=== PATIENT | male | born 1965 | race Caucasian/White ===

== ENCOUNTER → 2017-07-17 09:45 | Outpatient (CLI) | payer OTHER, SELFPAY ==
[2017-07-17 10:02] LABS: Basophils # 0.1 K/mm3 (0-0.2); Basophils % 0.8 % (0.1-2.0); Eosinophils # 0.3 K/mm3 (0.0-0.4); Eosinophils % 3.2 % (0.1-12.0); Hematocrit 45.1 % (42.0-52.0); Hemoglobin 15.1 g/dL (14.1-18.0); Lymphocytes % 22.2 K/mm3 (10-50); Mean Corpuscular HGB Conc 33.4 g/dL (31.8-35.4); Mean Corpuscular Hemoglobin 29.2 pg (27.0-31.2); Mean Corpuscular Volume 87.5 fl (80-94); Mean Platelet Volume 7.3 fl (7.4-10.4); Monocytes # 0.7 K/mm3 (0.1-1.0); Monocytes % 7.2 % (1.7-9.3); Neutrophils # 6.1 K/mm3 (1.8-7.8); Neutrophils % 66.7 % (37.0-80.0); Platelet Count 246 K/mm3 (142-424); Red Blood Count 5.15 M/mm3 (4.60-6.20); Red Cell Distribution Width 13.9 % (11.5-17.5); White Blood Count 9.1 K/mm3 (4.8-10.8)
[2017-07-17 11:33] LABS: Erythrocyte Sedimentation Rate 16 mm/hr (0-20)
[2017-07-17 14:12] LABS: Alanine Aminotransferase 71 U/L (12-78); Albumin Level 3.4 gm/dL (3.4-5.0); Albumin/Globulin Ratio 0.9 (1.1-1.8); Alkaline Phosphatase 100 U/L (46-116); Anion Gap 12.3 mEq/L (5-15); Aspartate Amino Transferase 40 U/L (15-37); Bilirubin,Total 0.5 mg/dL (0.2-1.0); Blood Urea Nitrogen 19 mg/dL (7-18); Calcium 8.7 mg/dL (8.5-10.1); Carbon Dioxide 26 mmol/L (21.0-32.0); Chloride 106 mmol/L (98-107); Chol/HDL Ratio 4.9 (1-3.5); Cholesterol 157 mg/dL (140-200); Creatinine,Serum 1.11 mg/dL (0.70-1.30); Estimated Glomerular Filt Rate 69 ml/min (>60); GFR (African American) 84 ML/MIN (>60); Globulin 3.9 gm/dl (1.3-3.2); Glucose 88 mg/dL (74-106); HDL Cholesterol 32 mg/dL (27-67); LDL Cholesterol 110 mg/dL (0-130); Potassium 4.3 mmoL/L (3.5-5.1); Sodium 140 mmol/L (136-145); Thyroid Stimulating Hormone 2.08 uIU/ml (0.358-3.740); Total Protein,Serum 7.3 gm/dL (6.4-8.2); Triglycerides 74 mg/dL (30-200); Uric Acid 9.7 mg/dL (2.6-7.2); VLDL Cholesterol 15 mg/dL (0-40)
[2017-07-18 18:30] LABS: RA Latex Turbid. <10.0 IU/mL (0.0-13.9)
[2017-07-19 18:10] LABS: Antinuclear Antibodies, IFA Negative (.)
[2017-07-20 10:58] LABS: Anti-Cyclic Citrullinated Pept 12 units (0-19)
== END ==
LOC: LAB 09:48
PROVIDERS: PCP Nurse Practitioner Family; Visit Provider Nurse Practitioner Family
DX: M25.541 Pain in joints of right hand (principal); I10 Essential (primary) hypertension; I25.10 Atherosclerotic heart disease of native coronary artery without angina pectoris; L03.311 Cellulitis of abdominal wall
CPT/HCPCS: 36415; 80053; 80061; 84443; 84550; 85025; 85651; 86038; 86200; 86431

== ENCOUNTER → 2017-09-08 16:23 | Outpatient (CLI) | payer OTHER, SELFPAY ==
--- NOTE | 2017-09-08 16:27 | XR_ITS ---
XR hand LT min 3V HISTORY: Left hand pain ITS.REASON: OSTEOARTHRITIS ORDERING PHYSICIAN: Marco A Castañeda MD PATIENT AGE: 51 years COMPARISON: To 317 FINDINGS: No fracture or dislocation. No lytic or blastic change. There is normal mineralization.. The joint spaces are well-preserved. No significant degenerative/arthritic changes. No erosive changes evident.. Small benign-appearing cystic area is present at the distal aspect of the proximal phalanx of the finger and may be due to a small subarticular cyst IMPRESSION: No acute finding. No arthritic changes apparent
--- NOTE | 2017-09-08 16:27 | XR_ITS ---
XR hand RT min 3V HISTORY: Right hand pain ITS.REASON: OSTEOARTHRITIS ORDERING PHYSICIAN: Marco A Castañeda MD PATIENT AGE: 51 years COMPARISON: None FINDINGS: No fracture or dislocation. No lytic or blastic change. There is normal mineralization.. The joint spaces are well-preserved. No significant degenerative/arthritic changes. No erosive changes evident.. IMPRESSION: Negative, no acute finding
--- NOTE | 2017-09-08 16:28 | XR_ITS ---
XR shoulder RT min 2V HISTORY: ITS.REASON: RT ANTERIOR SHOULDER PAIN ORDERING PHYSICIAN: Marco A Castañeda MD PATIENT AGE: 51 years COMPARISON: None FINDINGS: No fracture or dislocation. No lytic or blastic change. There is normal mineralization. The joint spaces are well-preserved. No significant degenerative/arthritic changes. No erosive changes evident. IMPRESSION: Negative, no acute finding
== END ==
PROVIDERS: PCP Internal Medicine Adolescent Medicine; Visit Provider Internal Medicine Adolescent Medicine
DX: M19.042 Primary osteoarthritis, left hand (principal); M19.041 Primary osteoarthritis, right hand; M25.511 Pain in right shoulder
CPT/HCPCS: 73030; 73130

== ENCOUNTER 2018-05-07 11:17 | Inpatient (IN) ==
--- NOTE | 2018-05-07 11:51 | Pharmacy Consult Notes ---
[facility] Pharmacy VTE Monitoring - Patient Demographics Admission date: 05/07/18 Report Date: 05/07/18 Time: 11:51 Allergies/Adverse Reactions: Patient Allergies No Known Allergies Allergy (Verified 03/12/18 01:44) Height: 1.75 m Weight: 107.643 kg - VTE Risk VTE Score: 1 VTE Risk Level: Very Low Risk - Prophylaxis VTE Prophylaxis Ordered?: Yes Types of VTE Prophylaxis: TEDS Knee High Location of Applied Device: Bilateral Lower Extremeties - VTE Diagnosis Confirmed Treatment or plan recommended: Continue Current Treatment
[2018-05-07 12:05] LABS: Basophils % 0.3 % (0.1-2.0); Eosinophils # 0.1 K/mm3 (0.0-0.4); Eosinophils % 0.5 % (0.1-12.0); Hemoglobin 15.6 g/dL (14.1-18.0); Lymphocytes # 1.2 K/mm3 (0.7-4.5); Lymphocytes % 8.1 % (10-50); Mean Corpuscular HGB Conc 32.4 g/dL (31.8-35.4); Mean Corpuscular Hemoglobin 28.7 pg (27.0-31.2); Mean Corpuscular Volume 88.4 fl (80-94); Mean Platelet Volume 6.9 fl (7.4-10.4); Monocytes # 1.1 K/mm3 (0.1-1.0); Monocytes % 7.3 % (1.7-9.3); Neutrophils # 12.4 K/mm3 (1.8-7.8); Neutrophils % 83.8 % (37.0-80.0); Platelet Count 234 K/mm3 (142-424); Red Blood Count 5.43 M/mm3 (4.60-6.20); Red Cell Distribution Width 14.5 % (11.5-17.5); White Blood Count 14.8 K/mm3 (4.8-10.8)
[2018-05-07 12:11] LABS: Anion Gap 13.9 mEq/L (5-15); Calcium 9.1 mg/dL (8.5-10.1); Potassium 3.9 mmoL/L (3.5-5.1)
--- NOTE | 2018-05-07 12:49 | Pharmacy Consult Notes ---
- Pharmacy Consult Date: 05/07/18 Time: 12:48 Referring provider: DR. BUENO Reason for Consult:: VANCOMYCIN DOSING Allergies and ADEs:: Allergies Allergy/AdvReac Type Severity Reaction Status Date / Time No Known Allergies Allergy Verified 03/12/18 01:44 Home Medications:: Home Medications Medication Instructions Recorded Confirmed Type aspirin 81 mg tablet,delayed 81 mg PO DAILY 10/22/17 05/07/18 History release atorvastatin 20 mg tablet 20 mg PO DAILY 10/22/17 05/07/18 History lisinopril 20 mg tablet 20 mg PO DAILY 10/22/17 05/07/18 History omeprazole 40 mg capsule,delayed 40 mg PO ONCE 10/22/17 05/07/18 History release Height: 1.75 m Weight: 107.643 kg Laboratory Results:: Laboratory Results - last 24 hr 05/07/18 11:50: WBC 14.8 H, RBC 5.43, Hgb 15.6, Hct 48.0, MCV 88.4, MCH 28.7, MCHC 32.4, RDW 14.5, Plt Count 234, MPV 6.9 L, Neut % (Auto) 83.8 H, Lymph % (Auto) 8.1 L, [place] % (Auto) 7.3, Eos % (Auto) 0.5, Baso % (Auto) 0.3, Neut # (Auto) 12.4 H, Lymph # (Auto) 1.2, [place] # (Auto) 1.1 H, Eos # (Auto) 0.1, Baso # (Auto) 0.0 05/07/18 11:50: Sodium 139, Potassium 3.9, Chloride 101, Carbon Dioxide 28, Anion Gap 13.9, BUN 15, Creatinine 1.26, Estimated Creat Clear 102, Estimated GFR 60, Est GFR ( Amer) 72, Glucose 119 H, Calcium 9.1 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: Reports:: Gastroesophageal Reflux Disease(GERD), Hyperlipidemia, Hypertension Denies:: Cancer, Diabetes Mellitus Type 1, Diabetes Mellitus Type 2, MRSA Assessment and Plan - Assessment and plan all Dx Assessment and Plan for all problems:: BASED ON PATIENT FACTORS, RECOMMEND VANCOMYCIN 2,000MG IV Q18H. PHARMACY WILL OBTAIN TROUGH LEVEL PRIOR TO FOURTH DOSE AND ADJUST DOSE/INTERVAL APPROPRIATE AT THAT POINT. -MYLES GALVIN PHARMD
--- NOTE | 2018-05-07 13:31 | Consult Report ---
*Admission Date: 05/07/18 *Chief complaint: Boil on scrotum *History of present illness: Patient is a 52-year-old white male. He states that about a day and a half ago he had noted a tender knot on the fact of the left scrotum. He thought he may have an infected ingrown hair. He tried to squeeze the area. Overnight it became progressively significantly enlarged and had increasing pain. He presented to his primary care provider's office today. He was admitted for inpatient management and surgical consultation was obtained. Review of Systems - Review of Systems Review of systems:: pertinent systems reviewed and negative unless documented below - Constitutional Denies anorexia - Eyes Denies blind spots - ENT Denies abnormal hearing - *Cardiovascular Denies chest pain - *Respiratory Denies shortness of breath - *Gastrointestinal Denies abdominal pain - *Genitourinary Reports genital lesions, Reports genital pain - *Musculoskeletal Denies abnormal walking - Integumentary/Breasts Reports boil [facility] History 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: Reports:: Gastroesophageal Reflux Disease(GERD), Hyperlipidemia, Hypertension Denies:: Cancer, Diabetes Mellitus Type 1, Diabetes Mellitus Type 2, MRSA Laterality Cases: Bilateral: Tonsillectomy Other Surgeries: Yes: Other (back and sinus) Amputation: No Fractures: No - *Social History Educational Level: Completed High School Smoking Status: Never smoker Alcohol Intake: never Substance Use Type: denies use Occupational Status: employed Housing: house Household Members: spouse - Psychiatric History Expresses thoughts of harming self/others: None Suicide Plan Description: No Plan *Family Hx:: Diabetes, Heart Attack, Hyperlipidemia, Hypertension Meds Home Medications Medication Instructions Recorded Confirmed Type aspirin 81 mg tablet,delayed 81 mg PO DAILY 10/22/17 05/07/18 History release atorvastatin 20 mg tablet 20 mg PO DAILY 10/22/17 05/07/18 History lisinopril 20 mg tablet 20 mg PO DAILY 10/22/17 05/07/18 History omeprazole 40 mg capsule,delayed 40 mg PO ONCE 10/22/17 05/07/18 History release Allergies Allergy/AdvReac Type Severity Reaction Status Date / Time No Known Allergies Allergy Verified 03/12/18 01:44 Exam Vital signs and Labs for Last 24 Hours: Temp Pulse Resp BP Pulse Ox 97.8 F 74 18 153/96 H 97 05/07/18 11:44 05/07/18 11:44 05/07/18 11:44 05/07/18 11:44 05/07/18 11:44 Laboratory Results - last 24 hr 05/07/18 11:50: WBC 14.8 H, RBC 5.43, Hgb 15.6, Hct 48.0, MCV 88.4, MCH 28.7, MCHC 32.4, RDW 14.5, Plt Count 234, MPV 6.9 L, Neut % (Auto) 83.8 H, Lymph % ( Auto) 8.1 L, [place] % (Auto) 7.3, Eos % (Auto) 0.5, Baso % (Auto) 0.3, Neut # (Auto) 12.4 H, Lymph # (Auto) 1.2, [place] # (Auto) 1.1 H, Eos # (Auto) 0.1, Baso # (Auto) 0.0 05/07/18 11:50: Sodium 139, Potassium 3.9, Chloride 101, Carbon Dioxide 28, Anion Gap 13.9, BUN 15, Creatinine 1.26, Estimated Creat Clear 102, Estimated GFR 60, Est GFR ( Amer) 72, Glucose 119 H, Calcium 9.1 I & O for Last 24 hours: Intake & Output 05/05/18 05/06/18 05/07/18 05/08/18 11:59 11:59 11:59 11:59 Weight 237 lb 5 oz 237 lb 5 oz - *Routine HEENT Exam Head: Present: normocephalic Eye: Present: EOMI, PERRL ENT: Present: mucous membranes moist - *Routine Neck Exam Present: supple. Absent: lymphadenopathy - *Routine Respiratory Exam Present: CTA bilaterally - *Routine Cardiovascular Exam Present: RRR - *Routine Abdominal Exam Present: soft, normoactive bowel sounds. Absent: tenderness - *Routine Extremities Exam Absent: cyanosis, clubbing, edema - *Routine Skin Exam Present: warm. Absent: rash - *Routine Neurological Exam Present: alert, oriented X3 - Detailed Eye Exam Eyelids: Left normal inspection Comments: In the inferior aspect of the left scrotum the inferior to the testicle there is an area of induration. There is a punctate ulceration. This measures at least 3 cm. Seems to be rather well loculated. It is nonfluctuant. Results - Labs 05/07/18 11:50 05/07/18 11:50 Laboratory Results - last 24 hr 05/07/18 11:50: WBC 14.8 H, RBC 5.43, Hgb 15.6, Hct 48.0, MCV 88.4, MCH 28.7, MCHC 32.4, RDW 14.5, Plt Count 234, MPV 6.9 L, Neut % (Auto) 83.8 H, Lymph % (Auto) 8.1 L, [place] % (Auto) 7.3, Eos % (Auto) 0.5, Baso % (Auto) 0.3, Neut # (Auto) 12.4 H, Lymph # (Auto) 1.2, [place] # (Auto) 1.1 H, Eos # (Auto) 0.1, Baso # (Auto) 0.0 05/07/18 11:50: Sodium 139, Potassium 3.9, Chloride 101, Carbon Dioxide 28, Anion Gap 13.9, BUN 15, Creatinine 1.26, Estimated Creat Clear 102, Estimated GFR 60, Est GFR ( Amer) 72, Glucose 119 H, Calcium 9.1 Assessment and Plan - Assessment and plan all Dx Assessment and Plan for all problems:: This lesion appears rather unusual but likely consistent with focal abscess. Due to lack of urology availability plan will be for limited incision and drainage under anesthesia post procedure to the patient. He understands and agrees to proceed.
--- NOTE | 2018-05-07 13:35 | History & Physical Report ---
*Admission Date: 05/07/18 *Chief complaint: Testicular pain, fever *History of present illness: 52 yr old male presented to clinic this morning with complaints of testicular pain, swelling, and fever. He first noted some minor pain yesterday and reports significantly increased pain and associated fever overnight. In clinic exam revealed localized abscess with induration of approximately 3-4 cm, was febrile at 101 degrees F. and mildly tachycardic. Admitted for IV antibiotics and surgical consultation. [facility] History I have reviewed the patient's past medical history: Yes 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: Reports:: Anxiety, Depression, Gastroesophageal Reflux Disease(GERD), Hyperlipidemia, Hypertension Denies:: Cancer, Diabetes Mellitus Type 1, Diabetes Mellitus Type 2, MRSA Laterality Cases: Bilateral: Tonsillectomy Other Surgeries: Yes: Other (back and sinus) Amputation: No Fractures: No - *Social History Educational Level: Completed High School Smoking Status: Never smoker Alcohol Intake: never Substance Use Type: denies use Occupational Status: employed Housing: house Household Members: spouse - Psychiatric History Expresses thoughts of harming self/others: None Suicide Plan Description: No Plan *Family Hx:: Diabetes, Heart Attack, Hyperlipidemia, Hypertension Comment: psychiatric disease Review of Systems - Review of Systems Review of systems:: pertinent systems reviewed and negative unless documented below - Constitutional Reports body ache(s), Reports chills, Reports fever(s) - Eyes Denies pain - ENT Denies neck pain, Denies sore throat - *Cardiovascular Denies chest pain, Denies shortness of breath with activity - *Respiratory Denies cough - *Gastrointestinal Reports nausea, Denies abdominal pain - *Genitourinary Reports scrotal swelling, Reports testicle pain, Denies difficulty urinating - *Musculoskeletal Denies joint pain, Denies back pain - Integumentary/Breasts Reports redness, Reports boil Comments: Reports several recent boils (left axilla, right abdomen) - *Neurologic Denies abnormal walking, Denies abnormal hearing, Denies weakness - Psychiatric Comments: history of depression and anxiety but reports no active symptoms - Endocrine Denies rapid, pounding, or irregular heartbeat - Hematologic/Lymphatic Denies enlarged lymph nodes Meds Home Medications Medication Instructions Recorded Confirmed Type aspirin 81 mg tablet,delayed 81 mg PO DAILY 10/22/17 05/07/18 History release atorvastatin 20 mg tablet 20 mg PO DAILY 10/22/17 05/07/18 History lisinopril 20 mg tablet 20 mg PO DAILY 10/22/17 05/07/18 History omeprazole 40 mg capsule,delayed 40 mg PO ONCE 10/22/17 05/07/18 History release Allergies Allergy/AdvReac Type Severity Reaction Status Date / Time No Known Allergies Allergy Verified 03/12/18 01:44 Exam Vital signs and Labs for Last 24 Hours: Temp Pulse Resp BP Pulse Ox 97.8 F 74 18 153/96 H 97 05/07/18 11:44 05/07/18 11:44 05/07/18 11:44 05/07/18 11:44 05/07/18 11:44 Laboratory Results - last 24 hr 05/07/18 11:50: WBC 14.8 H, RBC 5.43, Hgb 15.6, Hct 48.0, MCV 88.4, MCH 28.7, MCHC 32.4, RDW 14.5, Plt Count 234, MPV 6.9 L, Neut % (Auto) 83.8 H, Lymph % (Auto) 8.1 L, [place] % (Auto) 7.3, Eos % (Auto) 0.5, Baso % (Auto) 0.3, Neut # (Auto) 12.4 H, Lymph # (Auto) 1.2, [place] # (Auto) 1.1 H, Eos # (Auto) 0.1, Baso # (Auto) 0.0 05/07/18 11:50: Sodium 139, Potassium 3.9, Chloride 101, Carbon Dioxide 28, Anion Gap 13.9, BUN 15, Creatinine 1.26, Estimated Creat Clear 102, Estimated GFR 60, Est GFR ( Amer) 72, Glucose 119 H, Calcium 9.1 I & O for Last 24 hours: Intake & Output 05/05/18 05/06/18 05/07/18 05/08/18 11:59 11:59 11:59 11:59 Weight 237 lb 5 oz 237 lb 5 oz - Constitutional no acute distress, cooperative - *Routine HEENT Exam Head: Present: normocephalic Eye: Present: conjunctivae pink ENT: Present: mucous membranes moist, nares patent - *Routine Neck Exam Present: supple. Absent: lymphadenopathy - *Routine Respiratory Exam Present: CTA bilaterally - *Routine Cardiovascular Exam Present: RRR. Absent: murmur - *Routine Abdominal Exam Present: soft, normoactive bowel sounds. Absent: tenderness, distended - *Routine Extremities Exam Present: full ROM, pulses intact - *Routine Skin Exam Comments: Resolving boil right lower abdomen. Left inferior/posterior aspect of scrotum reveals 3-4cm of induration, mildly warm, central area of ulceration/denuded area, no active drainage. Tender - *Routine Neurological Exam Present: oriented X3 - Routine Psychiatric Exam Present: normal affect, normal thought process Assessment and Plan (1) Abscess of scrotal wall Current visit: Yes Status: Acute Category: Medical Code(s): N49.2 - Inflammatory disorders of scrotum Admitted for IV antibiotics, both vancomycin and clindamycin. Blood cultures, wound culture if able to I&D in OR. Consult general surgery for recommendations (2) HTN (hypertension) Current visit: Yes Status: Chronic Qualifiers: Hypertension type: essential hypertension Qualified Code(s): I10 - Essential (primary) hypertension Category: Medical Code(s): I10 - Essential (primary) hypertension Continue home regimen, monitor
--- NOTE | 2018-05-07 15:11 | Operative Note ---
Date of procedure: 05/07/18 Pre-op Diagnosis:: Scrotal abscess Post-op Diagnosis:: Same Procedure performed:: Incision and drainage of scrotal abscess with debridement of underlying tissues Surgeon:: Lucien Mccollum MD [employer] OPERATOR:: Adan Sands Anesthesia: LMA Estimated blood loss (mL): 10 Clinical Note:: Patient is a 52-year-old white male. He states that about a day and half ago he had noticed a small knot in the inferior left hemiscrotum. Overnight it had markedly increased in size. He presented to his primary care provider's office with tenderness at the area in question. He also had fevers with mild tachycardia. He was found to have a leukocytosis and was admitted for inpatient management. Surgical consultation was obtained. Patient was found to have approximately a 3-4 cm area of induration with erythema in the inferior aspect of the left scrotum. This appeared to be rather focal. Plan was made for incision and drainage. Operative findings:: Minimal purulence. Some fibrinopurulent thickened tissues. Operative note:: Consent was obtained. Patient was taken to the operating room. He was given preoperative intravenous antibiotics. General anesthesia was induced via LMA. He was positioned and the area was prepped and draped in the standard surgical fashion. There was some excoriation of the skin somewhat centrally in the area of the induration. 18-gauge needle was inserted. No significant pus was evacuated but there was a small amount of caseous material which was able to be aspirated. Limited incision was made at the site and the wound was probed. There was a small amount of pus which exuded from the area. Incision was extended somewhat as a cruciate type incision. Wound was thoroughly explored and probed with a hemostat to check for any loculations. There is minimal pus. This thickened tissue. Much of this was debrided using Metzenbaum dissection with some use of scalpel dissection using a 15 blade. This was sent off as specimen, debrided tissue. Wound was irrigated. Wound was packed with 1/2 inch plain packing gauze strip. Dressing was applied. Condition: stable Disposition: PACU Specimens:: Cultures sent Debrided tissue Complications:: None immediately apparent
--- NOTE | 2018-05-07 15:15 | Progress Note ---
[facility] Anesthesia Checklist - Structural Data Admitted From: Inpatient Planned Operative Procedure/s: i/d scrotal abcess Consent for Planned Operative Procedure(s) Verified: Yes Verified Documents: Surgical Consent - Airway Assessment C-Spine Mobility Assessed: Yes TMJ Mobility Assessed: Yes Dentition: Poor Dentition - Neurological Assessment Level of Consciousness: Awake, Alert, Appropriate - Anesthesia Plan Anesthesia Risk discussed: Yes Anesthesia Plan: Verified ASA Class: II Anesthesia Type: General [facility] History I have reviewed the patient's past medical history: Yes 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: Reports:: Gastroesophageal Reflux Disease(GERD), Hyperlipidemia, Hypertension Denies:: Cancer, Diabetes Mellitus Type 1, Diabetes Mellitus Type 2, MRSA Laterality Cases: Bilateral: Tonsillectomy Other Surgeries: Yes: Other (back and sinus) Amputation: No Fractures: No - *Social History Educational Level: Completed High School Smoking Status: Never smoker Alcohol Intake: never Substance Use Type: denies use Occupational Status: employed Housing: house Household Members: spouse - Psychiatric History Expresses thoughts of harming self/others: None Suicide Plan Description: No Plan *Family Hx:: Diabetes, Heart Attack, Hyperlipidemia, Hypertension
--- NOTE | 2018-05-07 15:16 | Progress Note ---
[facility] Anesthesia Record Part I Intake, IV Amount: 800 Estimated blood loss (mL): 0 Urine output (mL): 0 Blood Pressure: 185/90 SaO2: 91 Pulse Rate: 106 Respiratory Rate: 12 Temperature: 100.1 F Patient is:: Awake, Stable Stable to PACU at:: 15:15
--- NOTE | 2018-05-07 15:16 | Progress Note ---
[facility] Anesthesia Record Part II Discharge Time: 15:45 Destination: floor PACU nurse assessment reviewed?: Yes Patient Condition:: Good Anesthesia Complications:: None
[2018-05-08 06:45] LABS: Basophils % 0.1 % (0.1-2.0); Hematocrit 40.7 % (42.0-52.0); Lymphocytes # 1.1 K/mm3 (0.7-4.5); Mean Corpuscular HGB Conc 33.4 g/dL (31.8-35.4); Mean Corpuscular Hemoglobin 29.4 pg (27.0-31.2); Mean Corpuscular Volume 88.3 fl (80-94); Mean Platelet Volume 7.3 fl (7.4-10.4); Monocytes # 1.1 K/mm3 (0.1-1.0); Neutrophils # 19.6 K/mm3 (1.8-7.8); Neutrophils % 89.9 % (37.0-80.0); Platelet Count 252 K/mm3 (142-424); Red Blood Count 4.61 M/mm3 (4.60-6.20); Red Cell Distribution Width 14.2 % (11.5-17.5)
[2018-05-08 06:47] LABS: Hemoglobin 13.6 g/dL (14.1-18.0); White Blood Count 21.8 K/mm3 (4.8-10.8)
[2018-05-08 07:00] LABS: Anion Gap 13.1 mEq/L (5-15); Calcium 8.8 mg/dL (8.5-10.1); Potassium 4.1 mmoL/L (3.5-5.1)
[2018-05-08 07:12] LABS: Lymphocytes % 5 % (10-50); Monocytes % 2 % (2-9); Neutrophils % 86 % (42-76); RBC Morphology Normal; Total Cells Counted 100
--- NOTE | 2018-05-08 07:26 | Progress Note ---
Internal Medicine - PN: Subj *Date: 05/08/18 *Time: 07:24 Interval history: Patient underwent I&D of scrotal abscess yesterday by Dr. Mccollum. Patient states he has less pain this morning. He had low-grade fevers on admission but has not had any fevers overnight. Exam Vital signs and Labs for Last 24 Hours: Temp Pulse Resp BP Pulse Ox 98.3 F 82 18 123/74 97 05/08/18 04:00 05/08/18 04:00 05/08/18 04:00 05/08/18 04:00 05/08/18 04:00 Laboratory Results - last 24 hr 05/07/18 11:50: WBC 14.8 H, RBC 5.43, Hgb 15.6, Hct 48.0, MCV 88.4, MCH 28.7, MCHC 32.4, RDW 14.5, Plt Count 234, MPV 6.9 L, Neut % (Auto) 83.8 H, Lymph % (Auto) 8.1 L, [place] % (Auto) 7.3, Eos % (Auto) 0.5, Baso % (Auto) 0.3, Neut # (Auto) 12.4 H, Lymph # (Auto) 1.2, [place] # (Auto) 1.1 H, Eos # (Auto) 0.1, Baso # (Auto) 0.0 05/07/18 11:50: Sodium 139, Potassium 3.9, Chloride 101, Carbon Dioxide 28, Anion Gap 13.9, BUN 15, Creatinine 1.26, Estimated Creat Clear 102, Estimated GFR 60, Est GFR ( Amer) 72, Glucose 119 H, Calcium 9.1 05/08/18 06:37: WBC 21.8 H* D, RBC 4.61, Hgb 13.6 L D, Hct 40.7 L, MCV 88.3, MCH 29.4, MCHC 33.4, RDW 14.2, Plt Count 252, MPV 7.3 L, Neut % (Auto) 89.9 H, Lymph % (Auto) 5.0 L, [place] % (Auto) 5.0, Eos % (Auto) 0.0 L, Baso % (Auto) 0.1, Neut # (Auto) 19.6 H, Lymph # (Auto) 1.1, [place] # (Auto) 1.1 H, Eos # (Auto) 0.0, Baso # (Auto) 0.0, Total Counted 100, Neutrophils % (Manual) 86 H, Band Neutrophils % 7.0, Lymphocytes % (Manual) 5 L, Monocytes % (Manual) 2, Platelet Estimate Normal, RBC Morphology Normal 05/08/18 06:37: Sodium 137, Potassium 4.1, Chloride 103, Carbon Dioxide 25, Anion Gap 13.1, BUN 20 H D, Creatinine 1.11, Estimated Creat Clear 116, Estimated GFR 69, Est GFR ( Amer) 84, Glucose 158 H D, Calcium 8.8 I & O for Last 24 hours: Intake & Output 05/05/18 05/06/18 05/07/18 05/08/18 11:59 11:59 11:59 11:59 Intake Total 2873 / 2873 Output Total 0 / 0 Balance 2873 / 2873 Weight 237 lb 5 oz 237 lb 5 oz Microbiology Reports for the Last 24 Hours: Microbiology 05/07/18 14:33 Scrotum Gram Stain - Final Narrative: He is in no distress. Lungs are clear to auscultation. Heart has a regular rate and rhythm. Scrotal examination reveals induration around the incision site which is packed. There is very little if any redness. Area was not tender to palpation. Wound culture is showing gram-positive cocci in chains and clusters. White blood cell count has increased overnight Assessment and Plan (1) Abscess of scrotal wall Current visit: Yes Status: Acute Category: Medical Code(s): N49.2 - Inflammatory disorders of scrotum (2) HTN (hypertension) Current visit: Yes Status: Chronic Qualifiers: Hypertension type: essential hypertension Qualified Code(s): I10 - Essential (primary) hypertension Category: Medical Code(s): I10 - Essential (primary) hypertension - Assessment and plan all Dx Assessment and Plan for all problems:: Patient looks well. Due to the increase in white blood cell count patient will be kept another 24 hours with continue antibiotics while cultures are pending. Continue clindamycin and vancomycin
--- NOTE | 2018-05-08 08:50 | Progress Note ---
Subjective Patient reports: feels better Narrative: Patient feels better. Less pain. Exam Vital signs and Labs for Last 24 Hours: Temp Pulse Resp BP Pulse Ox 97.3 F L 77 16 119/69 99 05/08/18 08:00 05/08/18 08:00 05/08/18 08:00 05/08/18 08:00 05/08/18 08:00 Laboratory Results - last 24 hr 05/07/18 11:50: WBC 14.8 H, RBC 5.43, Hgb 15.6, Hct 48.0, MCV 88.4, MCH 28.7, MCHC 32.4, RDW 14.5, Plt Count 234, MPV 6.9 L, Neut % (Auto) 83.8 H, Lymph % (Auto) 8.1 L, [place] % (Auto) 7.3, Eos % (Auto) 0.5, Baso % (Auto) 0.3, Neut # (Auto) 12.4 H, Lymph # (Auto) 1.2, [place] # (Auto) 1.1 H, Eos # (Auto) 0.1, Baso # (Auto) 0.0 05/07/18 11:50: Sodium 139, Potassium 3.9, Chloride 101, Carbon Dioxide 28, Anion Gap 13.9, BUN 15, Creatinine 1.26, Estimated Creat Clear 102, Estimated GFR 60, Est GFR ( Amer) 72, Glucose 119 H, Calcium 9.1 05/08/18 06:37: WBC 21.8 H* D, RBC 4.61, Hgb 13.6 L D, Hct 40.7 L, MCV 88.3, MCH 29.4, MCHC 33.4, RDW 14.2, Plt Count 252, MPV 7.3 L, Neut % (Auto) 89.9 H, Lymph % (Auto) 5.0 L, [place] % (Auto) 5.0, Eos % (Auto) 0.0 L, Baso % (Auto) 0.1, Neut # (Auto) 19.6 H, Lymph # (Auto) 1.1, [place] # (Auto) 1.1 H, Eos # (Auto) 0.0, Baso # (Auto) 0.0, Total Counted 100, Neutrophils % (Manual) 86 H, Band Neutrophils % 7.0, Lymphocytes % (Manual) 5 L, Monocytes % (Manual) 2, Platelet Estimate Normal, RBC Morphology Normal 05/08/18 06:37: Sodium 137, Potassium 4.1, Chloride 103, Carbon Dioxide 25, Anion Gap 13.1, BUN 20 H D, Creatinine 1.11, Estimated Creat Clear 116, Estimated GFR 69, Est GFR ( Amer) 84, Glucose 158 H D, Calcium 8.8 I & O for Last 24 hours: Intake & Output 05/05/18 05/06/18 05/07/18 05/08/18 11:59 11:59 11:59 11:59 Intake Total 3233 / 3233 Output Total 0 / 0 Balance 3233 / 3233 Weight 237 lb 5 oz 237 lb 5 oz Microbiology Reports for the Last 24 Hours: Microbiology 05/07/18 14:33 Scrotum Gram Stain - Final - *Routine Exam Comments: Wound is relatively clean. Persistent induration. No erythema. No fluctuance. No purulent drainage. Progress Note: A&P (1) Abscess of scrotal wall Status: Acute Current Visit: Yes (2) HTN (hypertension) Status: Chronic Current Visit: Yes Assessment and Plan for All Diagnoses:: He has progressive leukocytosis to greater than 21,000. It seems unlikely that this is secondary to this focal soft tissue infection. For now continue clindamycin and vancomycin. Check cultures. May need some gram-negative coverage.
[2018-05-09 07:16] LABS: Basophils % 0.3 % (0.1-2.0); Eosinophils % 0.3 % (0.1-12.0); Hematocrit 37.4 % (42.0-52.0); Lymphocytes # 1.9 K/mm3 (0.7-4.5); Lymphocytes % 12.2 % (10-50); Mean Corpuscular HGB Conc 32.8 g/dL (31.8-35.4); Mean Corpuscular Hemoglobin 29.1 pg (27.0-31.2); Mean Corpuscular Volume 88.8 fl (80-94); Mean Platelet Volume 7.2 fl (7.4-10.4); Monocytes # 0.9 K/mm3 (0.1-1.0); Monocytes % 6.1 % (1.7-9.3); Neutrophils # 12.6 K/mm3 (1.8-7.8); Neutrophils % 81.2 % (37.0-80.0); Platelet Count 220 K/mm3 (142-424); Red Blood Count 4.21 M/mm3 (4.60-6.20); Red Cell Distribution Width 14.4 % (11.5-17.5); White Blood Count 15.5 K/mm3 (4.8-10.8)
[2018-05-09 07:20] LABS: Anion Gap 12.8 mEq/L (5-15); Calcium 8.6 mg/dL (8.5-10.1); Potassium 3.8 mmoL/L (3.5-5.1)
[2018-05-09 07:31] LABS: Hemoglobin 12.3 g/dL (14.1-18.0)
--- NOTE | 2018-05-09 08:18 | Progress Note ---
Internal Medicine - PN: Subj *Date: 05/09/18 *Time: 08:16 Interval history: Patient feels improved. No fevers through the night. Tolerating p.o. well. Groin abscess is much improved, packing in place, minimal redness around the area. No significant lymph nodes noted. Lungs are clear, heart rate regular, abdomen soft, ENT exam clear. Neurologically intact. Exam Vital signs and Labs for Last 24 Hours: Temp Pulse Resp BP Pulse Ox 98.2 F 86 18 143/75 H 96 05/09/18 08:00 05/09/18 08:00 05/09/18 08:00 05/09/18 08:00 05/09/18 08:00 Laboratory Results - last 24 hr 05/09/18 06:28: WBC 15.5 H D, RBC 4.21 L, Hgb 12.3 L, Hct 37.4 L, MCV 88.8, MCH 29.1, MCHC 32.8, RDW 14.4, Plt Count 220, MPV 7.2 L, Neut % (Auto) 81.2 H, Lymph % (Auto) 12.2, [place] % (Auto) 6.1, Eos % (Auto) 0.3, Baso % (Auto) 0.3, Neut # (Auto) 12.6 H, Lymph # (Auto) 1.9, [place] # (Auto) 0.9, Eos # (Auto) 0.0, Baso # (Auto) 0.0 05/09/18 06:28: Sodium 142, Potassium 3.8, Chloride 107, Carbon Dioxide 26, Anion Gap 12.8, BUN 21 H, Creatinine 1.00, Estimated Creat Clear 129, Estimated GFR 78, Est GFR ( Amer) 94, Glucose 90 D, Calcium 8.6 I & O for Last 24 hours: Intake & Output 05/06/18 05/07/18 05/08/18 05/09/18 11:59 11:59 11:59 11:59 Intake Total 3233 / 3233 2784 / 2784 Output Total 0 / 0 0 / 0 Balance 3233 / 3233 2784 / 2784 Weight 237 lb 5 oz 237 lb 5 oz Microbiology Reports for the Last 24 Hours: Microbiology 05/07/18 14:33 Scrotum Gram Stain - Final 05/07/18 14:33 Scrotum Abscess Culture - Final Staphylococcus aureus Assessment and Plan (1) Abscess of scrotal wall Current visit: Yes Status: Acute Category: Medical Code(s): N49.2 - Inflammatory disorders of scrotum Vastly improved. Sensitivity panels reviewed, leukocytosis improved. Stop vancomycin, changed to Levaquin and Bactrim therapy. Clindamycin while at hospital. From my perspective patient could reasonably discharged with close outpatient follow-up as his is very familiar with packing. Await surgery advice. (2) HTN (hypertension) Current visit: Yes Status: Chronic Qualifiers: Hypertension type: essential hypertension Qualified Code(s): I10 - Essential (primary) hypertension Category: Medical Code(s): I10 - Essential (primary) hypertension
--- NOTE | 2018-05-09 09:13 | Progress Note ---
Subjective Narrative: Patient without significant complaints. Very concerned about managing "infection" once discharged. Asking for something for sleep. Exam Vital signs and Labs for Last 24 Hours: Temp Pulse Resp BP Pulse Ox 98.2 F 86 18 143/75 H 96 05/09/18 08:00 05/09/18 08:00 05/09/18 08:00 05/09/18 08:00 05/09/18 08:00 Laboratory Results - last 24 hr 05/09/18 06:28: WBC 15.5 H D, RBC 4.21 L, Hgb 12.3 L, Hct 37.4 L, MCV 88.8, MCH 29.1, MCHC 32.8, RDW 14.4, Plt Count 220, MPV 7.2 L, Neut % (Auto) 81.2 H, Lymph % (Auto) 12.2, [place] % (Auto) 6.1, Eos % (Auto) 0.3, Baso % (Auto) 0.3, Neut # (Auto) 12.6 H, Lymph # (Auto) 1.9, [place] # (Auto) 0.9, Eos # (Auto) 0.0, Baso # (Auto) 0.0 05/09/18 06:28: Sodium 142, Potassium 3.8, Chloride 107, Carbon Dioxide 26, Anion Gap 12.8, BUN 21 H, Creatinine 1.00, Estimated Creat Clear 129, Estimated GFR 78, Est GFR ( Amer) 94, Glucose 90 D, Calcium 8.6 I & O for Last 24 hours: Intake & Output 05/06/18 05/07/18 05/08/18 05/09/18 11:59 11:59 11:59 11:59 Intake Total 3233 / 3233 2784 / 2784 Output Total 0 / 0 0 / 0 Balance 3233 / 3233 2784 / 2784 Weight 237 lb 5 oz 237 lb 5 oz Microbiology Reports for the Last 24 Hours: Microbiology 05/07/18 14:33 Scrotum Gram Stain - Final 05/07/18 14:33 Scrotum Abscess Culture - Final Staphylococcus aureus - *Routine Exam Comments: Some induration and erythema (improving). Minimal drainage. Progress Note: A&P (1) Abscess of scrotal wall Status: Acute Current Visit: Yes (2) HTN (hypertension) Status: Chronic Current Visit: Yes Assessment and Plan for All Diagnoses:: Continue IV antibiotics today. If WBC normalizes by tomorrow may discharge home on oral antibiotics and dressing changes.
[2018-05-09 09:36] LABS: Lymphocytes % 11 % (10-50); Monocytes % 8 % (2-9); Neutrophils % 80 % (42-76); RBC Morphology Normal; Total Cells Counted 100
[2018-05-10 06:44] LABS: Basophils # 0.1 K/mm3 (0-0.2); Basophils % 0.9 % (0.1-2.0); Eosinophils # 0.2 K/mm3 (0.0-0.4); Eosinophils % 1.6 % (0.1-12.0); Hematocrit 41.7 % (42.0-52.0); Hemoglobin 13.4 g/dL (14.1-18.0); Lymphocytes # 1.9 K/mm3 (0.7-4.5); Lymphocytes % 20.1 % (10-50); Mean Corpuscular HGB Conc 32.2 g/dL (31.8-35.4); Mean Corpuscular Hemoglobin 28.4 pg (27.0-31.2); Mean Corpuscular Volume 88.3 fl (80-94); Mean Platelet Volume 6.9 fl (7.4-10.4); Monocytes # 0.8 K/mm3 (0.1-1.0); Monocytes % 8.7 % (1.7-9.3); Neutrophils # 6.5 K/mm3 (1.8-7.8); Neutrophils % 68.8 % (37.0-80.0); Platelet Count 250 K/mm3 (142-424); Red Blood Count 4.73 M/mm3 (4.60-6.20); Red Cell Distribution Width 14.5 % (11.5-17.5); White Blood Count 9.4 K/mm3 (4.8-10.8)
[2018-05-10 07:01] LABS: Anion Gap 13.8 mEq/L (5-15); Calcium 8.9 mg/dL (8.5-10.1); Potassium 3.8 mmoL/L (3.5-5.1)
--- NOTE | 2018-05-10 07:06 | Progress Note ---
Subjective Patient reports: feels better Exam Vital signs and Labs for Last 24 Hours: Temp Pulse Resp BP Pulse Ox 98.2 F 76 18 132/87 95 05/10/18 04:00 05/10/18 04:00 05/10/18 04:00 05/10/18 04:00 05/10/18 04:00 Laboratory Results - last 24 hr 05/09/18 06:28: WBC 15.5 H D, RBC 4.21 L, Hgb 12.3 L, Hct 37.4 L, MCV 88.8, MCH 29.1, MCHC 32.8, RDW 14.4, Plt Count 220, MPV 7.2 L, Neut % (Auto) 81.2 H, Lymph % (Auto) 12.2, [place] % (Auto) 6.1, Eos % (Auto) 0.3, Baso % (Auto) 0.3, Neut # (Auto) 12.6 H, Lymph # (Auto) 1.9, [place] # (Auto) 0.9, Eos # (Auto) 0.0, Baso # (Auto) 0.0, Total Counted 100, Neutrophils % (Manual) 80 H, Lymphocytes % (Manual) 11, Atypical Lymphs % 1.0, Monocytes % (Manual) 8, Platelet Estimate Normal, RBC Morphology Normal 05/09/18 06:28: Sodium 142, Potassium 3.8, Chloride 107, Carbon Dioxide 26, Anion Gap 12.8, BUN 21 H, Creatinine 1.00, Estimated Creat Clear 129, Estimated GFR 78, Est GFR ( Amer) 94, Glucose 90 D, Calcium 8.6 05/10/18 06:25: WBC 9.4 D, RBC 4.73, Hgb 13.4 L, Hct 41.7 L, MCV 88.3, MCH 28.4, MCHC 32.2, RDW 14.5, Plt Count 250, MPV 6.9 L, Neut % (Auto) 68.8, Lymph % (Auto) 20.1, [place] % (Auto) 8.7, Eos % (Auto) 1.6, Baso % (Auto) 0.9, Neut # (Auto) 6.5, Lymph # (Auto) 1.9, [place] # (Auto) 0.8, Eos # (Auto) 0.2, Baso # (Auto) 0.1 05/10/18 06:25: Sodium 141, Potassium 3.8, Chloride 104, Carbon Dioxide 27, Anion Gap 13.8, BUN 17, Creatinine 1.19, Estimated Creat Clear 108, Estimated GFR 64, Est GFR ( Amer) 77, Glucose 89, Calcium 8.9 I & O for Last 24 hours: Intake & Output 05/07/18 05/08/18 05/09/18 05/10/18 11:59 11:59 11:59 11:59 Intake Total 3233 / 3233 2784 / 2784 3077 / 3077 Output Total 0 / 0 0 / 0 Balance 3233 / 3233 2784 / 2784 3077 / 3077 Weight 237 lb 5 oz 237 lb 5 oz Microbiology Reports for the Last 24 Hours: Microbiology 05/07/18 11:50 Blood Blood Culture - Preliminary NO GROWTH AFTER 48 HOURS 05/07/18 11:50 Blood Blood Culture - Preliminary NO GROWTH AFTER 48 HOURS 05/07/18 14:33 Scrotum Gram Stain - Final 05/07/18 14:33 Scrotum Abscess Culture - Final Staphylococcus aureus - Constitutional no acute distress - *Routine Skin Exam Comments: wound margin clean with no spreading cellulitis Progress Note: A&P (1) Abscess of scrotal wall Status: Acute Assessment and plan: Overall, doing well s/p I&D f/u pending WBC possible d/c home today with outpatient dressing changes and PO abx Current Visit: Yes (2) HTN (hypertension) Status: Chronic Current Visit: Yes
--- NOTE | 2018-05-10 07:35 | Progress Note ---
Internal Medicine - PN: Subj *Date: 05/10/18 *Time: 07:35 Exam Vital signs and Labs for Last 24 Hours: Temp Pulse Resp BP Pulse Ox 98.2 F 76 18 132/87 95 05/10/18 04:00 05/10/18 04:00 05/10/18 04:00 05/10/18 04:00 05/10/18 04:00 Laboratory Results - last 24 hr 05/09/18 06:28: Total Counted 100, Neutrophils % (Manual) 80 H, Lymphocytes % (Manual) 11, Atypical Lymphs % 1.0, Monocytes % (Manual) 8, Platelet Estimate Normal, RBC Morphology Normal 05/10/18 06:25: WBC 9.4 D, RBC 4.73, Hgb 13.4 L, Hct 41.7 L, MCV 88.3, MCH 28.4 , MCHC 32.2, RDW 14.5, Plt Count 250, MPV 6.9 L, Neut % (Auto) 68.8, Lymph % (Auto) 20.1, [place] % (Auto) 8.7, Eos % (Auto) 1.6, Baso % (Auto) 0.9, Neut # (Auto) 6.5, Lymph # (Auto) 1.9, [place] # (Auto) 0.8, Eos # (Auto) 0.2, Baso # (Auto) 0.1 05/10/18 06:25: Sodium 141, Potassium 3.8, Chloride 104, Carbon Dioxide 27, Anion Gap 13.8, BUN 17, Creatinine 1.19, Estimated Creat Clear 108, Estimated GFR 64, Est GFR ( Amer) 77, Glucose 89, Calcium 8.9 I & O for Last 24 hours: Intake & Output 05/07/18 05/08/18 05/09/18 05/10/18 23:59 23:59 23:59 23:59 Intake Total 1280 / 1280 3367 / 3367 3402 / 3402 1045 / 1045 Output Total 0 / 0 0 / 0 Balance 1280 / 1280 3367 / 3367 3402 / 3402 1045 / 1045 Weight 107.643 kg Microbiology Reports for the Last 24 Hours: Microbiology 05/07/18 11:50 Blood Blood Culture - Preliminary NO GROWTH AFTER 48 HOURS 05/07/18 11:50 Blood Blood Culture - Preliminary NO GROWTH AFTER 48 HOURS 05/07/18 14:33 Scrotum Gram Stain - Final 05/07/18 14:33 Scrotum Abscess Culture - Final Staphylococcus aureus Assessment and Plan (1) Abscess of scrotal wall Current visit: Yes Status: Acute Category: Medical Code(s): N49.2 - Inflammatory disorders of scrotum (2) HTN (hypertension) Current visit: Yes Status: Chronic Qualifiers: Hypertension type: essential hypertension Qualified Code(s): I10 - Essential (primary) hypertension Category: Medical Code(s): I10 - Essential (primary) hypertension The patient's infection will respond to the chosen ABx?: Yes Is the patient receiving the right drug, dose, and route?: Yes Could a more targeted ABx be ordered?: No (POSSIBLY HOME ON PO ABX)
--- NOTE | 2018-05-10 08:02 | Discharge Summary ---
General - General Admission date:: 05/07/18 Discharge date: 05/10/18 HPI HPI: 52 yr old male presented to clinic this morning with complaints of testicular pain, swelling, and fever. He first noted some minor pain yesterday and reports significantly increased pain and associated fever overnight. In clinic exam revealed localized abscess with induration of approximately 3-4 cm, was febrile at 101 degrees F. and mildly tachycardic. Admitted for IV antibiotics and surgical consultation. Hospital Course Hospital Course: Patient was admitted, surgical consultation obtained, I&D was performed, this was uncomplicated and had a very good result with drainage of the abscess. Culture grew MRSA also resistant to vancomycin, please note this is a community- acquired infection. However fortunately, testing showed sensitivity to quinolones and Bactrim. Patient did well with packing, and had no fevers. Met goals for surgical treatment and antibiotic therapy. This morning has reached maximal medical improvement the hospital. His is well equipped and trained to do packing, and we will be discharging him home today with antibiotic coverage, packing instructions and follow-up with the surgical service next week. Objective Vital signs: Temp Pulse Resp BP Pulse Ox 98.2 F 76 18 132/87 96 05/10/18 04:00 05/10/18 04:00 05/10/18 04:00 05/10/18 04:00 05/10/18 07:48 Narrative: Patient's blood, alert, oriented x3. ENT exam clear. Lungs clear bilaterally, heart rate regular without murmurs. No edema in the feet or arms. Scrotal exam done by surgical service this morning. Please see their notes. Results Labs on day of discharge: Labs from last 24 hours 05/10/18 05/10/18 05/09/18 06:25 06:25 06:28 WBC 9.4 D RBC 4.73 Hgb 13.4 L Hct 41.7 L MCV 88.3 MCH 28.4 MCHC 32.2 RDW 14.5 Plt Count 250 MPV 6.9 L Neut % (Auto) 68.8 Lymph % (Auto) 20.1 [place] % (Auto) 8.7 Eos % (Auto) 1.6 Baso % (Auto) 0.9 Neut # (Auto) 6.5 Lymph # (Auto) 1.9 [place] # (Auto) 0.8 Eos # (Auto) 0.2 Baso # (Auto) 0.1 Total Counted 100 Neutrophils % (Manual) 80 H Lymphocytes % (Manual) 11 Atypical Lymphs % 1.0 Monocytes % (Manual) 8 Platelet Estimate Normal RBC Morphology Normal Sodium 141 Potassium 3.8 Chloride 104 Carbon Dioxide 27 Anion Gap 13.8 BUN 17 Creatinine 1.19 Estimated Creat Clear 108 Estimated GFR 64 Est GFR ( Amer) 77 Glucose 89 Calcium 8.9 Preliminary micro results at discharge 05/07/18 11:50 Blood Culture - Preliminary Blood NO GROWTH AFTER 48 HOURS 05/07/18 11:50 Blood Culture - Preliminary Blood NO GROWTH AFTER 48 HOURS DS: Diagnosis - Discharge Diagnosis (1) Abscess of scrotal wall Status: Acute (2) HTN (hypertension) Status: Chronic Discharge Plan - Patient Discharge Instructions ACTIVITY: Continue current activity DIET: continue same diet - Follow up Plan Follow up with: Lucien Mccollum MD [Staff Physician] - 1 week Disposition: Home, Self-Nursing Home Medications: Home Medications Medication Instructions Recorded Confirmed Type aspirin 81 mg tablet,delayed 81 mg PO DAILY 10/22/17 05/07/18 History release atorvastatin 20 mg tablet 20 mg PO DAILY 10/22/17 05/07/18 History lisinopril 20 mg tablet 20 mg PO DAILY 10/22/17 05/07/18 History omeprazole 40 mg capsule,delayed 40 mg PO DAILY 10/22/17 05/08/18 History release
== END 2018-05-10 11:50 | disposition home or self-care (01) ==
LOC: 2ND → OBSVTOIN 11:21
PROVIDERS: ADMIT Internal Medicine Adolescent Medicine; ATTEND Internal Medicine Adolescent Medicine

== ENCOUNTER 2019-11-20 11:15 | Emergency (ER) | payer BC, SELFPAY ==
[2019-11-20 11:17] VITALS: BP 141/93; PULSE 80; RESP 18; TEMP 36.8; O2SAT 96; BMI 36.6
--- NOTE | 2019-11-20 11:40 | XR_ITS ---
PROCEDURE: XR FOOT RT MIN 3V CLINICAL INDICATION: RT HEEL PAIN COMPARISON: FTL3 FOOT-LT-3 VIEWS from 09/05/2016 FINDINGS: No fracture or dislocation. No lytic or blastic change. There is normal mineralization. The joint spaces are well-preserved. No significant degenerative/arthritic changes. No erosive changes evident. Other findings:There is a small defect along the proximal and medial aspect of the proximal phalanx of the great toe which could be related to an old punched-out lesion of gout. This is well-circumscribed. No other significant anomalies are evident. No bone spurs are evident at the calcaneus. IMPRESSION: No acute finding. Possible old punched-out lesion of the proximal phalanx of the great toe from a gout Dictated by: Sergo Langford MD 11/20/2019 13:07 Electronically signed by Sergo Langford MD in [place] 11/20/2019 13:07
--- NOTE | 2019-11-20 11:42 | PC.NURSE ---
NOTIFIED RAD OF XRAY
--- NOTE | 2019-11-20 12:02 | HMH.EDGENADL ---
ED Disposition Clinical Impression: Achilles tendonitis Qualifiers: Laterality: right Qualified Code(s): M76.61 - Achilles tendinitis, right leg Disposition: Home, Self-Care Condition on Discharge: Good Instructions: DI for Acute Pain -- Adult Additional Instructions: see dr landaverde now Referrals: Marco A Castañeda MD [Primary Care Provider] - - Critical Care Critical Care Time: No Attestation: On 11/20/19, the high probability of a clinically significant, sudden or life threatening deterioration of the following system(s) required my full and direct attention, intervention and personal management. The time I documented below is in addition to time spent performing reported procedures but includes the following listed in this critical care notation. Medical Decision Making - Medical Records Medical records reviewed: Yes: I reviewed the patient's medical records. - Darren Inquiry Pt receiving controlled substance: No Vital Signs: 11/20/19 11:17 Temperature 98.3 F Temperature Source Oral Pulse Rate [Right Radial] 80 Respiratory Rate 18 Blood Pressure [Right Arm] 141/93 H Blood Pressure Mean [Right Arm] 109 Blood Pressure Source [Right Arm] Automatic Cuff Blood Pressure Position [Right Arm] Sitting 02 Sat by Pulse Oximetry 96 Oxygen Delivery Method Room Air - Lab Data Lab results reviewed: Yes: I reviewed the patient's lab results. Lab Results 11/20/19 12:12: WBC 7.1, RBC 5.01, Hgb 15.3, Hct 44.5, MCV 88.8, MCH 30.6, MCHC 34.5, RDW 14.3, Plt Count 225, MPV 7.4, Neut % (Auto) 70.1, Lymph % (Auto) 19.6, [place] % (Auto) 6.4, Eos % (Auto) 3.2, Baso % (Auto) 0.6, Neut # (Auto) 5.0, Lymph # (Auto) 1.4, [place] # (Auto) 0.5, Eos # (Auto) 0.2, Baso # (Auto) 0.0 Result diagrams: 11/20/19 12:12 Orders (Tests/Meds): ORDERS Category Date Time Status XR foot RT min 3V Stat Exams 11/20/19 11:40 Taken C-Reactive Protein Stat Lab 11/20/19 12:12 Received Complete Blood Count Auto Diff Stat Lab 11/20/19 12:12 Results Comprehensive Metabolic Panel Stat Lab 11/20/19 12:12 Received Erythrocyte Sedimentation Rate Stat Lab 11/20/19 12:12 Results Uric Acid Stat Lab 11/20/19 12:12 Received - Radiology Data #1 Image(s): Foot/Toes Image Reviewed: Yes I reviewed the patient's radiology image Preliminary Findings: No Fracture Seen - Physician Consults Physician Consulted: saima Reason -: Pt condition General Adult HPI - General Chief complaint: PAIN Stated complaint: R foot pain Time Seen by Provider: 11/20/19 11:30 Mode of Arrival: Ambulatory Source of Information: Patient, Medical Record Limitations: No Limitations Description of Symptoms (Recalled from ER Triage Doc. by RN): PT C/O RT HEEL PAIN SINCE WEDNESDAY. NO KNOWN INJURY. PT REPORTS HX OF GOUT IN THE RT GREAT TOE. PT STATES THAT HE BEGAN TAKING HIS GOUT MED YESTERDAY, HAVING 2 DOSES UP TO NOW, BUT HAS HAD NO RELIEF. - History of Present Illness HPI narrative: atraumatic rt heel pain with pain with rom and wt bearing - hx of gout - no hx of cipro or levoquin Onset (ago): day(s) Location: lower extremity Severity: moderate Consistency: intermittent Associated symptoms: denies other symptoms Treatments prior to arrival: NSAID - Related Data Home Medications Medication Instructions Recorded Confirmed atorvastatin 20 mg tablet 20 mg PO DAILY 10/22/17 05/14/19 omeprazole 40 mg capsule,delayed 40 mg PO DAILY 10/22/17 05/14/19 release Indomethacin 1 cap PO TID PRN 01/23/19 05/14/19 bisoproloL fumarate [Bisoprolol 10 mg PO DAILY 01/23/19 05/14/19 10mg Tablet] Previous Rx's Medication Instructions Recorded Colchicine [Colcrys 0.6mg tablet] 0.6 mg PO DIRECTED #3 tab 01/23/19 Allergies Allergy/AdvReac Type Severity Reaction Status Date / Time No Known Allergies Allergy Verified 05/14/19 12:35 [facility] History - Hepatitis A Screen Drug use history?: No High risk sexual behaviors?: No History of sexu
--- NOTE | 2019-11-20 12:14 | PC.NURSE ---
Pt to rad.
--- NOTE | 2019-11-20 12:14 | PC.NURSE ---
PT TO RAD
[2019-11-20 12:27] LABS: Basophils % 0.6 % (0.1-2.0); Eosinophils # 0.2 K/mm3 (0.0-0.4); Eosinophils % 3.2 % (0.1-12.0); Hematocrit 44.5 % (42.0-52.0); Hemoglobin 15.3 g/dL (14.1-18.0); Lymphocytes # 1.4 K/mm3 (0.7-4.5); Lymphocytes % 19.6 % (10-50); Mean Corpuscular HGB Conc 34.5 g/dL (31.8-35.4); Mean Corpuscular Hemoglobin 30.6 pg (27.0-31.2); Mean Corpuscular Volume 88.8 fl (80-94); Mean Platelet Volume 7.4 fl (7.4-10.4); Monocytes # 0.5 K/mm3 (0.1-1.0); Monocytes % 6.4 % (1.7-9.3); Neutrophils % 70.1 % (37.0-80.0); Platelet Count 225 K/mm3 (142-424); Red Blood Count 5.01 M/mm3 (4.60-6.20); Red Cell Distribution Width 14.3 % (11.5-17.5); White Blood Count 7.1 K/mm3 (4.8-10.8)
--- NOTE | 2019-11-20 12:29 | PC.NURSE ---
calling podiatry at this time
--- NOTE | 2019-11-20 12:30 | PC.NURSE ---
Dr Corbett talking to Dr Curiel at this time.
[2019-11-20 12:35] VITALS: BP 150/78; PULSE 78; RESP 18; TEMP 36.6; O2SAT 98
[2019-11-20 12:36] LABS: Chloride 110 mmol/L (98-107); Potassium 3.8 mmoL/L (3.5-5.1); Sodium 140 mmol/L (136-145)
[2019-11-20 12:39] LABS: Alanine Aminotransferase 35 U/L (12-78); Albumin Level 4.2 g/dl (3.5-5.0); Albumin/Globulin Ratio 1.1 (1.1-1.8); Alkaline Phosphatase 124 U/L (38-126); Anion Gap 10.8 mEq/L (5-15); Aspartate Amino Transferase 43 U/L (17-59); Bilirubin,Total 0.6 mg/dl (0.2-1.3); Blood Urea Nitrogen 20 mg/dl (9-20); Calcium 9.3 mg/dl (8.4-10.2); Carbon Dioxide 23 mmol/L (22.0-30.0); Creatinine Clearance Estimated 131 mL/min (50-200); Estimated Glomerular Filt Rate 77 ml/min (>60); GFR (African American) 94 ML/MIN (>60); Globulin 3.8 g/dL (1.3-3.2); Glucose 127 mg/dl (74-100); Uric Acid 8.5 mg/dl (3.5-8.5)
[2019-11-20 12:44] LABS: C-Reactive Protein 5.2 mg/L (0-4)
[2019-11-20 12:58] LABS: Erythrocyte Sedimentation Rate 18 mm/hr (0-20)
== END 2019-11-20 12:37 | disposition home or self-care (01) ==
PROVIDERS: Emergency Provider Emergency Medicine; PCP Internal Medicine Adolescent Medicine
DX: M76.61 Achilles tendinitis, right leg (principal); M10.9 Gout, unspecified; F41.8 Other specified anxiety disorders; E78.5 Hyperlipidemia, unspecified; K21.9 Gastro-esophageal reflux disease without esophagitis; I10 Essential (primary) hypertension; Z90.09 Acquired absence of other part of head and neck
CPT/HCPCS: 73630; 80053; 84550; 85025; 85651; 86140; 99282

== ENCOUNTER 2020-03-06 15:49 | Emergency (ER) | payer BC, SELFPAY ==
[2020-03-06 16:26] VITALS: BP 148/92; PULSE 76; RESP 19; TEMP 37.4; O2SAT 98; BMI 36.6
--- NOTE | 2020-03-06 16:28 | HMH.EDUTC ---
[facility] [place] Clinical Impression: Bronchitis, Viral syndrome Upper respiratory infection Qualifiers: URI type: unspecified URI Qualified Code(s): J06.9 - Acute upper respiratory infection, unspecified Disposition: Home, Self-Care Condition on Discharge: Good Instructions: DI for Acute Bronchitis, Preventing the Spread of Coronavirus Discharge Instructions Additional Instructions: Drink plenty of fluids. Take tylenol or ibuprofen for pain or fever. Take the medications as directed. Follow up with your regular doctor. GO TO THE ER FOR ANY WORSENING SYMPTOMS FOLLOW THE DIRECTIONS ON THE COVID-19 HAND OUT THAT WE GAVE YOU REGARDING SELF-ISOLATION UNTIL YOU KNOW YOUR COVID-19 RESULTS Prescriptions: Benzonatate [Tessalon Perle 100mg Cap] 100 mg PO TIDP PRN #30 cap PRN Reason: Cough Transmission Status: Received by [facility] Azithromycin [Z-Jorge 250mg Tab*] 250 mg PO UD DOSE PK #6 tab Transmission Status: Received by [facility] Referrals: Marco A Castañeda MD [Primary Care Provider] - Forms: Work/School Release Time of Disposition: 17:04 Medical Decision Making - Medical Records Medical records reviewed: No: I reviewed the patient's medical records. - Darren Inquiry Pt receiving controlled substance: No Vital Signs: 03/06/20 16:26 03/06/20 16:35 Temperature 99.4 F 99.4 F Temperature Source Oral Pulse Rate 76 Pulse Rate [Left] 76 Respiratory Rate 19 19 Blood Pressure 148/92 H Blood Pressure [Right Arm] 148/92 H Blood Pressure Mean [Right Arm] 110 Blood Pressure Source [Right Arm] Automatic Cuff Blood Pressure Position [Right Arm] Sitting 02 Sat by Pulse Oximetry 98 Oxygen Delivery Method Room Air Orders (Tests/Meds): ORDERS Category Date Time Status Covid-19 Nasal PCR Sendout Rufino Stat Lab 03/06/20 16:16 Received [facility] [place] HPI - General Stated complaint: fevermV&D,wants COVID testing Time Seen by Provider: 03/06/20 16:29 - History of Present Illness Provider Complaint: He c/o 2 days of cough, congestion and feeling bad. He needs to be checked for covid due to his job. - Related Data Home Medications Medication Instructions Recorded Confirmed atorvastatin 20 mg tablet 20 mg PO DAILY 10/22/17 11/20/19 omeprazole 40 mg capsule,delayed 40 mg PO DAILY 10/22/17 11/20/19 release Indomethacin 1 cap PO TID PRN 01/23/19 11/20/19 bisoproloL fumarate [Bisoprolol 10 mg PO DAILY 01/23/19 11/20/19 10mg Tablet] Previous Rx's Medication Instructions Recorded Colchicine [Colcrys 0.6mg tablet] 0.6 mg PO DIRECTED #3 tab 01/23/19 diclofenac sodium 1 % topical gel 4 g TOPICAL QID PRN #30 g 11/20/19 meloxicam 7.5 mg tablet 7.5 mg PO DAILY #30 tab 11/20/19 methylprednisolone 4 mg tablets in See Rx Instructions PO PER PKG DIR 11/20/19 a dose pack #21 tab Azithromycin [Z-Jorge 250mg Tab*] 250 mg PO UD DOSE PK #6 tab 03/06/20 Benzonatate [Tessalon Perle 100mg 100 mg PO TIDP PRN #30 cap 03/06/20 Cap] Allergies Allergy/AdvReac Type Severity Reaction Status Date / Time No Known Allergies Allergy Verified 11/20/19 13:10 [facility] History - Hepatitis A Screen Attestation statement:: This patient has been screened for Hepatitis A risk factors. I have reviewed the patient's past medical history: Yes 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: Reports:: Anxiety, Depression, Gastroesophageal Reflux Disease(GERD), Hyperlipidemia, Hypertension Denies:: Cancer, Diabetes Mellitus Type 1, Diabetes Mellitus Type 2, MRSA Laterality Cases: Bilateral: Tonsillectomy Other Surgeries: Yes: Sinus Surgery, Other Amputation: No Fractures: No - Social History Smoking Status: Never smoker Alcohol Intake: never Substance Use Type: denies use Occupational Status: employed Housing: house Household Members: spouse - Psychiatric History Pschychiatric History:: Reports:: Anxiety, Depression Family Hx:: Diabetes, Heart Attack, Hyperlipidemia, Hypertension Comment: psychiatri
[2020-03-06 16:35] VITALS: BP 148/92; PULSE 76; RESP 19; TEMP 37.4; O2SAT 98
[2020-03-08 20:30] LABS: Covid-19 Nasal PCR Sendout Lex Not Detected
== END 2020-03-06 17:09 | disposition home or self-care (01) ==
PROVIDERS: Emergency Provider Nurse Practitioner Family; PCP Internal Medicine Adolescent Medicine
DX: J20.9 Acute bronchitis, unspecified (principal); B34.9 Viral infection, unspecified; Z20.828 Contact with and (suspected) exposure to other viral communicable diseases; F41.8 Other specified anxiety disorders; K21.9 Gastro-esophageal reflux disease without esophagitis; E78.5 Hyperlipidemia, unspecified; I10 Essential (primary) hypertension; Z79.899 Other long term (current) drug therapy
CPT/HCPCS: 99201; U0004

== ENCOUNTER 2020-03-07 22:05 | Emergency (ER) | payer BC, SELFPAY ==
--- NOTE | 2020-03-07 22:02 | ECG_ITS ---
APPROVED REPORT Exam: Resting ECG HR:64 bpm ECG Measurements Heart Rate 64 AXES MS 172 P 67 QRSd 90 QRS 46 QT 410 T 61 QTc 422 <Conclusion> Normal sinus rhythm Normal ECG Electronically signed by : Marco A Castañeda, 03/08/2020 07:26:17
[2020-03-07 22:12] VITALS: BP 154/94; PULSE 77; RESP 17; TEMP 37.3; O2SAT 96; BMI 36.6
--- NOTE | 2020-03-07 22:19 | XR_ITS ---
PROCEDURE: XR CHEST 2V CLINICAL HISTORY: chest pain COMPARISON: CT CTAC CTA-CHEST from 10/02/2014 CR CXR CHEST(2 VIEWS-NOT PORTABLE) from 05/07/2016 CR CXR CHEST(2 VIEWS-NOT PORTABLE) from 06/28/2016 CR XR CHEST 2V from 05/14/2019 FINDINGS: The cardiomediastinal silhouette and pulmonary vascularity are within normal limits. The lungs are clear without infiltrates, suspicious nodules, or pleural effusions. No acute bony abnormalities. IMPRESSION: No acute findings. Dictated by: Sergo Langford MD 03/08/2020 06:24 Sergo Langford MD in [place] 03/08/2020 06:24
[2020-03-07 22:27] LABS: Basophils # 0.1 K/mm3 (0-0.2); Basophils % 0.6 % (0.1-2.0); Eosinophils # 0.3 K/mm3 (0.0-0.4); Eosinophils % 2.5 % (0.1-12.0); Hematocrit 47.3 % (42.0-52.0); Hemoglobin 16.2 g/dL (14.1-18.0); Mean Corpuscular HGB Conc 34.3 g/dL (31.8-35.4); Mean Corpuscular Hemoglobin 30.7 pg (27.0-31.2); Mean Corpuscular Volume 89.5 fl (80-94); Mean Platelet Volume 7.4 fl (7.4-10.4); Monocytes # 0.8 K/mm3 (0.1-1.0); Monocytes % 8.6 % (1.7-9.3); Neutrophils # 6.7 K/mm3 (1.8-7.8); Neutrophils % 68.3 % (37.0-80.0); Platelet Count 253 K/mm3 (142-424); Red Blood Count 5.29 M/mm3 (4.60-6.20); Red Cell Distribution Width 13.6 % (11.5-17.5); White Blood Count 9.8 K/mm3 (4.8-10.8)
[2020-03-07 22:28] LABS: Chloride 105 mmol/L (98-107); Potassium 4.2 mmoL/L (3.5-5.1); Sodium 142 mmol/L (136-145)
[2020-03-07 22:31] LABS: Blood Urea Nitrogen 19 mg/dl (9-20); Creatinine Clearance Estimated 109 mL/min (50-200); Estimated Glomerular Filt Rate 63 ml/min (>60); GFR (African American) 76 ML/MIN (>60)
[2020-03-07 22:32] LABS: Anion Gap 15.2 mEq/L (5-15); Carbon Dioxide 26 mmol/L (22.0-30.0); Glucose 133 mg/dl (74-100)
[2020-03-07 22:46] LABS: Troponin I < 0.01 ng/ml (0.00-0.034)
[2020-03-07 22:54] VITALS: BP 111/67; PULSE 60; RESP 18; O2SAT 94
[2020-03-07 23:12] LABS: Coronavirus 19 IgG Antibody Negative (Negative); Coronavirus 19 IgM Antibody Negative (Negative)
[2020-03-07 23:30] VITALS: BP 110/57; PULSE 58; RESP 17; O2SAT 94
--- NOTE | 2020-03-07 23:31 | HMH.EDCP ---
ED Disposition Clinical Impression: Atypical chest pain Disposition: Home, Self-Care Condition on Discharge: Good Instructions: DI for Atypical Chest Pain Additional Instructions: call pcp this am and recheck if needed Prescriptions: ondansetron HCL [Zofran 4mg Tab] 4 mg PO TID #30 tab Transmission Status: [facility] Referrals: Marco A Castañeda MD [Primary Care Provider] - - Critical Care Critical Care Time: No Attestation: On 03/07/20, the high probability of a clinically significant, sudden or life threatening deterioration of the following system(s) required my full and direct attention, intervention and personal management. The time I documented below is in addition to time spent performing reported procedures but includes the following listed in this critical care notation. Medical Decision Making - Medical Records Medical records reviewed: Yes: I reviewed the patient's medical records. - Darren Inquiry Pt receiving controlled substance: No Vital Signs: 03/07/20 22:12 03/07/20 22:54 03/07/20 23:30 Temperature 99.1 F Temperature Source Oral Pulse Rate [Right Brachial] 77 60 58 L Respiratory Rate 17 18 17 Blood Pressure [Right Arm] 154/94 H 111/67 110/57 L Blood Pressure Mean [Right Arm] 114 81 74 Blood Pressure Source [Right Arm] Automatic Cuff Automatic Cuff Blood Pressure Position [Right Arm] Sitting Sitting 02 Sat by Pulse Oximetry 96 94 L 94 L Oxygen Delivery Method Room Air Room Air Room Air - Lab Data Lab results reviewed: Yes: I reviewed the patient's lab results. Lab Results 03/07/20 22:14: Troponin I < 0.01 03/07/20 22:14: WBC 9.8, RBC 5.29, Hgb 16.2, Hct 47.3, MCV 89.5, MCH 30.7, MCHC 34.3, RDW 13.6, Plt Count 253, MPV 7.4, Neut % (Auto) 68.3, Lymph % (Auto) 20.0, Ashley % (Auto) 8.6, Eos % (Auto) 2.5, Baso % (Auto) 0.6, Neut # (Auto) 6.7, Lymph # (Auto) 2.0, Ashley # (Auto) 0.8, Eos # (Auto) 0.3, Baso # (Auto) 0.1 03/07/20 22:14: Sodium 142, Potassium 4.2, Chloride 105, Carbon Dioxide 26, Anion Gap 15.2 H, BUN 19, Creatinine 1.20, Estimated Creat Clear 109, Estimated GFR 63, Est GFR ( Amer) 76, Glucose 133 H, Calcium 10.0 03/07/20 22:14: SARS-CoV-2 IgG Ab (Rapid) Negative, SARS-CoV-2 IgM Ab (Rapid) Negative Result diagrams: 03/07/20 22:14 03/07/20 22:14 Orders (Tests/Meds): ED MEDICATIONS Generic Name Dose Route Start Last Admin Trade Name Freq PRN Reason Stop Dose Admin Sodium Chloride 1,000 mls @ 999 mls/hr 03/07/20 22:30 03/07/20 22:49 Sod Chlor 0.9% 1000ml Bag IV 03/07/20 23:30 999 mls/hr .Q1H1M KONSTANTIN Administration Discontinued Medications Generic Name Dose Route Start Last Admin Trade Name Freq PRN Reason Stop Dose Admin Ondansetron HCl 4 mg 03/07/20 22:27 03/07/20 22:47 Zofran 4mg/2ml Vial IV 03/07/20 22:28 4 mg ONCE ONE Administration ORDERS Category Date Time Status XR chest 2V Stat Exams 03/07/20 22:19 Taken Troponin I Q3H Lab 03/08/20 01:30 Ordered Troponin I Q3H Lab 03/08/20 04:30 Ordered - Radiology Data #1 Image(s): Chest Image Reviewed: Yes I reviewed the patient's radiology image Preliminary Findings: Normal/NAD - ECG Data Tracing #1 Normal Sinus Rhythm: Yes Ischemic changes: non-specific ST-T wave changes Chest Pain HPI - General Chief Complaint: Chest Pain Stated Complaint: chest pain Time Seen by Provider: 03/07/20 22:20 Mode of Arrival: Ambulatory Source of Information: Patient, Medical Record Limitations: No Limitations Description of Symptoms (Recalled from ER Triage Doc. by RN): Patient reports sharp left sided chest pain that comes and goes that atarted around 1900 tonight. Patient reports he was seen in the [facility] yesterday for vomiting/diarrhea and swabbd for COVID and is currently waiting for the result of that swab. patient was given a zpack and Benzonatate but reports he feels much worse today. - History of Present Illness HPI narrative: seen in
[2020-03-07 23:44] VITALS: BP 114/68; PULSE 58; RESP 17; TEMP 37.2; O2SAT 96
== END 2020-03-07 23:58 | disposition home or self-care (01) ==
PROVIDERS: Emergency Provider Emergency Medicine; PCP Internal Medicine Adolescent Medicine
DX: R07.89 Other chest pain (principal); F41.8 Other specified anxiety disorders; K21.9 Gastro-esophageal reflux disease without esophagitis; E78.5 Hyperlipidemia, unspecified; I10 Essential (primary) hypertension; Z79.899 Other long term (current) drug therapy; Z90.09 Acquired absence of other part of head and neck; Z20.828 Contact with and (suspected) exposure to other viral communicable diseases
CPT/HCPCS: 71046; 80048; 84484; 85025; 86328; 93005; 96365; 96375; 99284; J2405

== ENCOUNTER → 2020-06-07 11:12 | Outpatient (CLI) | payer BC, SELFPAY ==
[2020-06-07 12:03] LABS: Basophils # 0.1 K/mm3 (0-0.2); Basophils % 0.6 % (0.1-2.0); Eosinophils # 0.1 K/mm3 (0.0-0.4); Eosinophils % 1.6 % (0.1-12.0); Hematocrit 37.8 % (42.0-52.0); Hemoglobin 14.7 g/dL (14.1-18.0); Lymphocytes # 1.6 K/mm3 (0.7-4.5); Lymphocytes % 20.6 % (10-50); Mean Corpuscular Hemoglobin 34.5 pg (27.0-31.2); Mean Corpuscular Volume 88.3 fl (80-94); Mean Platelet Volume 7.3 fl (7.4-10.4); Monocytes # 0.6 K/mm3 (0.1-1.0); Monocytes % 7.9 % (1.7-9.3); Neutrophils # 5.4 K/mm3 (1.8-7.8); Neutrophils % 69.3 % (37.0-80.0); Platelet Count 243 K/mm3 (142-424); Red Blood Count 4.28 M/mm3 (4.60-6.20); Red Cell Distribution Width 13.9 % (11.5-17.5); White Blood Count 7.8 K/mm3 (4.8-10.8)
[2020-06-07 12:24] LABS: Chloride 106 mmol/L (98-107); Sodium 140 mmol/L (136-145)
[2020-06-07 12:25] LABS: Potassium 4.4 mmoL/L (3.5-5.1)
[2020-06-07 12:27] LABS: Alanine Aminotransferase 58 U/L (12-78); Alkaline Phosphatase 91 U/L (38-126); Anion Gap 12.4 mEq/L (5-15); Aspartate Amino Transferase 37 U/L (17-59); Bilirubin,Total 0.4 mg/dl (0.2-1.3); Blood Urea Nitrogen 18 mg/dl (9-20); Carbon Dioxide 26 mmol/L (22.0-30.0); Estimated Glomerular Filt Rate 87 ml/min (>60); GFR (African American) 106 ML/MIN (>60)
[2020-06-07 12:28] LABS: Albumin Level 3.7 g/dl (3.5-5.0); Albumin/Globulin Ratio 1.1 (1.1-1.8); Calcium 9.3 mg/dl (8.4-10.2); Globulin 3.5 g/dL (1.3-3.2); Glucose 97 mg/dl (74-100); Magnesium 2.1 mg/dl (1.6-2.3); Total Protein,Serum 7.2 g/dl (6.3-8.2)
== END ==
PROVIDERS: Visit Provider Nurse Practitioner Family
DX: B34.2 Coronavirus infection, unspecified (principal)
CPT/HCPCS: 36415; 80053; 83735; 85025

== ENCOUNTER 2020-06-29 02:51 | Emergency (ER) | payer BC, SELFPAY ==
[2020-06-29 03:02] VITALS: BP 138/73; PULSE 72; RESP 18; TEMP 36.9; O2SAT 99; BMI 36.6
--- NOTE | 2020-06-29 03:13 | XR_ITS ---
PROCEDURE: XR FOOT LT MIN 3V CLINICAL INDICATION: heel pain Foot pain COMPARISON: CR FTL3 FOOT-LT-3 VIEWS from 09/05/2016 CR XR FOOT RT MIN 3V from 11/20/2019 FINDINGS: No fracture or dislocation. No lytic or blastic change. There is normal mineralization. The joint spaces are well-preserved. No significant degenerative/arthritic changes. No erosive changes evident. Other findings:Type 2 os navicularis IMPRESSION: No acute findings. Dictated by: Sergo Langford MD 06/29/2020 05:38 Sergo Langford MD in [place] 06/29/2020 05:38
--- NOTE | 2020-06-29 03:13 | XR_ITS ---
PROCEDURE: XR ANKLE LT MIN 3V CLINICAL INDICATION: achiles pain COMPARISON: No exams were available for comparison FINDINGS: No fracture or dislocation. No lytic or blastic change. There is some minimal haziness of Kager's fat pad posteriorly which could be due to some underlying inflammatory change. Minimal spurring along the anterior distal tibia IMPRESSION: Minimal haziness of Kager's fat pad posteriorly just anterior to the inferior aspect of the Achilles tendon which could be related underlying inflammatory change otherwise negative Dictated by: Sergo Langford MD 06/29/2020 05:37 Sergo Langford MD in [place] 06/29/2020 05:37
--- NOTE | 2020-06-29 04:57 | HMH.EDLOEX ---
ED Disposition Clinical Impression: Achilles tendonitis Qualifiers: Laterality: left Qualified Code(s): M76.62 - Achilles tendinitis, left leg Disposition: Home, Self-Care Condition on Discharge: Good Instructions: DI for Achilles Tendinopathy Additional Instructions: use meds and see pcp and podiatry for follow up Prescriptions: methylPREDNISolone [Medrol 4mg tab] 4 mg PO DIRECTED #21 tab Transmission Status: [facility] Referrals: Marco A Castañeda MD [Primary Care Provider] - Bhumi Curiel DPM [Staff Physician] - - Critical Care Critical Care Time: No Attestation: On 06/29/20, the high probability of a clinically significant, sudden or life threatening deterioration of the following system(s) required my full and direct attention, intervention and personal management. The time I documented below is in addition to time spent performing reported procedures but includes the following listed in this critical care notation. Medical Decision Making - Medical Records Medical records reviewed: Yes: I reviewed the patient's medical records. - Darren Inquiry Pt receiving controlled substance: No Vital Signs: 06/29/20 03:02 Temperature 98.5 F Temperature Source Oral Pulse Rate [Right] 72 Respiratory Rate 18 Blood Pressure [Right Arm] 138/73 Blood Pressure Mean [Right Arm] 94 Blood Pressure Source [Right Arm] Automatic Cuff Blood Pressure Position [Right Arm] Supine 02 Sat by Pulse Oximetry 99 Oxygen Delivery Method Room Air - Lab Data Lab results reviewed: Yes: I reviewed the patient's lab results. Orders (Tests/Meds): ORDERS Category Date Time Status XR ankle LT min 3V Stat Exams 06/29/20 03:13 Taken XR foot LT min 3V Stat Exams 06/29/20 03:13 Taken - Radiology Data #1 Image(s): Ankle, Foot/Toes Image Reviewed: Yes I reviewed the patient's radiology image Preliminary Findings: No Fracture Seen Medical Decision Narrative: doubt gout by [facility] exam will ask pt to see pcp and dr curiel and will add medrol dose guille Lower Extremity Injury HPI - General Chief Complaint: Extremity Problem,Nontraumatic Stated Complaint: Pain in Left Heel Time Seen by Provider: 06/29/20 04:00 Mode of Arrival: Ambulatory Source of Information: Patient, Medical Record Limitations: No Limitations Description of Symptoms (Recalled from ER Triage Doc. by RN): Pt states his left achilles area started hurting today and thought it was his gout, called Dr Castañeda's office today and they called in his script for gout and its not helping. - History of Present Illness HPI Narrative: pt with over the last 2 days lt heel pain w/o trauma - hx of gout - also had same issues on rt in summer - saw dr saima SAINZ complaint: foot injury Onset (ago): day(s) Injury: Left: foot (achilles insertion ) Type of Injury: unknown Place: home Severity: moderate Associated symptoms: able to partially bear weight Other symptoms: none - Related Data Home Medications Medication Instructions Recorded Confirmed atorvastatin 20 mg tablet 20 mg PO DAILY 10/22/17 06/29/20 bisoproloL fumarate [Bisoprolol 10 mg PO DAILY 01/23/19 06/29/20 10mg Tablet] Aspirin [Aspirin 81mg EC Tab] 81 mg PO DAILY 03/07/20 06/29/20 Indomethacin 50 mg PO DAILY 06/29/20 06/29/20 Previous Rx's Medication Instructions Recorded methylPREDNISolone [Medrol 4mg 4 mg PO DIRECTED #21 tab 06/29/20 tab] Allergies Allergy/AdvReac Type Severity Reaction Status Date / Time No Known Allergies Allergy Verified 11/20/19 13:10 [facility] History - Hepatitis A Screen Drug use history?: No High risk sexual behaviors?: No History of sexually transmitted infection?: No Currently employed?: No Childcare worker?: No Do you have indoor plumbing?: No Do you have electricity?: No Attestation statement:: This patient has been screened for Hepatitis A risk factors. I have reviewed the patient's past medical his
[2020-06-29 05:25] VITALS: BP 136/88; PULSE 69; RESP 16; TEMP 36.9; O2SAT 99
== END 2020-06-29 05:28 | disposition home or self-care (01) ==
PROVIDERS: Emergency Provider Emergency Medicine; PCP Internal Medicine Adolescent Medicine
DX: M76.62 Achilles tendinitis, left leg (principal); F41.8 Other specified anxiety disorders; I10 Essential (primary) hypertension; K21.9 Gastro-esophageal reflux disease without esophagitis; E78.5 Hyperlipidemia, unspecified; Z79.899 Other long term (current) drug therapy
CPT/HCPCS: 73610; 73630; 99282

== ENCOUNTER → 2020-07-11 08:49 | Outpatient (CLI) | payer BC, SELFPAY ==
[2020-07-11 10:14] LABS: 25-OH Vitamin D, Total 18.8 ng/mL (30-100)
[2020-07-11 10:28] LABS: Thyroid Stimulating Hormone 4.85 uIU/mL (0.465-4.68)
[2020-07-11 10:47] LABS: Vitamin B12 316 pg/mL (239-931)
== END ==
LOC: LAB 08:51
PROVIDERS: Visit Provider Nurse Practitioner Family
DX: R20.2 Paresthesia of skin (principal); E55.9 Vitamin D deficiency, unspecified; Z79.899 Other long term (current) drug therapy
CPT/HCPCS: 36415; 82306; 82607; 84443

== ENCOUNTER 2020-07-25 13:42 | Outpatient (RCR) | payer BC, SELFPAY ==
--- NOTE | 2020-07-25 14:40 | HMH.PTOPEV ---
PT Outpatient Evaluation Rehab PT Outpatient Evaluation Start: 07/25/20 14:12 Freq: Status: Active Protocol: Document 07/25/20 14:12 LIBERTAD (Rec: 07/25/20 14:40 LIBERTAD [id number]) Electronically Signed By Eliud Avila, PT 07/25/20 14:12 Outpatient Therapy Subjective History Subjective History Pt reports insidious onset L achilles area pain on 06/28/20. Pt reports L achilles/heel area pain was 'very painful where I couldn't work for weeks, but just a couple days ago it went away'. Pt now reports anterior L talo-crural jt pain, w/o heel pain, during toe-off phase of gait pattern on LLE. Again, pt reports no injury/incident. Chief Complaint Pain Symptom Type Ache,Sharp,Dull Symptoms Relieved By Rest/Positioning Symptoms Aggravated By Physical Activity,Walking Prior Functional Limitations Walking Current Functional Limitations Walking,Stairs Symptom Description Constant but Variable Level of pain today (0-10) 5 Pain scale - at its best (0-10) 5 Pain scale - at its worst (0-10) 10 Ankle/Foot Eval Gait Observation General Gait Pattern Observation Antalgic Gait Assistive Device Ambulation Assistive Device None Palpation Tenderness left Ankle/Foot Palpation Findings Tenderness Ankle/Foot Palpation Overall Comment distal ANT TIB INSERTION/ TENDON 2-3/4 ROM Ankle/Foot Dorsiflexion w/Knee Extended 0-10 Active Range Motion (degrees) Ankle/Foot Plantar Flexion Active Range 0-30 of Motion (degrees) Ankle/Foot Eversion Active Range of 0-10 Motion (degrees) Ankle/Foot Inversion Active Range of 0-35 Motion (degrees) Ankle/Foot ROM Limitations Soft Tissue Tightness,Pain Great Toe ROM Reason Not Measured Within Functional Limits MMT Ankle Dorsiflexion Strength Grade 4 Good Ankle Plantarflexion Strength Grade 4 Good Foot Eversion Strength Grade 4- Good- Foot Inversion Strength Grade 4 Good Special Tests Ankle Anterior Drawer Test Negative Left Talar Tilt Test Negative Left Outpatient Therapy Assessment Impairments Problems/Impairmments Palpation Tenderness,Impaired Range of Motion,Impaired Strength,Impaired Gait Pattern ,Impaired Walking,Impaired Stair Climbing,Subjective C/O Pain,Impaired Self Care/Self
== END 2020-07-25 13:45 | disposition home or self-care (01) ==
LOC: PT 13:42
PROVIDERS: PCP Internal Medicine Adolescent Medicine; Visit Provider Podiatrist
DX: M76.62 Achilles tendinitis, left leg (principal)
CPT/HCPCS: 97163

== ENCOUNTER → 2020-08-03 08:47 | Outpatient (CLI) | payer BC, SELFPAY ==
--- NOTE | 2020-08-03 08:54 | XR_ITS ---
PROCEDURE: XR FOOT LT MIN 3V Referring Doctor: Marco A Castañeda Patient Age:54Y CLINICAL INDICATION: PAIN OF LEFT HEEL Pain at posterior aspect of left heel patient injured same area June 29 2020 and then fell again recently on COMPARISON: CR FTL3 FOOT-LT-3 VIEWS from 09/05/2016 CR XR FOOT RT MIN 3V from 11/20/2019 CR XR FOOT LT MIN 3V from 06/29/2020 TECHNIQUE: Left foot 3 View AP, Oblique, Lateral FINDINGS: Left foot-no fracture or dislocation. No lytic or blastic change. There is normal mineralization. The joint spaces are well-preserved. No significant degenerative/arthritic changes. No erosive changes evident. Os navicularis again noted. Initially question additional longitudinal line at the medial navicular on AP view only but I believe this is is merely a accentuated trabecular line. If pain should persist in this region medial navicular may require cone down views or preferably advanced imaging The posterior heel and calcaneus is intact and stable no fracture. Only scant spurring insertion of Achilles tendon. IMPRESSION: No acute findings. Left foot intact. No fracture but no acute findings Dictated by: Philippe Summers MD 08/03/2020 15:37 Philippe Summers MD in [place] 08/03/2020 15:37
== END ==
PROVIDERS: PCP Internal Medicine Adolescent Medicine; Referring Provider Internal Medicine Adolescent Medicine; Visit Provider Internal Medicine Adolescent Medicine
DX: M79.672 Pain in left foot (principal)
CPT/HCPCS: 73630

== ENCOUNTER 2020-08-23 09:45 | Outpatient (RCR) | payer BC, SELFPAY | END 2020-08-23 09:50 | disposition home or self-care (01) | LOC: PT 09:45 | PROVIDERS: PCP Internal Medicine Adolescent Medicine; Visit Provider Podiatrist | DX: M76.62 Achilles tendinitis, left leg (principal) | CPT/HCPCS: 97163 ==

== ENCOUNTER 2020-09-23 15:54 | Emergency (ER) | payer BC, SELFPAY ==
[2020-09-23 16:06] VITALS: BP 176/84; PULSE 84; RESP 18; TEMP 37.2; O2SAT 98; BMI 36.6
[2020-09-23 16:23] LABS: UTC Strep Screen (Rapid) Positive (Negative)
[2020-09-23 16:37] VITALS: BP 161/88; PULSE 81; RESP 16; TEMP 36.6
--- NOTE | 2020-09-23 16:39 | HMH.EDUTC ---
[facility] [place] Disposition Clinical Impression: Strep throat Disposition: Home, Self-Care Condition on Discharge: Good Instructions: Strep Throat, DI for Strep Throat Additional Instructions: Drink plenty of fluids. Take tylenol or ibuprofen for pain or fever. Throw your tooth brush away and get a new one. Follow up with your regular doctor. GO TO THE ER FOR ANY WORSENING SYMPTOMS Referrals: Marco A Castañeda MD [Primary Care Provider] - Forms: Work/School Release Time of Disposition: 16:39 Medical Decision Making - Medical Records Medical records reviewed: No: I reviewed the patient's medical records. - Darren Inquiry Pt receiving controlled substance: No Vital Signs: 09/23/20 16:06 09/23/20 16:37 Temperature 98.9 F 98 F Temperature Source Oral Pulse Rate 81 Pulse Rate [Right] 84 Respiratory Rate 18 16 Blood Pressure 161/88 H Blood Pressure [Right Arm] 176/84 H Blood Pressure Mean [Right Arm] 114 Blood Pressure Source [Right Arm] Automatic Cuff Blood Pressure Position [Right Arm] Sitting 02 Sat by Pulse Oximetry 98 - Lab Data Lab results reviewed: Yes: I reviewed the patient's lab results. Lab Results 09/23/20 16:07: Strep Scn Rapid Clinic Positive A Orders (Tests/Meds): ED MEDICATIONS Discontinued Medications Generic Name Dose Route Start Last Admin Trade Name Toy PRN Reason Stop Dose Admin Methylprednisolone Sodium Succinate 125 mg 09/23/20 16:25 09/23/20 16:31 Methylprednisolone Sod Succ 125mg Vial IM 09/23/20 16:26 125 mg ONCE ONE Administration Penicillin G Benzathine 1,200,000 unit 09/23/20 16:25 09/23/20 16:32 Penicillin G Benzathine 1,200,000 Units/2ml Syringe IM 09/23/20 16:26 1,200,000 unit ONCE ONE Administration Protocol [facility] [place] HPI - General Stated complaint: FEVER AND VOMITING Time Seen by Provider: 09/23/20 16:10 Mode of Arrival: Ambulatory Source of Information: Patient Limitations: No Limitations Description of Symptoms (Recalled from Triage Doc. by RN): N/v, low grade temp, sore throat, and a productive cough with yellow sputum. HEENT Symptoms (Recalled from RN notes): Yes (sore throat) Resp Symptoms (Recalled from RN notes): Yes (productive cough with yellow sputum) Skin Symptoms (Recalled from RN notes): No MS Symptoms (Recalled from RN notes): No Functional Status (Recalled from RN notes): na - History of Present Illness Provider Complaint: He c/o feeling bad for the past 3 days. He c/o sore throat and a cough. He has multiple members of his family that are sick with strep throat. - Related Data Home Medications Medication Instructions Recorded Confirmed bisoproloL fumarate [Bisoprolol 10 mg PO DAILY 01/23/19 08/20/20 10mg Tablet] Aspirin [Aspirin 81mg EC Tab] 81 mg PO DAILY 03/07/20 08/20/20 Indomethacin 50 mg PO DAILY 06/29/20 08/20/20 atorvastatin 20 mg tablet 40 mg PO DAILY tab 07/04/20 08/20/20 omeprazole 20 mg capsule,delayed 20 mg PO DAILY 07/04/20 08/20/20 release Previous Rx's Medication Instructions Recorded diclofenac sodium 1 % topical gel 4 g TOPICAL QID PRN 30 Days #100 g 07/04/20 meloxicam 7.5 mg tablet 7.5 mg PO BID 30 Days #60 tab 08/20/20 methylprednisolone 4 mg tablets in 4 mg PO PER PKG DIR #21 tab 08/20/20 a dose pack Allergies Allergy/AdvReac Type Severity Reaction Status Date / Time No Known Allergies Allergy Verified 09/23/20 16:11 - Worker's Comp Is this a Worker's Comp case?: No [facility] History - Hepatitis A Screen Drug use history?: No High risk sexual behaviors?: No History of sexually transmitted infection?: No Currently employed?: No Childcare worker?: No Do you have indoor plumbing?: Yes Do you have electricity?: Yes Attestation statement:: This patient has been screened for Hepatitis A risk factors. I have reviewed the patient's past medical history: Yes 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: Reports:: Anxiety, Depression, Gastroesophageal Reflux Disea
== END 2020-09-23 16:44 | disposition home or self-care (01) ==
PROVIDERS: Emergency Provider Nurse Practitioner Family; PCP Internal Medicine Adolescent Medicine
DX: J02.0 Streptococcal pharyngitis (principal); F41.8 Other specified anxiety disorders; K21.9 Gastro-esophageal reflux disease without esophagitis; I10 Essential (primary) hypertension; E78.5 Hyperlipidemia, unspecified
CPT/HCPCS: 87880; 96372; 99202; G0463; J0561

== ENCOUNTER 2020-09-25 09:00 | Emergency (ER) | payer BC, SELFPAY ==
[2020-09-25 09:05] VITALS: BP 140/100; PULSE 77; RESP 19; TEMP 37; O2SAT 100; BMI 36.6
--- NOTE | 2020-09-25 09:20 | HMH.EDUTC ---
[facility] [place] Disposition Clinical Impression: Strep throat Disposition: Home, Self-Care Condition on Discharge: Good Instructions: Sore Throat, DI for Sinusitis, DI for Cough -- Adult Additional Instructions: *Monitor Temp, Over the counter Motrin or Tylenol as directed/as needed Tylenol every 4 hours and Motrin every 6 hours (as long as your family doctor has told you that you can take it) for fever or pain. and straight to ER if unable to lower temp less than 101.0 after medication given *Warm salt water gargles may help to soothe the throat *Throat Lozenges *Warm fluids like tea with honey may help to soothe the throat *Sleep elevated *Humidifier/Vaporizer Your throat swab was sent for culture. Those results are typically sent to your primary care. Be sure to follow up in 2-3 days with your family doctor/primary care physician if no improvement so they can review those result and treat if necessary. If you don?t have a primary care doctor, I recommend you get one but in the mean time, you will have to return to a walk in clinic Follow up IMMEDIATELY for new or worsening symptoms or no Noticeable improvement over the next 48-72 hours. 911 for difficulty breathing or swallowing *change toothbrush and toothpaste 24-48 hours after starting to take antibiotics so you do not reinfect yourself Monitor Temp. Tylenol and/or Ibuprofen as needed. ER if fever is no less than 101 despite alternating Tylenol and Ibuprofen * Encourage fluids, water, Gatorade, powerade, pedialyte if /toddler/or child *Cold fluids, popsicles and ice cream may feel good on his throat You were tested for today for COVID19 your test result should be back in the next 24-48 hours, you may call to the [facility] to see if your test results are back in the next 48 hours [phone] [facility] hours are 9am-9pm You was given a handout with instructions for Self Quarantine and Self isolation for while you wait on test results and what to do if they are positive If you are positive the Health Dept will be contacting you also Prescriptions: methylPREDNISolone [Medrol 4mg tab] 4 mg PO DIRECTED #21 tab Transmission Status: [facility] Benzonatate [Tessalon Perle 100mg Cap*] 100 mg PO TID PRN #30 cap PRN Reason: Cough Transmission Status: [facility] Azithromycin [Z-Jorge 250mg Tab] 250 mg PO DIRECTED #6 tab Transmission Status: Pending to [facility] Referrals: Marco A Castañeda MD [Primary Care Provider] - As needed Forms: Work/School Release Time of Disposition: 09:47 Medical Decision Making - Darren Inquiry Pt receiving controlled substance: No Darren was queried for this patient: No Vital Signs: 09/25/20 09:05 09/25/20 09:33 Temperature 98.6 F Temperature Source Oral Pulse Rate [Right Brachial] 77 Respiratory Rate 19 Blood Pressure [Right Arm] 140/100 H 144/94 H Blood Pressure Mean [Right Arm] 113 110 Blood Pressure Source [Right Arm] Automatic Cuff Automatic Cuff Blood Pressure Position [Right Arm] Sitting Sitting 02 Sat by Pulse Oximetry 100 Oxygen Delivery Method Room Air Orders (Tests/Meds): ORDERS Category Date Time Status Covid-19 Nasal PCR ([facility]) Routine Lab 09/25/20 09:23 Ordered Medical Decision Narrative: Patient state that he has taken azithromycin and medrol dose pack before without reaction or complications Patient educated to not only change his tooth brush but also change his tooth paste as it possibly came into contact with his tooth brush and he may have reinfected his self with strep throat [facility] [place] HPI - General Stated complaint: vomiting,coughing Time Seen by Provider: 09/25/20 09:21 Mode of Arrival: Ambulatory Source of Information: Patient Limitations: No Limitations Description of Symptoms (Recalled from Triage Doc. by RN): PATIENT C/O SORE THROAT, COUGH AND SINUS PRESSURE. REPORTS HE WAS RECENTLY TREATED FOR STREP BUT DOES NOT FEEL ANY BETTER HEENT Symptoms (Recall
[2020-09-25 09:33] VITALS: BP 144/94
[2020-09-25 09:50] VITALS: BP 144/94; PULSE 77; RESP 19; TEMP 37; O2SAT 100
[2020-09-25 09:50] LABS: UTC Strep Screen (Rapid) Positive (Negative)
== END 2020-09-25 09:53 | disposition home or self-care (01) ==
PROVIDERS: Emergency Provider Nurse Practitioner; PCP Internal Medicine Adolescent Medicine
DX: J02.0 Streptococcal pharyngitis (principal); Z20.822 Contact with and (suspected) exposure to COVID-19; F41.8 Other specified anxiety disorders; K21.9 Gastro-esophageal reflux disease without esophagitis; E78.5 Hyperlipidemia, unspecified; I10 Essential (primary) hypertension; Z79.899 Other long term (current) drug therapy
CPT/HCPCS: 87880; 99202; G0463; U0003

== ENCOUNTER 2020-11-18 14:55 | Emergency (ER) | payer BC, SELFPAY ==
[2020-11-18 15:10] VITALS: BP 143/83; PULSE 74; RESP 20; TEMP 36.8; O2SAT 99; BMI 36.6
--- NOTE | 2020-11-18 15:22 | HMH.EDUTC ---
[facility] [place] Clinical Impression: Sinusitis Qualifiers: Sinusitis location: unspecified location Chronicity: acute Recurrence: non-recurrent Qualified Code(s): J01.90 - Acute sinusitis, unspecified Otitis media Qualifiers: Otitis media type: suppurative Chronicity: acute Laterality: bilateral Recurrence: non-recurrent Spontaneous tympanic membrane rupture: without spontaneous rupture Qualified Code(s): H66.003 - Acute suppurative otitis media without spontaneous rupture of ear drum, bilateral Disposition: Home, Self-Care Condition on Discharge: Good Instructions: Middle Ear Infection, DI for Sinusitis Additional Instructions: Drink plenty of fluids. Take tylenol or ibuprofen for pain or fever. Take the medications as directed. Follow up with your regular doctor. GO TO THE ER FOR ANY WORSENING SYMPTOMS Prescriptions: Amoxicillin/Potassium Clav [Augmentin 875-125 Tablet] 1 tab PO Q12H 10 Days #20 tab Transmission Status: Received by [id number] predniSONE [Prednisone 20mg Tab] 20 mg PO BID 5 Days #10 tab Transmission Status: Received by [facility] Benzonatate [Tessalon Perle 100mg Cap] 100 mg PO TIDP PRN #30 cap PRN Reason: Cough Transmission Status: Received by [facility] Referrals: Maroc A Castañeda MD [Primary Care Provider] - Time of Disposition: 15:27 Medical Decision Making - Medical Records Medical records reviewed: No: I reviewed the patient's medical records. - Darren Inquiry Pt receiving controlled substance: No Vital Signs: 11/18/20 15:10 11/18/20 15:30 Temperature 98.3 F 98.3 F Temperature Source Oral Pulse Rate 74 Pulse Rate [Left Brachial] 74 Respiratory Rate 20 20 Blood Pressure 143/83 H Blood Pressure [Left Arm] 143/83 H Blood Pressure Mean [Left Arm] 103 Blood Pressure Source [Left Arm] Automatic Cuff Blood Pressure Position [Left Arm] Sitting 02 Sat by Pulse Oximetry 99 Oxygen Delivery Method Room Air - Lab Data Lab results reviewed: Yes: I reviewed the patient's lab results. [facility] [place] - General Stated complaint: right sided ear pain Time Seen by Provider: 11/18/20 15:22 Mode of Arrival: Ambulatory Source of Information: Patient Limitations: No Limitations Description of Symptoms (Recalled from Triage Doc. by RN): PATIENT C/O PAIN TO RIGHT FACE/HEAD AND POPPING IN RIGHT EAR X 1 WEEK. DENIES DECREASED HEARING OR DIZZINESS HEENT Symptoms (Recalled from RN notes): Yes Resp Symptoms (Recalled from RN notes): No Skin Symptoms (Recalled from RN notes): No MS Symptoms (Recalled from RN notes): No Functional Status (Recalled from RN notes): WNL - History of Present Illness Provider Complaint: He states that for the past 2 days he has had right ear pain and pressure and right sided sinus pressure and congestion. He denies any cough or chest congestion. He denies any fever or chills. - Related Data Previous Rx's Medication Instructions Recorded Amoxicillin/Potassium Clav 1 tab PO Q12H 10 Days #20 tab 11/18/20 [Augmentin 875-125 Tablet] Benzonatate [Tessalon Perle 100mg 100 mg PO TIDP PRN #30 cap 11/18/20 Cap] predniSONE [Prednisone 20mg 20 mg PO BID 5 Days #10 tab 11/18/20 Tab] Allergies Allergy/AdvReac Type Severity Reaction Status Date / Time No Known Allergies Allergy Verified 09/23/20 16:11 - Worker's Comp Is this a Worker's Comp case?: No [facility] History - Hepatitis A Screen Drug use history?: No High risk sexual behaviors?: No History of sexually transmitted infection?: No Currently employed?: No Childcare worker?: No Do you have indoor plumbing?: Yes Do you have electricity?: Yes Attestation statement:: This patient has been screened for Hepatitis A risk factors. I have reviewed the patient's past medical history: Yes 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: Reports:: Anxiety, Depression, Gastroesophageal Reflux Disease(GERD), Hyperlipidemia, Hypertension Denies:: Cancer, Diabetes Mellitus Type
[2020-11-18 15:30] VITALS: BP 143/83; PULSE 74; RESP 20; TEMP 36.8; O2SAT 99
== END 2020-11-18 15:35 | disposition home or self-care (01) ==
PROVIDERS: Emergency Provider Nurse Practitioner Family; PCP Internal Medicine Adolescent Medicine
DX: J01.90 Acute sinusitis, unspecified (principal); H66.003 Acute suppurative otitis media without spontaneous rupture of ear drum, bilateral
CPT/HCPCS: 99202; G0463

== ENCOUNTER 2021-06-19 10:27 | Emergency (ER) | payer BC, SELFPAY ==
[2021-06-19 12:06] VITALS: BP 133/81; PULSE 92; RESP 18; TEMP 38.8; O2SAT 98; BMI 36.6
[2021-06-19 12:21] LABS: UTC Influenza A Antigen Negative (Negative)
[2021-06-19 12:22] LABS: UTC Influenza B Antigen Negative (Negative)
[2021-06-19 12:23] LABS: UTC Strep Screen (Rapid) Positive (Negative)
--- NOTE | 2021-06-19 12:25 | HMH.EDUTC ---
[facility] [place]: Strep [place] Disposition: Home, Self-Care Condition on Discharge: Good Instructions: DI for Strep Throat, Strep Throat Additional Instructions: *Monitor Temp, Over the counter Motrin or Tylenol as directed/as needed Tylenol every 4 hours and Motrin every 6 hours (as long as your family doctor has told you that you can take it) for fever or pain. and straight to ER if unable to lower temp less than 101.0 after medication given *Warm salt water gargles may help to soothe the throat *Throat Lozenges *Warm fluids like tea with honey may help to soothe the throat *Sleep elevated *Humidifier/Vaporizer *If you did not take Penicillin shot or was unable to, start taking antibiotic immediately and make sure that you take it for the FULL length of time although you should start to feel better in 24-48 hours *change toothbrush and toothpaste 24-48 hours after starting to take antibiotics so you do not reinfect yourself Monitor Temp. Tylenol and/or Ibuprofen as needed. ER if fever is no less than 101 despite alternating Tylenol and Ibuprofen * Encourage fluids, water, Gatorade, powerade, pedialyte if infant/toddler/or child *Cold fluids, popsicles and ice cream may feel good on his throat Follow up IMMEDIATELY for new or worsening symptoms or no Noticeable improvement over the next 48-72 hours. 911 for difficulty breathing or swallowing You were tested for today for COVID19 your test result should be back in the next 24-48 hours, you may check your results on the [facility] My Health Portal if you have trouble logging on you may call You was given a handout with instructions for Self Quarantine and Self isolation for while you wait on test results and what to do if they are positive If you are positive the Health Dept will be contacting you also Make sure to take your Vitamins Vit. C Vit D and Zinc if you can take them Prescriptions: Benzonatate [Benzonatate 100mg cap] 100 mg PO Q8HP PRN #15 cap PRN Reason: Cough Transmission Status: Pending to [facility] Amoxicillin [Amoxicillin 500mg Cap] 500 mg PO TID #30 cap Transmission Status: Pending to [facility] Ondansetron [Zofran 4mg ODT] 4 mg PO TIDP PRN #10 tab PRN Reason: Vomiting Transmission Status: Pending to [facility] Referrals: Marco A Castañeda MD [Primary Care Provider] - As needed Forms: Work/School Release Time of Disposition: 12:58 Medical Decision Making - Darrne Inquiry Pt receiving controlled substance: No Darren was queried for this patient: No Vital Signs: 06/19/21 12:06 Temperature 101.9 F H Temperature Source Oral Pulse Rate [Left] 92 H Respiratory Rate 18 Blood Pressure [Right Arm] 133/81 Blood Pressure Mean [Right Arm] 98 02 Sat by Pulse Oximetry 98 - Lab Data Lab results reviewed: Yes: I reviewed the patient's lab results. Lab Results 06/19/21 12:09: Strep [facility] Positive A 06/19/21 12:10: Influenza Type A Ag Negative, Influenza Type B Ag Negative Orders (Tests/Meds): ED MEDICATIONS Discontinued Medications Generic Name Dose Route Start Last Admin Trade Name Freq PRN Reason Stop Dose Admin Acetaminophen 650 mg 06/19/21 12:10 06/19/21 12:22 Acetaminophen 325mg Tab PO 06/19/21 12:11 650 mg ONCE ONE Administration Ondansetron HCl 4 mg 06/19/21 12:32 06/19/21 12:40 Ondansetron 4mg Odt SL 06/19/21 12:33 4 mg ONCE ONE Administration ORDERS Category Date Time Status Covid-19 Nasal PCR ([facility]) Routine Lab 06/19/21 12:10 [place] [facility] [place] - General Stated complaint: sore throat,cough,headache Time Seen by Provider: 06/19/21 12:26 Mode of Arrival: Ambulatory Source of Information: Patient Limitations: No Limitations Description of Symptoms (Recalled from Triage Doc. by RN): pt c/o n/v, SANTIAGO, sore throat, stomach ache, fever, and body aches. ongoing since yesterday. HEENT Symptoms (Recalled from RN notes): Yes (SANTIAGO and s
[2021-06-19 13:05] VITALS: BP 107/61; PULSE 85; RESP 18; TEMP 36.7
== END 2021-06-19 13:14 | disposition home or self-care (01) ==
PROVIDERS: Emergency Provider Nurse Practitioner; PCP Internal Medicine Adolescent Medicine
DX: J02.0 Streptococcal pharyngitis (principal); Z20.822 Contact with and (suspected) exposure to COVID-19; F41.8 Other specified anxiety disorders; I10 Essential (primary) hypertension; K21.9 Gastro-esophageal reflux disease without esophagitis; E78.5 Hyperlipidemia, unspecified
CPT/HCPCS: 87804; 87880; 99203; C9803; G0463; U0003; U0005

== ENCOUNTER 2021-06-27 15:49 | Emergency (ER) | payer BC, SELFPAY ==
[2021-06-27 15:50] VITALS: BP 137/75; PULSE 65; RESP 18; TEMP 36.2; O2SAT 98; BMI 36.6
[2021-06-27 16:13] LABS: UTC Influenza A Antigen Negative (Negative); UTC Influenza B Antigen Negative (Negative); UTC Strep Screen (Rapid) Positive (Negative)
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
[2021-06-27 16:36] VITALS: BP 137/75; PULSE 65; RESP 18; TEMP 36.2; O2SAT 98
== END 2021-06-27 16:39 | disposition home or self-care (01) ==
PROVIDERS: Emergency Provider Nurse Practitioner; PCP Internal Medicine Adolescent Medicine
DX: J02.0 Streptococcal pharyngitis (principal); F41.8 Other specified anxiety disorders; K21.9 Gastro-esophageal reflux disease without esophagitis; E78.5 Hyperlipidemia, unspecified; I10 Essential (primary) hypertension
CPT/HCPCS: 87804; 87880; 99203; G0463

== ENCOUNTER 2021-07-07 22:08 | Emergency (ER) | payer BC, SELFPAY ==
[2021-07-07 22:10] VITALS: BP 152/82; PULSE 78; RESP 18; TEMP 36.7; O2SAT 98; BMI 34.7
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
[2021-07-07 23:18] VITALS: BP 156/71; PULSE 78; RESP 16; TEMP 36.7; O2SAT 97
== END 2021-07-07 23:20 | disposition home or self-care (01) ==
PROVIDERS: Emergency Provider Emergency Medicine; PCP Internal Medicine Adolescent Medicine
DX: T24.212A Burn of second degree of left thigh, initial encounter (principal); X10.1XXA Contact with hot food, initial encounter; F41.9 Anxiety disorder, unspecified; F32.A Depression, unspecified; K21.9 Gastro-esophageal reflux disease without esophagitis; E78.5 Hyperlipidemia, unspecified; I10 Essential (primary) hypertension
CPT/HCPCS: 99281

== ENCOUNTER 2021-07-08 08:36 | Emergency (ER) | payer BC, SELFPAY ==
[2021-07-08 08:37] VITALS: BP 147/102; PULSE 72; RESP 16; TEMP 36.9; O2SAT 98; BMI 36.6
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
[2021-07-08 09:00] VITALS: BP 143/90; PULSE 76; RESP 18; O2SAT 94
[2021-07-08 09:31] VITALS: BP 119/50; PULSE 78; RESP 16; TEMP 36.6; O2SAT 98
--- NOTE | 2021-07-08 09:31 | PC.NURSE ---
PSO DRESSING APPLIED TO LT UPPER THIGH
== END 2021-07-08 09:33 | disposition home or self-care (01) ==
PROVIDERS: Emergency Provider Emergency Medicine; PCP Internal Medicine Adolescent Medicine
DX: T24.212A Burn of second degree of left thigh, initial encounter (principal); X12.XXXA Contact with other hot fluids, initial encounter; Y92.019 Unspecified place in single-family (private) house as the place of occurrence of the external cause; I10 Essential (primary) hypertension; E78.5 Hyperlipidemia, unspecified; F41.8 Other specified anxiety disorders; K21.9 Gastro-esophageal reflux disease without esophagitis; Z23 Encounter for immunization
CPT/HCPCS: 90471; 90715; 99281

== ENCOUNTER 2021-08-07 08:00 | Outpatient (RCR) | payer BC, SELFPAY ==
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
== END 2021-08-07 08:05 | disposition home or self-care (01) ==
LOC: PT 08:00
PROVIDERS: PCP Internal Medicine Adolescent Medicine; Visit Provider Internal Medicine Adolescent Medicine
DX: T24.212A Burn of second degree of left thigh, initial encounter (principal)
CPT/HCPCS: 97162; 97597; 97598

== ENCOUNTER 2022-01-06 11:52 | Emergency (ER) | payer BC, SELFPAY ==
[2022-01-06 12:45] VITALS: BP 131/74; PULSE 60; RESP 20; TEMP 36.8; O2SAT 97; BMI 34.0
[2022-01-06 12:58] LABS: UTC Strep Screen (Rapid) Positive (Negative)
[2022-01-06 13:08] VITALS: BP 131/74; PULSE 60; RESP 20; TEMP 36.8; O2SAT 97
--- NOTE | 2022-01-06 13:08 | HMH.EDUTC ---
[facility] [place] Clinical Impression: Strep throat Disposition: Home, Self-Care Condition on Discharge: Good Instructions: Strep Throat (Alternative Therapy), DI for Strep Throat Additional Instructions: *Monitor Temp, Over the counter Motrin or Tylenol as directed/as needed Tylenol every 4 hours and Motrin every 6 hours (as long as your family doctor has told you that you can take it) for fever or pain. and straight to ER if unable to lower temp less than 101.0 after medication given *Warm salt water gargles may help to soothe the throat *Throat Lozenges *Warm fluids like tea with honey may help to soothe the throat *Sleep elevated *Humidifier/Vaporizer *If you did not take Penicillin shot or was unable to, start taking antibiotic immediately and make sure that you take it for the FULL length of time although you should start to feel better in 24-48 hours *change toothbrush and toothpaste 24-48 hours after starting to take antibiotics so you do not reinfect yourself Monitor Temp. Tylenol and/or Ibuprofen as needed. ER if fever is no less than 101 despite alternating Tylenol and Ibuprofen * Encourage fluids, water, Gatorade, powerade, pedialyte if /toddler/or child *Cold fluids, popsicles and ice cream may feel good on his throat Follow up IMMEDIATELY for new or worsening symptoms or no Noticeable improvement over the next 48-72 hours. 911 for difficulty breathing or swallowing Prescriptions: Amoxicillin [Amoxicillin 875MG Tab] 875 mg PO Q12H #20 tab Transmission Status: Pending to Clinic [facility] Referrals: Marco A Castañeda MD [Primary Care Provider] - As needed Time of Disposition: 13:12 Medical Decision Making - Darren Inquiry Pt receiving controlled substance: No Darren was queried for this patient: No Vital Signs: 01/06/22 12:45 01/06/22 13:08 Temperature 98.2 F 98.2 F Temperature Source Oral Pulse Rate 60 Pulse Rate [Left Brachial] 60 Respiratory Rate 20 20 Blood Pressure 131/74 Blood Pressure [Left Arm] 131/74 Blood Pressure Mean [Left Arm] 93 Blood Pressure Source [Left Arm] Automatic Cuff Blood Pressure Position [Left Arm] Sitting 02 Sat by Pulse Oximetry 97 Oxygen Delivery Method Room Air - Lab Data Lab results reviewed: Yes: I reviewed the patient's lab results. Lab Results 01/06/22 12:57: Strep Scn Rapid Clinic Positive A [facility] [place] - General Stated complaint: sore throat Time Seen by Provider: 01/06/22 13:08 Mode of Arrival: Ambulatory Source of Information: Patient Limitations: No Limitations Description of Symptoms (Recalled from Triage Doc. by RN): PATIENT C/O SORE THROAT AND SINUS CONGESTION SINCE LAST WEDNESDAY HEENT Symptoms (Recalled from RN notes): Yes Resp Symptoms (Recalled from RN notes): No Skin Symptoms (Recalled from RN notes): No MS Symptoms (Recalled from RN notes): No Functional Status (Recalled from RN notes): WNL - History of Present Illness Provider Complaint: Patient has been having sore throat and sinus congestion States that feels like it did when he had strep throat so he came in when it continued to get worse - Related Data Home Medications Medication Instructions Recorded Confirmed Atorvastatin Calcium [Lipitor 40mg 40 mg PO HS 06/27/21 07/07/21 Tab] Omeprazole [Omeprazole 20mg 20 mg PO DAILY 06/27/21 07/07/21 Capsule] bisoproloL fumarate [Bisoprolol 10 mg PO DAILY 06/27/21 07/07/21 Fumarate] Previous Rx's Medication Instructions Recorded Hydrocod/Acet 5/325 mg [Doyline 1 tab PO Q6HP PRN #10 tab 07/08/21 5/325mg tablet] Amoxicillin [Amoxicillin 875MG 875 mg PO Q12H #20 tab 01/06/22 Tab] Allergies Allergy/AdvReac Type Severity Reaction Status Date / Time No Known Allergies Allergy Verified 09/23/20 16:11 - Worker's Comp Is this a Worker's Comp case?: No [facility] History - Hepatitis A Screen Attestation statement:: This patient has been screened for Hepatitis A risk factor
== END 2022-01-06 13:14 | disposition home or self-care (01) ==
PROVIDERS: Emergency Provider Nurse Practitioner; PCP Internal Medicine Adolescent Medicine
DX: J02.0 Streptococcal pharyngitis (principal)
CPT/HCPCS: 87880; 99212; G0463

== ENCOUNTER 2022-07-27 19:05 | Emergency (ER) | payer BC, SELFPAY ==
[2022-07-27 19:50] VITALS: BP 143/76; PULSE 68; RESP 20; TEMP 36.8; O2SAT 97; BMI 36.6
--- NOTE | 2022-07-27 20:04 | EXP.UTC ---
Discharge Plan Disposition Patient Disposition: Home, Self-Care Condition: Good Prescriptions Prescriptions: New azithromycin [Zithromax] 250 mg tablet 250 mg PO UD DOSE PK Qty: 6 0RF Rx Instructions: Take two (2) tablets today, then one (1) tablet days #2 thru #5 benzonatate [benzonatate] 100 mg capsule 100 mg PO TIDP PRN (Reason: Cough) Qty: 30 0RF ondansetron 4 mg Tablet,Disintegrating 4 mg PO Q8H PRN (Reason: Nausea) Qty: 9 0RF No Action amoxicillin 875 MG tablet 875 mg PO Q12H Qty: 20 0RF atorvastatin 40 MG tablet 40 mg PO HS bisoprolol fumarate 10 MG tablet 10 mg PO DAILY Label Comments: TAKE ONE TABLET BY MOUTH EVERY DAY omeprazole 20 MG capsule,delayed release(DR/EC) 20 mg PO DAILY hydrocodone-acetaminophen 1 TAB tablet 1 tab PO Q6HP PRN (Reason: Pain) Qty: 10 0RF Referrals Follow up/Referrals: Marco A Castañeda MD [Primary Care Provider] - See instructions Activity Restrictions/Add. Instructions Additional Instructions/Restrictions: Drink plenty of fluids. Take tylenol or ibuprofen for pain or fever. Take the medications as directed. Follow up with your regular doctor. GO TO THE ER FOR ANY WORSENING SYMPTOMS Clinical Impressions Clinical Impression: Pharyngitis, Acute viral syndrome Stand Alone Forms Stand Alone Forms: Work/School Release Instructions Patient Instructions: DI for Pharyngitis/Tonsillopharyngitis -- Adult Discharge ED [place]ash [place] [facility] [place] General Stated complaint: diarrhea, vomiting, lightheaded, sore throat Time Seen by Provider: 07/27/22 20:04 History of Present Illness Provider Complaint: He states that for the past 2 days he has had fever, chills, sore throat, felt light headed at times, and had a head ache. He has been exposed to covid-19 and influenza at his work. Related Data Home Medications Medication Instructions Recorded Confirmed atorvastatin 40 mg tablet 40 mg PO HS Cholesterol 06/27/21 07/07/21 bisoprolol fumarate 10 mg tablet 10 mg PO DAILY Hypertension 06/27/21 07/07/21 omeprazole 20 mg capsule,delayed 20 mg PO DAILY GERD 06/27/21 07/07/21 release Previous Rx's Medication Instructions Recorded hydrocodone 5 mg-acetaminophen 325 1 tab PO Q6HP PRN Pain #10 tabs 07/08/21 mg tablet amoxicillin 875 mg tablet 875 mg PO Q12H #20 tabs 01/06/22 azithromycin 250 mg tablet 250 mg PO UD DOSE PK #6 tabs 07/27/22 (Zithromax) benzonatate 100 mg capsule 100 mg PO TIDP PRN Cough #30 caps 07/27/22 ondansetron 4 mg disintegrating 4 mg PO Q8H PRN Nausea #9 tabs 07/27/22 tablet Allergies Allergy/AdvReac Type Severity Reaction Status Date / Time No Known Allergies Allergy Verified 07/27/22 20:15 PFSH PFS Disclaimer: The information contained in this section may have been updated after the patient was seen, as this information can be updated by other users. Social History Smoking Status: Never smoker second hand exposure: No alcohol intake: never substance use type: denies use current occupational status: other Travel in the last 8 weeks: None household members: significant other housing: apartment current occupational exposures/hazards: No caffeine: Yes ROS Obtained: Yes All systems reviewed & no additional complaints except as documented Constitutional Constitutional: Reports chills and Reports fever(s) Eyes Eyes: Denies eye discharge ENT Ears, Nose, Mouth, and Throat: Reports as per HPI Cardiovascular Cardiovascular: Denies chest pain Respiratory Respiratory: Denies chest congestion and Reports cough Gastrointestinal Gastrointestingal: Reports nausea; Denies abdominal pain, constipation, cramping, diarrhea or vomiting Musculoskeletal Musculoskeletal: Denies arthralgias Integumentary/Breasts Skin/Breast: Denies rash Neurologic Neurologic: Denies paresthesias Physical Exam G
[2022-07-27 20:10] LABS: UTC Strep Screen (Rapid) Negative (Negative)
[2022-07-27 20:30] LABS: UTC Influenza A Antigen Negative (Negative); UTC Influenza B Antigen Negative (Negative)
[2022-07-27 20:44] VITALS: BP 143/76; PULSE 97; RESP 20; TEMP 36.8; O2SAT 97
== END 2022-07-27 20:43 | disposition home or self-care (01) ==
PROVIDERS: Emergency Provider Nurse Practitioner Family; PCP Internal Medicine Adolescent Medicine
DX: J02.9 Acute pharyngitis, unspecified (principal); B34.9 Viral infection, unspecified
CPT/HCPCS: 87804; 87880; 99212; 99214; C9803; G0463; U0003; U0005

== ENCOUNTER 2022-07-30 15:39 | Emergency (ER) | payer BC, SELFPAY ==
[2022-07-30 15:54] VITALS: BP 129/86; PULSE 75; RESP 19; TEMP 37; O2SAT 97; BMI 31.5
--- NOTE | 2022-07-30 15:59 | EXP.UTC ---
Discharge Plan Disposition Patient Disposition: Home, Self-Care Condition: Good Prescriptions Prescriptions: New fluticasone propionate [Flonase Allergy Relief] 50 mcg/actuation spray,suspension 1 spray intranasal DAILY Qty: 16 0RF Rx Instructions: administer into each nostril No Action amoxicillin 875 MG tablet 875 mg PO Q12H Qty: 20 0RF azithromycin [Zithromax] 250 mg tablet 250 mg PO UD DOSE PK Qty: 6 0RF Rx Instructions: Take two (2) tablets today, then one (1) tablet days #2 thru #5 benzonatate [benzonatate] 100 mg capsule 100 mg PO TIDP PRN (Reason: Cough) Qty: 30 0RF ondansetron 4 mg Tablet,Disintegrating 4 mg PO Q8H PRN (Reason: Nausea) Qty: 9 0RF atorvastatin 40 MG tablet 40 mg PO HS bisoprolol fumarate 10 MG tablet 10 mg PO DAILY Label Comments: TAKE ONE TABLET BY MOUTH EVERY DAY omeprazole 20 MG capsule,delayed release(DR/EC) 20 mg PO DAILY hydrocodone-acetaminophen 1 TAB tablet 1 tab PO Q6HP PRN (Reason: Pain) Qty: 10 0RF Referrals Follow up/Referrals: Marco A Castañeda MD [Primary Care Provider] - See instructions Activity Restrictions/Add. Instructions Additional Instructions/Restrictions: *Monitor Temp, Over the counter Motrin or Tylenol as directed/as needed Tylenol every 4 hours and Motrin every 6 hours (as long as your family doctor has told you that you can take it) for fever or pain. and straight to ER if unable to lower temp less than 101.0 after medication given *Warm salt water gargles may help to soothe the throat *Throat Lozenges? *Warm fluids like tea with honey may help to soothe the throat? *Sleep elevated *Humidifier/Vaporizer Continue antibiotics as prescribed Your throat swab was sent for culture. Those results are typically sent to your primary care. Be sure to follow up in 2-3 days with your family doctor/primary care physician if no improvement so they can review those result and treat if necessary. If you don?t have a primary care doctor, I recommend you get one but in the mean time, you will have to return to a walk in clinic Follow up IMMEDIATELY for new or worsening symptoms or no Noticeable improvement over the next 48-72 hours. 911 for difficulty breathing or swallowing You were tested for today for COVID19 your test result should be back in the next 24-48 hours, you may check your results on the [facility] Clinical Impressions Clinical Impression: URI (upper respiratory infection) Qualifiers: URI type: unspecified URI Qualified Code(s): J06.9 - Acute upper respiratory infection, unspecified Stand Alone Forms Stand Alone Forms: Work/School Release Instructions Patient Instructions: Diarrhea, DI for Nasal Congestion Discharge ED Provider: Silva Duran [facility] [place] General Stated complaint: sore throat vomiting congestion Mode of Arrival: Ambulatory Source of Information: Patient Limitations: No Limitations Time Seen by Provider: 07/30/22 15:59 Description of Symptoms (Recalled from Triage Doc. by RN): c/o still feeling bad, was seen wednesday for sickness HEENT Symptoms (Recalled from RN notes): No Resp Symptoms (Recalled from RN notes): No Skin Symptoms (Recalled from RN notes): No MS Symptoms (Recalled from RN notes): No Functional Status (Recalled from RN notes): na History of Present Illness Provider Complaint: Patient states that he was seen on Wednesday for same symptoms but not any better States that he has been having diarrhea, nausea, sore throat, bodyaches and nasal congestion States that he has been on a zpack but not helping any States that several people at his work has been sick with flu and COVID and he was negative on Wednesday but now feeling worse so he came back in Related Data Home Medications Medication Instructions Recorded Confirmed atorvastatin 40 mg tablet 40 mg PO HS Cholesterol 06/27/21 07/07/21 bisoprolol fumarate 10 mg tablet 10 mg PO LESLI
[2022-07-30 16:14] LABS: Coronavirus 19, PCR Not Detected (NotDetected); Influenza A, PCR Not Detected (NotDetected); Influenza B, PCR Not Detected (NotDetected)
[2022-07-30 16:17] LABS: UTC Strep Screen (Rapid) Negative (Negative)
[2022-07-30 16:35] VITALS: BP 129/86; PULSE 75; RESP 19; TEMP 37; O2SAT 97
== END 2022-07-30 16:36 | disposition home or self-care (01) ==
PROVIDERS: Emergency Provider Nurse Practitioner; PCP Internal Medicine Adolescent Medicine
DX: J06.9 Acute upper respiratory infection, unspecified (principal)
CPT/HCPCS: 87880; 96372; 99212; 99214; C9803; G0463; U0003; U0005

== ENCOUNTER 2022-10-28 19:23 | Emergency (ER) | payer BC, SELFPAY ==
--- NOTE | 2022-10-28 20:20 | EXP.UTC ---
Discharge Plan Disposition Patient Disposition: Home, Self-Care Condition: Good Prescriptions Prescriptions: New cyclobenzaprine 10 mg Tablet 10 mg PO BID PRN (Reason: Muscle Spasm) Qty: 20 0RF methylprednisolone 4 mg Tablets,Dose Pack 4 mg PO DIRECTED Qty: 21 0RF No Action amoxicillin 875 MG tablet 875 mg PO Q12H Qty: 20 0RF azithromycin [Zithromax] 250 mg tablet 250 mg PO UD DOSE PK Qty: 6 0RF Rx Instructions: Take two (2) tablets today, then one (1) tablet days #2 thru #5 benzonatate [benzonatate] 100 mg capsule 100 mg PO TIDP PRN (Reason: Cough) Qty: 30 0RF ondansetron 4 mg Tablet,Disintegrating 4 mg PO Q8H PRN (Reason: Nausea) Qty: 9 0RF atorvastatin 40 MG tablet 40 mg PO HS bisoprolol fumarate 10 MG tablet 10 mg PO DAILY Label Comments: TAKE ONE TABLET BY MOUTH EVERY DAY omeprazole 20 MG capsule,delayed release(DR/EC) 20 mg PO DAILY hydrocodone-acetaminophen 1 TAB tablet 1 tab PO Q6HP PRN (Reason: Pain) Qty: 10 0RF fluticasone propionate [Flonase Allergy Relief] 50 mcg/actuation spray,suspension 1 spray intranasal DAILY Qty: 16 0RF Rx Instructions: administer into each nostril Referrals Follow up/Referrals: Marco A Castañeda MD [Primary Care Provider] - See instructions Activity Restrictions/Add. Instructions Additional Instructions/Restrictions: Go home and rest. It would be best if you rested tomorrow too. No heavy lifting. No twisting for the next couple days. Take the oral medications as directed. The muscle relaxer (cyclobenzaprine--Flexeril) will make you drowsy, so don't drive or operate heavy machinery after taking it. Don't start the oral steroids (medrol dose pack) until tomorrow, since you had the shots in here today. Follow up with your regular doctor. GO TO THE ER FOR ANY WORSENING SYMPTOMS OR CONCERNS Clinical Impressions Clinical Impression: Torticollis Stand Alone Forms Stand Alone Forms: Work/School Release Instructions Patient Instructions: Torticollis, DI for Torticollis, Methylprednisolone Injection, Ketorolac Injection Discharge ED Provider: Arash Adame [facility] General Stated complaint: neck pain Time Seen by Provider: 10/28/22 20:20 History of Present Illness Provider Complaint: He states that for the past 3 days he has had neck pain. His pain is worse with twisting and nodding his head. He denies any injury or any recent falls or mva. He denies weakness or numbness/tingling of his hands. Related Data Home Medications Medication Instructions Recorded Confirmed atorvastatin 40 mg tablet 40 mg PO HS Cholesterol 06/27/21 07/07/21 bisoprolol fumarate 10 mg tablet 10 mg PO DAILY Hypertension 06/27/21 07/07/21 omeprazole 20 mg capsule,delayed 20 mg PO DAILY GERD 06/27/21 07/07/21 release Previous Rx's Medication Instructions Recorded hydrocodone 5 mg-acetaminophen 325 1 tab PO Q6HP PRN Pain #10 tabs 07/08/21 mg tablet amoxicillin 875 mg tablet 875 mg PO Q12H #20 tabs 01/06/22 azithromycin 250 mg tablet 250 mg PO UD DOSE PK #6 tabs 07/27/22 (Zithromax) benzonatate 100 mg capsule 100 mg PO TIDP PRN Cough #30 caps 07/27/22 ondansetron 4 mg disintegrating 4 mg PO Q8H PRN Nausea #9 tabs 07/27/22 tablet fluticasone propionate 50 1 spray intranasal DAILY #16 grams 07/30/22 mcg/actuation nasal spray,suspension (Flonase Allergy Relief) cyclobenzaprine 10 mg tablet 10 mg PO BID PRN Muscle Spasm #20 10/28/22 tabs methylprednisolone 4 mg tablets in 4 mg PO DIRECTED #21 tabs 10/28/22 a dose pack Allergies Allergy/AdvReac Type Severity Reaction Status Date / Time No Known Allergies Allergy Verified 10/28/22 20:27 [facility] Disclaimer: The information contained in this section may have been updated after the patient was seen, as this information can be updated by other users. Social History
[2022-10-28 20:25] VITALS: BP 129/83; PULSE 58; RESP 16; TEMP 36.9; O2SAT 96; BMI 36.6
[2022-10-28 20:46] VITALS: BP 129/83; PULSE 58; RESP 16; TEMP 36.9
== END 2022-10-28 20:46 | disposition home or self-care (01) ==
PROVIDERS: Emergency Provider Nurse Practitioner Family; PCP Internal Medicine Adolescent Medicine
DX: M43.6 Torticollis (principal)
CPT/HCPCS: 96372; 99212; 99214; G0463

== ENCOUNTER 2022-11-04 16:00 | Emergency (ER) | payer BC, SELFPAY ==
[2022-11-04 16:01] VITALS: BP 141/87; PULSE 74; RESP 18; TEMP 37.1; O2SAT 98; BMI 37.7
[2022-11-04 16:31] VITALS: BP 141/87; PULSE 74; RESP 18; TEMP 37.1
--- NOTE | 2022-11-04 18:10 | EXP.UTC ---
Discharge Plan Disposition Patient Disposition: Home, Self-Care Condition: Good Prescriptions Prescriptions: No Action amoxicillin 875 MG tablet 875 mg PO Q12H Qty: 20 0RF azithromycin [Zithromax] 250 mg tablet 250 mg PO UD DOSE PK Qty: 6 0RF Rx Instructions: Take two (2) tablets today, then one (1) tablet days #2 thru #5 benzonatate [benzonatate] 100 mg capsule 100 mg PO TIDP PRN (Reason: Cough) Qty: 30 0RF ondansetron 4 mg Tablet,Disintegrating 4 mg PO Q8H PRN (Reason: Nausea) Qty: 9 0RF atorvastatin 40 MG tablet 40 mg PO HS bisoprolol fumarate 10 MG tablet 10 mg PO DAILY Label Comments: TAKE ONE TABLET BY MOUTH EVERY DAY omeprazole 20 MG capsule,delayed release(DR/EC) 20 mg PO DAILY hydrocodone-acetaminophen 1 TAB tablet 1 tab PO Q6HP PRN (Reason: Pain) Qty: 10 0RF fluticasone propionate [Flonase Allergy Relief] 50 mcg/actuation spray,suspension 1 spray intranasal DAILY Qty: 16 0RF Rx Instructions: administer into each nostril cyclobenzaprine 10 mg Tablet 10 mg PO BID PRN (Reason: Muscle Spasm) Qty: 20 0RF methylprednisolone 4 mg Tablets,Dose Pack 4 mg PO DIRECTED Qty: 21 0RF Referrals Follow up/Referrals: Provider,Referral, MD [Primary Care Provider] - See instructions Activity Restrictions/Add. Instructions Additional Instructions/Restrictions: Take medication as prescribed Follow up PCP or General surgery Clinical Impressions Clinical Impression: Cellulitis and abscess of buttock Instructions Patient Instructions: Cellulitis, Trimethoprim/Sulfamethoxazole (Alternative Therapy), Cephalexin Discharge ED Provider: Silva Duran [facility] [place] General Stated complaint: spot on tail Mode of Arrival: Ambulatory Source of Information: Patient Limitations: No Limitations Time Seen by Provider: 11/04/22 16:40 Description of Symptoms (Recalled from Triage Doc. by RN): pt presents with a golf ball sized cysts on the top of his tailbone that appeared yesterday. pt states he has had diarrhea x2d HEENT Symptoms (Recalled from RN notes): No Resp Symptoms (Recalled from RN notes): No Skin Symptoms (Recalled from RN notes): Yes MS Symptoms (Recalled from RN notes): No Functional Status (Recalled from RN notes): wnl History of Present Illness Provider Complaint: Patient states that he has been having diarrhea for a couple of days thinks he may have had a stomach bug but when he wiped he noticed hard area on his right buttcheek States that today he noticed it was larger and he has had to have these cut open before and wanted to get it checked before it got too bad Related Data Home Medications Medication Instructions Recorded Confirmed atorvastatin 40 mg tablet 40 mg PO HS Cholesterol 06/27/21 07/07/21 bisoprolol fumarate 10 mg tablet 10 mg PO DAILY Hypertension 06/27/21 07/07/21 omeprazole 20 mg capsule,delayed 20 mg PO DAILY GERD 06/27/21 07/07/21 release Previous Rx's Medication Instructions Recorded hydrocodone 5 mg-acetaminophen 325 1 tab PO Q6HP PRN Pain #10 tabs 07/08/21 mg tablet amoxicillin 875 mg tablet 875 mg PO Q12H #20 tabs 01/06/22 azithromycin 250 mg tablet 250 mg PO UD DOSE PK #6 tabs 07/27/22 (Zithromax) benzonatate 100 mg capsule 100 mg PO TIDP PRN Cough #30 caps 07/27/22 ondansetron 4 mg disintegrating 4 mg PO Q8H PRN Nausea #9 tabs 07/27/22 tablet fluticasone propionate 50 1 spray intranasal DAILY #16 grams 07/30/22 mcg/actuation nasal spray,suspension (Flonase Allergy Relief) cyclobenzaprine 10 mg tablet 10 mg PO BID PRN Muscle Spasm #20 10/28/22 tabs methylprednisolone 4 mg tablets in 4 mg PO DIRECTED #21 tabs 10/28/22 a dose pack Allergies Allergy/AdvReac Type Severity Reaction Status Date / Time No Known Allergies Allergy Verified 11/04/22 16:30 Worker's Comp Is this a Worker's Comp case?: No [facility] Disclaimer: The information contained in this section may
== END 2022-11-04 16:42 | disposition home or self-care (01) ==
PROVIDERS: Emergency Provider Nurse Practitioner
DX: L02.31 Cutaneous abscess of buttock (principal); L03.317 Cellulitis of buttock
CPT/HCPCS: 99212; 99214; G0463

== ENCOUNTER 2023-02-14 17:54 | Emergency (ER) | payer BC, SELFPAY ==
[2023-02-14 17:55] VITALS: BP 121/69; PULSE 63; RESP 16; TEMP 36.8; O2SAT 97; BMI 36.6
--- NOTE | 2023-02-14 17:58 | EXP.UTC ---
Discharge Plan Disposition Patient Disposition: Home, Self-Care Condition: Good Prescriptions Prescriptions: New benzonatate [benzonatate] 100 mg capsule 100 mg PO TIDP PRN (Reason: Cough) Qty: 30 0RF ondansetron 4 mg Tablet,Disintegrating 4 mg PO Q8H PRN (Reason: Nausea) Qty: 12 0RF No Action amoxicillin 875 MG tablet 875 mg PO Q12H Qty: 20 0RF azithromycin [Zithromax] 250 mg tablet 250 mg PO UD DOSE PK Qty: 6 0RF Rx Instructions: Take two (2) tablets today, then one (1) tablet days #2 thru #5 benzonatate [benzonatate] 100 mg capsule 100 mg PO TIDP PRN (Reason: Cough) Qty: 30 0RF ondansetron 4 mg Tablet,Disintegrating 4 mg PO Q8H PRN (Reason: Nausea) Qty: 9 0RF atorvastatin 40 MG tablet 40 mg PO HS bisoprolol fumarate 10 MG tablet 10 mg PO DAILY Patient Comments: TAKE ONE TABLET BY MOUTH EVERY DAY omeprazole 20 MG capsule,delayed release(DR/EC) 20 mg PO DAILY hydrocodone-acetaminophen 1 TAB tablet 1 tab PO Q6HP PRN (Reason: Pain) Qty: 10 0RF fluticasone propionate [Flonase Allergy Relief] 50 mcg/actuation spray,suspension 1 spray intranasal DAILY Qty: 16 0RF Rx Instructions: administer into each nostril cyclobenzaprine 10 mg Tablet 10 mg PO BID PRN (Reason: Muscle Spasm) Qty: 20 0RF methylprednisolone 4 mg Tablets,Dose Pack 4 mg PO DIRECTED Qty: 21 0RF Referrals Follow up/Referrals: Marco A Castañeda MD [Primary Care Provider] - See instructions Activity Restrictions/Add. Instructions Additional Instructions/Restrictions: Drink plenty of fluids. Take tylenol or ibuprofen for pain or fever. Take the zofran if needed for nausea/vomiting. Follow up with your regular doctor. GO TO THE ER FOR ANY WORSENING SYMPTOMS Clinical Impressions Clinical Impression: Viral syndrome, Exposure to 2019 novel coronavirus Stand Alone Forms Stand Alone Forms: Work/School Release Instructions Patient Instructions: Ondansetron, Benzonatate, Coronavirus Disease 2019, Preventing the Spread of Coronavirus Discharge Instructions Discharge ED Provider: Arash Adame [facility] [place] HPI General Stated complaint: covid exposure Time Seen by Provider: 02/14/23 17:58 History of Present Illness Provider Complaint: He states that for the past 2 days he has had worsening body aches, chills, fever, malaise, and nausea. He has been exposed to covid-19 multiple times at his job. He states that he has had covid-19 twice in the past and both times it felt just like he feels right now. He denies chest congestion and shortness of breath. Related Data Home Medications Medication Instructions Recorded Confirmed atorvastatin 40 mg tablet 40 mg PO HS Cholesterol 06/27/21 07/07/21 bisoprolol fumarate 10 mg tablet 10 mg PO DAILY Hypertension 06/27/21 07/07/21 omeprazole 20 mg capsule,delayed 20 mg PO DAILY GERD 06/27/21 07/07/21 release Previous Rx's Medication Instructions Recorded hydrocodone 5 mg-acetaminophen 325 1 tab PO Q6HP PRN Pain #10 tabs 07/08/21 mg tablet amoxicillin 875 mg tablet 875 mg PO Q12H #20 tabs 01/06/22 azithromycin 250 mg tablet 250 mg PO UD DOSE PK #6 tabs 07/27/22 (Zithromax) benzonatate 100 mg capsule 100 mg PO TIDP PRN Cough #30 caps 07/27/22 ondansetron 4 mg disintegrating 4 mg PO Q8H PRN Nausea #9 tabs 07/27/22 tablet fluticasone propionate 50 1 spray intranasal DAILY #16 grams 07/30/22 mcg/actuation nasal spray,suspension (Flonase Allergy Relief) cyclobenzaprine 10 mg tablet 10 mg PO BID PRN Muscle Spasm #20 10/28/22 tabs methylprednisolone 4 mg tablets in 4 mg PO DIRECTED #21 tabs 10/28/22 a dose pack benzonatate 100 mg capsule 100 mg PO TIDP PRN Cough #30 caps 02/14/23 ondansetron 4 mg disintegrating 4 mg PO Q8H PRN Nausea #12 tabs 02/14/23 tablet Allergies Allergy/AdvReac Type Severity Reaction Status Date / Time No Known Allergies Allergy Verified 11/04/22 16:30 P
[2023-02-14 18:28] VITALS: BP 121/69; PULSE 63; RESP 16; TEMP 36.8; O2SAT 97
== END 2023-02-14 18:29 | disposition home or self-care (01) ==
PROVIDERS: Emergency Provider Nurse Practitioner Family; PCP Internal Medicine Adolescent Medicine
DX: U07.1 COVID-19 (principal); R50.9 Fever, unspecified; R11.0 Nausea; R53.81 Other malaise
CPT/HCPCS: 99212; 99214; G0463

== ENCOUNTER 2023-08-01 02:51 | Emergency (ER) | payer BC, SELFPAY ==
[2023-08-01 02:52] VITALS: BP 130/79; PULSE 77; RESP 16; TEMP 37.1; O2SAT 97; BMI 35.4
--- NOTE | 2023-08-01 03:06 | CT_ITS ---
PROCEDURE INFORMATION: Exam: CT Abdomen And Pelvis With Contrast Exam date and time: 08/01/2023 3:31 AM Age: 57 years old Clinical indication: Pain; Other: Flank; Additional info: Right flank/ruq/rlq pain TECHNIQUE: Imaging protocol: Computed tomography of the abdomen and pelvis with contrast. Radiation optimization: All CT scans at this facility use at least one of these dose optimization techniques: automated exposure control; mA and/or kV adjustment per patient size (includes targeted exams where dose is matched to clinical indication); or iterative reconstruction. Contrast material: ISOVUE; Contrast volume: 75 ml; Contrast route: IV; COMPARISON: CR XR CHEST 2V 03/07/2020 10:36 PM FINDINGS: Liver: Normal. No mass. Gallbladder and bile ducts: Prior cholecystectomy. Pancreas: Normal. No ductal dilation. Spleen: Normal. No splenomegaly. Adrenal glands: Normal. No mass. Kidneys and ureters: Simple right renal cyst. No evidence of renal stone or obstruction. Stomach and bowel: Unremarkable. No obstruction. No mucosal thickening. Appendix: No evidence of appendicitis. Intraperitoneal space: Unremarkable. No free air. No significant fluid collection. Vasculature: Unremarkable. No abdominal aortic aneurysm. Lymph nodes: Unremarkable. No enlarged lymph nodes. Urinary bladder: Unremarkable as visualized. Reproductive: Unremarkable as visualized. Bones/joints: Unremarkable. No acute fracture. Soft tissues: Fat containing left inguinal hernia.. IMPRESSION: 1. No evidence of renal stone or obstruction. No acute process to explain the patient's right-sided pain. 2. Fat containing left inguinal hernia is noted. 3. Prior cholecystectomy. COMMENTS: Consistent with the [employer]'s Incidental Findings Committee white paper (J Am Natalie Radiol 2018): Any incidental renal lesion less than 1 cm or classified as too small to characterize, or any incidental cystic renal lesion characterized as simple-appearing, is likely benign. No follow-up imaging is recommended for these lesions per consensus recommendations based on imaging criteria.
[2023-08-01 03:15] LABS: Basophils # 0.1 K/mm3 (0-0.2); Basophils % 0.5 % (0.1-2.0); Eosinophils # 0.4 K/mm3 (0.0-0.4); Eosinophils % 3.9 % (0.1-12.0); Hematocrit 46.3 % (42.0-52.0); Hemoglobin 15.7 g/dL (14.1-18.0); Lymphocytes % 21.2 % (10-50); Mean Corpuscular HGB Conc 33.8 g/dL (31.8-35.4); Mean Corpuscular Hemoglobin 29.9 pg (27.0-31.2); Mean Corpuscular Volume 88.5 fl (80-94); Monocytes # 0.6 K/mm3 (0.1-1.0); Monocytes % 6.7 % (1.7-9.3); Neutrophils # 6.4 K/mm3 (1.8-7.8); Neutrophils % 67.7 % (37.0-80.0); Platelet Count 198 K/mm3 (142-424); Red Blood Count 5.23 M/mm3 (4.60-6.20); White Blood Count 9.4 K/mm3 (4.8-10.8)
[2023-08-01 03:16] LABS: Chloride 103 mmol/L (98-107); Potassium 4.5 mmoL/L (3.5-5.1); Sodium 140 mmol/L (136-145)
[2023-08-01] MEDS: KETOROLAC 30MG/ML VIAL 30 MG IV (03:17)
[2023-08-01] MEDS: ACETAMINOPHEN 500MG TAB 1000 MG PO (03:17)
[2023-08-01 03:19] LABS: Alanine Aminotransferase 51 U/L (12-78); Albumin Level 4.3 g/dl (3.5-5.0); Alkaline Phosphatase 105 U/L (38-126); Anion Gap 12.5 mEq/L (5-15); Aspartate Amino Transferase 45 U/L (17-59); Bilirubin,Total 0.4 mg/dl (0.2-1.3); Blood Urea Nitrogen 25 mg/dl (9-20); Carbon Dioxide 29 mmol/L (22.0-30.0); Creatinine Clearance Estimated 94 mL/min (50-200); Estimated Glomerular Filt Rate 57 ml/min (>60); GFR (African American) 68 ML/MIN (>60); Globulin 4.1 g/dL (1.3-3.2); Total Protein,Serum 8.4 g/dl (6.3-8.2)
[2023-08-01 03:20] LABS: Calcium 9.4 mg/dl (8.4-10.2); Glucose 92 mg/dl (74-100)
--- NOTE | 2023-08-01 03:21 | PC.NURSE ---
Pt unable to give urine sample at this time.
--- NOTE | 2023-08-01 03:27 | PC.NURSE ---
Pt transported to CT
[2023-08-01] MEDS: SODIUM CHLORIDE 0.9% 10ML SYR (RAD ONLY) 10 ML IV (03:44)
[2023-08-01] MEDS: IOPAMIDOL-370 (76%);100ML BOTTLE 75 ML IV (03:44)
--- NOTE | 2023-08-01 03:50 | HMH.EDGENADL ---
Discharge Plan Disposition Patient Disposition: Home, Self-Care Prescriptions Prescriptions: New methocarbamol 500 mg tablet 500 mg PO Q6H PRN (Reason: pain) Qty: 30 0RF lidocaine 5 % adhesive patch,medicated 1 patch topical DAILY PRN (Reason: pain) Qty: 30 0RF Rx Instructions: leave on most painful area for up to 12 hrs No Action amoxicillin 875 MG tablet 875 mg PO Q12H Qty: 20 0RF azithromycin [Zithromax] 250 mg tablet 250 mg PO UD DOSE PK Qty: 6 0RF Rx Instructions: Take two (2) tablets today, then one (1) tablet days #2 thru #5 benzonatate [benzonatate] 100 mg capsule 100 mg PO TIDP PRN (Reason: Cough) Qty: 30 0RF ondansetron 4 mg Tablet,Disintegrating 4 mg PO Q8H PRN (Reason: Nausea) Qty: 9 0RF benzonatate [benzonatate] 100 mg capsule 100 mg PO TIDP PRN (Reason: Cough) Qty: 30 0RF ondansetron 4 mg Tablet,Disintegrating 4 mg PO Q8H PRN (Reason: Nausea) Qty: 12 0RF atorvastatin 40 MG tablet 40 mg PO HS bisoprolol fumarate 10 MG tablet 10 mg PO DAILY Patient Comments: TAKE ONE TABLET BY MOUTH EVERY DAY omeprazole 20 MG capsule,delayed release(DR/EC) 20 mg PO DAILY hydrocodone-acetaminophen 1 TAB tablet 1 tab PO Q6HP PRN (Reason: Pain) Qty: 10 0RF fluticasone propionate [Flonase Allergy Relief] 50 mcg/actuation spray,suspension 1 spray intranasal DAILY Qty: 16 0RF Rx Instructions: administer into each nostril cyclobenzaprine 10 mg Tablet 10 mg PO BID PRN (Reason: Muscle Spasm) Qty: 20 0RF methylprednisolone 4 mg Tablets,Dose Pack 4 mg PO DIRECTED Qty: 21 0RF Referrals Follow up/Referrals: Marco A Castañeda MD [Primary Care Provider] - See instructions Activity Restrictions/Add. Instructions Additional Instructions/Restrictions: Please follow-up with your primary care provider. Please return to the emergency department if you develop any new or worsening symptoms or become concerned for your health. Please take Tylenol and ibuprofen as needed for pain. Please use lidocaine patches and take Robaxin as needed for pain. Clinical Impressions Clinical Impression: Right sided abdominal pain, Acute right-sided back pain Discharge ED Provider: Ambrose Rivas General Adult HPI General Chief complaint: PAIN Stated complaint: right side back pain, hurts to breathe Time Seen by Provider: 08/01/23 02:55 Mode of Arrival: Ambulatory Source of Information: Patient Limitations: No Limitations Description of Symptoms (Recalled from ER Triage Doc. by RN): Pt presents with right flank pain since yesterday. Denies any urinary issues or hx of kidney stones. Pt believes it may be related to his new grapefruit diet. He has lost 20 lbs in a week. History of Present Illness HPI narrative: 57-year-old male, worker at [employer], presents with worsening right-sided pain since yesterday. He reports it was slow in onset. It is worsened by movement and palpation of his side. He reports history of cholecystectomy. He denies any urinary symptoms or fever. He denies any immunocompromise or drug use. Reports pain is from the right mid back and wraps around to his right upper quadrant and right groin. Denies chest pain or shortness of breath. Related Data Home Medications Medication Instructions Recorded Confirmed atorvastatin 40 mg tablet 40 mg PO HS Cholesterol 06/27/21 07/07/21 bisoprolol fumarate 10 mg tablet 10 mg PO DAILY Hypertension 06/27/21 07/07/21 omeprazole 20 mg capsule,delayed 20 mg PO DAILY GERD 06/27/21 07/07/21 release Previous Rx's Medication Instructions Recorded hydrocodone 5 mg-acetaminophen 325 1 tab PO Q6HP PRN Pain #10 tabs 07/08/21 mg tablet amoxicillin 875 mg tablet 875 mg PO Q12H #20 tabs 01/06/22 azithromycin 250 mg tablet 250 mg PO UD DOSE PK #6 tabs 07/27/22 (Zithromax) benzonatate 100 mg capsule 100 mg PO TIDP PRN Cough #30 caps 07/27/22 ondansetron 4 mg disintegrating 4 mg PO Q8H PRN Nausea #9 tabs 07/27/22 tablet fluticasone propionate 50 1 spray intranasal DAILY #16 grams 07/30/22 mcg/actuation nasal spray,suspension (Flonase Allergy Relief) cyclobenzaprine 10 mg tablet 10 mg PO BID PRN Muscle Spasm #20 10/28/22 tabs methylprednisolone 4 mg tablets in 4 mg PO DIRECTED #21 tabs 10/28/22 a dose pack benzonatate 100 mg capsule 100 mg PO TIDP PRN Cough #30 caps 02/14/23 ondansetron 4 mg disintegrating 4 mg PO Q8H PRN Nausea #12 tabs 02/14/23 tablet lidocaine 5 % topical patch 1 patch topical DAILY PRN pain #30 08/01/23 ea methocarbamol 500 mg tablet 500 mg PO Q6H PRN pain #30 tabs 08/01/23 Allergies Allergy/AdvReac Type Severity Reaction Status Date / Time No Known Allergies Allergy Verified 11/04/22 16:30 PFSH [facility] Disclaimer: The information contained in this section may have been updated after the patient was seen, as this information can be updated by other users. Social History Smoking Status: Never smoker second hand exposure: No alcohol intake: never substance use type: denies use current occupational status: other Travel in the last 8 weeks: None household members: significant other housing: apartment current occupational exposures/hazards: No caffeine: Yes ROS Obtained: Yes All systems reviewed & no additional complaints except as documented Physical Exam General General appearance: alert and in no apparent distress Head Head exam: atraumatic and normocephalic Eye Eye exam: Present normal appearance, PERRL and EOMI ENT ENT exam: Present normal oropharynx and normal external ear exam Neck Neck exam: Present normal inspection and full ROM Chest Chest inspection: Present normal inspection and symmetric chest wall rise; Absent tenderness Respiratory Respiratory exam: Present normal lung sounds bilaterally; Absent respiratory distress Cardiovascular Cardiovascular exam: Present regular rate and normal rhythm Abdominal Exam Abdominal exam: Present soft and tenderness (Mild, right upper quadrant, right lower quadrant); Absent distention or guarding Extremities Exam Extremities exam: Present normal inspection; Absent edema or joint swelling Back Exam Back exam: Present normal inspection and tenderness (Right flank) Neurological Exam Neurological exam: Present alert and oriented X3; Absent motor sensory deficit Psychiatric Psychiatric exam: Present normal affect and normal mood Skin Skin exam: Present warm, dry and normal color Lymphatic Lymphatic Findings: no adenopathy Medical Decision Making Medical Records Medical records reviewed: Yes I reviewed the patient's medical records. Darren Inquiry Pt receiving controlled substance: No Darren was queried for this patient: No Vital Signs: 08/01/23 02:52 Temperature 98.7 F Temperature Source Oral Pulse Rate [Left] 77 Respiratory Rate 16 Blood Pressure [Right Arm] 130/79 Blood Pressure Mean [Right Arm] 96 Blood Pressure Source [Right Arm] Automatic Cuff 02 Sat by Pulse Oximetry 97 Oxygen Delivery Method Room Air Lab Data Lab results reviewed: Yes I reviewed the patient's lab results. Lab Results 08/01/23 03:05: WBC 9.4, RBC 5.23, Hgb 15.7, Hct 46.3, MCV 88.5, MCH 29.9, MCHC 33.8, RDW 14.0, Plt Count 198, MPV 8.0, Neut % (Auto) 67.7, Lymph % (Auto) 21.2, [place] % (Auto) 6.7, Eos % (Auto) 3.9, Baso % (Auto) 0.5, Neut # (Auto) 6.4, Lymph # (Auto) 2.0, [place] # (Auto) 0.6, Eos # (Auto) 0.4, Baso # (Auto) 0.1, Sodium 140, Potassium 4.5, Chloride 103, Carbon Dioxide 29, Anion Gap 12.5, BUN 25 H, Creatinine 1.30 H, Estimated Creat Clear 94, Estimated GFR 57 L, Est GFR ( Amer) 68, Glucose 92, Calcium 9.4, Total Bilirubin 0.4, AST 45, ALT 51, Alkaline Phosphatase 105, Total Protein 8.4 H, Albumin 4.3, Globulin 4.1 H, Albumin/Globulin Ratio 1.0 L, Lipase 182 08/01/23 03:06: Urine Color Yellow, Urine Appearance Clear, Urine pH 6.0, Ur Specific [place] 1.015, Urine Protein Negative, Urine Glucose (UA) Negative, Urine Ketones Negative, Urine Blood Negative, Urine Nitrate Negative, Urine Bilirubin Negative, Urine Urobilinogen 0.2, Ur Leukocyte Esterase Negative 08/01/23 03:05 08/01/23 03:05 Orders (Tests/Meds): ED MEDICATIONS Generic Name Dose Route Start Last Admin Trade Name Freq PRN Reason Stop Dose Admin Sodium Chloride 10 ml 08/01/23 03:42 08/01/23 03:44 Sodium Chloride 0.9% 10ml Syr (Rad Only) IV 08/31/23 03:41 10 ml NEEDED PRN Administration Maintain IV Site Discontinued Medications Generic Name Dose Route Start Last Admin Trade Name Toy PRN Reason Stop Dose Admin Acetaminophen 1,000 mg 08/01/23 03:06 08/01/23 03:17 Acetaminophen 500mg Tab PO 08/01/23 03:07 1,000 mg ONCE ONE Administration Iopamidol 75 ml 08/01/23 03:42 08/01/23 03:44 Iopamidol-370 (76%);100ml Bottle IV 08/01/23 03:43 75 ml ONCE ONE Administration Ketorolac Tromethamine 30 mg 08/01/23 03:06 08/01/23 03:17 Ketorolac 30mg/Ml Vial IV 08/01/23 03:07 30 mg ONCE ONE Administration ORDERS Category Date Time Status CT abdomen pelvis w con Stat Cat Scan 08/01/23 03:06 Completed CBC w/Auto Diff [Complete Blood Count Auto Diff] Stat Lab 08/01/23 03:05 Completed CMP [Comprehensive Metabolic Panel] Stat Lab 08/01/23 03:05 Completed Lipase Stat Lab 08/01/23 03:05 Completed UA [Urinalysis and Microscopic] Stat Lab 08/01/23 03:06 Ordered Medical Decision Narrative: 57-year-old male with history of prior cholecystectomy presents with worsening right flank/back/right upper quadrant/right lower quadrant pain. History was obtained via conversation with patient. On arrival, patient is [afebrile, hemodynamically stable, satting appropriately, alert, oriented x4, GCS 15], moving all extremities spontaneously. Full physical exam performed and significant for focal tenderness in the thoracic paraspinal back, right upper quadrant, right lower quadrant. Patient's pain is reproduced/exacerbated by movement. Differential includes but is not limited to musculoskeletal pain, obstructive nephrolithiasis, pyelonephritis, diverticulitis, pancreatitis. Patient was given p.o. Tylenol, IV Toradol for symptomatic management and correction of underlying abnormalities. Workup initiated including CBC CMP UA lipase CT abdomen pelvis with IV contrast. On re-evaluation, patient [remains afebrile, HD stable.] Patient reports symptomatic improvement after medication intervention. Laboratory workup independently interpreted by me and significant for mildly elevated creatinine from baseline. No leukocytosis, urinalysis without evidence of infection. Imaging independently interpreted by me and significant for no evidence of obstructive nephrolithiasis, diverticulitis or any other acute findings to explain patient's pain.. See radiology read for full review of final results. Given patient history, exam and workup, patient's presentation most likely represents musculoskeletal pain. Interactive discussion with patient regarding his symptoms. Patient discharged with prescription for Robaxin and lidocaine patches. Return precautions given. Procedures Risk/Benefits of Procedure(s) Were Explained: Yes Critical Care Critical Care Time Critical Care Time: No
[2023-08-01 03:59] LABS: Lipase 182 U/L (23-300)
--- NOTE | 2023-08-01 04:46 | PC.NURSE ---
Rounded on pt at this time. Pt voices no needs.
[2023-08-01 05:07] LABS: Microscopic, Urine URINE MICROSCOPIC (MICROSCOPIC)
--- NOTE | 2023-08-01 05:08 | PC.NURSE ---
Bladder scan 200ml
[2023-08-01 05:09] LABS: Appearance,Urine CLEAR (Clear); Bilirubin,Urine Negative (Negative); Blood, Urine Negative (Negative); Color,Urine YELLOW (Yellow); Glucose,Urine (UA) Negative (Negative); Ketones,Urine Negative (Negative); Leukocyte Esterase,Urine Negative (Negative); Nitrate,Urine Negative (Negative); Protein,Urine Negative (Negative); Specific Gravity, Urine 1.015 (1.005-1.030); Urobilinogen,Urine 0.2 EU/dl (0.2)
[2023-08-01 05:20] LABS: Bacteria,Urine Trace /lpf; Squamous Epithelial Cell,Urine Occasional #/hpf (0-5)
[2023-08-01] MEDS: LIDOCAINE 5% TRANSDERMAL PATCH 1 EACH TP (05:22)
[2023-08-01 05:31] VITALS: BP 132/74; PULSE 82; RESP 16; TEMP 37.1; O2SAT 99
== END 2023-08-01 05:33 | disposition home or self-care (01) ==
PROVIDERS: Emergency Provider Emergency Medicine; PCP Internal Medicine Adolescent Medicine
DX: R10.11 Right upper quadrant pain (principal); R10.2 Pelvic and perineal pain; M54.9 Dorsalgia, unspecified; R06.89 Other abnormalities of breathing
CPT/HCPCS: 74177; 80053; 81001; 83690; 85025; 96374; 99285; Q9967

== ENCOUNTER 2023-09-02 08:00 | Outpatient (RCR) | payer BC, SELFPAY ==
--- NOTE | 2023-08-05 13:10 | HMH.PTOPEV ---
PT Outpatient Evaluation Rehab PT Outpatient Evaluation Start: 08/05/23 11:34 Freq: Status: Active Protocol: Document 08/05/23 11:34 ANAIS (Rec: 08/05/23 12:05 ANAIS [id number]) E-signed By Cecilio Garzon, PT Outpatient Therapy Subjective History Subjective History Patient is a 57 year old male presenting to outpatient PT with reports of acute R thoracic spine/intercostal pain that radiates post-ant. Consistent with T7/8 intercostal mm strain. Symptom started approx 1 week ago after performing overhead lifting/twisting dutes at work ([employer]). Comorbidties include hx of HTN, HL, LS discectomy, cholecystectomy. New diagnosis of cancer in past 12 No months? Chief Complaint Pain Symptom Type Sharp,Burning Symptoms Relieved By Rest/Positioning,Heat, Prescription Meds Symptoms Aggravated By Physical Activity,Twisting, Lifting Prior Functional Limitations None Current Functional Limitations Reaching,Lifting,Housework Symptom Description Constant but Variable Level of pain today (0-10) 7 Pain scale - at its best (0-10) 7 Pain scale - at its worst (0-10) 10 Lumbopelvic Eval Posture Thoracic Spine Posture Standing Position Increased Kyphosis Lumbar Spine Posture Standing Position Decreased Lordosis Assistive device Assistive Devices None / NA Palapation tenderness left thoracic spinal tenderness T7/8 3/4 Lumbar/Sacral Palpation Findings Tenderness Accessory Movement T-spine Vertebrae Accessory Movements Right P/A [place] that Elicit Symptoms T10 right Range of Motion Lumbar Spine ROM Reason Not Measured Within Functional Limits Oswestry Index Section 1 Pain Intensity The pain comes and goes and is severe Section 2 Personal Care (Washing,Dresing) change my way of washing or dressing in order to avoid pain Section 3 Lifting lifting heavy weights off the floor, but I can manage light to medium Section 4 Walking I have no pain when walking Section 5 Sitting I can sit in any chair for as long as I like Section 6 Standing I can stand as long as I want without pain Section 7 Sleeping Because of my pain, my normal night's sleep is less than 6 hours sleep Section 8 Social Life My social life is normal but increases the degree of pain Section 9 Traveling I get no pain when traveling Section 10 Changing Degreee of Pain My pain seems to be getting better, but improvement is slow Score and Risk Level Oswestry Sc 13 Oswestry Risk Level Mild Disability Miscellaneous Dx PT Eval Objective Objective Rhombid, Mid/lower trap MMT 4+ /5 with pain. 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 Weeks 4-6 Decreased Palpation Tenderness Yes: 1/ Increase Strength Yes: 5 Restore Ability to Lift Objects to Yes: 40 lb without difficulty Shoulder Level Restore Ability to Lift Objects Overhead Yes: Improve Tolerance to Work Activities Yes Decrease Subjective C/O Pain Yes: 210 pain today Outpatient Therapy Plan of Care Treatment Plan May Include Therapeutic Exercise Including Home Yes Exercise Program Manual Therapy Techniques Yes Neuromuscular Re-education Yes Therapeutic Activities to Return to Yes Previous Functional/Work Level Gait Training Yes ADL/Self Care Education Yes Mechanical Traction Yes Dry Needling Yes Thermal Modalities Yes Electrical Stimulation Yes Ultrasound/Phonophoresis Yes Iontophoresis Yes Orthotics/Bracing/Splinting Yes Massage Yes Eval/Re-Eval Yes Frequency Times per week 2 Duration Number of Weeks 4-6 Addendums This patient is a candidate for social No or vocational rehab? Patient/Guardian verbally acknowledges Yes understanding of treatment program and consents to further treatment? Patient/Guardian verbally acknowledges Yes understanding of diagnosis, prognosis and goals for treatment? Eval Complexity PT Charges 25651 - Moderate Complexity Shoulder/Elbow Eval Shoulder Objective Measurements Elbow Objective Measurements PHYSICIAN CERTIFICATION: I certify the specified therapy services for Nilesh Wood JR are required, authorized, and reviewed every 30 days.
== END 2023-09-02 09:20 | disposition home or self-care (01) ==
LOC: PT 08:00
PROVIDERS: PCP Internal Medicine Adolescent Medicine; Visit Provider Physician Assistant
DX: M54.6 Pain in thoracic spine (principal)
CPT/HCPCS: 97010; 97014; 97110; 97163; 97530; 97535; G0283

== ENCOUNTER 2023-09-06 16:29 | Emergency (ER) | payer BC, SELFPAY ==
[2023-09-06 16:29] VITALS: BP 138/86; PULSE 71; RESP 18; TEMP 36.8; O2SAT 98; BMI 36.5
--- NOTE | 2023-09-06 16:37 | ED_ITS ---
<Statement entered by Laura Miner MD - 09/06/23 22:26> I was consulted by the JAYLAN, and we discussed the complexity of the problems being addressed. I approved the treatment and management plan for this patient's care in the emergency department, thus performing a substantive portion of the medical decision making. Laura Miner MD, FADUMO, FACEP Discharge Plan Disposition Patient Disposition: Home, Self-Care Condition: Good Prescriptions Prescriptions: No Action amoxicillin 875 MG tablet 875 mg PO Q12H Qty: 20 0RF azithromycin [Zithromax] 250 mg tablet 250 mg PO UD DOSE PK Qty: 6 0RF Rx Instructions: Take two (2) tablets today, then one (1) tablet days #2 thru #5 benzonatate [benzonatate] 100 mg capsule 100 mg PO TIDP PRN (Reason: Cough) Qty: 30 0RF ondansetron 4 mg Tablet,Disintegrating 4 mg PO Q8H PRN (Reason: Nausea) Qty: 9 0RF benzonatate [benzonatate] 100 mg capsule 100 mg PO TIDP PRN (Reason: Cough) Qty: 30 0RF ondansetron 4 mg Tablet,Disintegrating 4 mg PO Q8H PRN (Reason: Nausea) Qty: 12 0RF atorvastatin 40 MG tablet 40 mg PO HS bisoprolol fumarate 10 MG tablet 10 mg PO DAILY Patient Comments: TAKE ONE TABLET BY MOUTH EVERY DAY omeprazole 20 MG capsule,delayed release(DR/EC) 20 mg PO DAILY hydrocodone-acetaminophen 1 TAB tablet 1 tab PO Q6HP PRN (Reason: Pain) Qty: 10 0RF fluticasone propionate [Flonase Allergy Relief] 50 mcg/actuation spray,suspension 1 spray intranasal DAILY Qty: 16 0RF Rx Instructions: administer into each nostril cyclobenzaprine 10 mg Tablet 10 mg PO BID PRN (Reason: Muscle Spasm) Qty: 20 0RF methylprednisolone 4 mg Tablets,Dose Pack 4 mg PO DIRECTED Qty: 21 0RF methocarbamol 500 mg tablet 500 mg PO Q6H PRN (Reason: pain) Qty: 30 0RF lidocaine 5 % adhesive patch,medicated 1 patch topical DAILY PRN (Reason: pain) Qty: 30 0RF Rx Instructions: leave on most painful area for up to 12 hrs Referrals Follow up/Referrals: Provider,Referral, [Primary Care Provider] - See instructions Activity Restrictions/Add. Instructions Additional Instructions/Restrictions: Take 1000 mg of Tylenol alternating with 800 mg of Motrin every 8 hours as needed for symptoms. Return to PCP or ER if symptoms change or worsen. Clinical Impressions Clinical Impression: Headache, Atherosclerotic cardiovascular disease, Soft tissue mass Discharge ED Provider: Laura Miner General Adult HPI General Chief complaint: Headache Stated complaint: l side numbness Time Seen by Provider: 09/06/23 16:37 Mode of Arrival: Ambulatory Source of Information: Patient Limitations: No Limitations Description of Symptoms (Recalled from ER Triage Doc. by RN): Patient reports numbness in the right side of his face for three days. Able to move all extremities without difficulty. Denies visual disturbances. History of Present Illness HPI narrative: Patient presents with a 3-day history of left-sided facial numbness and headache. Patient denies chest pain fever chills hemoptysis hematochezia melena nausea vomiting diarrhea. Patient additionally denies any visual disturbances or changes, any changes in sense of taste or smell, and states that the numbness is present and has been present for 3 days however the headache comes and goes. Scribes the headache as sharp and lasts as long as 5 minutes but frequency is not regular. Patient does not normally have headaches and does not have a history of migraine headaches. There are no aggravating or relieving factors including light or dark room. Related Data Home Medications Medication Instructions Recorded Confirmed atorvastatin 40 mg tablet 40 mg PO HS Cholesterol 06/27/21 07/07/21 bisoprolol fumarate 10 mg tablet 10 mg PO DAILY Hypertension 06/27/21 07/07/21 omeprazole 20 mg capsule,delayed 20 mg PO DAILY GERD 06/27/21 07/07/21 release Previous Rx's Medication Instructions Recorded hydrocodone 5 mg-acetaminophen 325 1 tab PO Q6HP PRN Pain #10 tabs 07/08/21 mg tablet amoxicillin 875 mg tablet 875 mg PO Q12H #20 tabs 01/06/22 azithromycin 250 mg tablet 250 mg PO UD DOSE PK #6 tabs 07/27/22 (Zithromax) benzonatate 100 mg capsule 100 mg PO TIDP PRN Cough #30 caps 07/27/22 ondansetron 4 mg disintegrating 4 mg PO Q8H PRN Nausea #9 tabs 07/27/22 tablet fluticasone propionate 50 1 spray intranasal DAILY #16 grams 07/30/22 mcg/actuation nasal spray,suspension (Flonase Allergy Relief) cyclobenzaprine 10 mg tablet 10 mg PO BID PRN Muscle Spasm #20 10/28/22 tabs methylprednisolone 4 mg tablets in 4 mg PO DIRECTED #21 tabs 10/28/22 a dose pack benzonatate 100 mg capsule 100 mg PO TIDP PRN Cough #30 caps 02/14/23 ondansetron 4 mg disintegrating 4 mg PO Q8H PRN Nausea #12 tabs 02/14/23 tablet lidocaine 5 % topical patch 1 patch topical DAILY PRN pain #30 08/01/23 ea methocarbamol 500 mg tablet 500 mg PO Q6H PRN pain #30 tabs 08/01/23 Allergies Allergy/AdvReac Type Severity Reaction Status Date / Time No Known Allergies Allergy Verified 11/04/22 16:30 [facility] Disclaimer: The information contained in this section may have been updated after the patient was seen, as this information can be updated by other users. Social History Smoking Status: Never smoker second hand exposure: No alcohol intake: never substance use type: denies use current occupational status: other Travel in the last 8 weeks: None household members: significant other housing: apartment current occupational exposures/hazards: No caffeine: Yes ROS Obtained: Yes Systems reviewed as appropriate & no additional complaints except as documented Physical Exam General General appearance: alert and in no apparent distress Head Head exam: atraumatic and normal inspection Eye Eye exam: Present normal appearance, PERRL, EOMI, conjunctival redness (In left high) and other (Right globe has a pressure of 19 left globe has a pressure of 25) ENT ENT exam: Present normal exam, normal oropharynx, mucous membranes moist and other (Dentition appears normal with no evidence of abscess or dental caries currently) Neck Neck exam: Present normal inspection, full ROM, trachea midline and other (No carotid bruits); Absent tenderness, meningismus or lymphadenopathy Chest Chest inspection: Present normal inspection and symmetric chest wall rise Respiratory Respiratory exam: Present normal lung sounds bilaterally; Absent accessory muscle use Cardiovascular Cardiovascular exam: Present regular rate, normal rhythm, normal heart sounds, +S1 and +S2 Abdominal Exam Abdominal exam: Present soft; Absent tenderness or normal bowel sounds Extremities Exam Extremities exam: Present normal inspection and full ROM Back Exam Back exam: Present normal inspection and full ROM Neurological Exam Neurological exam: Present alert, oriented X3 and CN II-XII intact Psychiatric Psychiatric exam: Present normal affect and normal mood Skin Skin exam: Present warm, dry and normal color Medical Decision Making Medical Records Medical records reviewed: Yes I reviewed the patient's medical records. Darren Inquiry Pt receiving controlled substance: No Vital Signs: 09/06/23 16:29 09/06/23 17:00 09/06/23 17:30 Temperature 98.2 F Temperature Source Oral Pulse Rate 68 79 Pulse Rate [Radial] 71 Respiratory Rate 18 20 Blood Pressure 123/68 130/74 Blood Pressure [Right Arm] 138/86 Blood Pressure Mean 90 92 Blood Pressure Mean [Right Arm] 103 Blood Pressure Source [Right Arm] Automatic Cuff Blood Pressure Position [Right Arm] Sitting 02 Sat by Pulse Oximetry 98 98 97 Oxygen Delivery Method Room Air 09/06/23 18:01 Temperature Temperature Source Pulse Rate 64 Pulse Rate [Radial] Respiratory Rate 20 Blood Pressure 122/69 Blood Pressure [Right Arm] Blood Pressure Mean 82 Blood Pressure Mean [Right Arm] Blood Pressure Source [Right Arm] Blood Pressure Position [Right Arm] 02 Sat by Pulse Oximetry 95 Oxygen Delivery Method Lab Data Lab results reviewed: Yes I reviewed the patient's lab results. Lab Results 09/06/23 14:40: WBC 9.7, RBC 5.19, Hgb 15.8, Hct 48.4, MCV 93.4, MCH 30.4, MCHC 32.5, RDW 14.5, Plt Count 237, MPV 8.1, Neut % (Auto) 66.0, Lymph % (Auto) 21.2, [place] % (Auto) 8.3, Eos % (Auto) 3.7, Baso % (Auto) 0.8, Neut # (Auto) 6.4, Lymph # (Auto) 2.0, [place] # (Auto) 0.8, Eos # (Auto) 0.4, Baso # (Auto) 0.1, ESR 5, D- Dimer 0.63 H, Sodium 142, Potassium 4.0, Chloride 108 H, Carbon Dioxide 26, Anion Gap 12.0, BUN 19, Creatinine 1.20, Estimated Creat Clear 102, Estimated GFR 62, Est GFR ( Amer) 75, Glucose 126 H, Calcium 9.1, Magnesium 2.0, Total Bilirubin 0.4, AST 46, ALT 56, Alkaline Phosphatase 101, Total Protein 7.8, Albumin 4.2, Globulin 3.6 H, Albumin/Globulin Ratio 1.2 09/06/23 14:40 09/06/23 14:40 Orders (Tests/Meds): ED MEDICATIONS Generic Name Dose Route Start Last Admin Trade Name Freq PRN Reason Stop Dose Admin Sodium Chloride 10 ml 09/06/23 18:24 09/06/23 18:25 Sodium Chloride 0.9% 10ml Syr (Rad Only) IV 10/06/23 18:23 10 ml NEEDED PRN Administration Maintain IV Site Discontinued Medications Generic Name Dose Route Start Last Admin Trade Name Freq PRN Reason Stop Dose Admin Acetaminophen 1,000 mg 09/06/23 17:08 09/06/23 17:30 Acetaminophen 1,000mg/100ml Vial IV 09/06/23 17:09 1,000 mg ONCE ONE Administration Dexamethasone Sodium Phosphate 10 mg 09/06/23 17:08 09/06/23 17:30 Dexamethasone 4mg/Ml 1ml Vial IM 09/06/23 17:09 10 mg ONCE ONE Administration Diphenhydramine HCl 50 mg 09/06/23 17:08 09/06/23 17:30 Diphenhydramine 50mg/Ml Vial IV 09/06/23 17:09 50 mg ONCE ONE Administration Iopamidol 100 ml 09/06/23 18:24 09/06/23 18:25 Iopamidol-370 (76%);100ml Bottle IV 09/06/23 18:25 100 ml ONCE ONE Administration Ketorolac Tromethamine 15 mg 09/06/23 17:08 09/06/23 17:30 Ketorolac 30mg/Ml Vial IV 09/06/23 17:09 15 mg ONCE ONE Administration Prochlorperazine Edisylate 10 mg 09/06/23 17:08 09/06/23 17:30 Prochlorperazine 10mg/2ml Vial IV 09/06/23 17:09 10 mg ONCE ONE Administration Sodium Chloride 50 ml 09/06/23 18:24 09/06/23 18:24 0.9 % Sodium Chloride 50 Ml Vial IV 09/06/23 18:25 50 ml ONCE ONE Administration ORDERS Category Date Time Status CT angio head Stat Cat Scan 09/06/23 17:[address] angio neck Stat Cat Scan 09/06/23 17:[address] head/brain wo con Stat Cat Scan 09/06/23 17:08 Completed CBC w/Auto Diff [Complete Blood Count Auto Diff] Stat Lab 09/06/23 14:40 Completed CMP [Comprehensive Metabolic Panel] Stat Lab 09/06/23 14:40 Completed D-Dimer Stat Lab 09/06/23 14:40 Completed ESR [Erythrocyte Sedimentation Rate] Stat Lab 09/06/23 14:40 Completed Magnesium Stat Lab 09/06/23 14:40 Completed Medical Decision Narrative: In summary patient is a 7-year-old male who presents to the emergency department for evaluation of headache and paresthesia. Patient is hemodynamically stable upon arrival, and afebrile. Physical exam is essentially unremarkable and nonfocal including no abscess no focal neurologic deficits no vision changes no skin changes indicative of potential shingles. Differential diagnosis includes cluster headache versus shingles infection versus trigeminal neuralgia versus giant cell arteritis versus stroke versus space-occupying lesion.. Initial workup will be conducted with hematologic labs CT scan of head without contrast and CTA head and neck.. Initial interventions include Toradol tramadol Decadron Compazine and Benadryl. Initial workup reviewed by me shows that his D-dimer is elevated at 0.63 and the remainder of his hematologic labs are nonactionable. CTA of the head and neck along with CTA and contrast did not show any acute abnormalities per my informal interpretation however radiologist read is pending.. Upon repeat evaluation patient has had marked reduction in his symptomology with pain and the headache being gone but still having some slight paresthesias to the left side of his face. Radiologist read of imaging shows again no acute processes but did show possible area of mass in the lingula undetermined type B benign expected for neoplasm, showed chronic white matter changes, showed some stenosis of the internal carotid arteries but not critically so. Given this patient is appropriate for discharge with follow-up with his PCP at the next available appointment to discuss further workup of his radiographic findings. Critical Care Critical Care Time Critical Care Time: No
[2023-09-06 17:00] VITALS: BP 123/68; PULSE 68; RESP 20; O2SAT 98
--- NOTE | 2023-09-06 17:08 | CT_ITS ---
PROCEDURE INFORMATION: Exam: CT Head Without Contrast Exam date and time: 09/06/2023 6:15 PM Age: 57 years old Clinical indication: Pain; Headache; Additional info: Acute headache TECHNIQUE: Imaging protocol: Computed tomography of the head without contrast. Radiation optimization: All CT scans at this facility use at least one of these dose optimization techniques: automated exposure control; mA and/or kV adjustment per patient size (includes targeted exams where dose is matched to clinical indication); or iterative reconstruction. COMPARISON: No relevant prior studies available. FINDINGS: Brain: There is mild diffuse cerebral volume loss present. Multiple subcortical and deep hypoattenuating white matter foci are present, likely related to small vessel senescent changes and can also be seen with prior infectious / inflammatory insult, or prior traumatic events. No hyperattenuating foci are identified to suggest acute intracranial hemorrhage. Cerebral ventricles: No ventriculomegaly. Paranasal sinuses: Visualized sinuses are unremarkable. No fluid levels. Mastoid air cells: Visualized mastoid air cells are well aerated. Bones/joints: Unremarkable. No acute fracture. Soft tissues: Unremarkable. IMPRESSION: 1. Multiple subcortical and deep hypoattenuating white matter foci are present, likely related to small vessel senescent changes and can also be seen with prior infectious / inflammatory insult, or prior traumatic events. 2. No hyperattenuating foci are identified to suggest acute intracranial hemorrhage.
--- NOTE | 2023-09-06 17:11 | CT_ITS ---
PROCEDURE INFORMATION: Exam: CTA Neck With Contrast Exam date and time: 09/06/2023 6:17 PM Age: 57 years old Clinical indication: Pain; Headache; Additional info: Headache, paresthesia TECHNIQUE: Imaging protocol: Computed tomographic angiography of the neck with contrast. Exam focused on the cervical segments of the vasculature. 3D rendering (Not supervised by radiologist): MIP and/or 3D reconstructed images were created by the technologist. Radiation optimization: All CT scans at this facility use at least one of these dose optimization techniques: automated exposure control; mA and/or kV adjustment per patient size (includes targeted exams where dose is matched to clinical indication); or iterative reconstruction. Contrast material: ISOVUE; Contrast volume: 100 ml; Contrast route: INTRAVENOUS (IV); COMPARISON: CT ANGIO HEAD 09/06/2023 6:17 PM FINDINGS: Right common carotid artery: Moderate calcified and noncalcified atherosclerotic disease of the right carotid bulb resulting in moderate stenosis. Right internal carotid artery: No stenosis of the extracranial segment. No dissection or occlusion. Right external carotid artery: No occlusion or stenosis of the origin. Left common carotid artery: No stenosis. No dissection or occlusion. Left internal carotid artery: No stenosis of the extracranial segment. No dissection or occlusion. Left external carotid artery: No occlusion or stenosis of the origin. Right vertebral artery: No stenosis. No dissection or occlusion. Left vertebral artery: No stenosis. No dissection or occlusion. Lymph nodes: Nodular enhancing masslike tissue of the left posterior lingual space (image 67 of series 5, and image 86 of series 10) measuring 1.0 x 1.8 x 1.7 cm has differential of prominent lingual lymphoid tissue versus lingual thyroid tissue versus enhancing mass. Soft tissues: Normal. No significant soft tissue swelling. Bones/joints: Moderate loss of intervertebral disc space with degenerative changes at C5 through C7 with uncovertebral joint and facet osteoarthrosis resulting in moderate bilateral neural foraminal stenosis at these levels. IMPRESSION: 1. Nodular enhancing masslike tissue of the left posterior lingual space (image 67 of series 5, and image 86 of series 10) measuring 1.0 x 1.8 x 1.7 cm has differential of prominent lingual lymphoid tissue versus lingual thyroid tissue versus enhancing mass. Recommend further evaluation by direct visualization and ENT consultation. 2. Moderate calcified and noncalcified atherosclerotic disease of the right carotid bulb resulting in moderate stenosis. COMMENTS: Consistent with the [employer]'s Incidental Findings Committee white paper (J Am Natalie Radiol 2015): In patients aged 35 years and older with an incidental thyroid nodule equal to or greater than 1.[address], MRI or extrathyroidal US, further evaluation with dedicated thyroid US is recommended for patients with normal life expectancy and without comorbidities. For smaller nodules without suspicious features, no further evaluation or follow up is recommended. REFERENCES: NASCET CRITERIA. The degree of stenosis in the cervical segment of the internal carotid artery is based on NASCET criteria. Normal is no stenosis. Mild is less than 50% stenosis. Moderate is 50-69% stenosis. Severe is 70% to 99% stenosis. Total occlusion is no detectable patent lumen.
--- NOTE | 2023-09-06 17:11 | CT_ITS ---
PROCEDURE INFORMATION: Exam: CTA Head With Contrast, Arteriography Exam date and time: 09/06/2023 6:17 PM Age: 57 years old Clinical indication: Pain; Headache; Additional info: Headache, paresthesia TECHNIQUE: Imaging protocol: Computed tomographic angiography of the head with contrast. Exam focused on the arteries. 3D rendering (Not supervised by radiologist): MIP and/or 3D reconstructed images were created by the technologist. Radiation optimization: All CT scans at this facility use at least one of these dose optimization techniques: automated exposure control; mA and/or kV adjustment per patient size (includes targeted exams where dose is matched to clinical indication); or iterative reconstruction. Contrast material: ISOVUE; Contrast volume: 100 ml; Contrast route: INTRAVENOUS (IV); COMPARISON: CT HEAD/BRAIN WO CON 09/06/2023 6:15 PM FINDINGS: ANTERIOR CIRCULATION: Right internal carotid artery: Moderate calcific atherosclerotic disease of the right ICA with mild ophthalmic segment stenosis. Right middle cerebral artery: No occlusion or significant stenosis. No aneurysm. Right anterior cerebral artery: No occlusion or significant stenosis. No aneurysm. Left internal carotid artery: Intracranial segment is patent with no significant stenosis. No aneurysm. Left middle cerebral artery: No occlusion or significant stenosis. No aneurysm. Left anterior cerebral artery: No occlusion or significant stenosis. No aneurysm. POSTERIOR CIRCULATION: Right vertebral artery: No occlusion or significant stenosis. No aneurysm. Left vertebral artery: No occlusion or significant stenosis. No aneurysm. Basilar artery: No occlusion or significant stenosis. No aneurysm. Right posterior cerebral artery: No occlusion or significant stenosis. No aneurysm. Left posterior cerebral artery: No occlusion or significant stenosis. No aneurysm. Brain: No definite mass, mass effect, or midline shift. Cerebral ventricles: No ventriculomegaly. Bones/joints: Unremarkable. No acute fracture. Soft tissues: Unremarkable. IMPRESSION: Moderate calcific atherosclerotic disease of the right ICA with mild ophthalmic segment stenosis.
[2023-09-06 17:22] LABS: Basophils # 0.1 K/mm3 (0-0.2); Basophils % 0.8 % (0.1-2.0); Eosinophils # 0.4 K/mm3 (0.0-0.4); Eosinophils % 3.7 % (0.1-12.0); Hematocrit 48.4 % (42.0-52.0); Hemoglobin 15.8 g/dL (14.1-18.0); Lymphocytes % 21.2 % (10-50); Mean Corpuscular HGB Conc 32.5 g/dL (31.8-35.4); Mean Corpuscular Hemoglobin 30.4 pg (27.0-31.2); Mean Corpuscular Volume 93.4 fl (80-94); Mean Platelet Volume 8.1 fl (7.4-10.4); Monocytes # 0.8 K/mm3 (0.1-1.0); Monocytes % 8.3 % (1.7-9.3); Neutrophils # 6.4 K/mm3 (1.8-7.8); Platelet Count 237 K/mm3 (142-424); Red Blood Count 5.19 M/mm3 (4.60-6.20); Red Cell Distribution Width 14.5 % (11.5-17.5); White Blood Count 9.7 K/mm3 (4.8-10.8)
[2023-09-06 17:28] LABS: Alanine Aminotransferase 56 U/L (12-78); Albumin Level 4.2 g/dl (3.5-5.0); Albumin/Globulin Ratio 1.2 (1.1-1.8); Alkaline Phosphatase 101 U/L (38-126); Aspartate Amino Transferase 46 U/L (17-59); Bilirubin,Total 0.4 mg/dl (0.2-1.3); Blood Urea Nitrogen 19 mg/dl (9-20); Calcium 9.1 mg/dl (8.4-10.2); Carbon Dioxide 26 mmol/L (22.0-30.0); Chloride 108 mmol/L (98-107); Creatinine Clearance Estimated 102 mL/min (50-200); Estimated Glomerular Filt Rate 62 ml/min (>60); GFR (African American) 75 ML/MIN (>60); Globulin 3.6 g/dL (1.3-3.2); Glucose 126 mg/dl (74-100); Sodium 142 mmol/L (136-145); Total Protein,Serum 7.8 g/dl (6.3-8.2)
[2023-09-06 17:30] VITALS: BP 130/74; PULSE 79; O2SAT 97
[2023-09-06] MEDS: KETOROLAC 30MG/ML VIAL 15 MG IV (17:30)
[2023-09-06] MEDS: ACETAMINOPHEN 1,000MG/100ML VIAL 1000 MG IV (17:30)
[2023-09-06] MEDS: PROCHLORPERAZINE 10MG/2ML VIAL 10 MG IV (17:30)
[2023-09-06] MEDS: diphenhydrAMINE 50MG/ML VIAL 50 MG IV (17:30)
[2023-09-06] MEDS: DEXAMETHASONE 4MG/ML 1ML VIAL 10 MG IM (17:30)
[2023-09-06 17:32] LABS: D-Dimer 0.63 ug/mL (0.0-0.5)
[2023-09-06 18:01] VITALS: BP 122/69; PULSE 64; RESP 20; O2SAT 95
[2023-09-06] MEDS: 0.9 % SODIUM CHLORIDE 50 ML VIAL IV (18:24)
[2023-09-06] MEDS: IOPAMIDOL-370 (76%);100ML BOTTLE 100 ML IV (18:25)
[2023-09-06] MEDS: SODIUM CHLORIDE 0.9% 10ML SYR (RAD ONLY) 10 ML IV (18:25)
--- NOTE | 2023-09-06 18:27 | PC.NURSE ---
Called lab per MD, to check status of ESR, Calvin stated it would be 2 minutes.
[2023-09-06 18:29] LABS: Erythrocyte Sedimentation Rate 5 mm/hr (0-20)
[2023-09-06 19:19] VITALS: BP 111/67; PULSE 65; RESP 17; TEMP 36.6; O2SAT 96
== END 2023-09-06 19:19 | disposition home or self-care (01) ==
PROVIDERS: Physician Assistant; Emergency Provider Student in an Organized Health Care Education/Training Program
DX: R51.9 Headache, unspecified (principal); R20.0 Anesthesia of skin; I25.10 Atherosclerotic heart disease of native coronary artery without angina pectoris; R22.0 Localized swelling, mass and lump, head
CPT/HCPCS: 70450; 70496; 70498; 80053; 83735; 85025; 85378; 85651; 96372; 96374; 96375; 99285; J0131; Q9967

== ENCOUNTER 2023-10-26 03:26 | Outpatient (CLI) | payer BC, SELFPAY ==
[2023-10-26 04:26] LABS: Blood Urea Nitrogen 20 mg/dl (9-20); Estimated Glomerular Filt Rate 62 ml/min (>60); GFR (African American) 75 ML/MIN (>60)
== END 2023-10-26 23:59 | disposition home or self-care (01) ==
LOC: LAB 03:32
PROVIDERS: PCP Internal Medicine Adolescent Medicine; Visit Provider Student in an Organized Health Care Education/Training Program
DX: R13.10 Dysphagia, unspecified (principal); M79.89 Other specified soft tissue disorders
CPT/HCPCS: 82565; 84520

== ENCOUNTER 2023-10-29 07:27 | Outpatient (CLI) | payer BC, SELFPAY ==
--- NOTE | 2023-10-29 07:28 | MR_ITS ---
FINAL REPORT CLINICAL HISTORY: soft tissue mass abnormal cta neck COMPARISON: 09/06/2023 FINDINGS: Multiplanar MR imaging of the neck was performed without and with contrast. The nasopharynx, hypopharynx and larynx have an unremarkable appearance. Again noted is a soft tissue nodule in the left oropharynx measuring approximately 14 mm. This is stable since the previous CT. There are several borderline sized left internal jugular nodes measuring up to 13 mm. The thyroid gland is mildly enlarged and heterogeneous but stable compared to the CT. IMPRESSION: Stable 14 mm left oropharyngeal nodule may represent a lymph node or other soft tissue nodule. Stable borderline sized left internal jugular nodes. If indicated, further evaluation with follow-up CT in 6 months or PET/CT is recommended. Reviewed, Interpreted and Dictated by Lucien Salguero III, MD Transcribed by Claudia Pizarro Authenticated and [facility]
[2023-10-29] MEDS: SODIUM CHLORIDE 0.9% 10ML FLUSH SYRINGE 10 ML IV (08:44)
[2023-10-29] MEDS: GADOTERIDOL INJ 17ML SYRINGE 22 ML IV (08:45)
== END 2023-10-29 23:59 | disposition home or self-care (01) ==
LOC: RAD 07:28
PROVIDERS: PCP Internal Medicine Adolescent Medicine; Visit Provider Student in an Organized Health Care Education/Training Program
DX: M79.89 Other specified soft tissue disorders (principal)
CPT/HCPCS: 70543; A9576

== ENCOUNTER 2023-10-30 17:02 | Emergency (ER) | payer BC, SELFPAY ==
[2023-10-30 18:05] VITALS: BP 168/94; PULSE 58; RESP 18; TEMP 36.6; O2SAT 98; BMI 36.6
--- NOTE | 2023-10-30 18:17 | XR_ITS ---
PROCEDURE INFORMATION: Exam: XR Lumbosacral Spine Exam date and time: 10/30/2023 6:16 PM Age: 58 years old Clinical indication: Low back pain; Additional info: Right lower back pain TECHNIQUE: Imaging protocol: Radiologic exam of the lumbosacral spine. Views: 2 or 3 views. COMPARISON: CT ABDOMEN PELVIS W CON 08/01/2023 3:31 AM FINDINGS: Bones/joints: Multilevel degenerative disc disease noted involving all lumbar levels with moderate degenerative changes at L5-S1 and [id number] degenerative changes at L3-L4 and L4-L5 and mild degenerative changes at the remaining lumbar levels. Vertebral body heights are intact. Mild levo scoliosis. No acute fracture identified. Soft tissues: Unremarkable. IMPRESSION: Degenerative changes most pronounced at L5-S1.
--- NOTE | 2023-10-30 18:17 | EXP.UTC ---
Discharge Plan Disposition Patient Disposition: Home, Self-Care Condition: Good Prescriptions Prescriptions: New methocarbamol 500 mg tablet 500 mg PO TID PRN (Reason: muscle spasm) Qty: 20 0RF lidocaine 5 % adhesive patch,medicated 1 patch topical DAILY PRN (Reason: pain) Qty: 15 0RF Rx Instructions: leave on most painful area for up to 12 hrs then removed for 12 hours No Action atorvastatin 40 mg tablet 40 mg PO DAILY trazodone 50 mg tablet 50 mg PO HS Patient Comments: TAKE ONE TABLET BY MOUTH EVERY NIGHT bisoprolol fumarate 10 mg tablet 10 mg PO DAILY omeprazole 20 mg capsule,delayed release(DR/EC) 20 mg PO DAILY bupropion HCl 150 mg tablet extended release 24 hr 150 mg PO DAILY Patient Comments: TAKE ONE TABLET BY MOUTH EVERY DAY -SWALLOW WHOLE. DO NOT CRUSH OR CHEW- OR split Referrals Follow up/Referrals: Marco A Castañeda MD [Primary Care Provider] - See instructions Activity Restrictions/Add. Instructions Additional Instructions/Restrictions: *Ibuprofen bessie 6 hours with meal as needed for pain/inflammation if you can take it *Remember you had a Toradol shot in the clinic today, which is similar to Motrin *Not additional anti-inflammatory like motrin, aleve, advil with the above amount of ibuprofen. You can still take Tylenol every 4 hours as needed if you need something else for pain Lidocaine patch to area as directed *Ice 20 minutes every 2 hours for the first 48 hours after the initial injury followed by moist heat every 20 minutes 3-4 times a day to affected area *Muscle relaxer every 8 hours as needed for muscle spasms but remember, it WILL cause drowsiness You cannot take it and Work, drive, operate machinery or care for small children. *Keep this area active, no movement leads to more stiffness, However take it easy and avoid heavy lifting pushing or pulling *Follow up with you family doctor if no improvement for further treatment Clinical Impressions Clinical Impression: Low back pain Instructions Patient Instructions: DI for Chronic Pain -- Adult, DI for Low Back Pain, Lidocaine Transdermal Patch Discharge ED Provider: Silva Duran [facility] [place] General Stated complaint: Lower back pain Mode of Arrival: Ambulatory Source of Information: Patient Limitations: No Limitations Time Seen by Provider: 10/30/23 18:17 Description of Symptoms (Recalled from Triage Doc. by RN): PATIENT C/O RIGHT LOWER BACK PAIN THAT STARTED YESTERDAY MORNING HEENT Symptoms (Recalled from RN notes): No Resp Symptoms (Recalled from RN notes): No Skin Symptoms (Recalled from RN notes): No MS Symptoms (Recalled from RN notes): Yes Functional Status (Recalled from RN notes): WNL History of Present Illness Provider Complaint: Patient states that yesterday he had an MRI done and he laid on the table for a long time and he came home laid down and when he got up he was having pain in his right lower back, Denies radiation anywhere states feels like spasms Denies loss of control of bowel or bladder and denies fever chills or burning with urination States he had some methocarbamol at home but he is out and needs more Related Data Home Medications Medication Instructions Recorded Confirmed atorvastatin 40 mg tablet 40 mg PO DAILY 10/30/23 10/30/23 bisoprolol fumarate 10 mg tablet 10 mg PO DAILY 10/30/23 10/30/23 bupropion HCl 150 mg 24 hr tablet, 150 mg PO DAILY 10/30/23 10/30/23 extended release omeprazole 20 mg capsule,delayed 20 mg PO DAILY 10/30/23 10/30/23 release trazodone 50 mg tablet 50 mg PO HS 10/30/23 10/30/23 Previous Rx's Medication Instructions Recorded lidocaine 5 % topical patch 1 patch topical DAILY PRN pain #15 10/30/23 ea methocarbamol 500 mg tablet 500 mg PO TID PRN muscle spasm #20 10/30/23 tabs Allergies Allergy/AdvReac Type Severity Reaction Status Date / Time No Known Allergies Allergy Verified 10/12/23 15:59 Worker's Comp Is this a Worker's Comp case?: [facility] Dis[facility]: The information contained in this section may have been updated after the patient was seen, as this information can be updated by other users. 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 (Updated 10/30/23 @ 20:25 by Silva Duran APRN) Hyperlipidemia Hypertension Dysphagia Surgical History (Updated 10/30/23 @ 18:16 by Sindy Quintana RN) History of tonsillectomy History of cholecystectomy Social History Smoking Status: Never smoker second hand exposure: No alcohol intake: never substance use type: denies use current occupational status: other Travel in the last 8 weeks: None household members: significant other housing: apartment current occupational exposures/hazards: No caffeine: Yes ROS Obtained: Yes All systems reviewed & no additional complaints except as documented and Yes Systems reviewed as appropriate & no additional complaints except as documented Constitutional Constitutional: Reports system reviewed and no additional complaints, except as documented, Reports as per HPI, Denies body ache, Denies chills and Denies fever(s) ENT Ears, Nose, Mouth, and Throat: Reports system reviewed and no additional complaints, except as documented and Reports as per HPI Cardiovascular Cardiovascular: Reports system reviewed and no additional complaints, except as documented and Reports as per HPI Respiratory Respiratory: Reports system reviewed and no additional complaints, except as documented and Reports as per HPI Gastrointestinal Gastrointestingal: Reports system reviewed and no additional complaints, except as documented and as per HPI; Denies abdominal pain Genitourinary Male Genitourinary: Reports system reviewed and no additional complaints, except as documented, Reports as per HPI, Denies difficulty urinating, Denies genital pain and Denies hematuria Musculoskeletal Musculoskeletal: Reports system reviewed and no additional complaints, except as documented, Reports as per HPI and Reports back pain Physical Exam General General appearance: alert and in no apparent distress ENT ENT exam: Present mucous membranes moist Respiratory Respiratory exam: Present normal lung sounds bilaterally; Absent respiratory distress or wheezes Cardiovascular Cardiovascular exam: Present regular rate, normal rhythm and normal heart sounds Abdominal Exam Abdominal exam: Present soft and normal bowel sounds; Absent distention or tenderness Back Exam Back exam: Present tenderness and muscle spasm Back 1 view image: 1. reports spasm like pain that does not radiate, denies loss of control of bowel or bladder Neurological Exam Neurological exam: Present alert, oriented X3 and normal gait Medical Decision Making Darren Inquiry Pt receiving controlled substance: No Darren was queried for this patient: No Vital Signs: 10/30/23 18:05 Temperature 97.9 F Temperature Source Oral Pulse Rate [Left Brachial] 58 L Respiratory Rate 18 Blood Pressure [Left Arm] 168/94 H Blood Pressure Mean [Left Arm] 118 Blood Pressure Source [Left Arm] Automatic Cuff Blood Pressure Position [Left Arm] Sitting 02 Sat by Pulse Oximetry 98 Oxygen Delivery Method Room Air Radiology Data #1: Image(s): L-Spine Image Reviewed: Yes I have reviewed radiologist's interpretation IMPRESSION: Degenerative changes most pronounced at L5-S1.
[2023-10-30 18:29] LABS: Apearance,Urine Clear (Clear); Color,Urine Yellow (Yellow); PH,Urine 5.5 (5.0-8.5)
[2023-10-30 18:30] LABS: Bilirubin,Urine Negative (Negative); Blood, Urine Negative (Negative); Glucose,Urine (UA) Negative (Negative); Ketones,Urine Negative (Negative); Protein,Urine Negative (Negative); Specific Gravity, Urine 1.025 (1.005-1.030); UTC Leukocyte Esterase,Urine Negative (Negative); UTC Nitrate,Urine Negative (Negative); Urobilinogen,Urine 0.2 EU/dl (0.2)
[2023-10-30 20:26] VITALS: BP 168/94; PULSE 58; RESP 18; TEMP 36.6; O2SAT 98
[2023-10-30] MEDS: KETOROLAC 30MG/ML VIAL 30 MG IM (20:26)
== END 2023-10-30 20:40 | disposition home or self-care (01) ==
PROVIDERS: Emergency Provider Nurse Practitioner; PCP Internal Medicine Adolescent Medicine
DX: M54.50 Low back pain, unspecified (principal)
CPT/HCPCS: 72100; 81003; 96372; 99212; 99214; G0463

== ENCOUNTER 2023-10-31 20:05 | Emergency (ER) | payer BC, SELFPAY ==
--- NOTE | 2023-10-31 20:15 | CT_ITS ---
PROCEDURE INFORMATION: Exam: CT Abdomen And Pelvis With Contrast Exam date and time: 10/31/2023 9:07 PM Age: 58 years old Clinical indication: Abdominal pain; Flank; Right; Additional info: R flank and R si severe pain TECHNIQUE: Imaging protocol: Computed tomography of the abdomen and pelvis with contrast. Radiation optimization: All CT scans at this facility use at least one of these dose optimization techniques: automated exposure control; mA and/or kV adjustment per patient size (includes targeted exams where dose is matched to clinical indication); or iterative reconstruction. Contrast material: ISOVUE; Contrast volume: 75 ml; Contrast route: IV; COMPARISON: CT ABDOMEN PELVIS W CON 08/01/2023 3:31 AM FINDINGS: Lungs: Lung bases are clear. Liver: Stable subcentimeter low-density lesion in the medial aspect of the right lobe of liver on image 29 of series 3 and coronal image 47 too small to characterize. Liver otherwise unremarkable. Gallbladder and bile ducts: Status post cholecystectomy. No evident bile duct dilatation allowing for prior cholecystectomy. Pancreas: Normal. No ductal dilation. Spleen: Normal. No splenomegaly. Adrenal glands: Normal. No mass. Kidneys and ureters: Benign-appearing 3 cm cyst anterior superior right kidney and subcentimeter low-density lesion posterior mid right kidney too small to characterize but likely a cyst. No follow-up of these lesions advised. Kidneys and ureters otherwise unremarkable with no obstructing stones or uropathy. Stomach and bowel: Unremarkable. No obstruction. No mucosal thickening. Appendix: Appendix is normal. No evidence of appendicitis. Intraperitoneal space: Unremarkable. No free air. No significant fluid collection. Vasculature: Unremarkable. No abdominal aortic aneurysm. Lymph nodes: Unremarkable. No enlarged lymph nodes. Urinary bladder: Unremarkable as visualized. Reproductive: Unremarkable as visualized. Bones/joints: Unremarkable. No acute fracture. Soft tissues: Small fat containing left inguinal hernia redemonstrated. IMPRESSION: 1. No acute abnormalities of the abdomen and pelvis. 2. Incidental subcentimeter low-density lesion in the right lobe of liver too small to characterize. In a low-risk patient, this is most likely to be benign and no further follow-up is recommended. In a high-risk patient, follow-up MRI in 3-6 months is recommended (or earlier if warranted by the patient's specific clinical circumstances). (Reference: Zita) 3. Additional nonemergent findings as above. COMMENTS: Consistent with the [employer]'s Incidental Findings Committee white paper (J Am Natalie Radiol 2018): Any incidental renal lesion less than 1 cm or classified as too small to characterize, or any incidental cystic renal lesion characterized as simple-appearing, is likely benign. No follow-up imaging is recommended for these lesions per consensus recommendations based on imaging criteria. REFERENCES: Zita GUNDERSON, et al. Management of Incidental Liver Lesions on CT: A White Paper of the ACR Incidental Findings Committee. J Am Natalie Radiol. 2017;14(11):4801-5298.
--- NOTE | 2023-10-31 20:19 | HMH.EDGENADL ---
Discharge Plan Disposition Patient Disposition: Home, Self-Care Prescriptions Prescriptions: New methocarbamol 500 mg tablet 1,000 mg PO Q8H PRN (Reason: Back pain and spasm) Qty: 24 0RF lidocaine 5 % adhesive patch,medicated 1 patch topical DAILY Qty: 15 0RF Rx Instructions: leave on most painful area for up to 12 hrs No Action atorvastatin 40 mg tablet 40 mg PO DAILY trazodone 50 mg tablet 50 mg PO HS Patient Comments: TAKE ONE TABLET BY MOUTH EVERY NIGHT bisoprolol fumarate 10 mg tablet 10 mg PO DAILY omeprazole 20 mg capsule,delayed release(DR/EC) 20 mg PO DAILY bupropion HCl 150 mg tablet extended release 24 hr 150 mg PO DAILY Patient Comments: TAKE ONE TABLET BY MOUTH EVERY DAY -SWALLOW WHOLE. DO NOT CRUSH OR CHEW- OR split methocarbamol 500 mg tablet 500 mg PO TID PRN (Reason: muscle spasm) Qty: 20 0RF lidocaine 5 % adhesive patch,medicated 1 patch topical DAILY PRN (Reason: pain) Qty: 15 0RF Rx Instructions: leave on most painful area for up to 12 hrs then removed for 12 hours Referrals Follow up/Referrals: Marco A Castañeda MD [Primary Care Provider] - See instructions Activity Restrictions/Add. Instructions Additional Instructions/Restrictions: At this time it was felt you are safe to be discharged home. If new or worsening symptoms please do not hesitate to return the emergency department. If symptoms persist please follow-up with your family doctor as you are able. Please take your medications as prescribed. 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 Patient was getting an MRI and after he reyna from lying down for prolonged amount of time has had severe right sacroiliac pain ever since. No incontinence, it is difficult for him to bear weight on the affected extremity due to the pain that produces on the sacroiliac joint. No other acute complaints at this time. Related Data Home Medications Medication Instructions Recorded Confirmed atorvastatin 40 mg tablet 40 mg PO DAILY 10/30/23 10/30/23 bisoprolol fumarate 10 mg tablet 10 mg PO DAILY 10/30/23 10/30/23 bupropion HCl 150 mg 24 hr tablet, 150 mg PO DAILY 10/30/23 10/30/23 extended release omeprazole 20 mg capsule,delayed 20 mg PO DAILY 10/30/23 10/30/23 release trazodone 50 mg tablet 50 mg PO HS 10/30/23 10/30/23 Previous Rx's Medication Instructions Recorded lidocaine 5 % topical patch 1 patch topical DAILY PRN pain #15 10/30/23 ea methocarbamol 500 mg tablet 500 mg PO TID PRN muscle spasm #20 10/30/23 tabs lidocaine 5 % topical patch 1 patch topical DAILY #15 ea 10/31/23 methocarbamol 500 mg tablet 1,000 mg (2 x 500 mg) PO Q8H PRN 10/31/23 Back pain and spasm #24 tabs Allergies Allergy/AdvReac Type Severity Reaction Status Date / Time No Known Allergies Allergy Verified 10/12/23 15:59 PFSH [facility] Disclaimer: The information contained in this section may have been updated after the patient was seen, as this information can be updated by other users. 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 (Updated 10/31/23 @ 23:06 by Brayan Patel MD) Hyperlipidemia Hypertension Dysphagia Surgical History (Updated 10/30/23 @ 18:16 by Sindy Quintana RN) History of tonsillectomy History of cholecystectomy Social History Smoking Status: Never smoker second hand exposure: No alcohol intake: never substance use type: denies use current occupational status: other Travel in the last 8 weeks: None household members: significant other housing: apartment current occupational exposures/hazards: No caffeine: Yes ROS Obtained: Yes Systems reviewed as appropriate & no additional complaints except as documented Physical Exam General General appearance: alert and in no apparent distress Head Head exam: atraumatic and normocephalic Eye Eye exam: Present PERRL ENT ENT exam: Present mucous membranes moist Neck Neck exam: Present normal inspection Chest Chest inspection: Present normal inspection and symmetric chest wall rise Respiratory Respiratory exam: Absent respiratory distress Cardiovascular Cardiovascular exam: Present regular rate and normal rhythm Abdominal Exam Abdominal exam: Present soft; Absent tenderness Extremities Exam Extremities exam: Present normal inspection Back Exam Back exam: Present other (Tender over the right sacroiliac joint, dimpling of the lumbar spine at previous surgical site. No midline tenderness.) Neurological Exam Neurological exam: Present alert Psychiatric Psychiatric exam: Present normal affect Skin Skin exam: Present warm and dry Medical Decision Making Darren Inquiry Pt receiving controlled substance: No Vital Signs: 10/31/23 20:32 Temperature 98.6 F Temperature Source Oral Pulse Rate [Left Radial] 74 Respiratory Rate 20 Blood Pressure [Right Arm] 128/62 Blood Pressure Mean [Right Arm] 84 Blood Pressure Source [Right Arm] Automatic Cuff Blood Pressure Position [Right Arm] Sitting 02 Sat by Pulse Oximetry 99 Oxygen Delivery Method Room Air Lab Data Lab Results 10/31/23 20:30: WBC 9.8, RBC 4.99, Hgb 15.0, Hct 45.7, MCV 91.7, MCH 30.1, MCHC 32.8, RDW 14.6, Plt Count 206, MPV 8.4, Neut % (Auto) 71.5, Lymph % (Auto) 17.9, [place] % (Auto) 6.3, Eos % (Auto) 3.5, Baso % (Auto) 0.8, Neut # (Auto) 7.0, Lymph # (Auto) 1.8, [place] # (Auto) 0.6, Eos # (Auto) 0.3, Baso # (Auto) 0.1, Sodium 140, Potassium 3.9, Chloride 108 H, Carbon Dioxide 24, Anion Gap 11.9, BUN 22 H, Creatinine 1.50 H, Estimated Creat Clear 83, Estimated GFR 48 L, Est GFR ( Amer) 58 L, Glucose 99, Calcium 9.4, Total Bilirubin 0.7, AST 63 H, ALT 51, Alkaline Phosphatase 91, Total Protein 8.1, Albumin 4.2, Globulin 3.9 H, Albumin/Globulin Ratio 1.1, Lipase 161 10/31/23 21:35: Urine Color Yellow, Urine Appearance Clear, Urine pH 5.5, Ur Specific [place] 1.020, Urine Protein Negative, Urine Glucose (UA) Negative, Urine Ketones Negative, Urine Blood Trace-i, Urine Nitrate Negative, Urine Bilirubin Negative, Urine Urobilinogen 0.2, Ur Leukocyte Esterase Negative, Urine RBC None, Urine WBC None, Ur Squamous Epith Cells Occasional, Urine Bacteria None 10/31/23 20:30 10/31/23 20:30 Orders (Tests/Meds): ED MEDICATIONS Generic Name Dose Route Start Last Admin Trade Name Toy PRN Reason Stop Dose Admin Sodium Chloride 10 ml 10/31/23 21:13 10/31/23 21:14 Sodium Chloride 0.9% 10ml Syr (Rad Only) IV 11/30/23 21:12 10 ml NEEDED PRN Administration Maintain IV Site Discontinued Medications Generic Name Dose Route Start Last Admin Trade Name Toy PRN Reason Stop Dose Admin Acetaminophen 1,000 mg 10/31/23 20:15 10/31/23 21:18 Acetaminophen 1,000mg/100ml Vial IV 10/31/23 20:16 1,000 mg ONCE ONE Administration Iopamidol 75 ml 10/31/23 21:13 10/31/23 21:14 Iopamidol-370 (76%);100ml Bottle IV 10/31/23 21:14 75 ml ONCE ONE Administration Ketorolac Tromethamine 30 mg 10/31/23 20:15 10/31/23 21:18 Ketorolac 30mg/Ml Vial IV 10/31/23 20:16 30 mg ONCE ONE Administration Lidocaine 1 each 10/31/23 20:15 10/31/23 21:18 Lidocaine 5% Transdermal Patch TP 10/31/23 20:16 1 each ONCE ONE Administration Methocarbamol 1,000 mg 10/31/23 20:17 10/31/23 21:18 Methocarbamol 500mg Tablet PO 10/31/23 20:18 1,000 mg ONCE ONE Administration Ondansetron HCl 4 mg 10/31/23 20:15 10/31/23 21:18 Ondansetron 4mg/2ml Vial IV 10/31/23 20:16 4 mg ONCE ONE Administration ORDERS Category Date Time Status CT abdomen pelvis w con Stat Cat Scan 10/31/23 20:15 Completed CBC w/Auto Diff [Complete Blood Count Auto Diff] Stat Lab 10/31/23 20:30 Completed CMP [Comprehensive Metabolic Panel] Stat Lab 10/31/23 20:30 Completed Lipase Stat Lab 10/31/23 20:30 Completed UA [Urinalysis and Microscopic] Stat Lab 10/31/23 21:35 Completed Medical Decision Narrative: In summary patient is a 58-year-old male with past medical history described above who presents emergency department for evaluation of back pain. Patient is hemodynamically stable nontoxic-appearing upon arrival, afebrile. Differential diagnosis includes lumbar ago, abscess, ureterolithiasis, among others. It does not shoot down his leg to be consistent with sciatica. Given history of infection imaging is indicated. Workup will be conducted with hematologic labs, CT abdomen pelvis IV contrast, urinalysis. Initial interventions include multimodal pain control. Initial workup reviewed by me, hematologic labs are nonactionable, patient has increased creatinine compared to baseline however no true definition of DEVON per rifle criteria, lipase normal. Urinalysis interpreted by me and not consistent with infection. CT imaging abdomen pelvis shows no acute abnormality, subcentimeter low-density lesion in the liver which is too small to characterize, patient is not high risk therefore no further workup is indicated. Upon repeat evaluation patient had persistent pain. Single dose oxycodone was administered. My leading differential is that he has lumbar ago for which he will be prescribed lidocaine patches and methocarbamol will follow-up with Dr. Castañeda. Patient was given multiple return precautions given that he is high risk and verbalized understanding. Critical Care Critical Care Time Critical Care Time: No
[2023-10-31 20:32] VITALS: BP 128/62; PULSE 74; RESP 20; TEMP 37; O2SAT 99; BMI 37.7
[2023-10-31 20:38] LABS: Basophils # 0.1 K/mm3 (0-0.2); Basophils % 0.8 % (0.1-2.0); Eosinophils # 0.3 K/mm3 (0.0-0.4); Eosinophils % 3.5 % (0.1-12.0); Hematocrit 45.7 % (42.0-52.0); Lymphocytes # 1.8 K/mm3 (0.7-4.5); Lymphocytes % 17.9 % (10-50); Mean Corpuscular HGB Conc 32.8 g/dL (31.8-35.4); Mean Corpuscular Hemoglobin 30.1 pg (27.0-31.2); Mean Corpuscular Volume 91.7 fl (80-94); Mean Platelet Volume 8.4 fl (7.4-10.4); Monocytes # 0.6 K/mm3 (0.1-1.0); Monocytes % 6.3 % (1.7-9.3); Neutrophils % 71.5 % (37.0-80.0); Platelet Count 206 K/mm3 (142-424); Red Blood Count 4.99 M/mm3 (4.60-6.20); Red Cell Distribution Width 14.6 % (11.5-17.5); White Blood Count 9.8 K/mm3 (4.8-10.8)
[2023-10-31 20:40] LABS: Chloride 108 mmol/L (98-107)
[2023-10-31 20:41] LABS: Potassium 3.9 mmoL/L (3.5-5.1); Sodium 140 mmol/L (136-145)
[2023-10-31 20:43] LABS: Alanine Aminotransferase 51 U/L (12-78); Albumin Level 4.2 g/dl (3.5-5.0); Albumin/Globulin Ratio 1.1 (1.1-1.8); Alkaline Phosphatase 91 U/L (38-126); Anion Gap 11.9 mEq/L (5-15); Aspartate Amino Transferase 63 U/L (17-59); Bilirubin,Total 0.7 mg/dl (0.2-1.3); Blood Urea Nitrogen 22 mg/dl (9-20); Carbon Dioxide 24 mmol/L (22.0-30.0); Creatinine Clearance Estimated 83 mL/min (50-200); Estimated Glomerular Filt Rate 48 ml/min (>60); GFR (African American) 58 ML/MIN (>60); Globulin 3.9 g/dL (1.3-3.2); Lipase 161 U/L (23-300); Total Protein,Serum 8.1 g/dl (6.3-8.2)
[2023-10-31 20:44] LABS: Calcium 9.4 mg/dl (8.4-10.2); Glucose 99 mg/dl (74-100)
[2023-10-31] MEDS: IOPAMIDOL-370 (76%);100ML BOTTLE 75 ML IV (21:14)
[2023-10-31] MEDS: SODIUM CHLORIDE 0.9% 10ML SYR (RAD ONLY) 10 ML IV (21:14)
[2023-10-31] MEDS: ONDANSETRON 4MG/2ML VIAL 4 MG IV (21:18)
[2023-10-31] MEDS: ACETAMINOPHEN 1,000MG/100ML VIAL 1000 MG IV (21:18)
[2023-10-31] MEDS: KETOROLAC 30MG/ML VIAL 30 MG IV (21:18)
[2023-10-31] MEDS: METHOCARBAMOL 500MG TABLET 1000 MG PO (21:18)
[2023-10-31] MEDS: LIDOCAINE 5% TRANSDERMAL PATCH 1 EACH TP (21:18)
[2023-10-31 21:40] LABS: Microscopic, Urine URINE MICROSCOPIC (MICROSCOPIC)
[2023-10-31 21:41] LABS: Appearance,Urine CLEAR (Clear); Bilirubin,Urine Negative (Negative); Blood, Urine TRACE-I (Negative); Color,Urine YELLOW (Yellow); Glucose,Urine (UA) Negative (Negative); Ketones,Urine Negative (Negative); Leukocyte Esterase,Urine Negative (Negative); Nitrate,Urine Negative (Negative); PH,Urine 5.5 (5.0-8.5); Protein,Urine Negative (Negative); Urobilinogen,Urine 0.2 EU/dl (0.2)
[2023-10-31 21:53] LABS: Squamous Epithelial Cell,Urine Occasional #/hpf (0-5)
[2023-10-31] MEDS: OXYCODONE 5MG IMMEDIATE RELEASE TABLET 5 MG PO (23:09)
[2023-10-31 23:11] VITALS: BP 124/62; PULSE 78; RESP 18; TEMP 36.8; O2SAT 98
== END 2023-10-31 23:12 | disposition home or self-care (01) ==
PROVIDERS: Emergency Provider Emergency Medicine; PCP Internal Medicine Adolescent Medicine
DX: M54.41 Lumbago with sciatica, right side (principal); I10 Essential (primary) hypertension; E78.5 Hyperlipidemia, unspecified
CPT/HCPCS: 74177; 80053; 81001; 83690; 85025; 96374; 96375; 99284; J0131; J2405; Q9967

== ENCOUNTER 2023-11-02 15:29 | Outpatient (CLI) | payer BC, SELFPAY ==
[2023-11-02 17:25] LABS: Anion Gap 16.7 mEq/L (5-15); Blood Urea Nitrogen 16 mg/dl (9-20); Calcium 9.7 mg/dl (8.4-10.2); Carbon Dioxide 25 mmol/L (22.0-30.0); Chloride 105 mmol/L (98-107); Estimated Glomerular Filt Rate 62 ml/min (>60); GFR (African American) 75 ML/MIN (>60); Glucose 109 mg/dl (74-100); Potassium 4.7 mmoL/L (3.5-5.1); Sodium 142 mmol/L (136-145)
[2023-11-02 17:41] LABS: Free T4 (Free Thyroxine) 0.67 ng/dl (0.78-2.19)
[2023-11-02 17:57] LABS: Thyroid Stimulating Hormone 4.65 uIU/mL (0.465-4.68)
== END 2023-11-02 23:59 | disposition home or self-care (01) ==
LOC: LAB 15:30
PROVIDERS: PCP Internal Medicine Adolescent Medicine; Visit Provider Physician Assistant
DX: E03.9 Hypothyroidism, unspecified (principal); N17.9 Acute kidney failure, unspecified
CPT/HCPCS: 36415; 80048; 84439; 84443

== ENCOUNTER 2023-12-01 08:00 | Outpatient (RCR) | payer BC, SELFPAY | END 2023-12-01 08:05 | disposition home or self-care (01) | LOC: PT 08:00 | PROVIDERS: Visit Provider Orthopaedic Surgery | DX: M54.50 Low back pain, unspecified (principal); S33.5XXA Sprain of ligaments of lumbar spine, initial encounter | CPT/HCPCS: 97010; 97014; 97110; 97140; 97163; G0283 ==

== ENCOUNTER 2024-02-18 02:22 | Emergency (ER) | payer BC, SELFPAY ==
[2024-02-18 02:28] VITALS: BP 122/81; PULSE 73; RESP 18; TEMP 36.8; O2SAT 97; BMI 36.9
--- NOTE | 2024-02-18 02:32 | ED_ITS ---
Discharge Plan Disposition Patient Disposition: Home, Self-Care Prescriptions Prescriptions: No Action atorvastatin 40 mg tablet 40 mg PO DAILY trazodone 50 mg tablet 50 mg PO HS Patient Comments: TAKE ONE TABLET BY MOUTH EVERY NIGHT bisoprolol fumarate 10 mg tablet 10 mg PO DAILY omeprazole 20 mg capsule,delayed release(DR/EC) 20 mg PO DAILY bupropion HCl 150 mg tablet extended release 24 hr 150 mg PO DAILY Patient Comments: TAKE ONE TABLET BY MOUTH EVERY DAY -SWALLOW WHOLE. DO NOT CRUSH OR CHEW- OR split methocarbamol 500 mg tablet 500 mg PO TID PRN (Reason: muscle spasm) Qty: 20 0RF lidocaine 5 % adhesive patch,medicated 1 patch topical DAILY PRN (Reason: pain) Qty: 15 0RF Rx Instructions: leave on most painful area for up to 12 hrs then removed for 12 hours methocarbamol 500 mg tablet 1,000 mg PO Q8H PRN (Reason: Back pain and spasm) Qty: 24 0RF lidocaine 5 % adhesive patch,medicated 1 patch topical DAILY Qty: 15 0RF Rx Instructions: leave on most painful area for up to 12 hrs Referrals Follow up/Referrals: Marco A Castañeda MD [Primary Care Provider] - See instructions Activity Restrictions/Add. Instructions Additional Instructions/Restrictions: Please follow-up with your primary care provider. Please return to the emergency department if you develop any new or worsening symptoms or become concerned for your health. Clinical Impressions Clinical Impression: Gout flare Print Language Print Language: Luxembourgish Discharge ED Provider: Ambrose Rivas General Adult HPI General Stated complaint: gout flare up R foot Time Seen by Provider: 02/18/24 02:27 History of Present Illness HPI narrative: 58-year-old male with history of chronic gout presents with right MTP pain. He reports is consistent with his prior episodes. He has had a bit of a flare for the last week or so and has been taking colchicine but is not only better yet. He reports he is traveling to [place] in the morning and would like a shot of steroids to help. He reports that steroids usually resolve the issue for him. He denies any fever trauma or other symptoms. Reports this feels like his normal gout. Denies any other joint pain at this time. Related Data Home Medications ?Medication ?Instructions ?Recorded ?Confirmed atorvastatin 40 mg tablet 40 mg PO DAILY 05/11/24 05/15/24 bisoprolol fumarate 10 mg tablet 10 mg PO DAILY 10/30/23 11/03/23 bupropion HCl 150 mg 24 hr tablet, 150 mg PO DAILY 10/30/23 11/03/23 extended release omeprazole 20 mg capsule,delayed 20 mg PO DAILY 10/30/23 11/03/23 release trazodone 50 mg tablet 50 mg PO HS 10/30/23 11/03/23 Previous Rx's ?Medication ?Instructions ?Recorded lidocaine 5 % topical patch 1 patch topical DAILY PRN pain #15 10/30/23 ea methocarbamol 500 mg tablet 500 mg PO TID PRN muscle spasm #20 10/30/23 tabs lidocaine 5 % topical patch 1 patch topical DAILY #15 ea 10/31/23 methocarbamol 500 mg tablet 1,000 mg (2 x 500 mg) PO Q8H PRN 10/31/23 Back pain and spasm #24 tabs Allergies Allergy/AdvReac Type Severity Reaction Status Date / Time No Known Allergies Allergy Verified 10/12/23 15:59 [facility] Disclaimer: The information contained in this section may have been updated after the patient was seen, as this information can be updated by other users. 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 (Updated 02/18/24 @ 02:32 by Ambrose Rivas MD) Hyperlipidemia Hypertension Dysphagia Surgical History (Updated 10/30/23 @ 18:16 by Sindy Quintana RN) History of tonsillectomy History of cholecystectomy Social History Smoking Status: Never smoker second hand exposure: No alcohol intake: never substance use type: denies use current occupational status: other Travel in the last 8 weeks: None household members: significant other housing: apartment current occupational exposures/hazards: No caffeine: Yes ROS Obtained: Yes All systems reviewed & no additional complaints except as documented Physical Exam General General appearance: alert and in no apparent distress Head Head exam: atraumatic and normocephalic Eye Eye exam: Present normal appearance, PERRL and EOMI ENT ENT exam: Present normal oropharynx and normal external ear exam Neck Neck exam: Present normal inspection and full ROM Chest Chest inspection: Present normal inspection and symmetric chest wall rise; Absent tenderness Respiratory Respiratory exam: Present normal lung sounds bilaterally; Absent respiratory distress Cardiovascular Cardiovascular exam: Present regular rate and normal rhythm Abdominal Exam Abdominal exam: Present soft; Absent distention, tenderness or guarding Extremities Exam Extremities exam: Present other (Right MTP tenderness to palpation. No significant overlying erythema) Back Exam Back exam: Present normal inspection; Absent tenderness Neurological Exam Neurological exam: Present alert and oriented X3; Absent motor sensory deficit Psychiatric Psychiatric exam: Present normal affect and normal mood Skin Skin exam: Present warm, dry and normal color Lymphatic Lymphatic Findings: no adenopathy Medical Decision Making Medical Records Medical records reviewed: Yes I reviewed the patient's medical records. Darren Inquiry Pt receiving controlled substance: No Darren was queried for this patient: No Lab Data Lab results reviewed: Yes I reviewed the patient's lab results. Orders (Tests/Meds): ED MEDICATIONS Generic Name Dose Route Start Last Admin Trade Name Freq PRN Reason Stop Dose Admin Methylprednisolone Sodium Succinate 60 mg 02/18/24 02:30 Methylprednisolone Sod Succ 125mg Vial IM 02/18/24 02:31 ONCE ONE Medical Decision Narrative: 58-year-old male with history of chronic gout presents with right first MTP pain. History was obtained via interactive discussion with patient, chart review. On arrival, patient is [afebrile, hemodynamically stable, satting appropriately, alert, oriented x4, GCS 15], moving all extremities spontaneously. Full physical exam performed and significant for tender right first MTP joint. Differential includes but is not limited to gout, pseudogout, septic arthritis. Patient was given 60 mg of IM Solu-Medrol. Workup including blood work and arthrocentesis was considered, but deemed unnecessary due to history and exam consistent with gout. Given patient history, exam and workup, patient's presentation most likely represents acute gout flare. Patient was given strict return precautions for signs and symptoms of septic arthritis. Patient discharged in stable condition. Procedures Risk/Benefits of Procedure(s) Were Explained: Yes Critical Care Critical Care Time Critical Care Time: No
[2024-02-18] MEDS: METHYLPREDNISOLONE SOD SUCC 125MG VIAL 60 MG IM (02:37)
[2024-02-18 02:53] VITALS: BP 122/81; PULSE 68; RESP 20; TEMP 36.8; O2SAT 95
== END 2024-02-18 02:57 | disposition home or self-care (01) ==
PROVIDERS: Emergency Provider Emergency Medicine; PCP Internal Medicine Adolescent Medicine
DX: M10.071 Idiopathic gout, right ankle and foot (principal); I10 Essential (primary) hypertension; E78.5 Hyperlipidemia, unspecified
CPT/HCPCS: 96372; 99283; J2919

== ENCOUNTER 2024-04-18 10:45 | Emergency (ER) | payer BC, SELFPAY ==
[2024-04-18 11:30] VITALS: BP 134/82; PULSE 83; RESP 20; TEMP 37.1; O2SAT 98; BMI 36.3
--- NOTE | 2024-04-18 11:30 | ED_ITS ---
Discharge Plan Disposition Patient Disposition: Home, Self-Care Condition: Good Prescriptions Prescriptions: New azithromycin [Zithromax] 250 mg tablet 250 mg PO UD DOSE PK Qty: 6 0RF Rx Instructions: Take two (2) tablets today, then one (1) tablet days #2 thru #5 ondansetron 4 mg Tablet,Disintegrating 4 mg PO Q8H PRN (Reason: Nausea) Qty: 12 0RF methylprednisolone 4 mg Tablets,Dose Pack 4 mg PO DIRECTED 6 Days Qty: 21 0RF Rx Instructions: Take 1 pack as directed for 6 days No Action atorvastatin 40 mg tablet 40 mg PO DAILY allopurinol 100 mg tablet 100 mg PO DAILY bisoprolol fumarate 10 mg tablet 10 mg PO DAILY levothyroxine [Synthroid] 50 mcg tablet 50 mcg PO DAILY omeprazole 20 mg capsule,delayed release(DR/EC) 20 mg PO DAILY Zepbound 2.5 mg/0.5 mL pen injector 2.5 mg SQ WEEKLY Referrals Follow up/Referrals: Marco A Castañeda MD [Primary Care Provider] - See instructions Activity Restrictions/Add. Instructions Additional Instructions/Restrictions: Drink plenty of fluids. Take tylenol or ibuprofen for pain or fever. Take the medications as directed. Follow up with your regular doctor. GO TO THE ER FOR ANY WORSENING SYMPTOMS Clinical Impressions Clinical Impression: Acute viral syndrome Sinusitis Qualifiers: Sinusitis location: unspecified location Chronicity: acute Recurrence: non- recurrent Qualified Code(s): J01.90 - Acute sinusitis, unspecified Stand Alone Forms Stand Alone Forms: Work/School Release Instructions Patient Instructions: DI for Sinusitis, DI for Viral Syndrome Print Language Print Language: Khmer Discharge ED Provider: Arash Adame [facility] General Stated complaint: vomiting, diarrhea, headache Time Seen by Provider: 04/18/24 11:30 History of Present Illness Provider Complaint: He states that for the past 4 days he has had cough, chest congestion, sore throat, and n/v/d. Related Data Home Medications ?Medication ?Instructions ?Recorded ?Confirmed allopurinol 100 mg tablet 100 mg PO DAILY 04/18/24 04/18/24 atorvastatin 40 mg tablet 40 mg PO DAILY 04/18/24 04/18/24 bisoprolol fumarate 10 mg tablet 10 mg PO DAILY 04/18/24 04/18/24 levothyroxine 50 mcg tablet 50 mcg PO DAILY 04/18/24 04/18/24 (Synthroid) omeprazole 20 mg capsule,delayed 20 mg PO DAILY 04/18/24 04/18/24 release tirzepatide (weight loss) 2.5 2.5 mg SQ WEEKLY 04/18/24 04/18/24 mg/0.5 mL subcutaneous pen injector (Zepbound) Previous Rx's ?Medication ?Instructions ?Recorded azithromycin 250 mg tablet 250 mg PO UD DOSE PK #6 tabs 04/18/24 (Zithromax) methylprednisolone 4 mg tablets in 4 mg PO DIRECTED 6 days #21 tabs 04/18/24 a dose pack ondansetron 4 mg disintegrating 4 mg PO Q8H PRN Nausea #12 tabs 04/18/24 tablet Allergies Allergy/AdvReac Type Severity Reaction Status Date / Time No Known Allergies Allergy Verified 10/12/23 15:59 PFSH PFS Disclaimer: The information contained in this section may have been updated after the patient was seen, as this information can be updated by other users. 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 (Updated 04/18/24 @ 11:57 by Arash Adame APRN) Hyperlipidemia Hypertension Dysphagia Surgical History (Updated 04/18/24 @ 11:37 by Sindy Quintana RN) History of throat surgery History of back surgery History of tonsillectomy History of cholecystectomy Social History Smoking Status: Never smoker second hand exposure: No alcohol intake: never substance use type: denies use current occupational status: other Travel in the last 8 weeks: None household members: significant other housing: apartment current occupational exposures/hazards: No caffeine: Yes ROS Obtained: Yes All systems reviewed & no additional complaints except as documented Constitutional Constitutional: Reports chills and Reports fever(s) Eyes Eyes: Denies eye discharge ENT Ears, Nose, Mouth, and Throat: Reports as per HPI Cardiovascular Cardiovascular: Denies chest pain Respiratory Respiratory: Denies chest congestion and Reports cough Gastrointestinal Gastrointestingal: Reports nausea; Denies abdominal pain, constipation, cramping, diarrhea or vomiting Musculoskeletal Musculoskeletal: Denies arthralgias Integumentary/Breasts Skin/Breast: Denies rash Neurologic Neurologic: Denies paresthesias Physical Exam General General appearance: alert and in no apparent distress Eye Eye exam: Present normal appearance, PERRL and EOMI ENT ENT exam: Present mucous membranes moist and normal external ear exam Expanded ENT Exam External ear exam: Present normal external inspection TM/Canal exam: Bilateral TM: erythema and bulging Nose exam: Absent sinus tenderness Nasal speculum exam: Bilateral: normal Mouth exam: Present normal external inspection; Absent drooling Teeth exam: Present normal inspection Throat exam: Present tonsillar erythema and tonsillomegaly Neck Neck exam: Present normal inspection, full ROM and trachea midline; Absent tenderness, lymphadenopathy or thyromegaly Chest Chest inspection: Present normal inspection and symmetric chest wall rise; Absent tenderness or rash Respiratory Respiratory exam: Present normal lung sounds bilaterally; Absent respiratory distress, wheezes, stridor or accessory muscle use Cardiovascular Cardiovascular exam: Present regular rate, normal rhythm and normal heart sounds Abdominal Exam Abdominal exam: Present soft; Absent distention, tenderness, guarding, rebound or rigidity Extremities Exam Extremities exam: Present normal inspection, full ROM and normal capillary refill; Absent tenderness or calf tenderness Back Exam Back exam: Present normal inspection and full ROM; Absent tenderness Neurological Exam Neurological exam: Present alert and oriented X3 Psychiatric Psychiatric exam: Present normal affect and normal mood Skin Skin exam: Present warm, dry, intact and normal color Lymphatic Lymphatic Findings: no adenopathy Medical Decision Making Medical Records Medical records reviewed: No I reviewed the patient's medical records. Screening: Per USPSTF and CDC recommendations, given the prevalence of disease in our region, it is our hospital?s policy to screen for HIV and viral Hepatitis for all patients aged 18 and over and those with ongoing risk factors. Darren Inquiry Pt receiving controlled substance: No Lab Data Lab results reviewed: Yes I reviewed the patient's lab results.
[2024-04-18 12:00] VITALS: BP 134/82; PULSE 83; RESP 20; TEMP 37.1; O2SAT 98
[2024-04-18 12:07] LABS: Coronavirus 19, PCR Not Detected (NotDetected); Influenza A, PCR Not Detected (NotDetected); Influenza B, PCR Not Detected (NotDetected)
== END 2024-04-18 12:03 | disposition home or self-care (01) ==
PROVIDERS: Emergency Provider Nurse Practitioner Family; PCP Internal Medicine Adolescent Medicine
DX: B34.9 Viral infection, unspecified (principal)
CPT/HCPCS: 87636; 99213; G0381

== ENCOUNTER 2024-05-25 16:15 | Emergency (ER) | payer BC, SELFPAY ==
[2024-05-25 16:30] VITALS: BP 135/77; PULSE 62; RESP 20; TEMP 36.6; O2SAT 98; BMI 34.9
--- NOTE | 2024-05-25 16:44 | EXP.UTC ---
Discharge Plan Disposition Patient Disposition: Home, Self-Care Condition: Good Prescriptions Prescriptions: New methocarbamol 750 mg tablet 750 mg PO TID Qty: 12 0RF lidocaine 4 % adhesive patch,medicated 1 patch topical DAILY PRN (Reason: pain) Qty: 10 0RF Rx Instructions: apply patch to area and leave on for 12 hours then remove for 12 hours No Action atorvastatin 40 mg tablet 40 mg PO DAILY bisoprolol fumarate 10 mg tablet 10 mg PO DAILY levothyroxine [Synthroid] 50 mcg tablet 50 mcg PO DAILY omeprazole 20 mg capsule,delayed release(DR/EC) 20 mg PO DAILY Zepbound 5 mg/0.5 mL pen injector 5 mg SQ WEEKLY Patient Comments: INJECT 5 MG (0.5 ML) SUBCUTANEOUSLY ONCE A WEEK Referrals Follow up/Referrals: Marco A Castañeda MD [Primary Care Provider] - See instructions Activity Restrictions/Add. Instructions Additional Instructions/Restrictions: *Ibuprofen bessie 6 hours with meal as needed for pain/inflammation *Not additional anti-inflammatory like motrin, aleve, advil with the above amount of ibuprofen. You can still take Tylenol every 4 hours as needed if you need something else for pain *Ice 20 minutes every 2 hours for the first 48 hours after the initial injury followed by moist heat every 20 minutes 3-4 times a day to affected area *Muscle relaxer every 8 hours as needed for muscle spasms but remember, it WILL cause drowsiness You cannot take it and Work, drive, operate machinery or care for small children. *Keep this area active, no movement leads to more stiffness, However take it easy and avoid heavy lifting pushing or pulling *Follow up with you family doctor if no improvement for further treatment Clinical Impressions Clinical Impression: Muscle spasm Instructions Patient Instructions: Lidocaine Transdermal Patch, Methocarbamol, DI for Muscle Spasm Print Language Print Language: Korean Discharge ED Provider: Silva Duran [facility] HPI General Stated complaint: RT shoulder pain Mode of Arrival: Ambulatory Source of Information: Patient Limitations: No Limitations Time Seen by Provider: 05/25/24 16:44 Description of Symptoms (Recalled from Triage Doc. by RN): PATIENT C/O MUSCULAR PAIN TO RIGHT SHOULDER BLADE AREA THAT STARTED WEDNESDAY. PATIENT STATES HE DOES A LOT OF REPETITIVE PULLING AT WORK HEENT Symptoms (Recalled from RN notes): No Resp Symptoms (Recalled from RN notes): No Skin Symptoms (Recalled from RN notes): No MS Symptoms (Recalled from RN notes): Yes Functional Status (Recalled from RN notes): WNL History of Present Illness Provider Complaint: Patient states that he does a repetitive pulling motion at work and on Wednesday felt something pull in his right shoulder blade area and it is tender to the touch, States that when he moves it feels like something is pulling States that he wanted to come in and get a steriod shot to see if that would help it Related Data Home Medications ?Medication ?Instructions ?Recorded ?Confirmed atorvastatin 40 mg tablet 40 mg PO DAILY 05/25/24 05/25/24 bisoprolol fumarate 10 mg tablet 10 mg PO DAILY 05/25/24 05/25/24 levothyroxine 50 mcg tablet 50 mcg PO DAILY 05/25/24 05/25/24 (Synthroid) omeprazole 20 mg capsule,delayed 20 mg PO DAILY 05/25/24 05/25/24 release tirzepatide (weight loss) 5 mg/0.5 5 mg SQ WEEKLY 05/25/24 05/25/24 mL subcutaneous pen injector (Zepbound) Previous Rx's ?Medication ?Instructions ?Recorded lidocaine 4 % topical patch 1 patch topical DAILY PRN pain #10 05/25/24 ea methocarbamol 750 mg tablet 750 mg PO TID #12 tabs 05/25/24 Allergies Allergy/AdvReac Type Severity Reaction Status Date / Time No Known Allergies Allergy Verified 10/12/23 15:59 Worker's Comp Is this a Worker's Comp case?: No [facility] Disclaimer: The information contained in this section may have been updated after the patient was seen, as this information can be updated by other users. 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 (Updated 05/25/24 @ 16:53 by Silva Duran APRN) Hyperlipidemia Hypertension Dysphagia Surgical History (Updated 04/18/24 @ 11:37 by Sindy Quintana RN) History of throat surgery History of back surgery History of tonsillectomy History of cholecystectomy Social History Smoking Status: Never smoker second hand exposure: No alcohol intake: never substance use type: denies use current occupational status: other Travel in the last 8 weeks: None household members: significant other housing: apartment current occupational exposures/hazards: No caffeine: Yes ROS Obtained: Yes All systems reviewed & no additional complaints except as documented and Yes Systems reviewed as appropriate & no additional complaints except as documented Constitutional Constitutional: Reports system reviewed and no additional complaints, except as documented and Reports as per HPI ENT Ears, Nose, Mouth, and Throat: Reports system reviewed and no additional complaints, except as documented and Reports as per HPI Cardiovascular Cardiovascular: Reports system reviewed and no additional complaints, except as documented and Reports as per HPI Respiratory Respiratory: Reports system reviewed and no additional complaints, except as documented and Reports as per HPI Gastrointestinal Gastrointestingal: Reports system reviewed and no additional complaints, except as documented and as per HPI Musculoskeletal Musculoskeletal: Reports system reviewed and no additional complaints, except as documented, Reports as per HPI and Reports other (muscle spasm/pain in right shoulder/shoulder blade worse with movement) Physical Exam General General appearance: alert and in no apparent distress ENT ENT exam: Present mucous membranes moist Chest Chest inspection: Present normal inspection and symmetric chest wall rise Respiratory Respiratory exam: Present normal lung sounds bilaterally; Absent respiratory distress or wheezes Cardiovascular Cardiovascular exam: Present regular rate, normal rhythm and normal heart sounds Abdominal Exam Abdominal exam: Present soft and normal bowel sounds; Absent distention or tenderness Back Exam Back exam: Present tenderness and muscle spasm Back 1 view image: 1. reports tenderness with palpation, reports feeling of tightness and pain worse with movement Denies CP Denies SOA Neurological Exam Neurological exam: Present alert, oriented X3 and normal gait Medical Decision Making Medical Records Screening: Per USPSTF and CDC recommendations, given the prevalence of disease in our region, it is our hospital?s policy to screen for HIV and viral Hepatitis for all patients aged 18 and over and those with ongoing risk factors. Darren Inquiry Pt receiving controlled substance: No Darren was queried for this patient: No Vital Signs: 05/25/24 16:30 Temperature 97.9 F Temperature Source Oral Pulse Rate [Left Brachial] 62 Respiratory Rate 20 Blood Pressure [Left Arm] 135/77 Blood Pressure Mean [Left Arm] 96 Blood Pressure Source [Left Arm] Automatic Cuff Blood Pressure Position [Left Arm] Sitting 02 Sat by Pulse Oximetry 98 Oxygen Delivery Method Room Air
[2024-05-25 17:11] VITALS: BP 135/77; PULSE 62; RESP 20; TEMP 36.6; O2SAT 98
[2024-05-25] MEDS: METHYLPREDNISOLONE SOD SUCC 125MG VIAL 125 MG IM (17:11)
== END 2024-05-25 17:20 | disposition home or self-care (01) ==
PROVIDERS: Emergency Provider Nurse Practitioner; PCP Internal Medicine Adolescent Medicine
DX: M62.838 Other muscle spasm (principal)
CPT/HCPCS: 96372; 99213; G0381; J2919

== ENCOUNTER 2024-06-15 10:57 | Outpatient (CLI) | payer BC, SELFPAY ==
[2024-06-15 11:35] LABS: Hemoglobin 14.6 g/dL (14.1-18.0); Red Blood Count 5.03 M/mm3 (4.60-6.20); White Blood Count 7.3 K/mm3 (4.8-10.8)
[2024-06-15 11:36] LABS: Eosinophils % 7.2 % (0.1-12.0); Hematocrit 43.9 % (42.0-52.0); Lymphocytes % 23.6 % (10-50); Mean Corpuscular HGB Conc 33.3 g/dL (31.8-35.4); Mean Corpuscular Volume 87.3 fl (80-94); Mean Platelet Volume 10.1 fl (7.4-10.4); Monocytes % 9.1 % (1.7-9.3); Platelet Count 190 K/mm3 (142-424); Red Cell Distribution Width 13.9 % (11.5-17.5)
[2024-06-15 11:37] LABS: Basophils # 0.1 K/mm3 (0-0.2); Eosinophils # 0.5 K/mm3 (0.0-0.4); Lymphocytes # 1.7 K/mm3 (0.7-4.5); Monocytes # 0.7 K/mm3 (0.1-1.0); Neutrophils # 4.3 K/mm3 (1.8-7.8)
[2024-06-15 11:54] LABS: Albumin Level 3.9 g/dl (3.5-5.0); Chloride 108 mmol/L (98-107); Potassium 4.4 mmoL/L (3.5-5.1); Sodium 136 mmol/L (136-145)
[2024-06-15 11:56] LABS: Alanine Aminotransferase 56 U/L (12-78); Blood Urea Nitrogen 15 mg/dl (9-20); Estimated Glomerular Filt Rate 68 ml/min (>60); GFR (African American) 83 ML/MIN (>60)
[2024-06-15 11:57] LABS: Albumin/Globulin Ratio 1.4 (1.1-1.8); Alkaline Phosphatase 94 U/L (38-126); Anion Gap 5.4 mEq/L (5-15); Aspartate Amino Transferase 51 U/L (17-59); Bilirubin,Total 0.8 mg/dl (0.2-1.3); Calcium 9.5 mg/dl (8.4-10.2); Carbon Dioxide 27 mmol/L (22.0-30.0); Chol/HDL Ratio 3.6 (1-3.5); Cholesterol 105 mg/dl (140-200); Globulin 2.8 g/dL (1.3-3.2); Glucose 90 mg/dl (74-100); HDL Cholesterol 29 mg/dl (40-60); Total Protein,Serum 6.7 g/dl (6.3-8.2); Triglycerides 91 mg/dl (30-150); VLDL Cholesterol 18 mg/dL (0-40)
[2024-06-15 12:08] LABS: Direct LDL Cholesterol 51.32 mg/dL (100-129)
[2024-06-15 12:27] LABS: Thyroid Stimulating Hormone 2.22 uIU/mL (0.465-4.68)
[2024-06-15 12:40] LABS: 25-OH Vitamin D, Total 30.1 ng/mL (30-100)
[2024-06-15 13:06] LABS: Uric Acid 6.5 mg/dl (3.5-8.5)
[2024-06-15 13:37] LABS: Prostate Specific Ag Screen 0.8 ng/ml (0.0-4.0)
[2024-06-15 14:53] LABS: Hemoglobin A1C 5.1 % (4.0-6.0)
== END 2024-06-15 23:59 | disposition home or self-care (01) ==
PROVIDERS: PCP Internal Medicine Adolescent Medicine; Visit Provider Nurse Practitioner Family
DX: Z12.5 Encounter for screening for malignant neoplasm of prostate (principal); E55.9 Vitamin D deficiency, unspecified; E03.9 Hypothyroidism, unspecified; I10 Essential (primary) hypertension; M1A.9XX0 Chronic gout, unspecified, without tophus (tophi)
CPT/HCPCS: 36415; 80050; 80053; 80061; 82306; 83036; 84443; 84550; 85025; G0103

== ENCOUNTER 2024-06-26 16:09 | Emergency (ER) | payer BC, SELFPAY ==
[2024-06-26 16:21] VITALS: BP 118/87; PULSE 82; RESP 20; TEMP 36.7; O2SAT 100; BMI 34.0
--- NOTE | 2024-06-26 16:46 | EXP.UTC ---
Discharge Plan Disposition Patient Disposition: Home, Self-Care Condition: Good Prescriptions Prescriptions: No Action atorvastatin 40 mg tablet 40 mg PO DAILY bisoprolol fumarate 10 mg tablet 10 mg PO DAILY levothyroxine [Synthroid] 50 mcg tablet 50 mcg PO DAILY omeprazole 20 mg capsule,delayed release(DR/EC) 20 mg PO DAILY Zepbound 5 mg/0.5 mL pen injector 5 mg SQ WEEKLY Patient Comments: INJECT 5 MG (0.5 ML) SUBCUTANEOUSLY ONCE A WEEK methocarbamol 750 mg tablet 750 mg PO TID Qty: 12 0RF lidocaine 4 % adhesive patch,medicated 1 patch topical DAILY PRN (Reason: pain) Qty: 10 0RF Rx Instructions: apply patch to area and leave on for 12 hours then remove for 12 hours Referrals Follow up/Referrals: Marco A Castañeda MD [Primary Care Provider] - See instructions Activity Restrictions/Add. Instructions Additional Instructions/Restrictions: Follow-up with primary care If symptoms worsen or do not improve return Epson salt soaks Clinical Impressions Clinical Impression: Gout Qualifiers: Gout site: toe Gout etiology: idiopathic Chronicity: chronic Laterality: right Presence of tophus: without tophus Qualified Code(s): M1A.0710 - Idiopathic chronic gout, right ankle and foot, without tophus (tophi) Instructions Patient Instructions: DI for Gout, Gout (Alternative Therapy) Print Language Print Language: Greek Discharge ED Provider: Julian ([facility])Venessa [facility] HPI General Stated complaint: Gout in left foot,painful Mode of Arrival: Ambulatory Source of Information: Patient Time Seen by Provider: 06/26/24 16:46 Description of Symptoms (Recalled from Triage Doc. by RN): GOUT OF LEFT FOOT, PAINFUL TO WALK ON HEENT Symptoms (Recalled from RN notes): No Resp Symptoms (Recalled from RN notes): No Skin Symptoms (Recalled from RN notes): No MS Symptoms (Recalled from RN notes): Yes Functional Status (Recalled from RN notes): PAIN IN FOOT History of Present Illness Provider Complaint: 58-year-old male presents for pain in the left foot. Patient states he has a history of gout feels like his normal gout flare. Patient states he recently had labs and workup was unremarkable. Related Data Home Medications ?Medication ?Instructions ?Recorded ?Confirmed atorvastatin 40 mg tablet 40 mg PO DAILY 05/25/24 06/26/24 bisoprolol fumarate 10 mg tablet 10 mg PO DAILY 05/25/24 06/26/24 levothyroxine 50 mcg tablet 50 mcg PO DAILY 05/25/24 06/26/24 (Synthroid) omeprazole 20 mg capsule,delayed 20 mg PO DAILY 05/25/24 06/26/24 release tirzepatide (weight loss) 5 mg/0.5 5 mg SQ WEEKLY 05/25/24 06/26/24 mL subcutaneous pen injector (Zepbound) Previous Rx's ?Medication ?Instructions ?Recorded lidocaine 4 % topical patch 1 patch topical DAILY PRN pain #10 05/25/24 ea methocarbamol 750 mg tablet 750 mg PO TID #12 tabs 05/25/24 Allergies Allergy/AdvReac Type Severity Reaction Status Date / Time No Known Allergies Allergy Verified 10/12/23 15:59 Worker's Comp Is this a Worker's Comp case?: No [facility] Disclaimer: The information contained in this section may have been updated after the patient was seen, as this information can be updated by other users. 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) Smoking Status: Never smoker second hand exposure: No alcohol intake: never substance use type: denies use current occupational status: other Travel in the last 8 weeks: None household members: significant other housing: apartment current occupational exposures/hazards: No caffeine: Yes Have you lived/traveled outside [place] in past 30 days?: No Contact w/someone who lives/traveled outside US past 30 days?: No Exposure to someone with infectious disease in past 14 days?: No Do you have a fever (greater than 100.4 F or 38 C)?: No Have you tested positive for COVID-19: No Exposed to someone with COVID-19 in past 14 days?: No Do you have a sore throat?: No Do you have a cough?: No Do you have any weakness?: No Do you have any diarrhea?: No Are you experiencing any unusual bleeding?: No Do you have any muscle aches/pain?: No Do you have any abdominal pain?: No Are you experiencing loss of taste or smell?: No ROS Obtained: Yes Systems reviewed as appropriate & no additional complaints except as documented Physical Exam General General appearance: alert and in no apparent distress ENT ENT exam: Present normal exam Respiratory Respiratory exam: Present normal lung sounds bilaterally Cardiovascular Cardiovascular exam: Present regular rate and normal rhythm Expanded Lower Extremity Exam Left: Top foot image: 1. Redness Neurological Exam Neurological exam: Present alert and oriented X3 Medical Decision Making Medical Records Medical records reviewed: Yes I reviewed the patient's medical records. Screening: Per USPSTF and CDC recommendations, given the prevalence of disease in our region, it is our hospital?s policy to screen for HIV and viral Hepatitis for all patients aged 18 and over and those with ongoing risk factors. Darren Inquiry Pt receiving controlled substance: No Vital Signs: 06/26/24 16:21 Temperature 98.0 F Temperature Source Oral Pulse Rate [Left Radial] 82 Respiratory Rate 20 Blood Pressure [Left Arm] 118/87 Blood Pressure Mean [Left Arm] 97 02 Sat by Pulse Oximetry 100
[2024-06-26] MEDS: DEXAMETHASONE 4MG/ML 1ML VIAL 4 MG IM (16:54)
[2024-06-26 16:59] VITALS: BP 118/87; PULSE 82; RESP 18; TEMP 36.7
== END 2024-06-26 17:04 | disposition home or self-care (01) ==
PROVIDERS: Emergency Provider Nurse Practitioner Family; PCP Internal Medicine Adolescent Medicine
DX: M1A.0710 Idiopathic chronic gout, right ankle and foot, without tophus (tophi) (principal)
CPT/HCPCS: 99213; G0381; J1100

== ENCOUNTER 2024-07-07 15:42 | Outpatient (CLI) | payer BC, SELFPAY ==
--- NOTE | 2024-07-07 15:44 | XR_ITS ---
FINAL REPORT CLINICAL HISTORY: FOOT PAIN COMPARISON: None FINDINGS: LEFT FOOT: Three views show no evidence of acute displaced fracture or dislocation of the visualized bony architecture. The joint spaces appear normal. A moderate-sized calcaneal spur is present. IMPRESSION: Moderate calcaneal spur without acute bony abnormality. Reviewed, Interpreted and Dictated by Zenia Alejo MD Transcribed by Divina Harding Authenticated and [facility]
--- NOTE | 2024-07-07 15:45 | XR_ITS ---
FINAL REPORT CLINICAL HISTORY: LEFT FOOT PAIN COMPARISON: None FINDINGS: LEFT ANKLE: Three views show no evidence of acute displaced fracture or dislocation of the visualized bony architecture. The joint spaces appear normal. IMPRESSION: Unremarkable exam. Reviewed, Interpreted and Dictated by Zenia Alejo MD Transcribed by Divina Harding Authenticated and . [facility]
== END 2024-07-07 23:59 | disposition home or self-care (01) ==
LOC: RAD 15:42
PROVIDERS: PCP Internal Medicine Adolescent Medicine; Visit Provider Physician Assistant
DX: M79.672 Pain in left foot (principal)
CPT/HCPCS: 73610; 73630

== ENCOUNTER 2024-08-24 08:47 | Day surgery (SDC) | payer BC, SELFPAY ==
[2024-08-22 11:44] VITALS: BMI 31.6
[2024-08-24 10:39] VITALS: BP 128/72; PULSE 76; RESP 18; TEMP 36.8; O2SAT 96
[2024-08-24] MEDS: LACTATED RINGERS 1000ML 1,000 ML 50 ML IV (10:43)
--- NOTE | 2024-08-24 10:49 | P.PNANES_ITS ---
[facility] Disclaimer: The information contained in this section may have been updated after the patient was seen, as this information can be updated by other users. 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) Hyperlipidemia Hypertension Dysphagia Surgical History (Reviewed 06/26/24 @ 16:49 by Venessa Jordan ([facility]), PUMP SERVICER HELPER) History of throat surgery History of back surgery History of tonsillectomy History of cholecystectomy Family History (Updated 08/24/24 @ 10:37 by Mary Chisholm RN) Other No significant family history Social History Smoking Status: Never smoker second hand exposure: No alcohol intake: never substance use type: denies use current occupational status: other Travel in the last 8 weeks: None household members: significant other housing: apartment current occupational exposures/hazards: No caffeine: Yes Have you lived/traveled outside US in past 30 days?: No Contact w/someone who lives/traveled outside US past 30 days?: No Exposure to someone with infectious disease in past 14 days?: No Do you have a fever (greater than 100.4 F or 38 C)?: No Have you tested positive for COVID-19: No Exposed to someone with COVID-19 in past 14 days?: No Do you have a sore throat?: No Do you have a cough?: No Do you have any weakness?: No Do you have any diarrhea?: No Are you experiencing any unusual bleeding?: No Do you have any muscle aches/pain?: No Do you have any abdominal pain?: No Are you experiencing loss of taste or smell?: No [facility] Anesthesia Checklist Patient Identification Patient Identification: Arm Band Structural Data Admitted From: Home Planned Operative Procedure/s: Colonoscopy Consent for Planned Operative Procedure(s) Verified: Yes Verified Documents: Surgical Consent and History and Physical NPO Status Verified Time NPO: 05:30 (finished prep) Additional verifications Anesthesia Reactions: No Airway Assessment Mallampati Score:: Class II C-Spine Mobility Assessed: Yes TMJ Mobility Assessed: Yes Dentition: Good Dentition Neurological Assessment Level of Consciousness: Awake, Alert and Appropriate Anesthesia Plan Anesthesia Risk discussed: Yes Anesthesia Plan: Verified ASA Class: II Anesthesia Type: MAC
--- NOTE | 2024-08-24 11:37 | P.HP_ITS ---
History of Present Illness *Admission Date: 08/24/24 *Reason for visit:: Screening *History of present illness: Mr. Wood is a 58-year-old gentleman who is here for initial screening colonoscopy. The examination is deemed medically necessary for screening colonoscopy. The patient has been seen, interviewed and examined prior to the procedure by both myself and the anesthesia provider. [facility] Disclaimer: The information contained in this section may have been updated after the patient was seen, as this information can be updated by other users. 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 surgery History of back surgery History of tonsillectomy History of cholecystectomy Family History (Updated 08/24/24 @ 10:37 by Mary Chisholm RN) Other No significant family history Social History Smoking Status: Never smoker second hand exposure: No alcohol intake: never substance use type: denies use current occupational status: other Travel in the last 8 weeks: None household members: significant other housing: apartment current occupational exposures/hazards: No caffeine: Yes Have you lived/traveled outside US in past 30 days?: No Contact w/someone who lives/traveled outside US past 30 days?: No Exposure to someone with infectious disease in past 14 days?: No Do you have a fever (greater than 100.4 F or 38 C)?: No Have you tested positive for COVID-19: No Exposed to someone with COVID-19 in past 14 days?: No Do you have a sore throat?: No Do you have a cough?: No Do you have any weakness?: No Do you have any diarrhea?: No Are you experiencing any unusual bleeding?: No Do you have any muscle aches/pain?: No Do you have any abdominal pain?: No Are you experiencing loss of taste or smell?: No Other 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 Have you received the Flu Vaccine for this season: Yes Have you received the Pneumonia Vaccine: Yes Review of Systems Review of Systems Review of systems (narrative): Negative *Cardiovascular Comments: Negative *Gastrointestinal Comments: Negative *Genitourinary Comments: Negative *Musculoskeletal Comments: Negative *Neurologic Comments: Negative Meds Home Medications and Allergies Home Medications ?Medication ?Instructions ?Recorded ?Confirmed ?Type atorvastatin 40 mg tablet 40 mg PO DAILY 05/25/24 08/22/24 History bisoprolol fumarate 10 mg tablet 10 mg PO DAILY 05/25/24 08/22/24 History levothyroxine 50 mcg tablet 50 mcg PO DAILY 05/25/24 08/22/24 History (Synthroid) methocarbamol 750 mg tablet 750 mg PO TID #12 tabs 05/25/24 08/22/24 Rx omeprazole 20 mg capsule,delayed 20 mg PO DAILY 05/25/24 08/22/24 History release tirzepatide (weight loss) 5 mg/0.5 5 mg SQ WEEKLY 05/25/24 08/22/24 History mL subcutaneous pen injector (Zepbound) sodium,potassium,mag sulfates 17.5 See Rx Instructions PO .COMPLEX 08/09/24 08/22/24 Rx gram-3.13 gram-1.6 gram oral soln #354 mL (Suprep Bowel Prep Kit) New Prescriptions to Start Prescriptions: Allergies Allergy/AdvReac Type Severity Reaction Status Date / Time No Known Allergies Allergy Verified 10/12/23 15:59 Exam Data for Last 24 hours Vital signs and Labs for Last 24 Hours: Temp Pulse Resp BP Pulse Ox O2 Del Method 98.2 F 76 18 128/72 96 Room Air 08/24/24 10:39 08/24/24 10:39 08/24/24 10:39 08/24/24 10:39 08/24/24 10:39 08/24/24 10:39 I & O for Last 24 hours: Intake & Output 08/21/24 08/22/24 08/23/24 08/24/24 23:59 23:59 23:59 23:59 Weight 214 lb *Routine HEENT Exam Head: Present normocephalic Eye: Present EOMI and PERRL ENT: Present mucous membranes moist *Routine Neck Exam Neck: Present supple *Routine Respiratory Exam Respiratory: Present CTA bilaterally *Routine Cardiovascular Exam Cardiovascular: Present RRR *Routine Abdominal Exam Abdominal: Present soft and normoactive bowel sounds; Absent tenderness *Routine Rectal Exam Rectal:: deferred *Routine Genitalia Exam Genitalia:: deferred *Routine Extremities Exam Extremities: Absent cyanosis, clubbing or edema *Routine Skin Exam Skin: Present warm; Absent rash *Routine Neurological Exam Neurological: Present alert and oriented X3 Assessment and Plan *Assessment and plan (1) Screening for colon cancer: Status: Acute Category: Medical Code(s): Z12.11 - Encounter for screening for malignant neoplasm of colon Plan A/P: 1. Screening for colon cancer is the preprocedural diagnosis. The patient will be anesthetized/sedated using MAC sedation. The patient has been seen and examined. Cardiac and lung assessment prior to the examination is stable. Proceed with planned screening colonoscopy
[2024-08-24 11:43] VITALS: O2SAT 100
--- NOTE | 2024-08-24 11:56 | P.PCN_ITS ---
[facility] Procedure Note Date: 08/24/24 Time: 11:57 Procedure Note:: Colonoscopy Procedure Report: Colonoscopy with cold snare polypectomy Endoscopist: Mark Lozada II, MD Referring physician: Marco A Castañeda M.D. Date of Procedure: August 24, 2024 Equipment: Olympus 190 variable stiffness pediatric colonoscope Sedation: MAC sedation Indication: Mr. Wood is a 58-year-old gentleman who is here for initial screening colonoscopy. He reports no abdominal pain, weight loss, change in his bowel habits or rectal bleeding. He reports no family history of colon cancer. Procedure: Prior to the procedure, a history and physical exam was performed, and patient's medications and allergies were reviewed. The risks, benefits and alternatives of the sedation and procedure were discussed with the patient. All questions were answered and informed consent was obtained. The patient was brought to the procedure room. Patient identification and proposed procedure were verified by the physician and the nurse. The patient was placed in a left lateral decubitus position and the scope was passed under direct vision. Throughout the procedure, the patient's blood pressure, pulse, and oxygen saturations were monitored continuously. The colonoscopy was accomplished without difficulty. The patient tolerated the procedure well. Findings: On digital rectal examination there was normal rectal tone. There were no external hemorrhoids. The prostate was 2+, smooth, soft, symmetric without n odules. The colonoscope was introduced through the anal canal to the rectum and advanced to the cecum. The ileocecal valve and appendiceal orifice were identified. The scope was advanced a short distance into the ileum which appeared grossly normal. The scope was then withdrawn into the colon. There was a single 5 to 6 mm polyp in the transverse colon removed via cold snare polypectomy. The remaining cecum, ascending, transverse, descending, sigmoid and rectum were grossly normal. There were no other mucosal abnormalities identified. Upon retroflexion within the rectum there were grade 2 internal hemorrhoids. The preparation was excellent throughout with [place] Preparation Score of 9. The cecal time was 11 minutes. Impression: 1. Transverse colon polyp (5 to 6 mm) 2. Grade 2 internal hemorrhoids Plan: I will follow-up the polyp histology and recommend repeat surveillance colonoscopy again in 5 to 10 years based upon the pathology. I would encourage psyllium bulking fiber supplementation on a maintenance basis.
[2024-08-24 11:58] VITALS: BP 80/47; PULSE 82; RESP 16; TEMP 36.2; O2SAT 93
[2024-08-24 12:08] VITALS: BP 85/51; PULSE 78; RESP 16; O2SAT 93
[2024-08-24 12:18] VITALS: BP 100/59; PULSE 75; RESP 18; O2SAT 94
[2024-08-24 12:28] VITALS: BP 114/81; PULSE 80; RESP 18; O2SAT 94
== END 2024-08-24 12:40 | disposition home or self-care (01) ==
PROVIDERS: PCP Internal Medicine Adolescent Medicine; Visit Provider Internal Medicine Gastroenterology
PROC: 0DJD8ZZ Inspection of Lower Intestinal Tract, Via Natural or Artificial Opening Endoscopic (ICD-10-PCS; CPT 45378; principal; 2024-08-24 10:30)
DX: D12.3 Benign neoplasm of transverse colon (principal); K64.1 Second degree hemorrhoids; Z12.11 Encounter for screening for malignant neoplasm of colon
CPT/HCPCS: 45385; J7120

== ENCOUNTER 2024-10-04 09:03 | Outpatient (POV) | payer BC, SELFPAY ==
--- OUTSIDE RECORDS SUMMARY | 2024-10-04 09:06 | XMS_ITS | Clinical Summary ---
Author Organization [facility] Address [address] [place] [address] Phone Care Team Providers Care Physical Therapist Center Manager Name Role Phone Fran SAINZ, Moustapha Krueger Unavailable [phone] Dmitriy RAMON, Shanna Acosta Primary Care Provider Claudia vailable Reason for Visit and Chief Complaint The Chief Complaint is: Right scapula pain Problems Includes: Problems addressed during this encounter and other active Problems Current Visit Onset Date Resolved Date Provider Conditio n Status Joint Pain, Localized in the Right Shoulder 08/07/2024 Uriel Johnson PA-C Active Last Documented On 5 9:25AM ; [facility] Past Visits Onset Date Resolved Date Provider Condition Status Back Pain 08/16/2023 Uriel Johnson PA-C Active Last Documented On 4 10:08AM ; [facility] Plan of Treatment Patient was seen by myself Uriel Johnson PA-C. Patient will follow up myself and Dr. Peters we will get an MRI of the thoracic spine just to evaluate things and set him up for continued PT - Last Documented On 08/17/2024 9:41AM ; [facility] Pending Tests Order Diagnosis Results Due Ordering P rovider Therapy - Physical Therapy Thoracic Dorsalgia, unspecified 08/16/23 Uriel vitale PA-C Last Documented On 4 10:49AM ; [facility] Therapy - Physical Therapy Thoracic Dorsalgia, unspecified 08/27/23 Uriel vitale PA-C Last Documented On 4 11:50AM ; [facility] Radiology - MRI MRI Lumbar Spine Dorsalgia, unspecified Uriel Johnson PA-C Last Documented On 4 8:18AM ; [facility] Radiology - MRI MRI Thoracic Spine Dorsalgia, unspecified 08/21/24 Uriel Johnson PA-C Last Documented On 5 10:30AM ; [facility] Instructions to patient Lose weight Last Documented On 5 9:26AM ; [facility] Assessments Includes: Assessments from this encounter Findings - Overweight - Last Documented On 08/17/2024 9:41AM ; [facility] Thoracic pain and right scapula pain - Last Documented On 08/17/2024 9:41AM ; [facility] Instructions Includes: Instructions from this encounter Instructions to patient Lose weight Last Documented On 5 9:26AM ; [facility] Medical Equipment - Implanted Devices Includes: Current Devices No Medical Equipment Recorded Medications Includes: Medications discussed during this encounter and other current Medications Current Medications (continue as prescribed) Gabapentin 10% External Cream 09/28/2024 Provider: Shanna Russo APRN Diagnosis: Last Documented On 5 2:24PM By Ny Pat ; [facility], [facility] Meloxicam 15 MG Oral Tablet 08/28/2024 - 10/27/2024 Pr ovider: Moustapha Peters MD Diagnosis: Take one tablet my mouth once a day Last Documented On 5 1:53PM By Capo Gibbs ; [facility] Gabapentin 100 MG Oral Capsule 08/12/2023 Provider: ANDER BUENO MD Diagnosis: Last Documented On 4 10:11AM By Julita Aguirre ; [facility] Omeprazole 20 MG Oral Capsule Delayed Release 08/09/19 24 Provider: Diagnosis: Last Documented On 4 10:11AM By Julita Aguirre ; [facility] Ondansetron 4 MG Oral Tablet Disintegrating 08/05/2023 Provider: Diagnosis: Last Documented On 4 10:11AM By Julita Aguirre ; [facility] Methocarbamol 500 MG Oral Tablet 08/01/2023 Provider : Diagnosis: Last Documented On 4 10:11AM By Julita Aguirre ; [facility] Allopurinol 100 MG Oral Tablet 07/27/2023 Provider: Shanna Russo APRN Diagnosis: Last Documented On 4 10:11AM By Julita Aguirre ; [facility] Levothyroxine Sodium 50 MCG Oral Tablet 07/27/2023 Provider: Shanna rubi PHOTOGRAPHER'S ASSISTANT Diagnosis: Last Documented On 4 10:11AM By Julita Aguirre ; [facility] Triamcinolone Acetonide 0.1% External Ointment 07/22/2023 Provider: Shanna rubi APRN Diagnosis: Last Documented On 4 10:11AM By Julita Aguirre ; [facility] Colchicine 0.6 MG Oral Tablet 07/13/2023 Provider: Diagnosis: Last Documented On 4 10:11AM By Julita Aguirre ; [facility] Vitamin D (Ergocalciferol) 1 .25 MG (17051 UT) Oral Capsule 06/23/2023 Provider: Shanna hahn APRN Diagnosis: Last Documented On 4 10:11AM By Julita Aguirre ; [facility] Atorvastatin Calcium 40 MG Oral Tablet 06/03/2023 Pr ovider: ANDER BUENO MD Diagnosis: Last Documented On 4 10:11AM By Julita Aguirre ; [facility] Bisoprolol Fumarate 10 MG Oral Tablet 06/03/2023 Pro vider: ANDER BUENO MD Diagnosis: Last Documented On 4 10:11AM By Julita Aguirre ; [facility] Past Medications on file Diclofenac Sodium 75 MG Oral Tablet Delayed Release 08/16/2023 - 09/15/2023 Provider: Uriel Johnson PA-C Diagnosis: Take 1 tablet by mouth twice a day Last Documented On 4 11:06AM By Julita Aguirre ; [facility] Medications Administered Includes: Administered Medications from this encounter No Administered Medications Recorded Vital Signs Includes: Vital Signs from this encounter Vital Name 08/07/2024 09:44A Height (in) 68 Weight (lb) 214 Body Mass Index 32.5 Body Surface Area 2.1 Pain Level 3 Last Documented: On 08/07/2024 9:44AM ; [facility] Results Includes: Results discussed during this encounter No Results Recorded For Specified Dates History of Present Illness Includes: History of Present Illness from this encounter HPI Nilesh Wood is a 58 year old male. - Allergy list reviewed - Problem list reviewed - Medication list reviewed - Previous history of new onset pain Work Injury going on for 2 months since 05/26/2024 - Patient pain level from 1-10: was 0 0 - History of Physical Therapy at work on 08/05/2023 - - Review of medications documented Medications used for this condition: [facility] May at [facility] Patient is here today for complaints of right scapula pain he has been dealing with this since the 21 of May where he has a job where he has to do a lateral reaching in front and overhead. No radicular symptoms down the arm. He feels he gets more of a tingling associated with the right scapula area of the more the knee does. He has been to 8 visits physical therapy but has not seen much improvement with this hip pain level 3/10. He has not had any injury where he has fallen or anything he denies any balance issues any bowel or bladder issues with this. Social History Description Last Updated Caffeine use 08/16/2023 Last Documented On 5 9:26AM ; [facility] No recent change in diet 08/16/2023 Last Documented On 5 9:26AM ; [facility], [facility] Not a current smoker. 08/16/2023 Last Documented On 5 9:26AM ; [facility] Not exercising regularly 08/16/2023 Last Documented On 5 9:26AM ; [facility] Not using alcohol 08/16/2023 Last Documented On 5 9:26AM ; [facility] Not using drugs 08/16/2023 Last Documented On 5 9:26AM ; [facility] Tobacco non-user 08/16/2023 Last Documented On 5 9:26AM ; [facility] Smoking Status Unknown Procedures and Surgical History Includes: Procedures from this encounter Procedures Code Diagnosis Performing Provider Service L ocation Service Date use of tobacco assessment performed 1000F Last Documented On 5 9:26AM ; [facility] review of medications documented 1160F Last Documented On 5 9:26AM ; [facility] X-ray [employer] on 05/27/2024 [id number] Last Documented On 5 11:00AM ; [facility] CT scan [facility] [id number] Last Documented On 5 9:26AM ; [facility], [facility] an MRI was performed Lumbar MRI 11/16/23 @ [facility] [id number] Last Documented On 5 9:26AM ; [facility] Surgical History Last Updated History of back surgery 08/16/2023 Last Documented On 5 9:26AM ; [facility] 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 Includes: 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 addressed during this encounter No 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 Recorded Family History Includes: Family History addressed during this encounter Description Last Updated Diabetes mellitus mother 08/16/2023 Last Documented On 5 9:26AM ; [facility] Family history of cancer sister 08/16/19 Last Documented On 5 9:26AM ; [facility] Family history of heart disease maternal grandmother 08/16/2023 Last Documented On 5 9:26AM ; [facility] Review of Systems Includes: Review of Systems from this encounter Systemic: Not feeling tired, no recent weight loss, and no recent weight gain. Head: Headache and sinus pain. Eyes: Vision problems. No Cataracts, no Glasses/Contacts, and no Glaucoma. Otolaryngeal: No hearing loss. Tinnitus. Cardiovascular: No chest pain or discomfort, no palpitations, and no Hypertension. High Cholesterol. Pulmonary: No daytime asthma symptoms and no chronic cough. No wheezing. Gastrointestinal: Heartburn. No abdominal pain. No Indigestion, no Peptic Ulcer, no GI Stomach Bleed, and no Ulcers. Acid Reflux. Endocrine: No hot flashes, no muscle weakness, no Diabetes, no Hypothyroid, and no Hyperthyroid. Hematologic: No easy bleeding, no tendency for easy bruising, and no Anemia. Musculoskeletal: No Arthritis. Lower back pain. No soft tissue swelling and no localized joint pain. Neurological: No dizziness and no convulsions. Numbness. Psychological: No anxiety, no emotional lability, no depression, and no insomnia. Crying for no reason. Skin: No dry skin. No Ulcers, no Scars, and no rash. Allergic and Immunologic: No complaint of seasonal allergic reaction. Mental Status Includes: Mental Status from this encounter Description No anxiety Functional Status Includes: Functional Status from this encounter No Functional Status Recorded Physical Exam Includes: Physical Exam from this encounter Allergies Includes: Active Allergies No Known Allergies Encounters Encounter Provider Location Date Check-In Time Check-Out Time Diagnosis WC NEW PATIENT Uriel Johnson PA-C [facility] 08/07/19 25 9:21AM 9:52AM Overweight Insurance Includes: Active Insurance Policies Plan Name Member ID Group # Subscriber Relationship Effect jyoti Dates 1 - [facility] [id number] Nilesh Le 05/23/20 24 - Unknown 2 - [facility] [id number] Nilesh Wood Self Clinical Notes Includes: Clinical Notes from this encounter * Progress note Date Encounter Last Documented by 08/07/2024 WC NEW PATIENT Last documented on 08/17/2024; 9:41 AM, Uriel Johnson PA-C; [facility], [facility] Active Problems & Conditions - Back Pain - Joint Pain, Localized in the Right Shoulder Chief Complaint The Chief Complaint is: Right scapula pain. Referred Here Referred by PCP. History of Present Illness Nilesh Wood is a 58 year old male. - Allergy list reviewed - Problem list reviewed - Medication list reviewed - Previous history of new onset pain Work Injury going on for 2 months since 05/26/2024 - Patient pain level from 1-10: was 0 0 - History of Physical Therapy at work on 08/05/2023 - - Review of medications documented Medications used for this condition: early May at [facility] Patient is here today for complaints of right scapula pain he has been dealing with this since the 21 of May where he has a job where he has to do a lateral reaching in front and overhead. No radicular symptoms down the arm. He feels he gets more of a tingling associated with the right scapula area of the more the knee does. He has been to 8 visits physical therapy but has not seen much improvement with this hip pain level 3/10. He has not had any injury where he has fallen or anything he denies any balance issues any bowel or bladder issues with this. Current Medication - Allopurinol 100 MG Oral Tablet 30 days, 0 refills - Atorvastatin Calcium 40 MG Oral Tablet 90 days, 0 refills - Bisoprolol Fumarate 10 MG Oral Tablet 90 days, 0 refills - Colchicine 0.6 MG Oral Tablet 30 days, 0 refills - Gabapentin 100 MG Oral Capsule 14 days, 0 refills - Levothyroxine Sodium 50 MCG Oral Tablet 30 days, 0 refills - Methocarbamol 500 MG Oral Tablet 8 days, 0 refills - Omeprazole 20 MG Oral Capsule Delayed Release 30 days, 0 refills - Ondansetron 4 MG Oral Tablet Disintegrating 3 days, 0 refills - Triamcinolone Acetonide 0.1% External Ointment 14 days, 0 refills - Vitamin D (Ergocalciferol) 1.25 MG (87191 UT) Oral Capsule 28 days, 0 refills Past Medical/Surgical History Surgical: - Back surgery Social History Not a current smoker. Current diet: No recent change in diet. Caffeine use: Caffeine use. Tobacco use: Tobacco non-user. Alcohol: Not using alcohol. Drug Use: Not using drugs. Habits: Not exercising regularly. Allergies - No Known Allergies Family History Cancer sister Heart disease maternal grandmother Diabetes mellitus mother Review Of Systems Systemic: Not feeling tired, no recent weight loss, and no recent weight gain. Head: Headache and sinus pain. Eyes: Vision problems. No Cataracts, no Glasses/Contacts, and no Glaucoma. Otolaryngeal: No hearing loss. Tinnitus. Cardiovascular: No chest pain or discomfort, no palpitations, and no Hypertension. High Cholesterol. Pulmonary: No daytime asthma symptoms and no chronic cough. No wheezing. Gastrointestinal: Heartburn. No abdominal pain. No Indigestion, no Peptic Ulcer, no GI Stomach Bleed, and no Ulcers. Acid Reflux. Endocrine: No hot flashes, no muscle weakness, no Diabetes, no Hypothyroid, and no Hyperthyroid. Hematologic: No easy bleeding, no tendency for easy bruising, and no Anemia. Musculoskeletal: No Arthritis. Lower back pain. No soft tissue swelling and no localized joint pain. Neurological: No dizziness and no convulsions. Numbness. Psychological: No anxiety, no emotional lability, no depression, and no insomnia. Crying for no reason. Skin: No dry skin. No Ulcers, no Scars, and no rash. Allergic and Immunologic: No complaint of seasonal allergic reaction. Physical Findings - Vitals taken 08/07/2024 09:44 am Height 68 in Weight 214 lbs Body Mass Index 32.5 kg/m2 Body Surface Area 2.1 m2 Pain Level 3 He is pleasant oriented x3 He complains of pain more in the mid right scapula thoracic spine area He has full motion with the right shoulder Right shoulder was nontender to palpation 5/5 biceps triceps deltoids wrist extension and flexion strength and no long tract findings Tests Outside facility x-rays of the right shoulder were negative Assessment - Overweight Thoracic pain and right scapula pain Previous Tests Imaging: X-Ray: X-ray [facility] on 05/27/2024. CT Scan: CT scan [facility]. MRI Scan: An MRI was performed Lumbar MRI 11/16/23 @ [facility]. Available previous imaging studies were reviewed Available previous history reviewed Counseling/Education - Tobacco non-user - Use of tobacco assessment performed - Lose weight Plan StartCited - Dorsalgia, unspecified Radiology/MRI: MRI Thoracic Spine EndCited Patient was seen by myself Uriel Johnson PA-C. Patient will follow up myself and Dr. Peters we will get an MRI of the thoracic spine just to evaluate things and set him up for continued PT Notes This dictation was done with voice recognition software and may contain errors and omissions. Practice Management Use of tobacco assessment performed Review of medications documented. Care Team - Shanna Izaguirre PA-C Health Reminders - Assess BMI satisfied 08/07/2024. - Assess Tobacco Use satisfied 08/16/2023. - Follow Up Plan BMI Management satisfied 08/07/2024.
--- OUTSIDE RECORDS SUMMARY | 2024-10-04 09:06 | XMS_ITS | Clinical Summary ---
Author Organization [facility] Address [address] [place] [address] Phone Care Team Providers Care Mechanic General Operational Test Name Role Phone Moustapha Peters MD Unavailable [phone] Dmitriy RAMON, Shanna Acosta Primary Care Provider Claudia vailable Reason for Visit and Chief Complaint The Chief Complaint is: Right scapula pain Problems Includes: Problems addressed during this encounter and other active Problems All Visits Onset Date Resolved Date Provider Condition S tatus Joint Pain, Localized in the Right Shoulder 08/07/2024 Uriel Johnson PA-C Active Last Documented On 5 9:25AM ; [facility] Back Pain 08/16/2023 Uriel Johnson PA-C Active Last Documented On 4 10:08AM ; [facility] Plan of Treatment Instructions to patient Lose weight Last Documented On 5 1:13PM ; [facility] Assessments Includes: Assessments from this encounter Findings - Overweight - Last Documented On 08/29/2024 1:11PM ; [facility] Instructions Includes: Instructions from this encounter Instructions to patient Lose weight Last Documented On 5 1:13PM ; [facility] Medical Equipment - Implanted Devices Includes: Current Devices No Medical Equipment Recorded Medications Includes: Medications discussed during this encounter and other current Medications New / Renewed during this visit Moustapha Peters MD on 08/28/2024 Meloxicam 15 MG Oral Tablet Provider: Moustapha Peters MD 30 day supply: 30 tablet, 1 refills Diagnosis: Take one tablet my mouth once a day Pharmacy: [facility] [address] [place] [address] Jose Manuel Uribe, [phone] - Last Documented On 5 1:53PM By Capo Gibbs ; [facility] Current Medications (continue as prescribed) Gabapentin 10% External Cream 09/28/2024 Provider: Shanna Russo APRN Diagnosis: Last Documented On 5 2:24PM By Ny Pat ; [facility] Gabapentin 100 MG Oral Capsule 08/12/2023 Provider: ANDER BUENO MD Diagnosis: Last Documented On 4 10:11AM By Julita Aguirre ; [facility] Omeprazole 20 MG Oral Capsule Delayed Release 08/09/19 Provider: Diagnosis: Last Documented On 4 10:11AM By Julita Aguirre ; [facility] Ondansetron 4 MG Oral Tablet Disintegrating 08/05/2023 Provider: Diagnosis: Last Documented On 4 10:11AM By Julita Aguirre ; [facility] Methocarbamol 500 MG Oral Tablet 08/01/2023 Provider : Diagnosis: Last Documented On 4 10:11AM By Julita Aguirre ; [facility] Allopurinol 100 MG Oral Tablet 07/27/2023 Provider: Shanna Russo APRN Diagnosis: Last Documented On 4 10:11AM By Julita Aguirre ; [facility] Levothyroxine Sodium 50 MCG Oral Tablet 07/27/2023 Provider: Shanna rubi APRN Diagnosis: Last Documented On 4 10:11AM By Julita Aguirre ; [facility] Triamcinolone Acetonide 0.1% External Ointment 07/22/2023 Provider: Shanna rubi APRN Diagnosis: Last Documented On 4 10:11AM By Julita Aguirre ; [facility] Colchicine 0.6 MG Oral Tablet 07/13/2023 Provider: Diagnosis: Last Documented On 4 10:11AM By Julita Aguirre ; [facility] Vitamin D (Ergocalciferol) 1 .25 MG (30729 UT) Oral Capsule 06/23/2023 Provider: Shanna hahn APRN Diagnosis: Last Documented On 4 10:11AM By Julita Aguirre ; [facility] Atorvastatin Calcium 40 MG Oral Tablet 06/03/2023 Pr ovider: ANDER BUENO MD Diagnosis: Last Documented On 4 10:11AM By Julita Aguirre ; [facility] Bisoprolol Fumarate 10 MG Oral Tablet 06/03/2023 Pro vider: ANDER BUENO MD Diagnosis: Last Documented On 4 10:11AM By Julita Aguirre ; [facility] Past Medications on file Diclofenac Sodium 75 MG Oral Tablet Delayed Release 08/16/2023 - 09/15/2023 Provider: Uriel Johnson PA-C Diagnosis: Take 1 tablet by mouth twice a day Last Documented On 4 11:06AM By Julita Aguirre ; [facility] Medications Administered Includes: Administered Medications from this encounter No Administered Medications Recorded Vital Signs Includes: Vital Signs from this encounter Vital Name 08/28/2024 01:20P Height (in) 68 Weight (lb) 217 Body Mass Index 33 Body Surface Area 2.1 Pain Level 3 Note: nap Last Documented: On 08/28/2024 1:20PM ; [facility] Results Includes: Results discussed during this encounter No Results Recorded For Specified Dates History of Present Illness Includes: History of Present Illness from this encounter ROSARIO Wood is a 58 year old male. - Allergy list reviewed - Problem list reviewed - Medication list reviewed - Previous history of new onset pain Work Injury going on for 2 months since 05/26/2024 - History of Physical Therapy at work on 08/05/2023 - - Review of medications documented Medications used for this condition: early May at [facility] Social History Description Last Updated Caffeine use 08/16/2023 Last Documented On 5 1:13PM ; [facility] No recent change in diet 08/16/2023 Last Documented On 5 1:13PM ; [facility] Not a current smoker. 08/16/2023 Last Documented On 5 1:13PM ; [facility] Not exercising regularly 08/16/2023 Last Documented On 5 1:13PM ; [facility] Not using alcohol 08/16/2023 Last Documented On 5 1:13PM ; [facility] Not using drugs 08/16/2023 Last Documented On 5 1:13PM ; [facility] Tobacco non-user 08/16/2023 Last Documented On 5 1:13PM ; [facility] Smoking Status Unknown Procedures and Surgical History Includes: Procedures from this encounter Procedures Code Diagnosis Performing Provider Service Location Service Date INJ [place], 06/22 MUSCL (RIGHT) Pain in thoracic spine Moustapha Petesr MD [facility] 08/28/2024 Last Documented On 5 5:40PM ; [facility] Injection, betamethasone acetate 6mg per cc and betamethason J0702 Pain in thoracic spine Moustapha Peters MD [facility] 08/28/2024 Last Documented On 5 5:40PM ; [facility] use of tobacco assessment performed 1000F Last Documented On 5 1:13PM ; [facility] review of medications documented 1160F Last Documented On 5 1:13PM ; [facility] X-ray [employer] on 05/27/2024 [id number] Last Documented On 5 1:13PM ; [facility] CT scan [facility] [id number] Last Documented On 5 1:13PM ; [facility] an MRI was performed Lumbar MRI 11/16/23 @ [facility] [id number] Last Documented On 5 1:13PM ; [facility] Surgical History Last Updated History of back surgery 08/16/2023 Last Documented On 5 1:13PM ; [facility] 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 Includes: 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 addressed during this encounter No 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 Recorded Family History Includes: Family History addressed during this encounter Description Last Updated Diabetes mellitus mother 08/16/2023 Last Documented On 5 1:13PM ; [facility] Family history of cancer sister 08/16/19 24 Last Documented On 5 1:13PM ; [facility] Family history of heart disease maternal grandmother 08/16/2023 Last Documented On 5 1:13PM ; [facility] Review of Systems Includes: Review of Systems [...] Date Check-In Time Check-Out Time Diagnosis [facility] 1:11PM 1:40PM Overweight Insurance Includes: Active Insurance Policies Plan Name Member ID Group # Subscriber Relationship Effect jyoti Dates 1 - [facility] [id number] Nilesh Le 05/23/20 24 - Unknown 2 - [facility] [id number] Nilesh Le Clinical Notes Includes: Clinical Notes from this encounter * Progress note Date Encounter Last Documented by 08/28/2024 WC FOLLOW UP/EST Last documented on 08/29/2024; 1:11 PM, Moustapha Peters MD; [facility] Active Problems & Conditions - Back Pain [...] on for 2 months since 05/26/2024 - History of Physical Therapy at work on 08/05/2023 - - Review of medications documented Medications used for this condition: early May at [facility] Current Medication - Allopurinol 100 MG Oral [...] refills - Vitamin D (Ergocalciferol) 1.25 MG (28188 UT) Oral Capsule 28 days, 0 refills [...] allergic reaction. Physical Findings - Vitals taken 08/28/2024 01:20 pm nap Height 68 in Weight 217 lbs Body Mass Index 33 kg/m2 Body Surface Area 2.1 m2 Pain Level 3 Assessment - Overweight Previous Tests Imaging: X-Ray: X-ray [facility] on 05/27/2024. CT Scan: CT scan [facility]. MRI Scan: An MRI was performed Lumbar MRI 11/16/23 @ [facility]. Available previous imaging studies were reviewed Available previous history reviewed Counseling/Education - Tobacco non-user - Use of tobacco assessment performed - Lose weight Plan StartCited - Other Meloxicam 15 MG tablet Take one tablet my mouth once a day, 30 days, 1 refills EndCited Notes This dictation was done with voice recognition software and may contain errors and omissions. Patient is here with complaints of thoracic back pain. He has hurts him in his lower scapular region and radiates up between his upper shoulder blades. Bothers him when he is doing light duty work. Bothers him to drive. He is neurovascularly intact. 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 There was no stenosis or role for surgery. Therapy is not helping him. I have recommended a anti-inflammatory as well as a trigger point injection. We injected the left scapular paraspinals with 1 cc of cc of steroid and 1 cc of Kenalog. He tolerated it well. We will see him back in 3-4 weeks. He is likely at maximum medical improvement at that time. Practice Management Use of tobacco assessment performed Review of medications documented. Care Team - Shanna Izaguirre PA-C Health Reminders - Assess BMI satisfied 08/28/2024. - Assess Tobacco Use satisfied 08/16/2023. - Follow Up Plan BMI Management satisfied 08/28/2024.
--- OUTSIDE RECORDS SUMMARY | 2024-10-04 09:06 | XMS_ITS ---
Care Plan - [facility], [facility] Created on: October 04, 2024 Nilesh Wood : 1965 Sex: Male Author Organization [facility] Address [address] [place] [address] Phone Care Team Providers Care Boat Laborer Name Role Phone Fran SAINZ, Moustapha Krueger Unavailable [phone] Dmitriy RAMON, Shanna Acsota Primary Care Provider Claudia vailable
--- OUTSIDE RECORDS SUMMARY | 2024-10-04 09:06 | XMS_ITS | Clinical Summary ---
Author Organization [facility] Address [address] [place] [address] Phone Care Team Providers Care Professor Of Exercise Science Name Role Phone Moustapha Peters MD Unavailable [phone] Dmitriy RAMON, Shanna Acosta Primary Care Provider Claudia vailable Reason for Visit and Chief Complaint WC MRI Problems Includes: Problems addressed during this encounter and other active Problems All Visits Onset Date Resolved Date Provider Condition S tatus Joint Pain, Localized in the Right Shoulder 08/07/2024 Uriel Johnson PA-C Active Last Documented On 5 9:25AM ; [facility] Back Pain 08/16/2023 Uriel Johnson PA-C Active Last Documented On 4 10:08AM ; [facility] Plan of Treatment No Plan of Treatment Recorded Assessments Includes: Assessments from this encounter No Assessments Recorded Medical Equipment - Implanted Devices Includes: Current Devices No Medical Equipment Recorded Medications Includes: Medications discussed during this encounter and other current Medications Current Medications (continue as prescribed) Gabapentin 10% External Cream 09/28/2024 Provider: Shanna Russo APRN Diagnosis: Last Documented On 5 2:24PM By Ny Pat ; [facility] Meloxicam 15 MG Oral Tablet 08/28/2024 - 10/27/2024 Pr ovider: Moustapha Peters MD Diagnosis: Take one tablet my mouth once a day Last Documented On 5 1:53PM By Capo Gibbs ; [facility] Gabapentin 100 MG Oral Capsule 08/12/2023 Provider: ANDER BUENO MD Diagnosis: Last Documented On 4 10:11AM By Julita Aguirre ; [facility] Omeprazole 20 MG Oral Capsule Delayed Release 08/09/19 Provider: Diagnosis: Last Documented On 4 10:11AM By Julita Aguirre ; [facility] Ondansetron 4 MG Oral Tablet Disintegrating 08/05/2023 Provider: Diagnosis: Last Documented On 4 10:11AM By Julita Aguirre ; [facility] Methocarbamol 500 MG Oral Tablet 08/01/2023 Provider : Diagnosis: Last Documented On 4 10:11AM By Julita Aguirre ; [facility] Allopurinol 100 MG Oral Tablet 07/27/2023 Provider: Shanna Russo APRN Diagnosis: Last Documented On 4 10:11AM By Julita Aguirre ; [facility] Levothyroxine Sodium 50 MCG Oral Tablet 07/27/2023 Provider: Shanna rubi APRN Diagnosis: Last Documented On 4 10:11AM By Julita Aguirre ; [facility] Triamcinolone Acetonide 0.1% External Ointment 07/22/2023 Provider: Shanna rubi APRN Diagnosis: Last Documented On 4 10:11AM By Julita Aguirre ; [facility] Colchicine 0.6 MG Oral Tablet 07/13/2023 Provider: Diagnosis: Last Documented On 4 10:11AM By Julita Aguirre ; [facility] Vitamin D (Ergocalciferol) 1 .25 MG (97865 UT) Oral Capsule 06/23/2023 Provider: Shanna hahn APRN Diagnosis: Last Documented On 4 10:11AM By Julita Aguirre ; [facility] Atorvastatin Calcium 40 MG Oral Tablet 06/03/2023 Pr ovider: ANDER BUENO MD Diagnosis: Last Documented On 4 10:11AM By Julita Aguirre ; [facility] Bisoprolol Fumarate 10 MG Oral Tablet 06/03/2023 Pro vider: ANDER BUENO MD Diagnosis: Last Documented On 4 10:11AM By Juilta Aguirre ; [facility] Medications Administered Includes: Administered Medications from this encounter No Administered Medications Recorded Results Includes: Results discussed during this encounter No Results Recorded For Specified Dates History of Present Illness Includes: History of Present Illness from this encounter No History of Present Illness Recorded Social History No Social History Recorded - Smoking Status Unknown Procedures and Surgical History Includes: Procedures from this encounter Procedures Code Diagnosis Performing Provider Service Location Service Date MRI THORACIS SPINE W/O DYE [id number] Pain in thoracic spine Moustapha Peters MD [facility] 08/16/2024 Last Documented On 5 10:45AM ; [facility] 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 Includes: 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 addressed during this encounter No 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 Recorded Family History Includes: Family History addressed during this encounter No Family History Recorded Review of Systems Includes: Review of Systems from this encounter No Review of Systems Recorded Mental Status Includes: Mental Status from this encounter No Mental Status Recorded Functional Status Includes: Functional Status from this encounter No Functional Status Recorded Physical Exam Includes: Physical Exam from this encounter No Physical Exam Recorded Allergies Includes: Active Allergies No Known Allergies Encounters Encounter Provider Location Date Check-In Time Check-Out Time Diagnosis WC MRI [facility] 08/16/2024 4:24PM 4:33PM Insurance Includes: Active Insurance Policies Plan Name Member ID Group # Subscriber Relationship Effect jyoti Dates 1 - [facility] [id number] Nilesh Le 05/23/20 24 - Unknown 2 - [facility] [id number] Nilesh Le Clinical Notes Includes: Clinical Notes from this encounter No Clinical Notes Recorded
--- OUTSIDE RECORDS SUMMARY | 2024-10-04 09:07 | XMS_ITS ---
Author Organization [facility] Address [address] [place] [address] Phone Care Team Providers Care Kinesiotherapist Name Role Phone Moustapha Peters MD Unavailable [phone] Dmitriy RAMON, Shanna Acosta Primary Care Provider Claudia vailable Problems Includes: Active, inactive, and resolved Problems All Visits Onset Date Resolved Date Provider Condition S tatus Joint Pain, Localized in the Right Shoulder 08/07/2024 Uriel Johnson PA-C Active Last Documented On 5 9:25AM ; [facility] Back Pain 08/16/2023 Uriel Johnson PA-C Active Last Documented On 4 10:08AM ; [facility] Plan of Treatment Pending Tests Order Diagnosis Results Due Ordering P rovider Therapy - Physical Therapy Thoracic Dorsalgia, unspecified 08/16/23 Uriel vitale PA-C Last Documented On 4 10:49AM ; [facility] Therapy - Physical Therapy Thoracic Dorsalgia, unspecified 08/27/23 Uriel vitale PA-C Last Documented On 4 11:50AM ; [facility] Radiology - MRI MRI Lumbar Spine Dorsalgia, unspecified Uirel Johnson PA-C Last Documented On 4 8:18AM ; [facility] Radiology - MRI MRI Thoracic Spine Dorsalgia, unspecified 08/21/24 Uriel Johnson PA-C Last Documented On 5 10:30AM ; [facility] Referrals To Diagnosis Consult with Tromper Jalyn jaimes, unspecified Last Documented On 5 10:56AM ; [facility] Instructions to patient Lose weight Last Documented On 5 1:32PM ; [facility] Lose weight Last Documented On 5 10:25AM ; [facility] Lose weight Last Documented On 5 1:13PM ; [facility] Lose weight Last Documented On 5 9:26AM ; [facility] Lose weight Last Documented On 4 8:27AM ; [facility] Lose weight Last Documented On 4 8:22AM ; [facility] Lose weight Last Documented On 4 8:19AM ; [facility] Lose weight Last Documented On 4 8:20AM ; [facility] Lose weight Last Documented On 4 8:09AM ; [facility] Lose weight Last Documented On 4 10:12AM ; [facility] Assessments Includes: Assessments for all patient encounters Findings Encounter Date Overweight WC FOLLOW UP/EST with Moustapha peoples MD 10/02/2024 Last Documented On 5 2:40PM ; [facility] Overweight WC FOLLOW UP/EST with Moustapha peoples MD 09/14/2024 Last Documented On 5 10:56AM ; [facility] Overweight WC FOLLOW UP/EST with Moustapha peoples MD 08/28/2024 Last Documented On 5 1:11PM ; [facility] Overweight WC NEW PATIENT with Uriel syed PA-C 08/07/2024 Last Documented On 5 9:41AM ; [facility] Overweight Follow Up with Moustapha Peters MD 12/09/2023 Last Documented On 4 10:30AM ; [facility] Overweight Follow Up with Moustapha Peters MD 11/18/2023 Last Documented On 4 9:25AM ; [facility] Overweight NEW PROBLEM/EST PT with Uriel Johnson PA-C 11/08/2023 Last Documented On 4 8:18AM ; [facility] Overweight Follow Up with Uriel Davis 09/10/2023 Last Documented On 4 8:24AM ; [facility] Overweight Follow Up with Uriel Davis 08/27/2023 Last Documented On 4 11:50AM ; [facility] Overweight Physician Specified with Uriel Johnson PA-C 08/16/2023 Last Documented On 4 10:49AM ; [facility] Instructions Includes: Instructions for all patient encounters Instructions to patient Lose weight Last Documented On 5 1:32PM ; [facility] Lose weight Last Documented On 5 10:25AM ; [facility] Lose weight Last Documented On 5 1:13PM ; [facility] Lose weight Last Documented On 5 9:26AM ; [facility] Lose weight Last Documented On 4 8:27AM ; [facility] Lose weight Last Documented On 4 8:22AM ; [facility] Lose weight Last Documented On 4 8:19AM ; [facility] Lose weight Last Documented On 4 8:20AM ; [facility] Lose weight Last Documented On 4 8:09AM ; [facility] Lose weight Last Documented On 4 10:12AM ; [facility] Medical Equipment - Implanted Devices Includes: Current and historical Devices No Medical Equipment Recorded Medications Includes: Current and historical Medications Current Medications (continue as prescribed) Gabapentin 10% External Cream 09/28/2024 Provider: Shanna Russo APRN Diagnosis: Last Documented On 5 2:24PM By Ny Pat ; [facility] Meloxicam 15 MG Oral Tablet 08/28/2024 - 10/27/2024 Pr ovider: Moustapha Peters MD Diagnosis: Take one tablet my mouth once a day Last Documented On 5 1:53PM By Capo Gibbs ; [facility] Gabapentin 100 MG Oral Capsule 08/12/2023 Provider: ANDER BUENO MD Diagnosis: Last Documented On 4 10:11AM By Julita Aguirre ; [facility] Omeprazole 20 MG Oral Capsule Delayed Release 08/09/19 Provider: Diagnosis: Last Documented On 4 10:11AM By Julita Aguirre ; [facility] Ondansetron 4 MG Oral Tablet Disintegrating 08/05/2023 Provider: Diagnosis: Last Documented On 4 10:11AM By Julita Aguirre ; [facility] Methocarbamol 500 MG Oral Tablet 08/01/2023 Provider : Diagnosis: Last Documented On 4 10:11AM By Julita Aguirre ; [facility] Allopurinol 100 MG Oral Tablet 07/27/2023 Provider: Shanna Russo APRN Diagnosis: Last Documented On 4 10:11AM By Julita Aguirre ; [facility] Levothyroxine Sodium 50 MCG Oral Tablet 07/27/2023 Provider: Shanna rubi APRN Diagnosis: Last Documented On 4 10:11AM By Julita Aguirre ; [facility] Triamcinolone Acetonide 0.1% External Ointment 07/22/2023 Provider: Shanna rubi APRN Diagnosis: Last Documented On 4 10:11AM By Julita Aguirre ; [facility] Colchicine 0.6 MG Oral Tablet 07/13/2023 Provider: Diagnosis: Last Documented On 4 10:11AM By Julita Aguirre ; [facility] Vitamin D (Ergocalciferol) 1 .25 MG (76087 UT) Oral Capsule 06/23/2023 Provider: Shanna hahn APRN Diagnosis: Last Documented On 4 10:11AM By Julita Aguirre ; [facility] Atorvastatin Calcium 40 MG Oral Tablet 06/03/2023 Pr ovider: ANDER BUENO MD Diagnosis: Last Documented On 4 10:11AM By Julita Aguirre ; [facility] Bisoprolol Fumarate 10 MG Oral Tablet 06/03/2023 Pro vider: ANDER BUENO MD Diagnosis: Last Documented On 10:11AM By Julita Aguirre ; [facility] Past Medications on file Diclofenac Sodium 75 MG Oral Tablet Delayed Release 08/16/2023 - 09/15/2023 Provider: Uriel Johnson PA-C Diagnosis: Take 1 tablet by mouth twice a day Last Documented On 11:06AM By Julita Aguirre ; [facility] Allopurinol 100 MG Oral Tablet 06/23/2023 - 09/10/2023 Provider: Shanna hahn APRN Diagnosis: Last Documented On 8:20AM By Julita Aguirre ; [facility] Omeprazole 20 MG Oral Capsul e Delayed Release 02/24/2023 - 08/16/2023 Provider: ANDER Soares Diagnosis: Last Documented On 10:11AM By Julita Aguirre ; [facility] Medications Administered Includes: Administered Medications in patient's chart No Administered Medications Recorded Vital Signs Includes: Vital Signs from 10/05/2023 through 10/04/2024 Vital Name 10/02/2024 02:24P 09/14/2024 10:37A 08/28/2024 01:20P 08/07/2024 09:44A 12/09/2023 08:29A Height (in) 68 68 68 68 68 Weight (lb) 209 213 217 214 256.8 Body Mass Index 31.8 32.4 33 32.5 39 Body Surface Area 2.1 2.1 2.1 2.1 2.3 Pain Level 1 10 3 3 0 Note: sr nap lc Last Documented: On 10/02/2024 2:24PM ; [facility] On 09/14/2024 10:38AM ; [facility] On 08/28/2024 1:20PM ; [facility] On 08/07/2024 9:44AM ; [facility] On 12/09/2023 8:30AM ; [facility] Vital Name 11/18/2023 08:25A 11/08/2023 08: 23A Height (in) 68 68 Weight (lb) 250.6 253 Body Mass Index 38.1 38.5 Body Surface Area 2.2 2.3 Pain Level 5 5 Note: [facility] Last Documented: On 11/18/2023 8:25AM ; [facility] On 11/08/2023 8:23AM ; [facility] Results Includes: Results from 10/05/2023 through 10/04/2024 No Results Recorded For Specified Dates History of Present Illness History of Present Illness not supported for this document type No History of Present Illness Recorded Social History Description Last Updated Caffeine use 08/16/2023 Last Documented On 4 10:49AM ; [facility] No recent change in diet 08/16/2023 Last Documented On 4 10:49AM ; [facility] Not a current smoker. 08/16/2023 Last Documented On 4 10:49AM ; [facility] Not exercising regularly 08/16/2023 Last Documented On 4 10:49AM ; [facility] Not using alcohol 08/16/2023 Last Documented On 4 10:49AM ; [facility] Not using drugs 08/16/2023 Last Documented On 4 10:49AM ; [facility] Tobacco non-user 08/16/2023 Last Documented On 4 10:49AM ; [facility] Smoking Status Unknown Procedures and Surgical History Includes: Procedures from 10/05/2023 through 10/04/2024 Procedures Code Diagnosis Performing Provider Service Location Service Date Injection, betamethasone acetate 6mg per cc and betamethason J0702 Pain in thoracic spine Moustapha Peters MD [facility] 08/28/2024 Last Documented On 5 5:40PM ; [facility] INJ TRIGGER POINT, 1/2 MUSCL (RIGHT) 19614 Pain in thoracic spine Moustapha Peters MD [facility] 08/28/2024 Last Documented On 5 5:40PM ; [facility] MRI THORACIS SPINE W/O DYE 67621 Pain in thoracic spine Moustapha Peters MD [facility] 08/16/2024 Last Documented On 5 10:45AM ; [facility] MRI LUMBAR SPINE W/O DYE 03302 Other low back pain Moustapha Peters MD [facility] 11/16/2023 Last Documented On 4 2:03PM ; [facility] AP PELVIS w/ 1 VIEW HIP (RIGHT) 98785 Pain in right hip Uriel Johnson PA-C [facility] 11/08/2023 Last Documented On 4 9:19AM ; [facility] X-RAY EXAM OF LOWER SPINE 2-3 VIEWS LIMITED 96651 Other low back pain, Pain in right hip Uriel Johnson PA-C [facility] 11/08/2023 Last Documented On 4 9:19AM ; [facility] Surgical History Last Updated History of back surgery 08/16/2023 Last Documented On 4 10:49AM ; [facility] 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 Includes: 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 in patient's chart No 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 Recorded Family History Includes: Family History in patient's chart Description Last Updated Diabetes mellitus mother 08/16/2023 Last Documented On 4 10:49AM ; [facility] Family history of cancer sister 08/16/19 24 Last Documented On 4 10:49AM ; [facility] Family history of heart disease maternal grandmother 08/16/2023 Last Documented On 4 10:49AM ; [facility] Review of Systems Review of Systems not supported for this document type No Review of Systems Recorded Mental Status Description No anxiety Functional Status No Functional Status Recorded Physical Exam Physical Exam not supported for this document type No Physical Exam Recorded Allergies Includes: Active, inactive, and resolved Allergies No Known Allergies Encounters Includes: Encounters from 10/05/2023 through 10/04/2024 Encounter Provider Location Date Check-In Time Check-Out Time Diagnosis WC FOLLOW UP/EST Moustapha Peters MD [facility] 10/03/19 25 1:22PM 2:39PM Overweight WC FOLLOW UP/EST Moustapha Peters MD [facility] 09/15/19 25 10:22AM 10:52AM Overweight WC FOLLOW UP/EST Moustapha Peters MD [facility] 08/29/19 25 1:11PM 1:40PM Overweight WC MRI [facility] 08/16/19 25 4:24PM 4:33PM WC NEW PATIENT Uriel Johnson PA-C [facility] 08/07/19 25 9:21AM 9:52AM Overweight Follow Up Moustapha Peters MD [facility] 12/09/19 24 8:24AM 8:42AM Overweight Follow Up Moustapha Peters MD [facility] 11/18/19 8:20AM 8:57AM Overweight MRI [facility] 11/16/19 24 10:13AM 10:51AM NEW PROBLEM/EST PT Uriel Johnson PA-C [facility] 11/08/19 8:14AM 8:42AM Overweight Insurance Includes: Active Insurance Policies Plan Name Member ID Group # Subscriber Relationship Effect jyoti Dates 1 - [facility] [id number] Nilesh Le 05/23/20 24 - Unknown 2 - [facility] [id number] Nilesh Le Clinical Notes Includes: Signed Clinical Notes starting from 06/04/2022 * Progress note Date Encounter Last Documented by 09/14/2024 WC FOLLOW UP/EST Last documented on 09/14/2024; 10:56 AM, Moustapha Peters MD; [facility] Active Problems & Conditions - Back Pain - Joint Pain, Localized in the Right Shoulder Chief Complaint The Chief Complaint is: Mid back pain. Referred Here Referred by PCP. History of Present Illness Nilesh Wood is a 59 year old male. - Allergy list reviewed - Problem list reviewed - Medication list reviewed - Previous history of new onset pain Work Injury going on for 2 months since 05/26/2024 - History of Physical Therapy at work on 08/05/2023 - - Review of medications documented Medications used for this condition: early May at [facility] Patient is here today for follow up he has had this 4 month history of this right scapula thoracic back pain nothing has helped he has done physical therapy he has tried trigger point injection he has done anti-inflammatories he has done this horse liniment anything he has does tends to cause pain now it has pain up into his cervical area. No radicular symptoms with this he can not do his job presently. Previous MRIs just showed diffuse inflammatories idiopathic skeletal hyperostosis. Nothing needs surgery Current Medication - Allopurinol 100 MG Oral [...] Oral Tablet 30 days, 0 refills - Meloxicam 15 MG Oral Tablet Take one tablet my mouth once a day, 30 days, 1 refills - Methocarbamol 500 MG Oral Tablet 8 days, 0 refills - Omeprazole 20 MG Oral Capsule Delayed Release 30 days, 0 refills - Ondansetron 4 MG Oral Tablet Disintegrating 3 days, 0 refills - Triamcinolone Acetonide 0.1% External Ointment 14 days, 0 refills - Vitamin D (Ergocalciferol) 1.25 MG (20865 UT) Oral Capsule 28 days, 0 refills [...] allergic reaction. Physical Findings - Vitals taken 09/14/2024 10:37 am Height 68 in Weight 213 lbs Body Mass Index 32.4 kg/m2 Body Surface Area 2.1 m2 Pain Level 10 Patient has some tenderness in the right scapula right midthoracic spine Tests Previous thoracic spine MRI it showed no significant disc herniations or stenosis but did show diffuse idiopathic skeletal hyperostosis Assessment - Overweight Thoracic DISH Previous Tests Imaging: X-Ray: X-ray [facility] on 05/27/2024. CT Scan: CT scan [facility]. MRI Scan: An MRI was performed Lumbar MRI 11/16/23 @ [facility]. Available previous imaging studies were reviewed Available previous history reviewed Counseling/Education - Tobacco non-user - Use of tobacco assessment performed - Lose weight Plan StartCited - Dorsalgia, unspecified Referral/Tromper: Consult with Tromper EndCited Patient was seen by myself and Dr. Fran Johnson PA-C. Patient will follow up after we were [facility] to determine restrictions for his job and we are going to refer him to Rheumatology to see if they have any other options for any medicine to help him. Notes This dictation was done with voice recognition software and may contain errors and omissions. Practice Management Use of tobacco assessment performed Review of medications documented. Care Team - Shanna Izaguirre PA-C Health Reminders - Assess BMI satisfied 09/14/2024. - Assess Tobacco Use satisfied 08/16/2023. - Follow Up Plan BMI Management satisfied 09/14/2024. * Progress note Date Encounter Last Documented by 08/28/2024 WC FOLLOW UP/EST Last documented on 08/29/2024; 1:11 PM, Moustapha Peters MD; [facility] Active Problems & Conditions - Back Pain [...] condition: early May at [facility] Current Medication - Allopurinol 100 MG Oral [...] refills - Vitamin D (Ergocalciferol) 1.25 MG (80078 UT) Oral Capsule 28 days, 0 refills [...] - Overweight Previous Tests Imaging: X-Ray: X-ray [facility] on 05/27/2024. CT Scan: CT scan [facility]. MRI Scan: An MRI was performed Lumbar MRI 11/16/23 @ [facility]. Available previous imaging studies were reviewed Available [...] Follow Up Plan BMI Management satisfied 08/28/2024. * Progress note Date Encounter Last Documented by 08/07/2024 WC NEW PATIENT Last documented on 08/17/2024; 9:41 AM, Uriel Johnson PA-C; [facility], [facility] Active Problems & Conditions - Back Pain [...] condition: early May at [facility] Patient is here today for complaints [...] refills - Vitamin D (Ergocalciferol) 1.25 MG (10779 UT) Oral Capsule 28 days, 0 refills [...] scapula pain Previous Tests Imaging: X-Ray: X-ray [facility] on 05/27/2024. CT Scan: CT scan [facility]. MRI Scan: An MRI was performed Lumbar MRI 11/16/23 @ [facility]. Available previous imaging studies were reviewed Available [...] Follow Up Plan BMI Management satisfied 08/07/2024. * Progress note Date Encounter Last Documented by 12/09/2023 Follow Up Last documented on 12/09/2023; 10:30 AM, Moustapha Peters MD; [facility] Active Problems & Conditions - Back Pain Chief Complaint The Chief Complaint is: Back pain. Referred Here Referred by PCP. History of Present Illness Nilesh Wood is a 58 year old male. - Allergy list reviewed - Problem list reviewed - Medication list reviewed - - Review of medications documented Current Medication - Allopurinol 100 MG Oral [...] refills - Vitamin D (Ergocalciferol) 1.25 MG (16455 UT) Oral Capsule 28 days, 0 refills [...] allergic reaction. Physical Findings - Vitals taken 12/09/2023 08:29 am lc Height 68 in Weight 256 lbs 12.8 oz Body Mass Index 39 kg/m2 Body Surface Area 2.3 m2 Pain Level 0 Assessment - Overweight Back pain right leg pain Previous Tests Imaging: CT Scan: CT scan [facility]. MRI Scan: An MRI was performed Lumbar MRI 11/16/23 @ [facility]. Available previous imaging studies were reviewed Available previous history reviewed Counseling/Education - Tobacco non-user - Use of tobacco assessment performed - Lose weight Notes This dictation was done with voice recognition software and may contain errors and omissions. Patient is here for follow-up of his low back pain. He is feeling much better. He is neurovascularly intact. I think and go back to work. We will return to work without restrictions and we will see him back as needed. Practice Management Use of tobacco assessment performed Review of medications documented. Care Team - Shanna Izaguirre PA-C Health Reminders - Assess BMI satisfied 12/09/2023. - Assess Tobacco Use satisfied 08/16/2023. - Follow Up Plan BMI Management satisfied 12/09/2023. * Progress note Date Encounter Last Documented by 11/18/2023 Follow Up Last documented on 11/18/2023; 9:25 AM, Moustapha Peters MD; [facility] Active Problems & Conditions - Back Pain Chief Complaint The Chief Complaint is: Back pain. Referred Here Referred by PCP. History of Present Illness Nilesh Wood is a 58 year old male. - Allergy list reviewed - Problem list reviewed - Medication list reviewed - - Review of medications documented Current Medication - Allopurinol 100 MG Oral [...] refills - Vitamin D (Ergocalciferol) 1.25 MG (86648 UT) Oral Capsule 28 days, 0 refills [...] allergic reaction. Physical Findings - Vitals taken 11/18/2023 08:25 am lc Height 68 in Weight 250 lbs 9.6 oz Body Mass Index 38.1 kg/m2 Body Surface Area 2.2 m2 Pain Level 5 Tests Two views lumbar spine shows degenerative changes no acute fracture two views of the right hip were negative both sets of x-rays 11/08/2023 Assessment - Overweight Back pain right leg pain Previous Tests Imaging: Bone Density Studies: CT scan [facility]. Available previous imaging studies were reviewed Available previous history reviewed Counseling/Education - Tobacco non-user - Use of tobacco assessment performed - Lose weight Plan StartCited - Dorsalgia, unspecified Therapy/Physical Therapy: Lumbar Instructions: See PT order attached EndCited Notes This dictation was done with voice recognition software and may contain errors and omissions. Patient is here for follow-up of his low back pain. The right groin pain has resolved. Mostly lumbar. He is taken anti-inflammatories most relaxer. He has no radicular symptoms. He is got mild paraspinal tenderness on the right lower lumbar area. His MRI shows some diffuse spondylosis but no indication for surgery. I have recommended he do some physical therapy. We will see him back in 3 weeks and hopefully get him back to work. Practice Management Use of tobacco assessment performed Review of medications documented. Care Team - Shanna Izaguirre PA-C Health Reminders - Assess BMI satisfied 11/18/2023. - Assess Tobacco Use satisfied 08/16/2023. - Follow Up Plan BMI Management satisfied 11/18/2023. * Progress note Date Encounter Last Documented by 11/08/2023 NEW PROBLEM/EST PT Last document ed on 11/10/2023; 8:18 AM, Uriel Johnson PA-C; [facility] Active Problems & Conditions - Back Pain Chief Complaint The Chief Complaint is: Back pain. Referred Here Referred by PCP. History of Present Illness Nilesh Wood is a 58 year old male. - Allergy list reviewed - Problem list reviewed - Medication list reviewed - Previous history of new onset pain 10/29/2023 Injury is not work related or an automotive accident - Patient pain level from 1-10: 5 - Yes, previous treatment. - - Review of medications documented Patient is here today with complaints of lower back pain right hip groin pain that is all began October 29, 2023 after he has having an MRI of his throat area he states he went to get off the table and this is when all this pain started. He has been having pain that radiates into the right testicle pain started out radiating into the right buttock and back of the right leg. He had a previous lumbar surgery years ago. Says pain is worse at night can not drive can not sit no numbness tingling or radiates down the leg other than what kind of what he describes more pain kind of radiates into groin rates his pain 5/10 he has been trying ibuprofen and Flexeril and states his family physician set him up with do physical therapy but he can not start that till next week. No bowel or bladder issues. Current Medication - Allopurinol 100 MG Oral [...] refills - Vitamin D (Ergocalciferol) 1.25 MG (93071 UT) Oral Capsule 28 days, 0 refills [...] allergic reaction. Physical Findings - Vitals taken 11/08/2023 08:23 am lc Height 68 in Weight 253 lbs Body Mass Index 38.5 kg/m2 Body Surface Area 2.3 m2 Pain Level 5 He has no pain with right hip motion reproducible to the groin but right hip flexion causes some back pain He has 4+ out of [facility] gastrocs quadriceps tibialis anterior strength bilaterally Negative straight leg raise bilaterally 2+ patellar reflexes Tests Two views lumbar spine shows degenerative changes no acute fracture two views of the right hip were negative both sets of x-rays 11/08/2023 Assessment - Overweight Back pain right leg pain Previous Tests Imaging: Bone Density Studies: CT scan [facility]. Available previous imaging studies were reviewed Available previous history reviewed Counseling/Education - Tobacco non-user - Use of tobacco assessment performed - Lose weight Plan StartCited - Dorsalgia, unspecified Radiology/MRI: MRI Lumbar Spine Instructions: MRI LSPINE EndCited Patient was seen by myself Uriel Johnson PA-C. Patient will follow up at the get a lumbar spine MRI to kind of move symptoms these having with this right hip in line pain pain radiates into the right testicle. I think this is more coming from his back maybe something up higher and L1-L2. We will continue with the anti- inflammatories muscle relaxers start physical therapy. Do think it is reasonable to get the MRI we will see him after the lumbar spine MRI myself and Dr. Peters Notes This dictation was done with voice recognition software and may contain errors and omissions. Practice Management Use of tobacco assessment performed Review of medications documented. Care Team - Shanna Izaguirre PA-C
--- OUTSIDE RECORDS SUMMARY | 2024-10-04 09:07 | XMS_ITS | Clinical Summary ---
Author Organization [facility] , [facility] Address [address] [place] [address] Phone Care Team Providers Care Retail Business Manager Name Role Phone Moustapha Peters MD Unavailable [phone] Dmitriy RAMON, Shanna Acosta Primary Care Provider Claudia vailable Reason for Visit and Chief Complaint The Chief Complaint is: mid back pain Problems Includes: Problems addressed during this encounter and other active Problems All Visits Onset Date Resolved Date Provider Condition S tatus Joint Pain, Localized in the Right Shoulder 08/07/2024 Uriel Johnson PA-C Active Last Documented On 5 9:25AM ; [facility] Back Pain 08/16/2023 Uriel Johnson PA-C Active Last Documented On 4 10:08AM ; [facility] Plan of Treatment Instructions to patient Lose weight Last Documented On 5 1:32PM ; [facility] Assessments Includes: Assessments from this encounter Findings - Overweight - Last Documented On 10/02/2024 2:40PM ; [facility] Instructions Includes: Instructions from this encounter Instructions to patient Lose weight Last Documented On 5 1:32PM ; [facility] Medical Equipment - Implanted Devices Includes: Current Devices No Medical Equipment Recorded Medications Includes: Medications discussed during this encounter and other current Medications Current Medications (continue as prescribed) Gabapentin 10% External Cream 09/28/2024 Provider: Shanna Russo APRN Diagnosis: Last Documented On 5 2:24PM By Ny Pat ; [facility] Meloxicam 15 MG Oral Tablet 08/28/2024 - 10/27/2024 Pr ovider: Moustapha Peters MD Diagnosis: Take one tablet my mouth once a day Last Documented On 5 1:53PM By Capo Gibbs ; [facility] Gabapentin 100 MG Oral Capsule 08/12/2023 Provider: ANDER BUENO MD Diagnosis: Last Documented On 4 10:11AM By Julita Aguirre ; [facility] Omeprazole 20 MG Oral Capsule Delayed Release 08/09/19 Provider: Diagnosis: Last Documented On 4 10:11AM By Julita Aguirre ; [facility] Ondansetron 4 MG Oral Tablet Disintegrating 08/05/2023 Provider: Diagnosis: Last Documented On 4 10:11AM By Julita Aguirre ; [facility] Methocarbamol 500 MG Oral Tablet 08/01/2023 Provider : Diagnosis: Last Documented On 4 10:11AM By Julita Aguirre ; [facility] Allopurinol 100 MG Oral Tablet 07/27/2023 Provider: Shanna Russo APRN Diagnosis: Last Documented On 4 10:11AM By Julita Aguirre ; [facility] Levothyroxine Sodium 50 MCG Oral Tablet 07/27/2023 Provider: Shanna rubi APRN Diagnosis: Last Documented On 4 10:11AM By Julita Aguirre ; [facility] Triamcinolone Acetonide 0.1% External Ointment 07/22/2023 Provider: Shanna rubi APRN Diagnosis: Last Documented On 4 10:11AM By Julita Aguirre ; [facility] Colchicine 0.6 MG Oral Tablet 07/13/2023 Provider: Diagnosis: Last Documented On 4 10:11AM By Julita Aguirre ; [facility] Vitamin D (Ergocalciferol) 1 .25 MG (78168 UT) Oral Capsule 06/23/2023 Provider: Shanna hahn APRN Diagnosis: Last Documented On 4 10:11AM By Julita Aguirre ; [facility] Atorvastatin Calcium 40 MG Oral Tablet 06/03/2023 Pr ovider: ANDER BUENO MD Diagnosis: Last Documented On 4 10:11AM By Julita Aguirre ; [facility] Bisoprolol Fumarate 10 MG Oral Tablet 06/03/2023 Pro vider: ANDER BUENO MD Diagnosis: Last Documented On 4 10:11AM By Julita Aguirre ; [facility] Past Medications on file Diclofenac Sodium 75 MG Oral Tablet Delayed Release 08/16/2023 - 09/15/2023 Provider: Uriel Johnson PA-C Diagnosis: Take 1 tablet by mouth twice a day Last Documented On 4 11:06AM By Julita Aguirre ; [facility] Medications Administered Includes: Administered Medications from this encounter No Administered Medications Recorded Vital Signs Includes: Vital Signs from this encounter Vital Name 10/02/2024 02:24P Height (in) 68 Weight (lb) 209 Body Mass Index 31.8 Body Surface Area 2.1 Pain Level 1 Note: sr Last Documented: On 10/02/2024 2:24PM ; [facility] Results Includes: Results discussed during this encounter No Results Recorded For Specified Dates History of Present Illness Includes: History of Present Illness from this encounter ROSARIO Wood is a 59 year old male. - Allergy list reviewed - Problem list reviewed - Medication list reviewed - Previous history of new onset pain Work Injury going on for 2 months since 05/26/2024 - History of Physical Therapy at work on 08/05/2023 - - Review of medications documented Medications used for this condition: early May at [facility] Social History Description Last Updated Caffeine use 08/16/2023 Last Documented On 5 1:32PM ; [facility] No recent change in diet 08/16/2023 Last Documented On 5 1:32PM ; [facility] Not a current smoker. 08/16/2023 Last Documented On 5 1:32PM ; [facility] Not exercising regularly 08/16/2023 Last Documented On 5 1:32PM ; [facility] Not using alcohol 08/16/2023 Last Documented On 5 1:32PM ; [facility] Not using drugs 08/16/2023 Last Documented On 5 1:32PM ; [facility], [facility] Tobacco non-user 08/16/2023 Last Documented On 5 1:32PM ; [facility], [facility] Smoking Status Unknown Procedures and Surgical History Includes: Procedures from this encounter Procedures Code Diagnosis Performing Provider Service L ocation Service Date use of tobacco assessment performed 1000F Last Documented On 5 1:32PM ; [facility], [facility] review of medications documented 1160F Last Documented On 5 1:32PM ; [facility], [facility] X-ray [employer] on 05/27/2024 [id number] Last Documented On 5 1:32PM ; [facility], [facility] CT scan [facility] [id number] Last Documented On 5 1:32PM ; [facility], [facility] an MRI was performed Lumbar MRI 11/16/23 @ [facility] [id number] Last Documented On 5 1:32PM ; [facility], [facility] Surgical History Last Updated History of back surgery 08/16/2023 Last Documented On 5 1:32PM ; [facility], [facility] 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 Includes: 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 addressed during this encounter No 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 Recorded Family History Includes: Family History addressed during this encounter Description Last Updated Diabetes mellitus mother 08/16/2023 Last Documented On 5 1:32PM ; [facility] Family history of cancer sister 08/16/19 Last Documented On 5 1:32PM ; [facility], [facility] Family history of heart disease maternal grandmother 08/16/2023 Last Documented On 5 1:32PM ; [facility], [facility] Review of Systems Includes: Review of Systems [...] Diagnosis WC FOLLOW UP/EST Moustapha Peters MD [facility] 10/03/19 25 1:22PM 2:39PM Overweight Insurance Includes: Active Insurance Policies Plan Name Member ID Group # Subscriber Relationship Effect jyoti Dates 1 - [facility] [id number] Nilesh Le 05/23/20 24 - Unknown 2 - [facility] [id number] Nilesh Le Clinical Notes Includes: Clinical Notes from this encounter No Clinical Notes Recorded
--- OUTSIDE RECORDS SUMMARY | 2024-10-04 09:07 | XMS_ITS | Clinical Summary ---
Author Organization [facility] Address [address] [place] [address] Phone Care Team Providers Care Production Control Planner Name Role Phone Moustapha Peters MD Unavailable [phone] Dmitriy RAMON, Shanna Acosta [...] Active Last Documented On 5 9:25AM ; [facility] Back Pain 08/16/2023 Uriel Johnson PA-C Active Last Documented On 4 10:08AM ; [facility], [facility] Plan of Treatment Patient was seen by myself and Dr. Fran Johnson PA-C. Patient will follow up after we were FCE to determine restrictions for his job and we are going to refer him to Rheumatology to see if they have any other options for any medicine to help him. - Last Documented On 09/14/2024 10:56AM ; [facility], [facility] Referrals To Diagnosis Consult with Screed Operator Dors algia, unspecified Last Documented On 10:56AM ; [facility], [facility] Instructions to patient Lose weight Last Documented On 10:25AM ; [facility], [facility] Assessments Includes: Assessments from this encounter Findings - Overweight - Last Documented On 09/14/2024 10:56AM ; [facility], [facility] Thoracic DISH - Last Documented On 09/14/2024 10:56AM ; [facility] Instructions Includes: Instructions from this encounter Instructions to patient Lose weight Last Documented On 5 10:25AM ; [facility] Medical Equipment - Implanted Devices Includes: Current Devices No Medical Equipment Recorded Medications Includes: Medications discussed during this encounter and other current Medications Current Medications (continue as prescribed) Gabapentin 10% External Cream 09/28/2024 Provider: Shanna Russo APRN Diagnosis: Last Documented On 5 2:24PM By Ny Pat ; [facility] Meloxicam 15 MG Oral Tablet 08/28/2024 - 10/27/2024 Pr ovider: Moustapha Peters MD Diagnosis: Take one tablet my mouth once a day Last Documented On 5 1:53PM By Capo Gibbs ; [facility] Gabapentin 100 MG Oral Capsule 08/12/2023 Provider: ANDER BUENO MD Diagnosis: Last Documented On 4 10:11AM By Julita Aguirre ; [facility] Omeprazole 20 MG Oral Capsule Delayed Release 08/09/19 24 Provider: Diagnosis: Last Documented On 4 10:11AM By Julita Aguirre ; [facility] Ondansetron 4 MG Oral Tablet Disintegrating 08/05/2023 Provider: Diagnosis: Last Documented On 4 10:11AM By Julita Aguirre ; [facility] Methocarbamol 500 MG Oral Tablet 08/01/2023 Provider : Diagnosis: Last Documented On 4 10:11AM By Julita Aguirre ; [facility] Allopurinol 100 MG Oral Tablet 07/27/2023 Provider: Shanna Russo APRN Diagnosis: Last Documented On 4 10:11AM By Julita Aguirre ; [facility] Levothyroxine Sodium 50 MCG Oral Tablet 07/27/2023 Provider: Shanna rubi APRN Diagnosis: Last Documented On 4 10:11AM By Julita Aguirre ; [facility] Triamcinolone Acetonide 0.1% External Ointment 07/22/2023 Provider: Shanna Julita Floren ce TELECASTING ENGINEER Diagnosis: Last Documented On 4 10:11AM By Julita Aguirre ; [facility], [facility] Colchicine 0.6 MG Oral Tablet 07/13/2023 Provider: Diagnosis: Last Documented On 4 10:11AM By Julita Aguirre ; [facility], [facility] Vitamin D (Ergocalciferol) 1 .25 MG (48970 UT) Oral Capsule 06/23/2023 Provider: Shanna hahn TELECASTING ENGINEER Diagnosis: Last Documented On 4 10:11AM By Julita Aguirre ; [facility], [facility] Atorvastatin Calcium 40 MG Oral Tablet 06/03/2023 Pr ovider: ANDER BUENO MD Diagnosis: Last Documented On 4 10:11AM By Julita Aguirre ; [facility], [facility] Bisoprolol Fumarate 10 MG Oral Tablet 06/03/2023 Pro vider: ANDER BUENO MD Diagnosis: Last Documented On 4 10:11AM By Julita Aguirre ; [facility], [facility] Past Medications on file Diclofenac Sodium 75 MG Oral Tablet Delayed Release 08/16/2023 - 09/15/2023 Provider: Uriel Johnson PA-C Diagnosis: Take 1 tablet by mouth twice a day Last Documented On 4 11:06AM By Julita Aguirre ; [facility], [facility] Medications Administered Includes: Administered Medications from this encounter No Administered Medications Recorded Vital Signs Includes: Vital Signs from this encounter Vital Name 09/14/2024 10:37A Height (in) 68 Weight (lb) 213 Body Mass Index 32.4 Body Surface Area 2.1 Pain Level 10 Last Documented: On 09/14/2024 10:38A M ; [facility], [facility] Results Includes: Results discussed during this encounter [...] [facility] Patient is here today for follow [...] inflammatories idiopathic skeletal hyperostosis. Nothing needs surgery Social History Description Last Updated Caffeine use 08/16/2023 Last Documented On 5 10:25AM ; [facility], [facility] No recent change in diet 08/16/2023 Last Documented On 5 10:25AM ; [facility], [facility] Not a current smoker. 08/16/2023 Last Documented On 5 10:25AM ; [facility], [facility] Not exercising regularly 08/16/2023 Last Documented On 5 10:25AM ; [facility], [facility] Not using alcohol 08/16/2023 Last Documented On 5 10:25AM ; [facility] Not using drugs 08/16/2023 Last Documented On 5 10:25AM ; [facility], [facility] Tobacco non-user 08/16/2023 Last Documented On 5 10:25AM ; [facility] Smoking Status Unknown Procedures and Surgical History Includes: Procedures from this encounter Procedures Code Diagnosis Performing Provider Service L ocation Service Date use of tobacco assessment performed 1000F Last Documented On 5 10:25AM ; [facility], [facility] review of medications documented 1160F Last Documented On 5 10:25AM ; [facility], [facility] X-ray [employer] on 05/27/2024 [id number] Last Documented On 5 10:25AM ; [facility], [facility] CT scan [facility] [id number] Last Documented On 5 10:25AM ; [facility], [facility] an MRI was performed Lumbar MRI 11/16/23 @ [facility] [id number] Last Documented On 5 10:25AM ; [facility], [facility] Surgical History Last Updated History of back surgery 08/16/2023 Last Documented On 5 10:25AM ; [facility] 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 Includes: 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 addressed during this encounter No 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 Recorded Family History Includes: Family History addressed during this encounter Description Last Updated Diabetes mellitus mother 08/16/2023 Last Documented On 5 10:25AM ; [facility] Family history of cancer sister 08/16/19 Last Documented On 5 10:25AM ; [facility] Family history of heart disease maternal grandmother 08/16/2023 Last Documented On 5 10:25AM ; [facility] Review of Systems Includes: Review of Systems [...] Diagnosis WC FOLLOW UP/EST Moustapha Peters MD [facility] 09/15/19 10:22AM 10:52AM Overweight Insurance Includes: Active Insurance Policies Plan Name Member ID Group # Subscriber Relationship Effect jyoti Dates 1 - [facility] [id number] Nilesh Wood Self 05/23/20 24 - Unknown 2 - [facility] [id number] Nilesh Wood Self Clinical Notes Includes: Clinical Notes from this encounter * Progress note Date Encounter Last Documented by 09/14/2024 WC FOLLOW UP/EST Last documented on 09/14/2024; 10:56 AM, Moustapha Peters MD; [facility], [facility] Active Problems & Conditions - Back Pain [...] [facility] Patient is here today for follow [...] refills - Vitamin D (Ergocalciferol) 1.25 MG (14992 UT) Oral Capsule 28 days, 0 refills [...] Thoracic DISH Previous Tests Imaging: X-Ray: X-ray [employer] on 05/27/2024. CT Scan: CT scan [facility]. MRI Scan: An MRI was performed Lumbar MRI 11/16/23 @ [facility]. Available previous imaging studies were reviewed Available previous history reviewed Counseling/Education - Tobacco non-user - Use of tobacco assessment performed - Lose weight Plan StartCited - Dorsalgia, unspecified Referral/Screed Operator: Consult with Screed Operator EndCited Patient was seen by myself and [...]
--- NOTE | 2024-10-04 09:10 | EXP.PAIN.OV ---
HPI Data of Consult Patient: new to practice Consult date: 10/04/24 Requesting Physician: Ruby Peters APRN Primary Care Provider: Marco A Castañeda MD Consult Narrative Reason for consult: Right scapular pain History of present illness: Mr. Wood is a 59 year old male who presents today as a new patient. He is referral from Shanna Russo's office. Today he rates his pain a 1 out of 10 while he is seated at rest however does state that his pain goes to an 8 or 9 out of 10. He describes it as an overall throbbing sensation that is worse with increased activity such as doing the dishes or doing laundry. He states it is interfering with his ability perform activities of daily living such as cooking and cleaning. Patient does state that initially this all started about 5 months ago in May while he was at work. Patient states he is unsure if he injured himself and that it is progressed since. Patient does state that [employer] did do x-ray imaging of his shoulder and that they did think a lot of it was arthritis. Patient states that he did also go to [facility] who did do an injection however he is unsure what specific type but it did not seem to make much improvement. He has tried lidocaine patches, heat and ice, ibuprofen and muscle relaxers like Flexeril with no additional change. Patient did complete physical therapy including massage however that aggravated his symptoms. Patient is interested in any type of help we may be able to provide. Patient states he is currently off work due to this pain.He is not currently on any scheduled medications. His Darren has been reviewed and is appropriate. CC: Ruby Peters APRN [facility] Disclaimer: The information contained in this section may have been updated after the patient was seen, as this information can be updated by other users. 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) History of throat surgery History of back surgery History of tonsillectomy History of cholecystectomy Family History Other No significant family history Social History (Updated 10/04/24 @ 09:45 by Dominique Orellana RN) Smoking Status: Never smoker second hand exposure: No alcohol intake: never substance use type: denies use current occupational status: other Travel in the last 8 weeks: None household members: significant other housing: apartment current occupational exposures/hazards: No caffeine: Yes Review of Systems Review of Systems Review of systems:: pertinent systems reviewed and negative unless documented below Review of systems (narrative): Review of Systems: General: No recent weight changes, no fever, no sleep disturbances Respiratory: No cough, no shortness of air, no recurring pulmonary infections Cardiovascular/peripheral vascular: No chest pain, no palpitations, no edema, no shortness of breath Gastrointestinal: No new onset incontinence, normal bowel movements reported Genitourinary: No new onset incontinence Musculoskeletal: Right scapular pain, mid back pain Psychiatric: [Normal mood/affect] Neurological: [Denies weakness in extremities], [denies balance issues] Meds Home Medications and Allergies Home Medications ?Medication ?Instructions ?Recorded ?Confirmed ?Type atorvastatin 40 mg tablet 40 mg PO DAILY 05/25/24 08/22/24 History bisoprolol fumarate 10 mg tablet 10 mg PO DAILY 05/25/24 08/22/24 History levothyroxine 50 mcg tablet 50 mcg PO DAILY 05/25/24 08/22/24 History (Synthroid) methocarbamol 750 mg tablet 750 mg PO TID #12 tabs 05/25/24 08/22/24 Rx omeprazole 20 mg capsule,delayed 20 mg PO DAILY 05/25/24 08/22/24 History release tirzepatide (weight loss) 5 mg/0.5 5 mg SQ WEEKLY 05/25/24 08/22/24 History mL subcutaneous pen injector (Zepbound) sodium,potassium,mag sulfates 17.5 See Rx Instructions PO .COMPLEX 08/09/24 08/22/24 Rx gram-3.13 gram-1.6 gram oral soln #354 mL (Suprep Bowel Prep Kit) baclofen 10 mg tablet 10 mg PO TID #42 tabs 10/04/24 Rx diclofenac sodium 75 mg 75 mg PO BID #28 tabs 10/04/24 Rx tablet,delayed release New Prescriptions to Start Prescriptions: baclofen FranRuby A diclofenac sodium FranRuby A Allergies Allergy/AdvReac Type Severity Reaction Status Date / Time No Known Allergies Allergy Verified 10/12/23 15:59 Objective Narrative: Physical Exam: General: Alert and oriented x3, no acute distress, pleasant and cooperative Lungs: Respirations even and unlabored, symmetrical chest expansion Eyes: PERRL Musculoskeletal: Flexion and extension of right shoulder somewhat guarded secondary to pain, no point tenderness with palpation around the right thoracic paraspinous/latissimus muscles Neurological: Speech clear, no gross sensory deficit Additional findings Additional findings: MRI thoracic spine without contrast Findings: Vertebral heights are normal. Marrow signal pattern is unremarkable. Alignment is normal. Thoracic spine shows normal MRI appearance. Minimal scattered degenerative disks without canal stenosis or nerve root compression [facility] 08/16/2024 FINDINGS: Bones/joints: Multilevel degenerative disc disease noted involving all lumbar levels with moderate degenerative changes at L5-S1 and [id number] degenerative changes at L3-L4 and L4-L5 and mild degenerative changes at the remaining lumbar levels. Vertebral body heights are intact. Mild levo scoliosis. No acute fracture identified. Soft tissues: Unremarkable. IMPRESSION: Degenerative changes most pronounced at L5-S1. INGS: LEFT FOOT: Three views show no evidence of acute displaced fracture or dislocation of the visualized bony architecture. The joint spaces appear normal. A moderate-sized calcaneal spur is present. IMPRESSION: Moderate calcaneal spur without acute bony abnormality. Reviewed, Interpreted and Dictated by Zenia Alejo MD Transcribed by Divina Harding Authenticated and [facility] Assessment and Plan *Assessment and plan (1) Pain of right scapula: Status: Acute Category: Medical Code(s): M89.8X1 - Other specified disorders of bone, shoulder (2) Mid back pain: Status: Acute Category: Medical Code(s): M54.9 - Dorsalgia, unspecified Plan Patient has been experiencing significant pain in and around his right scapula with point tenderness from time to time. Patient did not have point tenderness during today's visit. Patient does have the worsening pain symptoms with more increased movement related to his right arm/shoulder. I did discuss with the patient that I would like to order an MRI without contrast of his right shoulder. I will also order the patient a compounded cream and send in a prescription of baclofen 10 mg 3 times daily as needed and diclofenac 75 mg twice daily as needed. Patient was counseled to take these medications at separate times and to start with the diclofenac. He was counseled to discontinue all other anti-inflammatories while taking the diclofenac and to take it with food to minimize GI upset. Patient was also counseled to discontinue all of his other muscle relaxers while he tries the baclofen. Patient will return to clinic in 2 weeks for reevaluation of symptoms and plan of care. Patient has been instructed to contact the clinic with any concerns before the next appointment. Dr. Ruffin has reviewed this note and agrees with this plan of care. This note was dictated using voice recognition software and make contain errors or omissions. All injections are used with Lidocaine, Bupivacaine and Depo Medrol. Occasionally urine drug screen is needed to verify patient's compliance with our office pain contract. This is ordered based off specific treatments related to chronic pain with the potential to abuse certain medications.
[2024-10-04 09:43] VITALS: BP 139/82; PULSE 81; RESP 18; O2SAT 98; BMI 30.1
== END 2024-10-04 23:59 | disposition home or self-care (01) ==
PROVIDERS: PCP Internal Medicine Adolescent Medicine; Visit Provider Nurse Practitioner Family
DX: M89.8X1 Other specified disorders of bone, shoulder (principal); M54.9 Dorsalgia, unspecified; Z73.89 Other problems related to life management difficulty
CPT/HCPCS: 99202; G0463

== ENCOUNTER 2024-10-24 18:05 | Emergency (ER) | payer BC, SELFPAY ==
[2024-10-24 18:11] VITALS: BP 148/92; PULSE 61; O2SAT 97
[2024-10-24 18:17] VITALS: BP 148/92; PULSE 58; RESP 18; O2SAT 99; BMI 30.5
--- NOTE | 2024-10-24 18:29 | ED_ITS ---
Discharge Plan Disposition Patient Disposition: Home, Self-Care Prescriptions Prescriptions: No Action sodium,potassium,mag sulfates [Suprep Bowel Prep Kit] 17.5-3.13-1.6 gram recon soln See Rx Instructions PO .COMPLEX Qty: 354 0RF Rx Instructions: DILUTE; drink full amount early evening before AND next morning at least 4-5 hr before procedure; follow w 960 mL water PO baclofen 10 mg tablet 10 mg PO TID Qty: 42 0RF diclofenac sodium 75 mg tablet,delayed release (DR/EC) 75 mg PO BID Qty: 28 0RF atorvastatin 40 mg tablet 40 mg PO DAILY bisoprolol fumarate 10 mg tablet 10 mg PO DAILY levothyroxine [Synthroid] 50 mcg tablet 50 mcg PO DAILY omeprazole 20 mg capsule,delayed release(DR/EC) 20 mg PO DAILY Zepbound 5 mg/0.5 mL pen injector 5 mg SQ WEEKLY Patient Comments: INJECT 5 MG (0.5 ML) SUBCUTANEOUSLY ONCE A WEEK methocarbamol 750 mg tablet 750 mg PO TID Qty: 12 0RF Referrals Follow up/Referrals: Nathen Caballero MD [Referring] - See instructions Marco A Castañeda MD [Primary Care Provider] - See instructions Activity Restrictions/Add. Instructions Additional Instructions/Restrictions: Call your family doctor to establish care for this visit to the emergency department and schedule follow-up within 48 hours to ensure improvement. If you have any worsening of your condition or any other concerning signs or symptoms, return to the emergency department or your primary care doctor for further evaluation. Call Dr. Caballero's office in order to set up urology appointment for further evaluation. 2 capfuls of polyethylene glycol a day for the first 3 days followed by 1 capful of MiraLAX thereafter until having 1-2 soft bowel movements daily. Clinical Impressions Clinical Impression: Constipation, Acute urinary retention Instructions Patient Instructions: DI for Urinary Tract Infection (UTI), DI for Urinary Tract Infection in Children Print Language Print Language: Irish Discharge ED Provider: Alex Cho General Adult HPI General Chief complaint: Urogenital-Male Stated complaint: Difficulty urinating Time Seen by Provider: 10/24/24 18:08 Mode of Arrival: Ambulatory Source of Information: Patient Description of Symptoms (Recalled from ER Triage Doc. by RN): PT FEELS HE IS HAVING TROUBLE URINATING. STATES IT IS HARD TO GET THE FLOW STARTED AND HE IS FEELING LIKE HE HAS TO PUSH TO START URINATING. STATES HIS URINE WAS DARK YESTERDAY History of Present Illness HPI narrative: Please note that above description of symptoms, in this electronic medical record under categorization of recalled from ER triage doctor by RN are reflective of an initial nursing assessment, however, is not reflective of my full history and physical exam that was personally taken and clarified. Consequentially, this preceding description of symptoms, which may include the patient's categorized chief complaint in the EMR, do not reflect my personal clinical impression, and the ultimate description of history of present illness and patient stated complaints should be deferred to this section of the note. Unless stated otherwise or congruent with this section of the note, additional signs, symptoms, or incongruence should be interpreted as inaccurate with my clinical impression. Related Data Home Medications ?Medication ?Instructions ?Recorded ?Confirmed atorvastatin 40 mg tablet 40 mg PO DAILY 05/25/24 10/04/24 bisoprolol fumarate 10 mg tablet 10 mg PO DAILY 05/25/24 10/04/24 levothyroxine 50 mcg tablet 50 mcg PO DAILY 05/25/24 10/04/24 (Synthroid) omeprazole 20 mg capsule,delayed 20 mg PO DAILY 05/25/24 10/04/24 release tirzepatide (weight loss) 5 mg/0.5 5 mg SQ WEEKLY 05/25/24 10/04/24 mL subcutaneous pen injector (Zepbound) Previous Rx's ?Medication ?Instructions ?Recorded methocarbamol 750 mg tablet 750 mg PO TID #12 tabs 05/25/24 sodium,potassium,mag sulfates 17.5 See Rx Instructions PO .COMPLEX 08/09/24 gram-3.13 gram-1.6 gram oral soln #354 mL (Suprep Bowel Prep Kit) baclofen 10 mg tablet 10 mg PO TID #42 tabs 10/04/24 diclofenac sodium 75 mg 75 mg PO BID #28 tabs 10/04/24 tablet,delayed release Allergies Allergy/AdvReac Type Severity Reaction Status Date / Time No Known Allergies Allergy Verified 10/12/23 15:59 [facility] Disclaimer: The information contained in this section may have been updated after the patient was seen, as this information can be updated by other users. 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 , AUTHORIZATION REPRESENTATIVE) Hyperlipidemia Hypertension Dysphagia Surgical History , ELLIE) History of throat surgery History of back surgery History of tonsillectomy History of cholecystectomy Family History Other No significant family history Social History (Updated 10/04/24 @ 09:45 by Dominique Orellana, WHIT) Smoking Status: Never smoker second hand exposure: No alcohol intake: never substance use type: denies use current occupational status: employed Travel in the last 8 weeks?: None household members: significant other housing: apartment current occupational exposures/hazards: No caffeine: Yes Have you lived/traveled outside US in past 30 days?: No Contact w/someone who lives/traveled outside US past 30 days?: No Exposure to someone with infectious disease in past 14 days?: No Do you have a fever (greater than 100.4 F or 38 C)?: No Have you tested positive for COVID-19?: No Exposed to someone with COVID-19 in past 14 days?: No Do you have a sore throat?: No Do you have a cough?: No Do you have any weakness?: No Do you have any diarrhea?: No Are you experiencing any unusual bleeding?: No Do you have any muscle aches/pain?: No Do you have any abdominal pain?: No Are you experiencing loss of taste or smell?: No Other 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 Have you received the Flu Vaccine for this season: Yes Have you received the Pneumonia Vaccine: Yes ROS Obtained: Yes All systems reviewed & no additional complaints except as documented Physical Exam General General appearance: alert and in no apparent distress Head Head exam: atraumatic and normocephalic Eye Eye exam: Present normal appearance, PERRL and EOMI Neck Neck exam: Present normal inspection, full ROM and trachea midline Respiratory Respiratory exam: Absent respiratory distress, wheezes, stridor, accessory muscle use or prolonged expiratory phase Cardiovascular Cardiovascular exam: Present other (Pulses equal symmetric in upper and lower extremities) Abdominal Exam Abdominal exam: Present soft; Absent distention, tenderness, guarding, rebound or pulsatile mass Extremities Exam Extremities exam: Absent edema Back Exam Back exam: Absent CVA tenderness (R) or CVA tenderness (L) Neurological Exam Neurological exam: Present alert, oriented X3 and CN II-XII intact; Absent motor sensory deficit Skin Skin exam: Present warm and dry; Absent diaphoresis or erythema Medical Decision Making Medical Records Medical records reviewed: Yes I reviewed the patient's medical records. Screening: Per USPSTF and CDC recommendations, given the prevalence of disease in our region, it is our hospital?s policy to screen for HIV and viral Hepatitis for all patients aged 18 and over and those with ongoing risk factors. Darren Inquiry Pt receiving controlled substance: No Darren was queried for this patient: No Vital Signs: 10/24/24 18:11 10/24/24 18:17 Pulse Rate 61 Pulse Rate [Right] 58 L Respiratory Rate 18 Blood Pressure 148/92 H Blood Pressure [Right Arm] 148/92 H Blood Pressure Mean [Right Arm] 110 02 Sat by Pulse Oximetry 97 99 Oxygen Delivery Method Room Air Lab Data Lab Results 10/24/24 18:30: Urine Color Yellow, Urine Appearance Clear, Urine pH 6.0, Ur Specific Risco <= 1.005, Urine Protein Negative, Urine Glucose (UA) Negative, Urine Ketones Negative, Urine Blood Negative, Urine Nitrate Negative, Urine Bilirubin Negative, Urine Urobilinogen 0.2, Ur Leukocyte Esterase Negative Orders (Tests/Meds): ED MEDICATIONS Discontinued Medications Generic Name Dose Route Start Last Admin Trade Name Freq PRN Reason Stop Dose Admin Polyethylene Glycol 17 gm 10/24/24 18:24 10/24/24 18:30 Polyethylene Glycol 3350 17 Gm Packet PO 10/24/24 18:25 17 gm ONCE ONE Administration ORDERS Category Date Time Status UA [Urinalysis and Microscopic] Stat Lab 10/24/24 18:30 Results Medical Decision Narrative: 59-year-old male presenting with urinary retention. He states that he started Zepbound GLP-1 agonist injections a few weeks prior to this and since that time he said trouble with constipation stating that he is passing a large 1 to 2 inch tereza instead of soft bowel movements. Since this time he has also had difficulty urinating, primarily in the morning when he wakes up he states that he has to try to strain in order to urinate fully. Has never had trouble with this in the past prior to the medications. No fevers, chills, nausea, vomiting, etc. Has never been told he did prostate enlargement either. History was obtained via conversation with patient. On arrival, patient hemodynamically stable, alert, oriented x4, appropriate, GCS 15, moving all extremities spontaneously, pupils equal and reactive to light. Full physical exam performed and significant for well-appearing male no acute distress. Abdomen soft, nontender, nondistended. No flank tenderness. No acute distress. He is actually urinating while I am walking into the room without issue and no evidence of straining. Differential includes external compression of bladder due to culture patient, BPH, medication induced, urinary tract infection, among others. Hematologic labs were considered, not deemed necessary. Urine is clear, patient urinating without issue, last able to urinate just before coming into the emergency department prior to this episode of urination, nonactionable physical exam. Urinalysis was ordered. Postvoid residual 200 mL. Patient also given first dose of MiraLAX here. On independent interpretation of urinalysis, no acute concerns for urinary tract infection. Patient still able to urinate, I feel is appropriate for home-going with outpatient urology follow-up. Close return precautions were discussed. He was also recommended that he start bowel regimen with 2 caps of MiraLAX daily for 3 days followed by 1 capful daily thereafter. I feel like this is likely related to external compression of the bladder by colon In the setting of constipation. Because patient at baseline without signs or symptoms of clinical decompensation, deemed appropriate for discharge. Results were relayed to patient who voiced understanding and were agreeable to outpatient management and follow up. I discussed my clinical impression with patient and answered all questions. At this time, the evidence for any other entities in the differential is insufficient to warrant any further testing or ED observation. This was explained as well. Advisory was given that persistent or worsening symptoms require further evaluation. I confirmed the understanding of this discussion. Advertising Writer disclaimer Much of this encounter note is an electronic physical education professor spoken language to printed text. Electronic physical education professor of the spoken language may permit errors. Although I have reviewed the note, some errors may still exist. Critical Care Critical Care Time Critical Care Time: No
[2024-10-24] MEDS: POLYETHYLENE GLYCOL 3350 17 GM PACKET PO (18:30)
[2024-10-24 18:32] LABS: Microscopic, Urine URINE MICROSCOPIC (MICROSCOPIC)
--- NOTE | 2024-10-24 18:35 | PC.NURSE ---
POST VOID RESIDUAL 200ML
[2024-10-24 18:40] LABS: Appearance,Urine CLEAR (Clear); Bilirubin,Urine Negative (Negative); Blood, Urine Negative (Negative); Color,Urine YELLOW (Yellow); Glucose,Urine (UA) Negative (Negative); Ketones,Urine Negative (Negative); Leukocyte Esterase,Urine Negative (Negative); Nitrate,Urine Negative (Negative); Protein,Urine Negative (Negative); Specific Gravity, Urine <= 1.005 (1.005-1.030); Urobilinogen,Urine 0.2 EU/dl (0.2)
[2024-10-24 19:13] LABS: Bacteria,Urine 1+ /lpf; Squamous Epithelial Cell,Urine Occasional #/hpf (0-5)
[2024-10-24 19:23] VITALS: BP 121/73; PULSE 62; RESP 18; TEMP 36.6
== END 2024-10-24 19:25 | disposition home or self-care (01) ==
PROVIDERS: Emergency Provider Emergency Medicine; PCP Internal Medicine Adolescent Medicine
DX: R33.8 Other retention of urine (principal); K59.00 Constipation, unspecified
CPT/HCPCS: 81001; 99283

== ENCOUNTER 2024-10-27 13:08 | Outpatient (POV) | payer BC, SELFPAY ==
[2024-10-27 13:42] VITALS: BP 132/70; PULSE 57; RESP 14; O2SAT 98; BMI 29.7
--- NOTE | 2024-10-27 13:42 | A.OFFVIS_ITS ---
[facility] Disclaimer: The information contained in this section may have been updated after the patient was seen, as this information can be updated by other users. 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 Today he rates his pain a 1 out of 10 however states that with any type of activity or upper arm use it will go to a 10 out of 10. Patient denies any new falls or injuries. He does state that it is still all around his right scapula around his mid back area. Patient states the pain does interfere with his ability perform activities of daily living such as cooking and cleaning. Patient states when the pain is at its worst it is just unbearable. At our last visit we did send in prescriptions of the compounded cream, diclofenac 75 mg twice a day and baclofen 10 mg 3 times a day. He denies any side effects however states that he did not really notice much improvement with any of these options. Patient has been tried on meloxicam in the past along with ibuprofen, naproxen, lidocaine patches, Flexeril, methocarbamol. His Darren has been reviewed and is appropriate. Review of Systems: General: No recent weight changes, no fever, no sleep disturbances Respiratory: No cough, no shortness of air, no recurring pulmonary infections Cardiovascular/peripheral vascular: No chest pain, no palpitations, no edema, no shortness of breath Gastrointestinal: No new onset incontinence, normal bowel movements reported Genitourinary: No new onset incontinence Musculoskeletal: Right scapular pain/mid back pain Psychiatric: [Normal mood/affect] Neurological: [Denies weakness in extremities], [denies balance issues] Pain at rest (0-10 scale): 10 Objective Objective:: Physical Exam: General: Alert and oriented x3, no acute distress, pleasant and cooperative Lungs: Respirations even and unlabored, symmetrical chest expansion Eyes: PERRL Musculoskeletal: Flexion and extension of thoracic [spine] somewhat guarded secondary to pain, point tenderness along right thoracic paraspinous/latissimus muscles Neurological: Speech clear, no gross sensory deficit Has patient had previous pain injection?: No Conservative treatment options previously tried: Home exercise plan Length of treatment: Longer than 12 weeks and Physical Therapy Length of treatment: Completed with no additional changes Meds Home Medications and Allergies Home Medications ?Medication ?Instructions ?Recorded ?Confirmed ?Type atorvastatin 40 mg tablet 40 mg PO DAILY 05/25/24 10/27/24 History bisoprolol fumarate 10 mg tablet 10 mg PO DAILY 05/25/24 10/27/24 History levothyroxine 50 mcg tablet 50 mcg PO DAILY 05/25/24 10/27/24 History (Synthroid) methocarbamol 750 mg tablet 750 mg PO TID #12 tabs 05/25/24 10/27/24 Rx omeprazole 20 mg capsule,delayed 20 mg PO DAILY 05/25/24 10/27/24 History release tirzepatide (weight loss) 5 mg/0.5 5 mg SQ WEEKLY 05/25/24 10/27/24 History mL subcutaneous pen injector (Zepbound) sodium,potassium,mag sulfates 17.5 See Rx Instructions PO .COMPLEX 08/09/24 10/27/24 Rx gram-3.13 gram-1.6 gram oral soln #354 mL (Suprep Bowel Prep Kit) baclofen 10 mg tablet 10 mg PO TID #42 tabs 10/04/24 10/27/24 Rx diclofenac sodium 75 mg 75 mg PO BID #28 tabs 10/04/24 10/27/24 Rx tablet,delayed release New Prescriptions to Start Prescriptions: Allergies Allergy/AdvReac Type Severity Reaction Status Date / Time No Known Allergies Allergy Verified 10/12/23 15:59 Assessment and Plan *Assessment and plan (1) Mid back pain: Status: Acute Category: Medical Code(s): M54.9 - Dorsalgia, unspecified (2) Pain of right scapula: Status: Acute Category: Medical Code(s): M89.8X1 - Other specified disorders of bone, shoulder (3) Myofascial pain on right side: Status: Acute Category: Medical Code(s): M79.18 - Myalgia, other site Plan Patient continues to experience right scapular/thoracic paraspinous muscle pain. I did discuss with the patient that I do believe he would benefit from trigger point injections at this location. Patient did have limited range of motion with point tenderness with palpation during today's exam. Patient has had this pain for longer than 5 months with no additional changes. He has tried and failed conservative therapy including oral medications, heat and ice, topicals, at home stretching exercise for longer than 12 weeks that was physician guided as well as completing physical therapy with no additional improvement. Patient will be scheduled for trigger point injections of his right scapular/thoracic latissimus/paraspinous muscles. These will be done without fluoroscopic or ultrasound guidance. I will also send in 2 additional prescriptions with a 2- week dose of Celebrex 200 mg daily and Skelaxin 800 mg 3 times daily as needed. Patient was counseled to discontinue all other NSAIDs and muscle relaxers while trying these medications. Patient agrees with this plan of care. Patient has been instructed to contact the clinic with any concerns before the next appointment. Dr. Ruffin has reviewed this note and agrees with this plan of c are. This note was dictated using voice recognition software and make contain errors or omissions. All injections are used with Lidocaine, Bupivacaine and dexamethasone. Occasionally urine drug screen is needed to verify patient's compliance with our office pain contract. This is ordered based off specific treatments related to chronic pain with the potential to abuse certain medications.
== END 2024-10-27 23:59 | disposition home or self-care (01) ==
PROVIDERS: PCP Internal Medicine Adolescent Medicine; Visit Provider Nurse Practitioner Family
DX: M54.9 Dorsalgia, unspecified (principal); M89.8X1 Other specified disorders of bone, shoulder; M79.18 Myalgia, other site; Z73.89 Other problems related to life management difficulty
CPT/HCPCS: 99212; G0463

== ENCOUNTER 2024-11-03 15:40 | Day surgery (SDC) | payer BC, SELFPAY ==
[2024-11-03 15:52] VITALS: BP 113/84; PULSE 71; RESP 16; O2SAT 98; BMI 29.2
[2024-11-03 16:17] VITALS: BP 108/79; PULSE 68; RESP 16; O2SAT 98
--- NOTE | 2024-11-03 16:18 | EXP.PAIN.PRO ---
Procedure Date: 11/03/24 Time: 16:18 Anesthesiologist:: Ruby Peters APRN Complications:: None Pre-procedure Diagnosis:: Myofascial pain of right scapular/thoracic latissimus/paraspinous muscle Post-procedure Diagnosis:: Same Indications for Procedure:: Patient is a pleasant 59-year-old male who presents today for trigger point injections of his right thoracic latissimus/paraspinous muscles and right rhomboids. He does state from our last visit that the medications we sent in of Celebrex 200 mg daily and Skelaxin 800 mg 3 times a day really did help significantly. He states that the pain has improved significantly. Patient does still say he has some tenderness and on around the right scapular area going into his mid back. He denies any other changes. His Darren has been reviewed and is appropriate. Physical Exam: General: Alert and oriented x3, no acute distress, pleasant and cooperative Lungs: Respirations even and unlabored, symmetrical chest expansion Eyes: PERRL Musculoskeletal: Flexion and extension of thoracic [spine] somewhat guarded secondary to pain, [antalgic gait noted] Neurological: Speech clear, no gross sensory deficit Procedure Details:: Patient did have noninvasive blood pressure cuff applied and pulse oximeter. Patient was placed in a sitting position and palpated along his right rhomboid and right thoracic paraspinous muscles. Areas of point tenderness were marked and using a sterile 25-gauge needle approximately 10 mL of 0.25% bupivacaine, 1% lidocaine and 10 mg dexamethasone were incrementally injected into his right rhomboid and his right thoracic paraspinous/latissimus muscles. Needle was removed and sterile bandages applied. Patient tolerated the procedure well with no complications and was discharged neurologically intact. Plan and Disposition:: Patient tolerated the procedure well with no complications and was discharged neurologically intact. I will make sure he does have refills on the Celebrex and the Skelaxin. Patient will return to clinic in 2 weeks for reevaluation of symptoms and plan of care. Patient has been instructed to contact the clinic with any concerns before the next appointment. Dr. Ruffin has reviewed this note and agrees with this plan of care. This note was dictated using voice recognition software and make contain errors or omissions. All injections are used with Lidocaine, Bupivacaine and dexamethasone. Occasionally urine drug screen is needed to verify patient's compliance with our office pain contract. This is ordered based off specific treatments related to chronic pain with the potential to abuse certain medications.
[2024-11-03 16:21] VITALS: BP 108/79; PULSE 68; RESP 16; O2SAT 98
[2024-11-03 16:28] VITALS: BP 105/69; PULSE 62; RESP 16; O2SAT 96
== END 2024-11-03 16:28 | disposition home or self-care (01) ==
PROVIDERS: PCP Internal Medicine Adolescent Medicine; Visit Provider Nurse Practitioner Family
DX: M79.18 Myalgia, other site (principal)
CPT/HCPCS: 20553; J0665; J1100; J2003

== ENCOUNTER 2024-11-27 15:17 | Outpatient (POV) | payer BC, SELFPAY ==
--- OUTSIDE RECORDS SUMMARY | 2024-10-04 13:00 | XMS_ITS | Encounter Summary ---
Author Organization [facility] Address [address] [place] [id number] Phone [email or web address] Care Team Providers Care Astronomy Professor Name Role Phone Provider, No Primary Care Provider Unavailabl e Reason for Visit * Reason Comments Medication Issue States PCP suggests him take Cymbalta. Encounter Details Date Type Department Care Team ([facility] Contact Info) Description 10/04/2024 1:00 PM EDT Office Visit [facility] [address] [place] [address] Joelle Reyez, COUNTER SALES PERSON [address] [place] [address] Other depression (Primary Dx) Social History Tobacco Use Types Packs/Day Years Used Date Smoking Tobacco: Never Smokeless Tobacco: Never Alcohol Use Standard Drinks/Week Comments No 0 (1 standard drink = 0.6 oz pur e alcohol) Intimate Partner Violence Answer Date R ecorded Insults You Not on file 10/02/2020 Threatens You Not on file 10/02/2020 Screams at You Not on file 10/02/2020 Physically Hurt Not on file 10/02/2020 Intimate Partner Violence Score Not on file 10/02/2020 Alcohol Use Answer Date Recorded Alcohol Use Status No 10/02/2020 Depression Answer Date Recorded PHQ Total Score 11 10/04/2024 Stress Answer Date Recorded Stress in your Life Not on file 04/24/2024 Dealing with Stress 3 04/24/2024 Sex and Gender Information Value Date Recorded Sex Assigned at Not on file Legal Sex Male 11:57 AM CDT Gender Identity Not on file Sexual Orientation Not on file documented as of this encounter Last Filed Vital Signs Vital Sign Reading Time Taken Comments Blood Pressure 120/86 10/04/2024 1:03 PM EDT Pulse 80 10/04/2024 1:03 PM EDT Temperature 36.4 C (97.5 F) 10/04/2024 1:03 PM EDT Respiratory Rate - - Oxygen Saturation - - Inhaled Oxygen Concentration - - Weight 93.8 kg (206 lb 12.8 oz) 10/04/2024 1:03 PM EDT Height 175.3 cm (5' 9 ) 10/04/2024 1:03 PM EDT Body Mass Index 30.54 10/04/2024 1:03 PM EDT documented in this encounter Patient Instructions * Patient Instructions* Joelle Reyez NP - 10/04/2024 1:00 PM EDT For week one: Alternate Cymbalta and Wellbutrin each day. Do not take both together. For week two: Cymbalta days 1-2, then Wellbutrin day 3, Cymbalta days 4-5, Wellbutrin day 6 and then take Cymbalta daily For week three and on: Cymbalta daily Follow up in 3 weeks. Will likely need to increase Cymbalta dose at follow up. documented in this encounter Progress Notes * Joelle Reyez NP - 10/04/2024 1:00 PM EDT Allergies Chart Review Health Maintenance History Immunizations Plan Screenings Search Synopsis Vital Signs Assessment & Plan Other depression See patient instructions. Orders: DULoxetine (CYMBALTA) [address] capsule; Take 1 capsule (20 mg total) by mouth 1 (one) time each day. Do not crush or chew. Follow-up: Return in about 3 weeks (around 10/25/2024) for Recheck. No follow up orders placed. Blade Wood is a 59 y.o. Reason(s) for visit on 10/04/2024: Medication Issue Comments (if any): States PCP suggests him take Cymbalta. HPI: Patient presents after following up with PCP yesterday. States PCP suggested to him that he should be switched to Cymbalta. Reports that since last visit with us, has been taking Wellbutrin as we discussed. Does not feel Wellbutrin is helping, states his depression is worse. I cry every day. Patient has been dealing with chronic shoulder pain that is work-related in which he states all tests have resulted as normal, so this has been a stressor for patient. Denies suicidal or homicidal ideations. Also saw counselor on-site, and has scheduled follow ups with counselor. Review of Systems Musculoskeletal: Positive for arthralgias (has shoulder pain, managed per pain management (referredby PCP)). Psychiatric/Behavioral: Positive for behavioral problems (tearful, depressed). Negative for self-injury and suicidal ideas. The patient is nervous/anxious. The following portions of the patient's chart were reviewed by me during this encounter and updatedas appropriate: Tobacco Allergies Meds Problems Med Hx Surg Hx Fam Hx Objective Visit Vitals BP 120/86 Pulse 80 Temp 97.5 ??F Ht 5' 9 Wt 206 lb 12.8 oz BMI 30.54 kg/m?? Smoking Status Never BSA 2.14 m?? Physical Exam Constitutional: Appearance: He is obese. Cardiovascular: Heart sounds: Normal heart sounds. Pulmonary: Effort: Pulmonary effort is normal. Breath sounds: Normal breath sounds. Skin: General: Skin is warm and dry. Neurological: Mental Status: He is alert and oriented to person, place, and time. Psychiatric: Mood and Affect: Mood is depressed. Affect is tearful. Thought Content: Thought content normal. Plan of care formulated using shared decision making and reviewed with patient at the conclusion oftoday's visit. Education was provided in regards to diagnosis, management and any prescribed or recommended OTC medications, including instruction on safe use and discussion of potential s/e of prescribed medications. Patient verbalizes understanding of and agreement with management plan. Joelle Reyez NP 10/04/2024 Note to patient: The Century Cures Act makes medical notes like these available to patients inthe interest of transparency. However, be advised this is a medical document. It is intended as peer to peer communication. It is written in medical language and may contain abbreviations or verbiagethat are unfamiliar. It may appear blunt or direct. Medical documents are intended to carry relevant information, facts as evident, and the clinical opinion of the practitioner. Seen and examined with RADHA Salomon EXTRACTOR OPERATOR HELPER student. Walsh portions of the exam and/or history were performed by me. documented in this encounter Plan of Treatment Upcoming Encounters Date Type Department Care Team (Late st Contact Info) Description 12/01/2024 12:00 PM EDT Occ Office Visit [facility] [employer] [address] [place] [address] Ingrid Han PA [address] [place] [address] documented as of this encounter Visit Diagnoses Diagnosis Other depression- Primary documented in this encounter Care Teams Astronomy Professor Relationship Specialty Start Date End Date Provider, [place] [address] PCP - General Lead Esthetician 07/26/20 documented as of this encounter
--- OUTSIDE RECORDS SUMMARY | 2024-10-23 08:00 | XMS_ITS | Encounter Summary ---
Author Organization [facility] Address [address] [place] [address] Care Team Providers Care Career Development Coordinator/Teacher Name Role Phone Marco A Castañeda MD Primary Care Provider [phone] Reason for Visit * Reason Comments Thoracic back pain Consult * Consultation (Routine) - Closed Specialty Diagnoses / Procedures Referred By Contac t Referred To Contact Rheumatology Diagnoses Thoracic back pain, unspecified back pain laterality, unspecified chronicity Moustapha Peters MD [facility] [place] [address] Phone: tel: Referral ID Status Reason Start Date Expiration Date V isits Requested Visits Authorized [id number] Closed Specialty Services Required 10/05/2024 04/06/2026 1 1 Encounter Details Date Type Department Care Team (Late st Contact Info) Description 10/23/2024 8:00 AM EDT Consult [facility] [address] [place] [address] Pranav Chauhan, PLASTIC STRAIGHTENING ROLL OPERATOR [address] [place] [address] Gastroesophageal reflux disease without esophagitis (Primary Dx); Thoracic back pain, unspecified back pain laterality, unspecified chronicity; Gout, unspecified cause, unspecified chronicity, unspecified site Social History Tobacco Use Types Packs/Day Years Used Date Smoking Tobacco: Never Smokeless Tobacco: Never Tobacco Cessation:Counseling Given: Not Answered Alcohol Use Standard Drinks/Week Comments Not Currently 0 (1 standard drink = 0.6 oz pur e alcohol) PHQ-2 Answer Date Recorded Patient Health Questionnaire-2 Score 2 10/23/2024 PHQ-9 Answer Date Recorded Patient Health Questionnaire-9 Score 8 10/23/2024 Sex and Gender Information Value Date Recorded Sex Assigned at Not on file Legal Sex Male 6:37 PM EDT Gender Identity Not on file Sexual Orientation Not on file documented as of this encounter Last Filed Vital Signs Vital Sign Reading Time Taken Comments Blood Pressure 119/79 10/23/2024 7:23 AM EDT Pulse 58 10/23/2024 7:23 AM EDT Temperature 36.7 C (98 F) 10/23/2024 7:23 AM EDT Respiratory Rate - - Oxygen Saturation 97% 10/23/2024 7:23 AM EDT Inhaled Oxygen Concentration - - Weight 92.9 kg (204 lb 12.9 oz) 10/23/2024 7:23 AM EDT Height 175.3 cm (5' 9 ) 10/23/2024 7:23 AM EDT Body Mass Index 30.24 10/23/2024 7:23 AM EDT documented in this encounter Functional Status * Over the past 2 weeks, how often have you been bothered by any of the following problems? Question Answer Date of Assessment Author Little interest or pleasure in doing things Several days 10/23/2024 7:30 AM EDT Sandip Stubbs Feeling down, depressed, or hopeless Several days 10/23/2024 7:30 AM EDT Sandip Stubbs Patient Health Questionnaire-2 Score 2 10/23/2024 7:30 AM EDT Cici Stubbs * Question Answer Date of Assessment Author Trouble falling or staying asleep, or sleeping too much More than half the days 10/23/2024 7:30 AM EDT Siobhan Stubbs Feeling tired or having little energy Nearly every day 10/23/2024 7:30 AM EDT Sandip Stubbs Poor appetite or overeating Several days 10/23/2024 7:30 AM EDT Sandip Stubbs Feeling bad about yourself - or that you are a failure or have let yourself or your family down Not at all 10/23/2024 7:30 AM EDT Evelyne, Kaitli n R Trouble concentrating on things, such as reading the newspaper or watching television Not at all 10/23/2024 7:30 AM Sandip Hamm Moving or speaking so slowly that other people could have noticed? Or the opposite - being so fidgety or restless that you have been moving around a lot more than usual. Not at all 10/23/2024 7:30 AM Sandip Hamm Thoughts that you would be better off or hurting yourself in some way Not at all 10/23/2024 7:30 AM Sandip Hamm Patient Health Questionnaire-9 Score 8 10/23/2024 7:30 AM Cici Hamm R * If you checked off any problems on this questionnaire so far, Question Answer Date of Assessment Author How difficult have these problems made it for you to do your work, take care of things at home, or get along with other people? Not difficult at all 10/23/2024 7:30 AM Malcom Hamm R documented as of this encounter Miscellaneous Notes * Progress Notes - Pranav Chauhan APRN - 10/23/2024 8:00 AM EDT Images from the original note were not included. Pranav Chauhan APRN Rheumatology Subjective HPI Nilesh Wood is a 59 y.o. male with PMH significant for MDD, sleep disturbance, R scapula back pain.Appears he injured himself at work and this didn't improve and was referred to [facility]. There he had neg inflam markers, rf/ccp, uric acid, ipids, vit d, ck, tsh, neg MR, neg xray with MRI lumbar spine DJD, neuroforaminal narrowing L5-S1. Pt was referred by Moustapha Peters. Shakeel is having a lot of pain in his back in his shoulder blade and moving downward paraspinally and x6 months. Worse with activity throughout the day. He hurt it at work but was denied WC and he isdoing FMLA currently. Denies am stiffness- worse with activity, rest makes this better. Denies skinrashes. Has tried and failed meloxicam, lidocaine patches, gbp, ibuprofen, diclofenac, topical compounds that are not helping; PHYSICAL THERAPY is not helpful. Is f/u with pain management in 4 days. Vitals: 10/23/24 0723 BP: 119/79 Pulse: 58 Temp: 36.7 ??C (98 ??F) SpO2: 97% Allergies[1] Current Medications[2] Initial Rheum ROS Rheumatological ROS positive for dry mouth, gerd/dysphagia, Family History: FH of autoimmune diseases? Mom- arthritis- uncertain what type Social History: Exposure to HCV, HBV, HIV or TB. neg hx IV drug use. neg hx of tobacco use. neg hx of alcohol use or abuse. neg Occupational hx:works at [employer] Review of Systems Constitutional: Negative for chills, fatigue and fever. Respiratory: Negative for cough and shortness of breath. Genitourinary: Negative for hematuria. Musculoskeletal: Positive for back pain. Neurological: Negative for seizures. Physical Exam Vitals reviewed. Constitutional: General: He is not in acute distress. Appearance: Normal appearance. He is normal weight. He is not ill-appearing, toxic-appearing or diaphoretic. HENT: Head: Normocephalic and atraumatic. Eyes: Extraocular Movements: Extraocular movements intact. Conjunctiva/sclera: Conjunctivae normal. Cardiovascular: Rate and Rhythm: Normal rate and regular rhythm. Pulses: Normal pulses. Heart sounds: Normal heart sounds. Pulmonary: Effort: Pulmonary effort is normal. No respiratory distress. Breath sounds: Normal breath sounds. Musculoskeletal: General: No swelling, tenderness or deformity. Normal range of motion. Cervical back: Normal range of motion. Right lower leg: No edema. Left lower leg: No edema. Comments: +schobers, fibular extenstion; owtd neg Neg paraspinal tenderness Tenderness noted R shoulder blade with pinpoint tenderness Skin: General: Skin is warm and dry. Capillary Refill: Capillary refill takes less than 2 seconds. Coloration: Skin is not jaundiced or pale. Findings: No lesion or rash. Neurological: General: No focal deficit present. Mental Status: He is alert and oriented to person, place, and time. Gait: Gait normal. Psychiatric: Mood and Affect: Mood normal. Behavior: Behavior normal. Thought Content: Thought content normal. Judgment: Judgment normal. The following portions of the chart were reviewed this encounter and updated as appropriate: Patient global assessment: 6/10 Swollen Joint Count: Swollen: 0 Tender Joint Count: Tender: 0 = (x2) CDAI:6 Rapid 3 score: 12.3/30 CDAI Interpretation: 0-2.8 Remission 2.9 -10 Low disease activity 10.1-22.0 Moderate Activity 22.1-76.0 High Activity Assessment and Plan of Care: Plan of care developed with Nilesh Wood on (10/23/24): 1. Thoracic back pain, unspecified back pain laterality, unspecified chronicity Thoracic back pain starting with a back injury now 5 months ago in his 59-year-old male, review of systems positive for xerostomia that has been fairly recent, GERD with dysphagia but otherwise unremarkable. His physical exam is positive for Marisa's about 4-5 cm, fibular extension but negative occiput to wall distance. He has no lower back or pelvic pain, is primarily present in the thoracic spine but without paraspinal tenderness on exam. Differentials for this could be a musculoskeletal related issue versus, potentially, spinal though some element of imaging would likely be positive, which is negative in his case. I am uncertain as to what this actually reflects but it appears that he has had a fairly significant workup from Orthopedics and was sent here likely to rule out some sort of autoimmune source. I will send off full autoimmune workup though I suspect this is low yield. I did ask him to follow up with pain management which she is due to see later on this week and to consider chiropractic should they not offer any type of manual manipulation. He has tried and failed 2 months of physical therapy as well as 7 different agents for his pain. I will have him follow up with me PRN pending his workup. - Ambulatory referral to Rheumatology - XR Sacroiliac Joints 3+ Views; Future - Antinuclear Antibody (MIGUEL), HEp-2, IgG; Future - Double-Stranded DNA (dsDNA) Antibody, IgG by IFA; Future - C3 Complement; Future - C4 Complement; Future - ENAI; Future - ENAII; Future - Protein, Random, Urine with Creatinine; Future - Ac (JEANETTE) Antibody, IgG; Future - Thyroid Peroxidase Antibody; Future - C-Reactive Protein, Plasma; Future - Sedimentation Rate, Automated; Future - Cyclic Citrul Peptide Antibody IgG; Future - Rheumatoid Factor, Plasma; Future 2. GERD On PPI with dysphagia 3. Gout On allopurinol We will get uric acid. RTC prn Patient is agreeable to the above treatment plan and had no further questions. Thanks for the opportunity to participate in the care of this patient! If there are any questions or concerns, please reach out to me personally. Thanks! Pranav Chauhan APRN Parts of this note were dictated using [employer] voice recognition software. As a result, errors may occur. When identified, these grocery stocker errors are corrected, but while every attempt is made to prevent/correct these, errors may still exist. Time Spent: I personally spent a total of minutes on this encounter. This time includes face to face with patient, counseling and discussion and/or coordination of care. minutes on the encounter. Thepatient was counseled about diagnostic results, instruction for management, risk factors reduction, prognosis, compliance with visits and treatment, risks and benefits of treatments options. Prior notes (by external physicians) and results were reviewed by me with independent interpretation of labsand imaging. My note will be sent to PCP and other consulting physicians. [1] No Known Allergies [2] Current Outpatient Medications Medication Sig Dispense Refill allopurinol (Zyloprim) 100 MG tablet atorvastatin (Lipitor) 40 MG tablet 1 tablet (40 mg). bisoprolol (Zebeta) 10 MG tablet 1 tablet. DULoxetine (Cymbalta) [address] capsule Take 1 capsule by mouth Daily. ibuprofen 600 MG tablet Take 1 tablet by mouth every 8 hours as needed for moderate pain. levothyroxine (Synthroid, Levoxyl) 50 MCG tablet Take 1 tablet (50 mcg) by mouth. omeprazole (PriLOSEC) [address] capsule Take 1 capsule (20 mg) by mouth. UNABLE TO FIND Ketamine/Gabapentin/Ibuprofen Cream 1-2 grams 3 or 4 times a day lisinopril 10 MG tablet Take 1 tablet (10 mg) by mouth Daily. (Patient not taking: Reported on 10/23/2024) traZODone (Desyrel) 50 MG tablet 1 tablet (50 mg). (Patient not taking: Reported on 10/23/2024) No current facility-administered medications for this visit. documented in this encounter Plan of Treatment Not on file documented as of this encounter Results * XR Sacroiliac Joints 3+ Views (10/23/2024 9:15 AM EDT) Anatomical Region Laterality Modality Body, Spine, Pelvis Digital Radi ography Impressions 10/23/2024 9:52 AM EDT 1. Severe degenerative disc changes at L5-S1. 2. Normal evaluation of the sacroiliac joints. CRITICAL RESULT: No. COMMUNICATION: Per this written report. Drafted by Nilesh Garrido MD on 10/23/2024 9:50 AM Final report signed by Nilesh Garrido MD on 10/23/2024 9:52 AM Narrative 10/23/2024 9:52 AM EDT CLINICAL INDICATION: evaluation for inflammatory changes. TECHNIQUE: XR SACROILIAC JOINTS 3+ VIEWS COMPARISON: None. FINDINGS: 2 views of the sacroiliac joints show joint space and alignment. No erosive changes or inflammatory bone formation. No fracture or bone destruction. Severe degenerative disc changes at L5-S1. Procedure Note Nilesh Garrido MD - 10/23/2024 CLINICAL INDICATION: evaluation for inflammatory changes. TECHNIQUE: XR SACROILIAC JOINTS 3+ VIEWS COMPARISON: None. FINDINGS: 2 views of the sacroiliac joints show joint space and alignment. Noerosive changes or inflammatory bone formation. No fracture or bonedestruction. Severe degenerative disc changes at L5-S1. IMPRESSION: 1.Severe degenerative disc changes at L5-S1. 2.Normal evaluation of the sacroiliac joints. CRITICAL RESULT: No. COMMUNICATION: Per this written report. Drafted by Nilesh Garrido MD on 10/23/2024 9:50 AM Final report signed by Nilehs Garrido MD on 10/23/2024 9:52 AM Pranav Chauhna APRN IMG XR PROCEDURES Final Result * Uric acid (10/23/2024 8:25 AM EDT) Uric Acid, Plasma 5.0 3.7 - 8.0 mg/dL 10/23/2024 10:01 AM EDT [facility] Blood Venous blood specimen / Unknown Venipuncture / Unknown 10/23/2024 8:25 AM EDT 10/23/2024 8:25 AM EDT Pranav Chauhan APRN LAB BLOOD ORDERABLES Final Res ult [facility] [address] [place] [address] * Rheumatoid Factor, Plasma (10/23/2024 8:25 AM EDT) Rheumatoid Factor, Plasma <10 <14 IU/mL 10/23/2024 10:01 AM EDT [facility] Blood Venous blood specimen / Unknown Venipuncture / Unknown 10/23/2024 8:25 AM EDT 10/23/2024 8:25 AM EDT Pranav Hughes Gissel PLASTIC STRAIGHTENING ROLL OPERATOR LAB BLOOD ORDERABLES Final Res ult Performing Organization Address [facility] [place] [address] * Cyclic Citrul Peptide Antibody IgG (10/23/2024 8:25 AM EDT) Cyclic Citrul Peptide Antibody IgG <5.0 <=5.0 U/mL 10/23/2024 2:45 PM EDT [facility] Blood Venous blood specimen / Unknown Venipuncture / Unknown 10/23/2024 8:25 AM EDT 10/23/2024 8:25 AM EDT Pranav Farahesperanza PLASTIC STRAIGHTENING ROLL OPERATOR LAB BLOOD [place] [address] * (ABNORMAL) Sedimentation Rate, Automated (10/23/2024 8:25 AM EDT) Sedimentation Rate 20(H) <20 mm/hr 2024 10:06 AM EDT [facility] Blood Venous blood specimen / Unknown Venipuncture / Unknown 10/23/2024 8:25 AM EDT 10/23/2024 8:25 AM EDT Pranav Chuahan APRN LAB BLOOD ORDERABLES Final Res ult Performing Organization Address [facility] Co de Phone Number [facility] [address] [place] [address] * C-Reactive Protein, Plasma (10/23/2024 8:25 AM EDT) CRP, Plasma <3.0 <=8.0 mg/L 10/23/2024 10:01 AM EDT [facility] Blood Venous blood specimen / Unknown Venipuncture / Unknown 10/23/2024 8:25 AM EDT 10/23/2024 8:25 AM EDT Narrative [facility] - 10/23/2024 10:01 AM EDT This CRP test is appropriate for assessment of infection, systemic inflammation and/or tissue injury. To assess cardiovascular disease risk order high sensitivity CRP (CRPH). Pranav Chauhan APRN LAB BLOOD ORDERABLES Final Res ult Performing Organization Address [facility] [place] [address] * (ABNORMAL) Thyroid Peroxidase Antibody (10/23/2024 8:25 AM EDT) Thyroid Peroxidase Antibody 316(H) <=8 IU/mL 10/23/2024 10:30 AM EDT [facility] Blood Venous blood specimen / Unknown Venipuncture / Unknown 10/23/2024 8:25 AM EDT 10/23/2024 8:25 AM EDT Pranav Chauhan PLASTIC STRAIGHTENING ROLL OPERATOR LAB BLOOD ORDERABLES Final Res ult Performing Organization Address [facility] [place] [address] * Ac (JEANETTE) Antibody, IgG (10/23/2024 8:25 AM EDT) Ac (JEANETTE) Antibody, IgG 7 0 - 40 AU/mL 10/25/2024 4:14 PM EDT [facility] [employer] ([facility]) Serum 10/23/2024 8:25 AM EDT 10/23/2024 8:25 AM EDT [facility]) - 10/25/2024 4:14 PM EDT INTERPRETIVE INFORMATION: Ac (JEANETTE) Antibody, IgG 29 AU/mL or Less ............. Negative 30 - 40 AU/mL ................ Equivocal 41 AU/mL or Greater .......... Positive Ac antibody is highly specific (greater than 90 percent) for systemic lupus erythematosus (SLE) but only occurs in 30-35 percent of SLE cases. The presence of antibodies to Ac has variable associations with SLE clinical manifestations. Performed By: [email or web address] [address] [place] [id number] Media Liaison Officer: Bryan Law MD, PhD CLIA Number: [id number] Pranav Chauhan APRN LAB REF LAB BLOOD AND FLUID OR D Final Result [facility]) [address] [place] [id number] * ENAII (10/23/2024 8:25 AM EDT) SSA-52 (RO52) (JEANETTE) Antibody, IgG 2 0 - 40 AU/mL 10/25/2024 4:14 PM EDT [facility] [employer]) SSA-60 (RO60) (JEANETTE) Antibody, IgG 1 0 - 40 AU/mL 10/25/2024 4:14 PM EDT [facility] ([employer]) SSB (LA) (JEANETTE) Antibody, IgG 11 0 - 40 AU/mL 10/25/2024 4:14 PM EDT [facility]) Blood Venous blood specimen / Unknown Venipuncture / Unknown 10/23/2024 8:25 AM EDT 10/23/2024 8:25 AM EDT Dougie [facility] [employer]) - 10/25/2024 4:14 PM EDT INTERPRETIVE INFORMATION: SSA-52 (Ro52) (JEANETTE) Antibody, IgG 29 AU/mL or Less ............. Negative 30 - 40 AU/mL ................ Equivocal 41 AU/mL or Greater .......... Positive SSA-52 (Ro52) and/or SSA-60 (Ro60) antibodies are associated with a diagnosis of Sjogren syndrome, systemic lupus erythematosus (SLE), and systemic sclerosis. SSA-52 antibody overlaps significantly with the major SSc-related antibodies. SSA-52 (Ro52) antibody occurs frequently in patients with inflammatory myopathies, often in the presence of interstitial lung disease. REFERENCE INTERVAL: SSA-60 (Ro60) (JEANETTE) Antibody, IgG 29 AU/mL or Less ............. Negative 30 - 40 AU/mL ................ Equivocal 41 AU/mL or Greater .......... Positive INTERPRETIVE INFORMATION: SSB (La) (JEANETTE) Ab, IgG 29 AU/mL or Less ............. Negative 30 - 40 AU/mL ................ Equivocal 41 AU/mL or Greater .......... Positive SSB (La) antibody is seen in 50-60% of Sjogren syndrome cases and is specific if it is the only JEANETTE antibody present. 15-25% of patients with systemic lupus erythematosus (SLE) and 5-10% of patients with progressive systemic sclerosis (PSS) also have this antibody. Performed By: [email or web address] [address] [place] [id number] Media Liaison Officer: Bryan Law MD, PhD CLIA Number: [id number] Pranav Chauhan APRN LAB BLOOD ORDERABLES Final Res ult [employer]) [address] [place] [address] * ENAI (10/23/2024 8:25 AM EDT) Ac/TRAVELING ENGINEER (JEANETTE) Ab, IgG 7 0 - 19 Units 10/25/2024 3:13 PM EDT [facility]) Blood Venous blood specimen / Unknown Venipuncture / Unknown 10/23/2024 8:25 AM EDT 10/23/2024 8:25 AM EDT Narrative [facility]IV[facility]) - 10/25/2024 3:13 PM EDT INTERPRETIVE INFORMATION: Ac/TRAVELING ENGINEER (JEANETTE) Antibody, IgG 19 Units or Less ............. Negative 20 to 39 Units ............... Weak Positive 40 to 80 Units ............... Moderate Positive 81 Units or greater .......... Strong Positive Ac/TRAVELING ENGINEER antibodies are frequently seen in patients with mixed connective tissue disease (MCTD) and are also associated with other systemic autoimmune rheumatic diseases (SARDs) such as systemic lupus erythematosus (SLE), systemic sclerosis, and myositis. Antibodies targeting the Ac/TRAVELING ENGINEER antigenic complex also recognize Ac antigens, therefore, the Ac antibody response must be considered when interpreting these results. Performed By: [email or web address] [address] [place] [address] Media Liaison Officer: Bryan Law MD, PhD CLIA Number: [id number] Pranav Chauhan APRN LAB BLOOD ORDERABLES Final Res ult Performing Organization Address [facility]/ZIP Co de Phone Number [facility]) [address] [place] [phone] * C4 Complement (10/23/2024 8:25 AM EDT) C4 Complement 29 13 - 36 mg/dL 10/23/2024 9:58 AM EDT [facility] Blood Venous blood specimen / Unknown Venipuncture / Unknown 10/23/2024 8:25 AM EDT 10/23/2024 8:25 AM EDT Pranav Chauhan APRN LAB BLOOD ORDERABLES Final Res ult [facility] [address] [place] [address] * C3 Complement (10/23/2024 8:25 AM EDT) C3 Complement 151 84 - 166 mg/dL 10/23/2024 9:58 AM EDT [facility] Blood Venous blood specimen / Unknown Venipuncture / Unknown 10/23/2024 8:25 AM EDT 10/23/2024 8:25 AM EDT Pranav Chauhan [facility] LAB BLOOD ORDERABLES Final Res ult Performing Organization Address [facility]/ZIP Co de Phone Number [facility] [address] [place] [address] * Double-Stranded DNA (dsDNA) Antibody, IgG by IFA (10/23/2024 8:25 AM EDT) Pathologist [facility] Double-Strande d DNA (dsDNA) Ab IgG IFA <1:10 <1:10 10/25/2024 8:45 PM EDT [facility] ([facility]IZ[facility]) Blood Venous blood specimen / Unknown Venipuncture / Unknown 10/23/2024 8:25 AM EDT 10/23/2024 8:25 AM EDT Narrative [facility] ([facility]) - 10/25/2024 8:45 PM EDT INTERPRETIVE INFORMATION: Double-Stranded DNA (dsDNA) Antibody, IgG by IFA (using Crithidia luciliae) Positivity for anti-double stranded DNA (anti-dsDNA) IgG antibody is a diagnostic criterion of systemic lupus erythematosus (SLE). The presence of the anti-dsDNA IgG antibody is identified by IFA titer (Crithidia luciliae indirect fluorescent test [LAMINE]). LAMINE is highly specific for SLE with a sensitivity of 50-60 percent. Some patients with early or inactive SLE may be positive for anti-dsDNA IgG by AMOS but negative by LAMINE. If the LAMINE result is negative but the patient has a positive AMOS and clinical suspicion remains, consider antinuclear antibody (MIGUEL) testing by IFA. Additional information and recommendations for testing may be found at [email or web address]. Performed By: [email or web address] [address] [place] [address] Media Liaison Officer: Bryan Law MD, PhD CLIA Number: [id number] Pranav Chauhan PLASTIC STRAIGHTENING ROLL OPERATOR LAB BLOOD ORDERABLES Final Res ult [facility] ([facility]) [address] [place] [address] * Antinuclear Antibody (MIGUEL), HEp-2, IgG (10/23/2024 8:25 AM EDT) MIGUEL INTERPRETIVE COMMENT See Note 10/26/2024 10:19 AM EDT [facility] ([facility]) Anti Nuc Ab Screen <1:80 <1:80 10/26/2024 10:19 AM EDT [facility] ([facility]) Blood Venous blood specimen / Unknown Venipuncture / Unknown 10/23/2024 8:25 AM EDT 10/23/2024 8:25 AM EDT Narrative [facility] ([facility]) - 10/26/2024 10:19 AM EDT Antinuclear antibodies by IFA negative for homogeneous, speckled, nucleolar, centromere, and nuclear dots patterns. Cytoplasmic antibodies by IFA negative for reticular/AMA, discrete/GW body-like, polar/golgi-like, rods and rings, and cytoplasmic speckled patterns. INTERPRETIVE INFORMATION: MIGUEL Interpretive Comment Presence of antinuclear antibodies (MIGUEL) is a hallmark feature of systemic autoimmune rheumatic diseases (SARD). However, MIGUEL lacks diagnostic specificity and is associated with a variety of diseases (cancers, autoimmune, infectious, and inflammatory conditions) and may also occur in healthy individuals in varying prevalence. The lack of diagnostic specificity requires confirmation of positive MIGUEL by more specific serologic tests. MIGUEL (nuclear reactivity) positive patterns reported include centromere, homogeneous, nuclear dots, nucleolar, or speckled. MIGUEL (cytoplasmic reactivity) positive patterns reported include reticular/AMA, discrete/GW body-like, polar/golgi-like, cytoplasmic speckled or rods and rings. All positive patterns are reported to endpoint titers (1:2560). Reported patterns may help guide differential diagnosis, although they may not be specific for individual antibodies or diseases. Mitotic staining patterns not reported. Negative results do not necessarily rule out SARD. Performed By: [email or web address] [address] [place] [address] Media Liaison Officer: Bryan Law MD, PhD CLIA Number: [id number] Pranav Chauhan PLASTIC STRAIGHTENING ROLL OPERATOR LAB BLOOD ORDERABLES Final Res ult [facility] ([facility] [address] [place] [address] documented in this encounter Visit Diagnoses Diagnosis Gastroesophageal reflux disease without esophagitis- Primary Esophageal reflux Thoracic back pain, unspecified back pain laterality, unspecified chronicity Gout, unspecified cause, unspecified chronicity, unspecified site Thoracic back pain, unspecified back pain laterality, unspecified chronicity documented in this encounter Additional Health Concerns Assessment Noted Time PHQ-9 Depression Total Score: 8 10/24/19 25 7:30 AM EDT A fall risk assessment has been complete d for the patient 10/23/2024 7:30 AM EDT A Body Mass Index follow-up plan has been documented for the patient 10/23/2024 8:09 AM EDT documented as of this encounter Care Teams Career Development Coordinator/Teacher Relationship Specialty Start Date End Date Marco A Castañeda MD [address] [place] [id number] PCP - General 11/01/20 documented as of this encounter
--- OUTSIDE RECORDS SUMMARY | 2024-10-23 09:00 | XMS_ITS | Encounter Summary ---
Author Organization Healthcare Address [address] [place] [address] Care Team Providers Care Audograph Operator Name Role Phone Marco A Castañeda MD Primary Care Provider [phone] Encounter Details Date Type Department Care Team (Latest Contact Info) Description 10/23/2024 9:00 AM EDT - 10/23/2024 11:59 PM EDT Hospital Encounter [facility] [address] [place] [id number] Thoracic back pain, unspecified back pain laterality, unspecified chronicity Discharge Disposition: Home or Self Care Social History Tobacco Use Types Packs/Day Years Used Date Smoking Tobacco: Never Smokeless Tobacco: Never Alcohol Use Standard Drinks/Week Comments Not Currently [...] on file documented as of this encounter Functional Status * Over the [...] Health Questionnaire-2 Score 2 10/23/2024 7:30 AM Cici Hamm R * Question Answer Date of Assessment Author Trouble falling or staying asleep, or sleeping too much More than half the days 10/23/2024 7:30 AM Siobhan Hamm Feeling tired or having little energy Nearly every day 10/23/2024 7:30 AM Sandip Hamm Poor appetite or overeating Several days 10/23/2024 7:30 AM Sandip Hamm Feeling bad about yourself - or that you are a failure or have let yourself or your family down Not at all 10/23/2024 7:30 AM Sandip Hamm Trouble concentrating on things, such as reading [...] Hamm R documented as of this encounter Medications at Time of Discharge allopurinol (Zyloprim) 100 MG tablet 07/07/2024 atorvastatin (Lipitor) 40 MG tablet 1 tablet (40 mg). 10/30/2023 bisoprolol (Zebeta) 10 MG tablet 1 tablet. 10/30/2023 DULoxetine (Cymbalta) [address] capsule Take 1 capsule by mouth Daily. 10/04/2024 ibuprofen 600 MG tablet Take 1 tablet by mouth every 8 hours as needed for moderate pain. 07/27/2024 levothyroxine (Synthroid, Levoxyl) 50 MCG tablet Take 1 tablet (50 mcg) by mouth. 06/23/2023 lisinopril 10 MG tablet Take 1 tablet (10 mg) by mouth Daily. omeprazole (PriLOSEC) [address] capsule Take 1 capsule (20 mg) by mouth. 10/30/2023 traZODone (Desyrel) 50 MG tablet 1 tablet (50 mg). 10/01/2023 UNABLE TO FIND Ketamine/Gabap entin/Ibuprofe n Cream 1-2 grams 3 or 4 times a day documented as of this encounter Plan of Treatment Not on file documented as of this encounter Procedures Procedure Name Priority Date/Time Associated Diagnosis Comments XR SACROILIAC JOINTS 3+ VIEWS Routine 10/23/2024 9:15 AM EDT Thoracic back pain, unspecified back pain laterality, unspecified chronicity documented in this encounter Results * XR Sacroiliac Joints [...] Nilesh Garrido MD on 10/23/2024 9:52 AM Pranav Chauhan TURN DOWN MAN IMG XR PROCEDURES Final Result documented in this encounter Visit Diagnoses Diagnosis Thoracic back pain, unspecified back pain laterality, [...] documented as of this encounter Care Teams Audograph Operator Relationship Specialty Start Date End Date Marco A Castañeda MD [address] [place] [phone] PCP - General 11/01/20 documented as of this encounter
--- OUTSIDE RECORDS SUMMARY | 2024-10-25 13:30 | XMS_ITS | Encounter Summary ---
Author Organization [facility] Address [address] [place] [id number] Phone [email or web address] Care Team Providers Care Lead Application Architect Name Role Phone Provider, No Primary Care Provider Unavailabl e Reason for Visit * Reason Comments Behavioral Health Follow up Encounter Details Date Type Department Care Team (Late st Contact Info) Description 10/25/2024 1:30 PM EDT Office Visit [facility] [address] [place] [address] Joelle Reyez, ENR[place] [address] [place] [address] Other depression Social History Tobacco Use Types Packs/Day Years [...] Depression Answer Date Recorded PHQ Total Score 0 10/25/2024 Stress Answer Date Recorded Stress in your Life Not on file 04/24/2024 Dealing with Stress 3 04/24/2024 Sex and Gender Information Value Date Recorded Sex Assigned at Not on file Legal Sex Male 11:57 AM CDT Gender Identity Not on file Sexual Orientation Not on file documented as of this encounter Last Filed Vital Signs Vital Sign Reading Time Taken Comments Blood Pressure 120/88 10/25/2024 1:02 PM EDT Pulse 54 10/25/2024 1:02 PM EDT Temperature 36.6 C (97.9 F) 10/25/2024 1:02 PM EDT Respiratory Rate 14 10/25/2024 1:02 PM EDT Oxygen Saturation - - Inhaled Oxygen Concentration - - Weight 92.4 kg (203 lb 12.8 oz) 10/25/2024 1:02 PM EDT Height 175.3 cm (5' 9 ) 10/25/2024 1:02 PM EDT Body Mass Index 30.1 10/25/2024 1:02 PM EDT documented in this encounter Progress Notes * Joelle Reyez NP - 10/25/2024 1:30 PM EDT Allergies Chart Review Health Maintenance History Immunizations Screenings Search Synopsis This Visit Vital Signs Assessment & Plan Other depression Continue Cymbalta. 90-day refill sent to pharmacy. Follow up in 3 months. Orders: DULoxetine (CYMBALTA) [address] capsule; Take 1 capsule (20 mg total) by mouth 1 (one) time each day. Do not crush or chew. Follow-up: OFFICE VISIT FOLLOW UP Return in approximately 3 Months (around 01/25/2025) . Subjective Shakeel Wood is a 59 y.o. Reason(s) for visit on 10/25/2024: Behavioral Health Follow up Comments (if any): HPI: Patient presents for follow-up after initiation of Cymbalta. Reports he is doing much better. Stillseeing specialists regarding management of chronic pain. Also reports elevated thyroid function andfollows up with PCP to manage this. No further concerns today. Review of Systems Constitutional: Negative. Musculoskeletal: Positive for arthralgias (seeing specialists for chronic pain management) and backpain (managed per specialists). The following portions of the patient's chart were reviewed by me during this encounter and updatedas appropriate: Allergies Meds Problems Med Hx Surg Hx Fam Hx Objective Visit Vitals BP 120/88 Pulse 54 Temp 97.9 ??F Resp 14 Ht 5' 9 Wt 203 lb 12.8 oz BMI 30.10 kg/m?? Smoking Status Never BSA 2.12 m?? Physical Exam Constitutional: Appearance: He is obese. Cardiovascular: Rate and Rhythm: Normal rate and regular rhythm. Heart sounds: Normal heart sounds. Pulmonary: Effort: Pulmonary effort is normal. Breath sounds: Normal breath sounds. Skin: General: Skin is warm and dry. Neurological: Mental Status: He is alert and oriented to person, place, and time. Psychiatric: Mood and Affect: Mood normal. Behavior: Behavior normal. Thought Content: Thought content normal. Judgment: Judgment normal. Plan of care formulated using shared decision making and reviewed with patient at the conclusion oftoday's visit. Education was provided in regards to diagnosis, management and any prescribed or recommended OTC medications, including instruction on safe use and discussion of potential s/e of prescribed medications. Patient verbalizes understanding of and agreement with management plan. Joelle Reyez NP 10/25/2024 Note to patient: The Cures Act makes medical notes like these [...] and the clinical opinion of the practitioner. documented in this encounter Plan of Treatment Upcoming Encounters Date Type Department Care Team (Late st Contact Info) Description 12/01/2024 12:00 PM EDT Occ Office Visit [facility] [address] [place] [address] Ingrid Han PA [address] [place] [address] documented as of this encounter Visit Diagnoses Diagnosis Other depression documented in this encounter Care Teams Lead Application Architect Relationship Specialty Start Date End Date [place], [place] [address] PCP - General Gate Operator 07/26/20 documented as of this encounter
--- OUTSIDE RECORDS SUMMARY | 2024-10-27 16:00 | XMS_ITS | Encounter Summary ---
Author Organization [facility] Address [address] [place] [id number] Phone [email or web address] Care Team Providers Care Sound Art Instructor Name Role Phone Provider, No Primary Care Provider Unavailabl e Reason for Referral * Consultation (Routine) - Closed Specialty Diagnoses / Procedures Referred By Kurt santillan Referred To Contact Physical Therapy Diagnoses Physical deconditioning Periscapular pain of right shoulder Chente Oseguera PA [address] [place] [address] Phone: tel: fax: [facility] [address] [place] [address] Phone: tel: fax: Referral ID Status Reason Start Date Expiration Date V isits Requested Visits Authorized [id number] Closed Consult & Treat 11/02/2024 05/01/2025 1 1 Reason for Visit * Reason Comments Return to Work / Duty Encounter Details Date Type Department Care Team (Latest Contact Info) Description 10/27/2024 4:00 PM EDT Office Visit [facility] [address] [place] [address] Chente Oseguera PA [address] [place] [address] Physical deconditioning (Primary Dx); Periscapular pain of right shoulder; Encounter for fitness for duty examination Social History Tobacco Use Types Packs/Day Years [...] Sign Reading Time Taken Comments Blood Pressure 125/83 10/27/2024 3:59 PM EDT Pulse 59 10/27/2024 3:59 PM EDT Temperature 36.6 C (97.8 F) 10/27/2024 3:59 PM EDT Respiratory Rate 18 10/27/2024 3:59 PM EDT Oxygen Saturation 99% 10/27/2024 3:59 PM EDT Inhaled Oxygen Concentration - - Weight - - Height - - Body Mass Index - - documented in this encounter Patient Instructions * Patient Instructions* JAKE Calderón - 10/27/2024 4:00 PM EDT 1. Duty status: No Work Until Follow-up 2. Preventive stretching 3. Referrals: Work conditioning 1 week and Work hardening 1 week 4. Follow up: after work hardening. 5. Call [facility] @ [phone] for any questions/concerns/appointments. 6. Projected return to full rotation: 4-5 weeks documented in this encounter Progress Notes * JAKE Calderón - 10/27/2024 4:00 PM EDT Subjective Shakeel Wood is a 59 y.o. male who presents for Occ RTW - R shoulder. WD ID: [id number] Employer: [employer] Date of Hire: 02/03/21 Cost Center: [id number] verification sent to [facility] 10/27 Description: PWT - [employer] 2 Shift: 1 Full-time GL and #: Gio Bauer Case: #[id number] LDW: 08/08/24 DOS: N/A PROCEDURE: N/A Specialist: SIRISHA Johnson RELEASE: Regular duty 10/02/24 Occ RTW - at [facility]. Off treating R shoulder. Has been referred to pain management, and went to wastewater operator. Was prescribed celebrex and skelaxin. Discussed saving skelaxin for night time use as it may cause drowsiness. Feeling ready to RTW. Email sent to [facility] previously by RN who scheduled RTW appointment - . Triage nurse: Rosalina Ramirez RN HPI See above nurse note. WMLOA. Right Shoulder. LDW 08/08/24. TM has been off work for ~3 months getting treatment for right shoulder, scapular pain. He was placed at [facility] on 09/20/24 and released to RTW without restrictions by Dr. Peters on 10/02/24. He continued care with his PCP and STD with Héctor Mistry. He is treating with a wastewater operator and pain management; he is awaiting approval for injections. He has a release to RTW without restrictions on 10/30/24. TM reports his shoulder feels pretty good, he still has pain under right shoulder blade but other than that he is fine. TM works 1st shift in [employer]. TM states she is able and ready to get back to work. History Reviewed: Tobacco Allergies Meds Problems Med Hx Surg Hx Fam Hx Objective Visit Vitals BP 125/83 Pulse 59 Temp 97.8 ??F Resp 18 SpO2 99% Smoking Status Never Review of Systems Constitutional: Negative. Respiratory: Negative. Cardiovascular: Negative. Musculoskeletal: Right shoulder/scapula pain PHQ-9 Total Score: 0 (10/27/2024 4:12 PM) Physical Exam Vitals and nursing note reviewed. Cardiovascular: Rate and Rhythm: Normal rate and regular rhythm. Pulses: Normal pulses. Heart sounds: Normal heart sounds. Pulmonary: Effort: Pulmonary effort is normal. Breath sounds: Normal breath sounds. Psychiatric: Mood and Affect: Mood normal. Behavior: Behavior normal. SHOULDER, Right Inspection Swelling: negative Erythema: negative Deformity: none Lesions: no visible/palpable lesions Palpation Warmth: normal Tenderness: infrascapular Vascular Pulses: present and normal Neuromotor ROM: full Crepitus: absent Strength: normal Sensation: light touch - normal Stability Apprehension: negative Special Tests Empty Can: negative Neer's: negative Painful Arc: negative Assessment: ICD-10-CM ICD-9-CM 1. Physical deconditioning R53.81 799.3 Ambulatory referral to Work Conditioning/Hardening 2. Periscapular pain of right shoulder M25.511 719.41 Ambulatory referral to Work Conditioning/Hardening 3. Encounter for fitness for duty examination Z02.89 V70.5 Orders Placed This Encounter Procedures Ambulatory referral to Work Conditioning/Hardening Patient Instructions 1. Duty status: No Work Until Follow-up 2. Preventive stretching 3. Referrals: Work conditioning 1 week and Work hardening 1 week 4. Follow up: after work hardening. 5. Call [facility] @ [phone] for any questions/concerns/appointments. 6. Projected return to full rotation: 4-5 weeks documented in this encounter Miscellaneous Notes * Addendum Note - JAKE Calderón - 10/27/2024 4:00 PM EDTAddended by: CHENTE OSEGUERA on: 11/02/2024 02:25 PM Modules accepted: Orders documented in this encounter Plan of Treatment Upcoming Encounters Date Type Department Care Team (Late st Contact Info) Description 12/01/2024 12:00 PM EDT Occ Office Visit [facility] [address] [place] [address] Ingrid Han PA [address] [place] [address] Scheduled Referrals Name Type Priority Associated Diagnoses Order Schedule Ambulatory referral to Work Conditioning/Hardeni ng Outpatient Referral Routine Physical deconditioning Periscapular pain of right shoulder Expected: 11/09/2024, Expires: 05/05/2025 documented as of this encounter Visit Diagnoses Diagnosis Physical deconditioning- Primary Muscular wasting and disuse atrophy, not elsewhere classified Periscapular pain of right shoulder Encounter for fitness for duty examination documented in this encounter Care Teams Sound Art Instructor Relationship Specialty Start Date End Date Provider, [place]ASE Lee [id number] PCP - General Special Services Director 07/26/20 documented as of this encounter
--- OUTSIDE RECORDS SUMMARY | 2024-11-27 15:20 | XMS_ITS | Encounter Summary ---
Author Organization [facility] Address [address] [place] [address] Care Team Providers Care Project Assistant Name Role Phone Marco A Castañeda MD Primary Care Provider [phone] Encounter Details Date Type Department Care Team (Late st Contact Info) Description 10/29/2023 Orders Only External Location [address] [place] [address] Sierra Barrrea APRN [address] [place] [address] Social History Tobacco Use Types Packs/Day Years Used Date Smoking Tobacco: Never Assessed Sex and Gender Information Value Date Recorded Sex Assigned at Not on file Legal Sex Male 6:37 PM EDT Gender Identity Not on file Sexual Orientation Not on file documented as of this encounter Plan of Treatment Not on file documented as of this encounter Procedures Procedure Name Priority Date/Time Associated Diagnosis Comments MR OUTSIDE IMAGES 10/29/2023 7:30 AM EDT documented in this encounter Results * MR transfer of outside films (10/29/2023 7:30 AM EDT) Anatomical Region Laterality Modality Magnetic Resonan ce 10/29/2023 7:30 AM EDT us Sierra Barrera APRN IMG MRI PROCEDURES Final Resul t documented in this encounter Visit Diagnoses Not on filedocumented in this encounter Care Teams Project Assistant Relationship Specialty Start Date End Date Marco A Castañeda MD [address] [place] [address] PCP - General 11/01/20 documented as of this encounter
--- OUTSIDE RECORDS SUMMARY | 2024-11-27 15:20 | XMS_ITS | Encounter Summary ---
Author Organization [facility] Address [address] [place] [address] Care Team Providers Care Billet Inspector Name Role Phone Marco A Castañeda MD Primary Care Provider [phone] Encounter Details Date Type Department Care Team (Late st Contact Info) Description 10/23/2024 Results Follow-Up [facility] [address] [place] [address] Pranav Chauhan, BELT NOTCHER [address] [place] [address] Social History Tobacco Use Types Packs/Day Years [...] Hamm R documented as of this encounter Plan of Treatment Not on file documented as of this encounter Visit Diagnoses Not on filedocumented in this encounter Additional Health Concerns Assessment Noted Time PHQ-9 Depression Total Score: 8 10/24/19 7:30 AM EDT A fall risk assessment has been complete d for the patient 10/23/2024 7:30 AM EDT A Body Mass Index follow-up plan has been documented for the patient 10/23/2024 8:09 AM EDT documented as of this encounter Care Teams Billet Inspector Relationship Specialty Start Date End Date Marco A Castañeda MD [address] [place] [id number] PCP - General 11/01/20 documented as of this encounter
--- OUTSIDE RECORDS SUMMARY | 2024-11-27 15:20 | XMS_ITS | Encounter Summary ---
Author Organization [facility] Address [address] [place] [place] [address] Care Team Providers Care Cnc Specialist Name Role Phone Marco A Castañeda MD Primary Care Provider Encounter Details Date Type Department Care Team (Late st Contact Info) Description 10/23/2024 Orders Only [facility] [address] [place] [address] Pranav Chauhan, ELLIE [address] [place] [address] Thoracic back pain, unspecified back pain laterality, unspecified chronicity (Primary Dx) Social History Tobacco Use Types [...] or hopeless Several days 10/23/2024 7:30 AM EDSandip Buckley Patient Health Questionnaire-2 Score 2 10/23/2024 7:30 AM Cici Hamm R * Question Answer Date of Assessment Author Trouble falling or staying asleep, or sleeping too much More than half the days 10/23/2024 7:30 AM CLARKT Siobhan Stubbs Feeling tired or having little [...] usual. Not at all 10/23/2024 7:30 AM Sandpi Hamm Thoughts that you would be better [...] at all 10/23/2024 7:30 AM Malcom Hamm documented as of this encounter Plan of Treatment Not on file documented as of this encounter Results * T4, free (10/23/2024 8:25 AM EDT) Free T4, Plasma 1.3 0.8 - 1.7 ng/dL 10/23/2024 11:09 AM EDT [facility] Blood Venous blood specimen / Unknown Venipuncture / Unknown 10/23/2024 8:25 AM EDT 10/23/2024 8:25 AM EDT Pranav Hughes Gissel ARGUETA LAB BLOOD ORDERABLES Final Res ult Performing Organization Address City/[facility] Co de Phone Number [facility] [address] [place] [address] * Thyroid Stimulating Hormone, Plasma (10/23/2024 8:25 AM EDT) Thyroid Stimulating Hormone, Plasma 1.74 0.40 - 4.20 uIU/mL 10/23/2024 11:09 AM EDT [facility] Blood Venous blood specimen / Unknown Venipuncture / Unknown 10/23/2024 8:25 AM EDT 10/23/2024 8:25 AM EDT Pranav Farahesperanza PORTAINER OPERATOR LAB BLOOD ORDERABLES Final Res ult Performing Organization Address [facility] Co de Phone Number [facility] [address] [place] [address] documented in this encounter Visit Diagnoses Diagnosis Thoracic back pain, unspecified back pain laterality, unspecified chronicity- Primary documented in this encounter Additional Health Concerns Assessment Noted Time PHQ-9 Depression Total Score: 8 10/24/19 7:30 AM EDT A fall risk assessment has been complete d for the patient 10/23/2024 7:30 AM EDT A Body Mass Index follow-up plan has been documented for the patient 10/23/2024 8:09 AM EDT documented as of this encounter Care Teams Cnc Specialist Relationship Specialty Start Date End Date Marco A Castañeda MD [address] [place] [id number] PCP - General 11/01/20 documented as of this encounter
--- OUTSIDE RECORDS SUMMARY | 2024-11-27 15:20 | XMS_ITS | Clinical Summary ---
Author Organization [facility] Address [address] [place] [address] Care Team Providers Care Sweep Molder Name Role Phone Marco A Castañeda MD Primary Care Provider [phone] Allergies No known active allergies Medications atorvastatin (Lipitor) 40 MG tablet 1 tablet (40 mg). 10/30/2023 Active levothyroxine (Synthroid, Levoxyl) 50 MCG tablet Take 1 tablet (50 mcg) by mouth. 06/23/2023 Active lisinopril 10 MG tablet Take 1 tablet (10 mg) by mouth Daily. Active omeprazole (PriLOSEC) [address] capsule Take 1 capsule (20 mg) by mouth. 10/30/2023 Active traZODone (Desyrel) 50 MG tablet 1 tablet (50 mg). 10/01/2023 Active allopurinol (Zyloprim) 100 MG tablet 07/07/2024 Active bisoprolol (Zebeta) 10 MG tablet 1 tablet. 10/30/2023 Active UNABLE TO FIND Ketamine/Radha pentin/Ibupro fen Cream 1-2 grams 3 or 4 times a day Active DULoxetine (Cymbalta) [address] capsule Take 1 capsule by mouth Daily. 10/04/2024 Active ibuprofen 600 MG tablet Take 1 tablet by mouth every 8 hours as needed for moderate pain. 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 Resolved Problems Problem Noted Date Diagnosed Date Resolved Date Abscess 10/23/2024 10/23/2024 Abscess of scrotal wall 10/23/2024 05/0 10/2024 Achilles tendinitis of right lower extremity 10/23/2024 Achilles tendonitis 10/23/2024 10/24/19 25 Acute pain 10/23/2024 10/23/2024 Acute viral syndrome 10/23/2024 025 Atherosclerotic cardiovascular disease 10/23/2024 10/23/2024 Atypical chest pain 10/23/2024 10/24/19 25 Cellulitis and abscess of buttock 10/23/2024 10/23/2024 Vasovagal episode 10/23/2024 10/23/2024 Upper respiratory tract infection 10/23/2024 10/23/2024 Torticollis 10/23/2024 10/23/2024 Strep throat 10/23/2024 10/23/2024 Soft tissue mass 10/23/2024 10/23/2024 Sinusitis 10/23/2024 10/23/2024 Pharyngitis 10/23/2024 10/23/2024 Bronchitis 10/23/2024 10/23/2024 Right sided abdominal pain 10/23/2024 0 10/23/2024 Pain in finger of both hands 10/23/2024 10/23/2024 Otitis media 10/23/2024 10/23/2024 Low back pain 10/23/2024 10/23/2024 Acute right-sided back pain 10/23/2024 10/23/2024 HTN (hypertension) 10/23/2024 Gout attack 10/23/2024 10/23/2024 Exposure to 2019 novel coronavirus 10/23/2024 10/23/2024 Encounters Date Type Department Care Team Description 10/23/2024 9:00 AM EDT - 10/23/2024 11:59 PM EDT Hospital Encounter [facility] Radiology [address], [address] [place] [id number] Thoracic back pain, unspecified back pain laterality, unspecified chronicity Discharge Disposition: Home or Self Care 10/23/2024 8:00 AM EDT Consult [facility] Medicine Specialties [address], [address] [place] [address] Pranav Chauhan APRN Gastroesophageal reflux disease without esophagitis (Primary Dx); Thoracic back pain, unspecified back pain laterality, unspecified chronicity; Gout, unspecified cause, unspecified chronicity, unspecified site 10/23/2024 Orders Only [facility] Medicine Specialties [address], [address] [place] [address] Pranav Chauhan, ACADEMIC INTERVENTIONIST Thoracic back pain, unspecified back pain laterality, unspecified chronicity (Primary Dx) 10/23/2024 Results Follow-Up [facility] Medicine [facility]ties [address], [address] [place] [address] Pranav Chauhan, ACADEMIC INTERVENTIONIST 10/23/2024 Travel 10/18/2024 Travel 10/18/2024 Telephone [facility] Medicine Specialties [address], [address] [place] [address] Pranav Chauhan, ACADEMIC INTERVENTIONIST 10/05/2024 Community Orders Community [facility] [address] [place] [address] Moustapha Peters MD Thoracic back pain, unspecified back pain laterality, unspecified chronicity (Primary Dx) from Last 3 Months Immunizations Immunization Administration Dates Next Due Influenza, injectable, quadrivalent, preservativ e free 03/17/2019,04/02/2018 Influenza, recombinant, quad rivalent, injectable, preservative free 05/30/2021 Tdap 06/05/2024,07/08/2021 Social History Tobacco Use Types Packs/Day Years [...] on file Sexual Orientation Not on file Last Filed Vital Signs Vital Sign Reading [...] Mass Index 30.24 10/23/2024 7:23 AM EDT Plan of Treatment Health Maintenance Due Date Last Done Comments [facility]-HIV Screening 1965 [facility]-Hepatitis C Screening 1965 [facility]-Infant/Child/Adol SDOH Screenings 1965 [facility]- SDOH Screenings 09/12/1981 [facility]-Adult SDOH Screenings 09/12/1981 CT Colonography 09/12/2008 Colonoscopy 09/12/2008 FIT-DNA 09/12/2008 FIT 09/12/2008 FOBT 09/12/2008 Sigmoidoscopy 09/12/2008 [facility]-Colorectal Cancer Screening 09/12/2008 [facility]-Pneumococcal Vaccine: 50 + Years (1 of 1 - PCV) 09/12/2013 [facility]-Zoster Vaccines (1 of 2) 09/12/2013 [id number] Vaccine (3 - Moderna risk series) 02/01/2021 01/04/2021, 12/07/2020 [facility]-RSV Vaccine: 60+ Years o r (1 - Risk 60-74 years 1-dose series) 2023 [facility]-Influenza Vaccine (Seaso n Ended) 2025 05/30/2021, 03/17/2019, 04/02/2018 [facility]-Depression Screening 10/23/2025 025, 10/23/2024 [facility]-DTaP,Tdap,and Td Vaccine s (3 - Td or Tdap) 06/05/2034 06/05/2024, 07/08/2021 [facility]-Obesity Intervention Completed 10/23/2024 HPV Vaccines Aged Out No longer eligi ble based on patient's age to complete this topic [facility]-HIB Vaccines Aged Out No longer e ligible based on patient's age to complete this topic [facility]-Hepatitis A Vaccines Aged Out No longer eligible based on patient's age to complete this topic [facility]-IPV Vaccines Aged Out No longer e ligible based on patient's age to complete this topic [facility]-Rotavirus Vaccines Aged Out No lo nger eligible based on patient's age to complete this topic Procedures Procedure Name Priority Date/Time Associated Diagnosis Comments PROTEIN, URINE, RANDOM WITH CREATININE Routine 10/23/2024 11:22 AM EDT Thoracic back pain, unspecified back pain laterality, unspecified chronicity XR SACROILIAC JOINTS 3+ VIEWS Routine 10/23/2024 9:15 AM EDT Thoracic back pain, unspecified back pain laterality, unspecified chronicity FREE T4, PLASMA Add-On 10/23/2024 8:25 AM EDT Thoracic back pain, unspecified back pain laterality, unspecified chronicity TSH Add-On 10/23/2024 8:25 AM EDT Thoracic back pain, unspecified back pain laterality, unspecified chronicity ANTINUCLEAR ANTIBODY (MIGUEL) WITH HEP-2 SUBSTRATE, IGG BY IFA (SO) Routine 10/23/2024 8:25 AM EDT Thoracic back pain, unspecified back pain laterality, unspecified chronicity DOUBLE-STRANDED DNA (DSDNA) ANTIBODY, IGG BY IFA (SO) Routine 10/23/2024 8:25 AM EDT Thoracic back pain, unspecified back pain laterality, unspecified chronicity C3 COMPLEMENT Routine 10/23/2024 8:25 AM EDT Thoracic back pain, unspecified back pain laterality, unspecified chronicity C4 COMPLEMENT Routine 10/23/2024 8:25 AM EDT Thoracic back pain, unspecified back pain laterality, unspecified chronicity AC/ADMINISTRATION VICE PRESIDENT (JEANETTE) ANTIBODY, IGG (SO) Routine 10/23/2024 8:25 AM EDT Thoracic back pain, unspecified back pain laterality, unspecified chronicity EXTRACTABLE NUCLEAR ANTIGEN ANTIBODIES (SSA 52, SSA 60, AND SSB) (SO) Routine 10/23/2024 8:25 AM EDT Thoracic back pain, unspecified back pain laterality, unspecified chronicity AC (JEANETTE) ANTIBODY, IGG (SO) Routine 10/23/2024 8:25 AM EDT Thoracic back pain, unspecified back pain laterality, unspecified chronicity THYROID PEROXIDASE ANTIBODY Routine 10/23/2024 8:25 AM EDT Thoracic back pain, unspecified back pain laterality, unspecified chronicity C-REACTIVE PROTEIN, PLASMA Routine 10/23/2024 8:25 AM EDT Thoracic back pain, unspecified back pain laterality, unspecified chronicity SEDIMENTATION RATE, AUTOMATED Routine 10/23/2024 8:25 AM EDT Thoracic back pain, unspecified back pain laterality, unspecified chronicity CYCLIC CITRUL PEPTIDE ANTIBODY IGG Routine 10/23/2024 8:25 AM EDT Thoracic back pain, unspecified back pain laterality, unspecified chronicity RHEUMATOID FACTOR, PLASMA Routine 10/23/2024 8:25 AM EDT Thoracic back pain, unspecified back pain laterality, unspecified chronicity URIC ACID, PLASMA Routine 10/23/2024 8:2 5 AM EDT Gout, unspecified cause, unspecified chronicity, unspecified site from Last 3 Months Results * Protein, Random, Urine with Creatinine (10/23/2024 11:22 AM EDT) Protein, Urine 32 mg/dL 10/23/2024 1:22 PM EDT [facility] Creatinine, Urine 380 mg/dL 10/23/2024 1:22 PM EDT [facility] Protein/Creatin ine Ratio 0.1 mg/mg Creat 10/23/2024 1:22 PM EDT [facility] Urine Urine specimen obtained by clean catch procedure / Unknown Non-blood Collection / Unknown 10/23/2024 11:22 AM EDT 10/23/2024 11:22 AM EDT us Pranav Chauhan APRN LAB URINE ORDERABLES Final Res ult [facility] [address] [place] [address] * XR Sacroiliac Joints 3+ Views (10/23/2024 [...] Nilesh Garrido MD on 10/23/2024 9:52 AM us Pranav Chauhan APRN IMG XR PROCEDURES Final Result * Ac (JEANETTE) Antibody, IgG (10/23/2024 8:25 AM EDT) Ac (JEANETTE) Antibody, IgG 7 0 - 40 AU/mL 10/25/2024 4:14 PM EDT [facility] ([facility]) Serum 10/23/2024 8:25 AM EDT 10/23/2024 8:25 AM EDT Narrative [facility]) - 10/25/2024 4:14 PM EDT INTERPRETIVE INFORMATION: [...] associations with SLE clinical manifestations. Performed By: [facility] [address] [place] [address] Sawmill Or Timber Yard Worker: Bryan Law MD, PhD CLIA Number: [id number] Pranav Chauhan APRN LAB REF LAB BLOOD AND FLUID OR D Final Result [facility]) [address] [place] [address] * ENAII (10/23/2024 8:25 AM EDT) SSA-52 (RO52) (JEANETTE) Antibody, IgG 2 0 - 40 AU/mL 10/25/2024 4:14 PM EDT [facility] ([facility]) SSA-60 (RO60) (JEANETTE) Antibody, IgG 1 0 - 40 AU/mL 10/25/2024 4:14 PM EDT [facility] ([facility]) SSB (LA) (JEANETTE) Antibody, IgG 11 0 - 40 AU/mL 10/25/2024 4:14 PM EDT [facility] ([facility]) Blood Venous blood specimen / Unknown Venipuncture / Unknown 10/23/2024 8:25 AM EDT 10/23/2024 8:25 AM EDT Narrative [facility] ([place]) - 10/25/2024 4:14 PM EDT INTERPRETIVE INFORMATION: [...] (PSS) also have this antibody. Performed By: [facility] [address] [id number] [employer] Yard Worker: Bryan Law MD, PhD CLIA Number: [id number] us Pranav Chauhan APRN LAB BLOOD ORDERABLES Final Res ult [facility] ([place]) [address] [place] [address] * ENAI (10/23/2024 8:25 AM EDT) Ac/ADMINISTRATION VICE PRESIDENT (JEANETTE) Ab, IgG 7 0 - 19 Units 10/25/2024 3:13 PM EDT [facility] ([place]) Blood Venous blood specimen / Unknown Venipuncture / Unknown 10/23/2024 8:25 AM EDT 10/23/2024 8:25 AM EDT [facility] ([place]) - 10/25/2024 3:13 PM EDT INTERPRETIVE INFORMATION: Ac/ADMINISTRATION VICE PRESIDENT (JEANETTE) Antibody, IgG 19 Units or Less ............. Negative 20 to 39 Units ............... Weak Positive 40 to 80 Units ............... Moderate Positive 81 Units or greater .......... Strong Positive Ac/ADMINISTRATION VICE PRESIDENT antibodies are frequently seen in patients with mixed connective tissue disease (MCTD) and are also associated with other systemic autoimmune rheumatic diseases (SARDs) such as systemic lupus erythematosus (SLE), systemic sclerosis, and myositis. Antibodies targeting the Ac/ADMINISTRATION VICE PRESIDENT antigenic complex also recognize Ac antigens, therefore, the Ac antibody response must be considered when interpreting these results. Performed By: [facility] [address] [place], [place] [id number] Sawmill Or Timber Yard Worker: Bryan Law MD, PhD CLIA Number: [id number] Pranav Chauhan APRN LAB BLOOD ORDERABLES Final Res ult [facility] ([place]) [address] [place] [address] * (ABNORMAL) Thyroid Peroxidase Antibody (10/23/2024 8:25 AM EDT) Thyroid Peroxidase Antibody 316(H) <=8 IU/mL 10/23/2024 10:30 AM EDT [facility] Blood Venous blood specimen / Unknown Venipuncture / Unknown 10/23/2024 8:25 AM EDT 10/23/2024 8:25 AM EDT Pranav Chauhan [facility] BLOOD ORDERABLES Final Res ult Performing Organization Address [facility] [place] [address] * Cyclic Citrul Peptide Antibody IgG (10/23/2024 8:25 AM EDT) Cyclic Citrul Peptide Antibody IgG <5.0 <=5.0 U/mL 10/23/2024 2:45 PM EDT [facility] Blood Venous blood specimen / Unknown Venipuncture / Unknown 10/23/2024 8:25 AM EDT 10/23/2024 8:25 AM EDT Pranav Chauhan [facility] BLOOD ORDERABLES Final Res ult Performing Organization Address [facility] [place] [address] * Double-Stranded DNA (dsDNA) Antibody, IgG by IFA (10/23/2024 8:25 AM EDT) Double-Strande d DNA (dsDNA) Ab IgG IFA <1:10 <1:10 10/25/2024 8:45 PM EDT [facility] ([place]) Blood Venous blood specimen / Unknown Venipuncture / Unknown 10/23/2024 8:25 AM EDT 10/23/2024 8:25 AM EDT Narrative [facility] ([place]) - 10/25/2024 8:45 PM EDT [...] recommendations for testing may be found at [email or web address]. Performed By: [facility] [address] [place] [address] Sawmill Or Timber Yard Worker: Bryan Lwa MD, PhD CLIA Number: [id number] Pranav Hughes [employer] ACADEMIC INTERVENTIONIST LAB BLOOD ORDERABLES Final Res ult Performing Organization Address City/[facility]/ZIP Co de Phone Number [facility] ([facility]) [address] [place] [address] * (ABNORMAL) Sedimentation Rate, Automated (10/23/2024 8:25 AM EDT) Sedimentation Rate 20(H) <20 mm/hr 2024 10:06 AM EDT [facility] Blood Venous blood specimen / Unknown Venipuncture / Unknown 10/23/2024 8:25 AM EDT 10/23/2024 8:25 AM EDT Pranav Farahesperanza ACADEMIC INTERVENTIONIST LAB BLOOD ORDERABLES Final Res ult Performing Organization Address [facility] Co de Phone Number [facility] [address] [place] [address] * Rheumatoid Factor, Plasma (10/23/2024 8:25 AM EDT) Rheumatoid Factor, Plasma <10 <14 IU/mL 10/23/2024 10:01 AM EDT [facility] Blood Venous blood specimen / Unknown Venipuncture / Unknown 10/23/2024 8:25 AM EDT 10/23/2024 8:25 AM EDT Pranav Hughes [employer] ACADEMIC INTERVENTIONIST LAB BLOOD ORDERABLES Final Res ult Performing Organization Address City/[facility]/ZIP Co de Phone Number [facility] [address] [place] [address] * C3 Complement (10/23/2024 8:25 AM EDT) C3 Complement 151 84 - 166 mg/dL 10/23/2024 9:58 AM EDT [facility] Blood Venous blood specimen / Unknown Venipuncture / Unknown 10/23/2024 8:25 AM EDT 10/23/2024 8:25 AM EDT Pranav Farahesperanza ACADEMIC INTERVENTIONIST LAB BLOOD ORDERABLES Final Res ult Performing Organization Address City/[facility] Co de Phone Number [facility] [address] [place] [address] * C4 Complement (10/23/2024 8:25 AM EDT) C4 Complement 29 13 - 36 mg/dL 10/23/2024 9:58 AM EDT [facility] Blood Venous blood specimen / Unknown Venipuncture / Unknown 10/23/2024 8:25 AM EDT 10/23/2024 8:25 AM EDT Pranav Hughes [employer] LAB BLOOD ORDERABLES Final Res ult Performing Organization Address [facility] de Phone Number [address] [address] * C-Reactive Protein, Plasma (10/23/2024 8:25 AM EDT) CRP, Plasma <3.0 <=8.0 mg/L 10/23/2024 10:01 AM EDT [facility] Blood Venous blood specimen / Unknown Venipuncture / Unknown 10/23/2024 8:25 AM EDT 10/23/2024 8:25 AM EDT Narrative [facility] - 10/23/2024 10:01 AM EDT This CRP test is appropriate for assessment of infection, systemic inflammation and/or tissue injury. To assess cardiovascular disease risk order high sensitivity CRP (CRPH). Pranav Farahesperanza ACADEMIC INTERVENTIONIST LAB BLOOD ORDERABLES Final Res ult Performing Organization Address City/[facility] Co de Phone Number [facility] [address] [place] [address] * Antinuclear Antibody (MIGUEL), HEp-2, IgG (10/23/2024 8:25 AM EDT) MIGUEL INTERPRETIVE COMMENT See Note 10/26/2024 10:19 AM EDT [facility] ([place]) Anti Nuc Ab Screen <1:80 <1:80 10/26/2024 10:19 AM EDT [facility] ([place]) Blood Venous blood specimen / Unknown Venipuncture / Unknown 10/23/2024 8:25 AM EDT 10/23/2024 8:25 AM EDT Narrative [facility] ([place]) - 10/26/2024 10:19 AM EDT [...] not necessarily rule out SARD. Performed By: [facility] [address] [place] [address] [employer]mill [employer] Tim[employer] Yard Worker: Bryan Law MD, PhD CLIA Number: [id number] Pranav Chauhan APRN LAB BLOOD ORDERABLES Final Res ult [facility] ([place]) [address] [place] [address] * Uric acid (10/23/2024 8:25 AM EDT) Uric Acid, Plasma 5.0 3.7 - 8.0 mg/dL 10/23/2024 10:01 AM EDT [facility] Blood Venous blood specimen / Unknown Venipuncture / Unknown 10/23/2024 8:25 AM EDT 10/23/2024 8:25 AM EDT Pranav Chauhan APRN LAB BLOOD ORDERABLES Final Res ult Performing Organization Address City/[facility]/ZIP Co de Phone Number [facility] [address] [place] [address] * Thyroid Stimulating Hormone, Plasma (10/23/2024 8:25 AM EDT) Thyroid Stimulating Hormone, Plasma 1.74 0.40 - 4.20 uIU/mL 10/23/2024 11:09 AM EDT [facility] Blood Venous blood specimen / Unknown Venipuncture / Unknown 10/23/2024 8:25 AM EDT 10/23/2024 8:25 AM EDT us Pranav Chauhan APRN LAB BLOOD ORDERABLES Final Res ult Performing Organization Address City/[facility]/ZIP Co de Phone Number [facility] [address] [place] [address] * T4, free (10/23/2024 8:25 AM EDT) Free T4, Plasma 1.3 0.8 - 1.7 ng/dL 10/23/2024 11:09 AM EDT [facility] Blood Venous blood specimen / Unknown Venipuncture / Unknown 10/23/2024 8:25 AM EDT 10/23/2024 8:25 AM EDT Pranav Chauhan ACADEMIC INTERVENTIONIST LAB BLOOD ORDERABLES Final Res ult [facility] [address] [place] [address] from Last 3 Months Insurance ANTHEM Care Teams Sweep Molder Relationship Specialty Start Date End Date Marco A Castañeda MD [address] [place] [address] PCP - General 11/01/20
--- OUTSIDE RECORDS SUMMARY | 2024-11-27 15:20 | XMS_ITS | Encounter Summary ---
Author Organization [facility] Address [address] [place] [address] Care Team Providers Care Front Desk Representative Name Role Phone Marco A Castañeda MD Primary Care Provider [phone] Encounter Details Date Type Department Care Team (Latest Contact Info) Description 10/23/2024 Travel Social History Tobacco Use Types Packs/Day Years [...] Not at all 10/23/2024 7:30 AM EDT Sandip Stubbs Trouble concentrating on things, such as reading the newspaper or watching television Not at all 10/23/2024 7:30 AM EDT Sandip Stubbs Moving or speaking so slowly that other people could have noticed? Or the opposite - being so fidgety or restless that you have been moving around a lot more than usual. Not at all 10/23/2024 7:30 AM EDT Sandip Stubbs Thoughts that you would be better off or hurting yourself in some way Not at all 10/23/2024 7:30 AM EDT Sandip Stubbs Patient Health Questionnaire-9 Score 8 10/23/2024 7:30 AM EDT Cici Stubbs R * If you checked off any problems on this questionnaire so far, Question Answer Date of Assessment Author How difficult have these problems made it for you to do your work, take care of things at home, or get along with other people? Not difficult at all 10/23/2024 7:30 AM EDT Malcom Stubbs in R documented as of this encounter Plan [...] documented as of this encounter Care Teams Front Desk Representative Relationship Specialty Start Date End Date Marco A Castañeda MD [address] [place] [address] PCP - General 11/01/20 documented as of this encounter
--- OUTSIDE RECORDS SUMMARY | 2024-11-27 15:20 | XMS_ITS | Encounter Summary ---
Author Organization [facility] Address [address] [place] [address] Care Team Providers Care Main Line Assembler Name Role Phone Marco A Castañeda MD Primary Care Provider [phone] Reason for Referral * Consultation (Routine) - Closed Specialty Diagnoses / Procedures Referred By Contac t Referred To Contact Rheumatology Diagnoses Thoracic back pain, unspecified back pain laterality, unspecified chronicity Moustapha Peters MD [address] [place] [address] Phone: tel: Referral ID Status Reason Start Date Expiration Date V isits Requested Visits Authorized [id number] Closed Specialty Services Required 10/05/2024 04/06/2026 1 1 Encounter Details Date Type Department Care Team ([facility] st Contact Info) Description 10/05/2024 [facility] [address] [place] [address] Moustapha Peters MD [address] [place] [address] Thoracic back pain, unspecified back pain laterality, unspecified chronicity (Primary Dx) Social History Tobacco Use Types Packs/Day Years Used Date Smoking Tobacco: Never Smokeless Tobacco: Never Alcohol Use Standard Drinks/Week Comments Not Currently 0 (1 standard drink = 0.6 oz pur e alcohol) Sex and Gender Information Value Date Recorded Sex Assigned at Not on file Legal Sex Male 6:37 PM EDT Gender Identity Not on file Sexual Orientation Not on file documented as of this encounter Plan of Treatment Scheduled Referrals Name Type Priority Associated Diagnoses Orde r Schedule Ambulatory referral to Rheumatology Outpatient Referral Routine Thoracic back pain, unspecified back pain laterality, unspecified chronicity Expected: 10/05/2024 (Approximate), Expires: 04/06/2026 documented as of this encounter Visit Diagnoses Diagnosis Thoracic back pain, unspecified back pain laterality, unspecified chronicity- Primary documented in this encounter Care Teams Main Line Assembler Relationship Specialty Start Date End Date Marco A Castañeda MD [address] [place] [address] PCP - General 11/01/20 documented as of this encounter
--- OUTSIDE RECORDS SUMMARY | 2024-11-27 15:20 | XMS_ITS | Encounter Summary ---
Author Organization [facility] Address [address] [place] [address] Phone [email or web address] Care Team Providers Care Clinic Manager Name Role Phone Provider, No Primary Care Provider Unavailabl e Encounter Details Date Type Department Care Team (Late st Contact Info) Description 10/03/[address] [place] [address] Ronni Morrell RN [address] [place] [address] Social History Tobacco Use Types Packs/Day Years [...] on file documented as of this encounter Miscellaneous Notes * Telephone Encounter - Ronni Morrell RN - 10/03/2024 6:09 AM EDT TM called stating he still feels unable to RTW due to current pain levels with any activity. TM recently had FCE and placed at [facility]. TM released by specialist to regular duty. TM states he only feels that he could work a short time without significant increase in pain. TM seeing pain management tomorrow. TM states he has already contacted for short term claim. Consulted with Ryan Patricia NP. TM educated if he does not feel able to perform processes he needs to continue to stay in contact with [facility] and time covering PCP(S does not cover time). TM to contact HR rep(TM has # for Alessandro Mackay already). TM to RTC when released regular duty with note when physically able to return. TM verbalized unde rstanding. documented in this encounter Plan of Treatment Upcoming Encounters Date Type Department Care Team (Late st Contact Info) Description 12/01/2024 12:00 PM EDT Occ Office Visit [facility] Line Side Nursing Power Train [address] [place] [address] Ingrid Hna PA [address] [place] [address] documented as of this encounter Visit Diagnoses Not on filedocumented in this encounter Care Teams Clinic Manager Relationship Specialty Start Date End Date Provider, [place] [address] PCP - General Senior Speech Pathologist 07/26/20 documented as of this encounter
--- OUTSIDE RECORDS SUMMARY | 2024-11-27 15:20 | XMS_ITS | Encounter Summary ---
Author Organization [facility] Address [address] [place] [address] Phone [email or web address] [email or web address] Care Team Providers Care Personal Trainer Name Role Phone Provider, No Primary Care Provider Unavailabl e Reason for Visit * Reason Onset Date Comments Care Coordination 10/02/2024 Encounter Details Date Type Department Care Team (Late st Contact Info) Description 10/02/[address] [place] [address] Silva Lerner, WHIT [address] [place] [address] Social History Tobacco Use Types [...] Depression Answer Date Recorded PHQ Total Score 18 2024 Stress Answer Date Recorded Stress in your Life Not on file 04/24/2024 Dealing with Stress 3 04/24/2024 Sex and Gender Information Value Date Recorded Sex Assigned at Not on file Legal Sex Male 11:57 AM CDT Gender Identity Not on file Sexual Orientation Not on file documented as of this encounter Miscellaneous Notes * Telephone Encounter - Silva Lerner, RN - 10/02/2024 2:52 PM EDT Nurse branch operations manager note for follow up call. 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 08/09/24- WMLOA begins 08/16/24- MRI- showed inflammation per TM 08/28/24- Follow up Dr Peters- TM was told to remain restrictions, stop PT, and given CSI in right shoulder. 09/12/24- TM calls very upset with continued pain. TM scheduled to see Dr Peters first available 09/14/24 10:30 AM in [place]. 09/14/24- Follow up Dr Peters- continue restrictions, referred to rheumatology, and referred for FCE. Workers comp will not cover Rheumatology. 09/25/24- TM placed at [facility] by Dr Peters. TTD ends today. 09/27/24- FCE at [facility] Clinic Provider: JAKE Salgado [phone] F/U Call Notes: PC from stating he saw Dr Peters today and was released to RTW full duty. TM was not given any indefinite restrictions. TM states he is unable to return to work at this time. TM states he saw PCP- Julita Russo and had bloodwork done and was referred to pain management. TM states he has spoken with Héctor Mistry. TM is still with Dr Peters's office is working on getting TM in to rheumatology. TM explained that he will need to discuss remaining off with his PCP/ treating doctor and call [id number] once released to RTW regular duty. Last Specialist Visit: 09/14/24 Next Specialist Visit: Pending rheumatology (personal) and FCE (TM PLACED AT [facility] 4725) Cylinder Inspector And Tester Plan/Goals: TM to keep scheduled apts Continue following plan of care per specialist TM has reached [facility] as of 09/25/24 and no longer meets criteria outlined by their employer for nurse case management and so will now follow up closely with the onsite clinic as discussed above going forward regarding this injury. They will continue to follow up with their TMR as needed. Conclusion: -TM verbalized knowledge of next steps/appointments. -TM has no further concerns at this time. Cylinder Inspector And Tester Signature: Silva Lerner RN Date: 10/02/24 documented in this encounter Plan of Treatment Upcoming Encounters Date Type Department Care Team (Late st Contact Info) Description 12/01/2024 12:00 PM EDT Occ Office Visit [employer] [facility] Line Side Nursing Power Train [address] [place] [address] Ingrid Han PA [address] [place] [address] documented as of this encounter Visit Diagnoses Not on filedocumented in this encounter Care Teams Personal Trainer Relationship Specialty Start Date End Date Provider, [place] [address] PCP - General Informatica Mdm Architect 07/26/20 documented as of this encounter
--- OUTSIDE RECORDS SUMMARY | 2024-11-27 15:20 | XMS_ITS | Encounter Summary ---
Author Organization [facility] Address [address] [place] [address] Phone [email or web address] [email or web address] Care Team Providers Care Car Attendant Name Role Phone Provider, No Primary Care Provider Unavailabl e Encounter Details Date Type Department Care Team (Late st Contact Info) Description 10/27/2024 Telephone [place] [address] [facility] [address] [place] [address] Maryanne Haddad RN [address] [place] [address] Social History Tobacco Use Types [...] encounter Miscellaneous Notes * Telephone Encounter - Maryanne Haddad RN - 10/27/2024 10:11 AM EDT Shake[employer] Wood calls clinic to discuss return to work after personal medical leave of absence for arthritis of right shoulder. WD ID: [id number] Employer: [employer] Cost Center: [id number] Shift: 1 Full-time GL and #: Gio Bauer Previous/current indefinite restrictions? No LDW: 08/08/2024 RELEASE: Regular Duty Additional notes from phone call: TM states that he was initially jadon paid by wc, then claim was denies and he is currently being paid by [employer]. If WMLOA, still getting compensation from work comp? No: [employer] If WMLOA, treatment for any personal medical condition during leave? No If PMLOA, work-related injury immediately before leave? No Same day occ or personal follow up scheduled? Yes Reviewed and/or scheduled for WC/WH? Yes Date: emailed to request scheduling, they are not open on Fridays. Request sent to [facility] cost center? Yes sent to Karina Quintana. Maryanne Haddad RN documented in this encounter Plan of Treatment Upcoming Encounters Date Type Department Care Team (Late st Contact Info) Description 12/01/2024 12:00 PM EDT Occ Office Visit [employer] Line Side Nursing Power Train [address] [place] [address] Ingrid Han PA [address] [place] [address] documented as of this encounter Visit Diagnoses Not on filedocumented in this encounter Care Teams Car Attendant Relationship Specialty Start Date End Date Provider, [place] [address] PCP - General Honey Grader And Blender 07/26/20 documented as of this encounter
--- OUTSIDE RECORDS SUMMARY | 2024-11-27 15:20 | XMS_ITS | Encounter Summary ---
Author Organization [facility] Address [address] [place] [address] Phone CareEverywhereSuppor [email or web address] Care Team Providers Care Sheet Heater Name Role Phone Provider, No Primary Care Provider Unavailabl e Encounter Details Date Type Department Care Team (Late st Contact Info) Description 10/02/[address] [place] [address] Shaye Bauer RN [address] [place] [address] Social History Tobacco Use Types [...] encounter Miscellaneous Notes * Telephone Encounter - Shaye Bauer RN - 10/02/2024 3:05 PM EDT TM called and states that he has a release from [employer] to RTW regular duty, but is not ready to return. TM has a pain management and PCP appt for this Wednesday. Spoke with Maria Teresa earlier. TM is at [facility]. Reviewed with Maria Teresa Lerner RN CM and she states TM has been told to contact [facility] to have his time covered while he is eyal treating with PCP if he does not feel able to return. Went over this with the TM. TM states understanding, was just unsure if he needed to make an appt with [facility] to document. Told TM to f/u with [facility] when released regular duty. documented in this encounter Plan of Treatment Upcoming Encounters Date Type Department Care Team (Late st Contact Info) Description 12/01/2024 12:00 PM EDT Occ Office Visit [facility] Line Side Nursing Power Train [address] [place] [address] Ingrid Han PA [address] [place] [address] documented as of this encounter Visit Diagnoses Not on filedocumented in this encounter Care Teams Sheet Heater Relationship Specialty Start Date End Date [place], [place] [address] PCP - General Customs Brokerage Manager 07/26/20 documented as of this encounter
--- OUTSIDE RECORDS SUMMARY | 2024-11-27 15:20 | XMS_ITS | Encounter Summary ---
Author Organization [facility] Address [address] [place] [address] Phone CareEverywhereSuppor [email or web address] Care Team Providers Care Post Production Assistant Name Role Phone Provider, No Primary Care Provider Unavailabl e Reason for Visit * Reason Onset Date Comments Care Coordination 09/28/2024 Encounter Details Date Type Department Care Team (Late st Contact Info) Description 09/28/[address] [place] [address] Silva Lerner, WHIT [address] [place] [address] Social History Tobacco Use Types [...] Miscellaneous Notes * Telephone Encounter - Silva Lerner RN - 09/28/2024 9:49 AM EDT Nurse manager of revenue note for follow up call. 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 08/09/24- WMLOA begins 08/16/24- MRI- showed inflammation per TM 08/28/24- Follow up Dr Peters- TM was told to remain restrictions, stop PT, and given CSI in right shoulder. 09/12/24- TM calls very upset with continued pain. TM scheduled to see Dr Peters first available 09/14/24 10:30 AM in [place]. 09/14/24- Follow up Dr Peters- continue restrictions, referred to rheumatology, and referred for FCE. Workers comp will not cover Rheumatology. 09/25/24- TM placed at [facility] by Dr Peters. TTD ends today. 09/27/24- FCE at [facility] Clinic Provider: JAKE Salgado [phone] F/U Call Notes: PC from stating he went to FCE yesterday and has a follow up with Dr Peters Wednesday. TM has questions regarding if he is to receive permanent restrictions/ not being able to work 8 hours. Discussed with TM that if permanent restrictions are given he will need to follow up at [id number] then [facility] has a process to look for work. TM encouraged to discuss his concerns with his provider. TM states he has still not been contacted with a rheumatology appointment- suggested contacting his PCP to see if they could help facilitate this. Last Specialist Visit: 09/14/24 Next Specialist Visit: Pending rheumatology (personal) and FCE (TM PLACED AT [facility] 4725) Station Agent Plan/Goals: TM to keep scheduled apts Continue [...] has no further concerns at this time. Station Agent Signature: Silva Lerner RN Date: 09/28/24 documented in this encounter Plan of Treatment Upcoming Encounters Date Type Department Care Team (Late st Contact Info) Description 12/01/2024 12:00 PM EDT Occ Office Visit [employer] [facility] Side Nursing Power Train [address] [place] [address] Ingrid Han PA [address] [place] [address] documented as of this encounter Visit Diagnoses Not on filedocumented in this encounter Care Teams Post Production Assistant Relationship Specialty Start Date End Date [place], [place] [address] PCP - General Massage Operator 07/26/20 documented as of this encounter
--- OUTSIDE RECORDS SUMMARY | 2024-11-27 15:20 | XMS_ITS | Encounter Summary ---
Author Organization Healthcare Address [address] [place] [address] Care Team Providers Care Grading Clerk Name Role Phone Marco A Castañeda MD Primary Care Provider [phone] Encounter Details Date Type Department Care Team (Late st Contact Info) Description 10/18/2024 Telephone [facility] [address] [place] [address] Pranav Chauhan, BIOLOGY LECTURER [address] [place] [address] Social History Tobacco Use Types [...] encounter Miscellaneous Notes * Telephone Encounter - Lisseth Trejo RN - 10/18/2024 9:42 AM EDT I have mailed out appointment reminder to patient. * Telephone Encounter - Mirtha Serrano - 10/18/2024 9:21 AM EDT Clinical Concern/Question Reason for Call: Pt is asking for something in writing showing that he has an appt with us on 10/23 Best contact number: [phone] (mobile) Optimal time of day to reach caller: ANYTIME Additional comments/information from caller: None Note: Please do not reply to this message. Follow-up communication and further actions as a result of this message need to be communicated with the patient directly, if the patient is not active on MyChart. If the patient is active on MyChart, they will receive notification of the communication/outcome via [employer]. documented in this encounter Plan of Treatment Not on file documented as of this encounter Visit Diagnoses Not on filedocumented in this encounter Care Teams Grading Clerk Relationship Specialty Start Date End Date Marco A Castañeda MD [address] [place] [address] PCP - General 11/01/20 documented as of this encounter
--- OUTSIDE RECORDS SUMMARY | 2024-11-27 15:20 | XMS_ITS | Encounter Summary ---
Author Organization [facility] Address [address] [place] [address] Care Team Providers Care Railroad Firer Name Role Phone Marco A Castañeda MD Primary Care Provider [phone] Encounter Details Date Type Department Care Team (Late st Contact Info) Description 08/16/2024 Orders Only External Location [address] [place] [address] Moustapha Peters MD [address] [place], [place] [id number] Social History Tobacco Use Types Packs/Day Years [...] Name Priority Date/Time Associated Diagnosis Comments MR NEURO OUTSIDE IMAGES 08/16/2024 4:32 PM EST documented in this encounter Results * MR NEURO OUTSIDE IMAGES (08/16/2024 4:32 PM EST) Anatomical Region Laterality Modality Magnetic Resonan ce 08/16/2024 4:32 PM EST us Moustapha Peters MD IMG MRI PROCEDURES Final Result documented in this encounter Visit Diagnoses Not on filedocumented in this encounter Care Teams Railroad Firer Relationship Specialty Start Date End Date Marco A Castañeda MD [address] [place] [address] PCP - General 11/01/20 documented as of this encounter
--- OUTSIDE RECORDS SUMMARY | 2024-11-27 15:20 | XMS_ITS | Encounter Summary ---
Author Organization [facility] Address [address] [id number] Care Team Providers Care Hot Box Checker Name Role Phone Marco A Castañeda MD Primary Care Provider [phone] Encounter Details Date Type Department Care Team (Latest Contact Info) Description 10/18/2024 Travel Social History Tobacco Use Types Packs/Day [...] on filedocumented in this encounter Care Teams Hot Box Checker Relationship Specialty Start Date End Date Marco A Castañeda MD [address] [place] [address] PCP - General 11/01/20 documented as of this encounter
--- OUTSIDE RECORDS SUMMARY | 2024-11-27 15:20 | XMS_ITS | Clinical Summary ---
Author Organization [facility] Address [address] [place] [id number] Phone [email or web address] Care Team Providers Care Driver Salesman Name Role Phone Provider, No Primary Care Provider Unavailabl e Allergies No known active allergies Medications omeprazole (PriLOSEC) [address] capsule Take 20 mg by mouth 1 (one) time each day. Do not crush or chew. Active bisoprolol (ZEBETA) 10 MG tablet Take 10 mg by mouth 1 (one) time each day. 07/21/19 22 Active levothyroxine (SYNTHROID) 50 MCG tablet Take 50 mcg by mouth 1 (one) time each day. 06/23/19 24 Active allopurinol (ZYLOPRIM) 100 MG tablet Take 100 mg by mouth 1 (one) time each day. 06/23/19 24 Active atorvastatin (LIPITOR) 40 MG tablet 40 mg. 06/03/20 23 Active Tirzepatide-Weig ht Management (Zepbound, tirzepatide, 10mg/0.5mL Single-Dose Pen SQ) 10 MG/0.5ML solution auto-injector INJECT 10 MG (0.5 ML) SUBCUTANEOUSLY ONCE A WEEK 07/07/19 25 Active glucosamine-abel droitin 500-400 MG tablet Take 1 tablet by mouth in the morning and 1 tablet in the evening and 1 tablet before bedtime. Active traZODone (DESYREL) 50 MG tabletIndication s:Current moderate episode of major depressive disorder, unspecified whether recurrent (CMS/HCC),Sleep disturbances Take 1 tablet (50 mg total) by mouth every night. 30 tablet 09/14/19 25 Active DULoxetine (CYMBALTA) [address] capsuleIndicatio ns:Other depression Take 1 capsule (20 mg total) by mouth 1 (one) time each day. Do not crush or chew. 90 capsule 10/26/19 25 025 Active Active Problems Problem Noted Date Diagnosed Date Return to work evaluation 02/19/2023 Encounters Date Type Department Care Team Description 10/27/2024 4:00 PM EDT Office Visit [facility] [address] [facility] [address] [place] [address] Esmer Herrera PA Physical deconditioning (Primary Dx); Periscapular pain of right shoulder; Encounter for fitness for duty examination 10/27/[address] [facility] [address] [facility] [address] [place] [address] Maryanne Haddad RN 10/25/2024 1:30 PM EDT Office Visit [facility] [address] [place] [address] Joelle Reyez, ENRICO Other depression 10/04/2024 1:00 PM EDT Office Visit [facility] [address] [place] [address] Joelle Reyez, ENRICO Other depression (Primary Dx) 10/03/[address] [facility] [address] [place], [place] [address] [place] [address] Ronni Morrell, WHIT 10/02/[address] [facility] [address] [place] [address] Shaye Bauer RN 10/02/[address] [facility] [address] [facility] [address] [place] [address] Silva Lerner RN 09/28/[address] [facility] [address] [facility] [address] [place] [address] Silva Lerner, RN 09/25/[address] [facility] [address] [facility] [place] [address] Sushila Boothe MA 09/25/[address] [facility] [address] [facility] [place] [address] Silva Lerner, RN 09/25/[address] [facility] [address] [facility] [place] [address] Silva Lerner, RN 09/21/[address] [facility] [address] [facility] [place] [address] Marla Gallardo MD Periscapular pain of right shoulder (Primary Dx) 09/21/[address] [facility] [address] [facility] [place] [address] Silva Lerner, RN 09/19/[address] [facility] [address] [facility] [place] [address] Silva Lerner, RN 09/15/[address] [facility] [address] [facility] [place] [address] Silva Lerner, RN 09/15/[address] [facility] [address] [facility] [place] [address] Silva Lerner, RN 09/14/[address] [facility] [address] [facility] [place] [address] Silva Lerner, RN 2024 11:00 AM EDT Office Visit [facility] [address] [place] [address] Joelle Reyez NP Current moderate episode of major depressive disorder, unspecified whether recurrent (CMS/HCC); Sleep disturbances [address] [facility] [address] [place] [address] Silva Lerner RN 09/12/[address] [facility] [address] [facility] [place] [address] Silva Lerner RN 08/28/[address] [facility] [address] [facility] [place] [address] Silva Lerner RN from Last 3 Months Social History Tobacco Use Types Packs/Day Years Used Date Smoking Tobacco: Never Smokeless Tobacco: Never Tobacco Cessation:Counseling Given: Not Answered Alcohol Use Standard Drinks/Week Comments No 0 [...] Sign Reading Time Taken Comments Blood Pressure 129/79 11/09/2024 2:57 PM EDT Pulse 91 11/09/2024 2:57 PM EDT Temperature 36.6 C (97.8 F) 10/27/2024 3:59 PM EDT Respiratory Rate 18 11/09/2024 2:57 PM EDT Oxygen Saturation 98% 11/09/2024 2:57 PM EDT Inhaled Oxygen Concentration - - Weight 92.4 kg (203 lb 12.8 oz) 10/25/2024 1:02 PM EDT Height 175.3 cm (5' 9 ) 10/25/2024 1:02 PM EDT Body Mass Index 30.1 10/25/2024 1:02 PM EDT Plan of Treatment Upcoming Encounters Date Type Department Care Team (Late st Contact Info) Description 12/01/2024 12:00 PM EDT Occ Office Visit [facility] [address] [place] [address] Ingrid Han PA [address] [place] [address] Health Maintenance Due Date Last Done Comments Dental Cleaning/Exam 1965 HIV Screening 1965 Hepatitis C Screening 1965 Annual Preventive Exam 09/12/1981 Hep B Infection Screening - Triple Screen 09/12/1981 Colorectal Cancer Screening 09/12/1993 Zoster Immunization (1 of 2) 09/12/2013 Covid-19 Immunization (3 - season) 2024 01/04/2021, 12/07/2020 Influenza Immunization (Season Ended) 2025 04/19/2017 Tetanus Diphtheria and Pertussis Immunization (3 - Td or Tdap) 06/05/2034 06/05/2024, 07/08/2021 HIB Immunization Aged Out No longer e ligible based on patient's age to complete this topic HPV Immunization Aged Out No longer e ligible based on patient's age to complete this topic Hepatitis A Immunization Aged Out No longer eligible based on patient's age to complete this topic Hepatitis B Immunization Aged Out No longer eligible based on patient's age to complete this topic Pneumococcal: Ped (0 to 5 Yrs) and At-Risk Member (6 to 64 Yrs) Aged Out No longer eligible b ased on patient's age to complete this topic Polio Immunization Aged Out No longer eligible based on patient's age to complete this topic Insurance OPT OUT NO COPAY NB Care Teams Driver Salesman Relationship Specialty Start Date End Date Provider, [place] Lee [address] PCP - General Vp [employer] Marketing [employer] 07/26/20
--- NOTE | 2024-11-27 15:26 | EXP.PAIN.SOA ---
[facility] Disclaimer: The information contained in this section may have been updated after the patient was seen, as this information can be updated by other users. 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) History of throat surgery History of back surgery History of tonsillectomy History of cholecystectomy Family History Other No significant family history Social History Smoking Status: Never smoker second hand exposure: No alcohol intake: never substance use type: denies use current occupational status: other Travel in the last 8 weeks?: None household members: significant other housing: apartment current occupational exposures/hazards: No caffeine: Yes PM Subjective & Objective Subjective Subjective:: Patient is a pleasant 59-year-old male who presents today for follow-up of trigger point injections of his right scapular, thoracic latissimus/paraspinous muscles on 11/03/2024. Patient does relate that he has had at least 90% improvement and feels like these injections are still providing significant relief. He denies any new trauma or injury. Patient is prescribed Celebrex 200 mg daily and Skelaxin 800 mg 3 times a day. He denies any side effects and is requesting refills. He does state that he is fixing to be released from light duty at work. His Darren has been reviewed and is appropriate. Review of Systems: General: No recent weight changes, no fever, no sleep disturbances Respiratory: No cough, no shortness of air, no recurring pulmonary infections Cardiovascular/peripheral vascular: No chest pain, no palpitations, no edema, no shortness of breath Gastrointestinal: No new onset incontinence, normal bowel movements reported Genitourinary: No new onset incontinence Musculoskeletal: Right scapular pain Psychiatric: [Normal mood/affect] Neurological: [Denies weakness in extremities], [denies balance issues] Pain at rest (0-10 scale): 0 Objective Objective:: Physical Exam: General: Alert and oriented x3, no acute distress, pleasant and cooperative Lungs: Respirations even and unlabored, symmetrical chest expansion Eyes: PERRL Musculoskeletal: Flexion and extension of right shoulder within normal limits Neurological: Speech clear, no gross sensory deficit Has patient had previous pain injection?: Yes Percent improvement in pain since last injection: 90% Conservative treatment options previously tried: Home exercise plan Length of treatment: Longer than 12 weeks Meds Home Medications and Allergies Home Medications ?Medication ?Instructions ?Recorded ?Confirmed ?Type atorvastatin 40 mg tablet 40 mg PO DAILY 05/25/24 11/03/24 History bisoprolol fumarate 10 mg tablet 10 mg PO DAILY 05/25/24 11/03/24 History levothyroxine 50 mcg tablet 50 mcg PO DAILY 05/25/24 11/03/24 History (Synthroid) methocarbamol 750 mg tablet 750 mg PO TID #12 tabs 05/25/24 11/03/24 Rx omeprazole 20 mg capsule,delayed 20 mg PO DAILY 05/25/24 11/03/24 History release tirzepatide (weight loss) 5 mg/0.5 5 mg SQ WEEKLY 05/25/24 11/03/24 History mL subcutaneous pen injector (Zepbound) sodium,potassium,mag sulfates 17.5 See Rx Instructions PO .COMPLEX 08/09/24 11/03/24 Rx gram-3.13 gram-1.6 gram oral soln #354 mL (Suprep Bowel Prep Kit) diclofenac sodium 75 mg 75 mg PO BID #28 tabs 10/04/24 11/03/24 Rx tablet,delayed release celecoxib 200 mg capsule (Celebrex) 200 mg PO DAILY #30 caps 11/03/24 Rx metaxalone 800 mg tablet 800 mg PO TID PRN muscle pain #90 11/03/24 Rx tabs New Prescriptions to Start Prescriptions: Allergies Allergy/AdvReac Type Severity Reaction Status Date / Time No Known Allergies Allergy Verified 10/12/23 15:59 Assessment and Plan *Assessment and plan (1) Myofascial pain on right side: Status: Acute Category: Medical Code(s): M79.18 - Myalgia, other site Plan I will make sure the patient does have refills on his Celebrex and Skelaxin and have him return to clinic in 6 weeks. Patient has had significant relief following his trigger point injections and does not require any additional injection therapy at this time. Patient has been instructed to contact the clinic with any concerns before the next appointment. Dr. Ruffin has reviewed this note and agrees with this plan of care. This note was dictated using voice recognition software and make contain errors or omissions. All injections are used with Lidocaine, Bupivacaine and dexamethasone. Occasionally urine drug screen is needed to verify patient's compliance with our office pain contract. This is ordered based off specific treatments related to chronic pain with the potential to abuse certain medications.
[2024-11-27 15:30] VITALS: BP 125/74; PULSE 63; RESP 18; O2SAT 98; BMI 30.7
== END 2024-11-27 23:59 | disposition home or self-care (01) ==
PROVIDERS: PCP Internal Medicine Adolescent Medicine; Visit Provider Nurse Practitioner Family
DX: M79.18 Myalgia, other site (principal); Z79.1 Long term (current) use of non-steroidal anti-inflammatories (NSAID); Z79.899 Other long term (current) drug therapy
CPT/HCPCS: 99212; G0463

== ENCOUNTER 2025-01-31 15:05 | Outpatient (POV) | payer BC, SELFPAY ==
--- OUTSIDE RECORDS SUMMARY | 2025-01-31 15:07 | XMS_ITS | Encounter Summary ---
Author Organization Healthcare Address [address] [place] [address] Care Team Providers Care High Pressure Cleaner Name Role Phone Marco A Castañeda MD Primary Care Provider [phone] Encounter Details Date Type Department Care Team (Late st Contact Info) Description 10/23/2024 Results Follow-Up [facility] Medicine Specialties [address] [place] [address] Pranav Chauhan, POWER PLANT INSPECTOR [address] [place] [address] Social History Tobacco Use Types [...] documented as of this encounter Care Teams High Pressure Cleaner Relationship Specialty Start Date End Date Marco A Castañeda MD [address] [place] [address] PCP - General 11/01/20 documented as of this encounter
--- OUTSIDE RECORDS SUMMARY | 2025-01-31 15:07 | XMS_ITS | Clinical Summary ---
Author Organization [facility] Address [address] [place] [address] Care Team Providers Care Clerk Television Production Name Role Phone Moustapha Peters MD Primary Care Provider [phone] Allergies No known active allergies Medications omeprazole (priLOSEC) 20 MG capsule Take 20 mg by mouth Daily. Active atorvastatin (LIPITOR) 10 MG tablet Take 10 mg by mouth Daily. Active lisinopril (PRINIVIL,ZESTRI L) 10 MG tablet Take 10 mg by mouth Daily. Active PredniSONE (DELTASONE) 10 MG (21) tablet packIndications: Numbness and tingling of left side of face 6 tabs po x 4 day; 4 tabs po x 4 days; 2 tabs po x 4 day; stop/taperi ng dose x 12 days 48 each 07/31/2018 Active Active Problems No known active problems Family History 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 Relation Name Comments Cancer Brother Heart disease Father Heart disease Maternal Grandfather Heart disease Maternal Grandmother Diabetes Mother Heart disease Mother Heart disease Paternal Grandfather Heart disease Paternal Grandmother Cancer Sister Relation Name Status Comments Brother Father Maternal Grandfather Maternal Grandmother Mother Paternal Grandfather Paternal Grandmother Sister Social History Tobacco Use Types Packs/Day Years Used Date Smoking Tobacco: Never Abuse Screen Answer Date Recorded Unsafe at Home or Work/School Not on file Feels Threatened by Someone? Not on file 02/2023 Does Anyone Keep You from Co ntacting Others or Doint Things Outside the Home? Not on file 03/29/2023 Physical Sign of Abuse Present Not on file 1 Housing Stability Answer Date Recorded Current Living Arrangements Not on file 10/0 02/2023 Potentially Unsafe Housing Conditions Not on hien e 03/29/2023 Family and Community Support Answer August e Recorded Help with Day-to-Day Activities Not on file 03/29/2023 Lonely or Isolated Not on file 03/29/2023 Employment Answer Date Recorded Do you want help finding or keeping work or a estrellita b? Not on file 03/29/2023 Disabilities Answer Date Recorded Concentrating, Remembering, or Making Decisions Difficulty Not on file 03/29/2023 Doing Errands Independently Difficulty Not on fi le 03/29/2023 Education Answer Date Recorded Help with school or training? Not on file Preferred Language Not on file 03/29/2023 Sex and Gender Information Value Date Recorded Sex Assigned at Not on file Legal Sex Male 12:53 PM EDT Gender Identity Not on file Sexual Orientation Not on file Last Filed Vital Signs Vital Sign Reading Time Taken Comments Blood Pressure 130/84 07/31/2018 4:39 PM EST Pulse 84 07/31/2018 4:39 PM EST Temperature 36.8 C (98.2 F) 07/31/2018 4:39 PM EST Respiratory Rate 12 07/31/2018 4:39 PM EST Oxygen Saturation 99% 07/31/2018 4:39 PM EST Inhaled Oxygen Concentration - - Weight 112 kg (246 lb) 07/31/2018 4:39 PM EST Height 175.3 cm (5' 9 ) 07/31/2018 4:39 PM EST Body Mass Index 36.33 07/31/2018 4:39 PM EST Plan of Treatment Upcoming Encounters Date Type Department Care Team (Late st Contact Info) Description 02/20/2025 1:00 PM EDT Office Visit [facility] RHEUMATOLOGY [address] [address] Eliud Sanders MD [address] [facility] [address] [place] [address] Health Maintenance Due Date Last Done Comments COLOGUARD 09/12/2008 COLON CANCER SCREENING 5 YEA R SIGMOIDOSCOPY 09/12/2008 COLONOSCOPY 09/12/2008 COLORECTAL CANCER SCREENING 09/12/2008 CT COLONOGRAPHY 09/12/2008 FECAL OCCULT BLOOD TEST 09/12/2008 FIT Testing (1 year) 09/12/2008 Pneumococcal Vaccine 50+ (1 of 1 - PCV) 09/12/2013 ZOSTER VACCINE (1 of 2) 09/12/2013 ANNUAL PHYSICAL 07/31/2018 HEPATITIS C SCREENING 07/31/2018 COVID-19 Vaccine (3 - season) 2024, 12/07/2020 INFLUENZA VACCINE 03/21/2025 05/30/2021, , 04/02/2018 TDAP/TD VACCINES (2 - Td or Tdap) 07/08/2031 022 Insurance PPO Member Subscriber Plan / Payer (Ef fective 2021-Present) Name:Nilesh Wood Relation to Subscriber:Self Name:Nilesh Wood Payer ID:[id number] (NAIC) Type:Not on file Address: [facility] [address] [place] [id number] Care Teams Clerk Television Production Relationship Specialty Start Date End Date Moustapha Peters MD [address] [place] [address] PCP - General Orthopedic Surgery 10/06/24
--- OUTSIDE RECORDS SUMMARY | 2025-01-31 15:07 | XMS_ITS | Encounter Summary ---
Author Organization [facility] Address [address] [place] [address] Care Team Providers Care Director Work Name Role Phone Marco A Castañeda MD Primary Care Provider [phone] Encounter Details Date Type Department Care Team (Late st Contact Info) Description 10/29/2023 Orders Only External Location [address] [place] [address] Sierra Barrera APRN [address] [place] [address] Social History Tobacco Use Types [...] on filedocumented in this encounter Care Teams Director Work Relationship Specialty Start Date End Date Marco A Castañeda MD [address] [place] [address] PCP - General 11/01/20 documented as of this encounter
--- OUTSIDE RECORDS SUMMARY | 2025-01-31 15:07 | XMS_ITS | Encounter Summary ---
Author Organization Healthcare Address [address] [place] [address] Care Team Providers Care Ditch Tender Name Role Phone Marco A Castañeda MD Primary Care Provider [phone] Encounter Details Date Type Department Care Team (Late st Contact Info) Description 08/16/2024 Orders Only External Location [address] [place] [address] Moustapha Peters MD [address] [place], [place] [id number] Social History Tobacco Use Types Packs/Day Years [...] on filedocumented in this encounter Care Teams Ditch Tender Relationship Specialty Start Date End Date Marco A Castañeda MD [address] [place] [address] PCP - General 11/01/20 documented as of this encounter
--- OUTSIDE RECORDS SUMMARY | 2025-01-31 15:07 | XMS_ITS | Encounter Summary ---
Author Organization [facility] Address [address] [place] [address] Care Team Providers Care Hide Puller Name Role Phone Marco A Castañeda MD Primary Care Provider [phone] Reason for Referral * Consultation (Routine) - Closed Specialty Diagnoses / Procedures Referred By Contac t Referred To Contact Rheumatology Diagnoses Thoracic back pain, unspecified back pain laterality, unspecified chronicity Muostapha Peters MD [address] [place] [address] Phone: tel: Referral ID Status Reason Start Date Expiration Date V isits Requested Visits Authorized [id number] Closed Specialty Services Required 10/05/2024 04/06/2026 1 1 Encounter Details Date Type Department Care Team ([facility] st Contact Info) Description 10/05/2024 [facility] [address] [place] [address] Moustapha Peters MD [address] [place] [address] Thoracic back pain, unspecified back pain laterality, [...] Primary documented in this encounter Care Teams Hide Puller Relationship Specialty Start Date End Date Marco A Castañeda MD [address] [place] [address] PCP - General 11/01/20 documented as of this encounter
--- OUTSIDE RECORDS SUMMARY | 2025-01-31 15:07 | XMS_ITS | Clinical Summary ---
Author Organization [facility] Address [address] [place] [address] Care Team Providers Care Clinical Education Coordinator Name Role Phone Marco A Castañeda MD Primary Care Provider [phone] Allergies No known active allergies Medications atorvastatin [...] Exposure to 2019 novel coronavirus 10/23/2024 10/23/2024 Immunizations Immunization Administration Dates Next Due Influenza, [...] 09/12/2013 [facility]-Zoster Vaccines (1 of 2) 09/12/2013 [id number] Vaccine (3 - Moderna risk series) 02/01/2021 01/04/2021, 12/07/2020 [facility]-RSV Vaccine: 60+ Years o r (1 - Risk 60-74 years 1-dose series) 2023 [facility]-Influenza Vaccine (#1) 02/19/202505/30, 03/17/2019, 04/02/2018 [facility]-Depression Screening 10/23/2025 025, 10/23/2024 [...] patient's age to complete this topic Insurance [facility] [place] [id number] [facility] Care Teams Clinical Education Coordinator Relationship Specialty Start Date End Date Marco A Castañeda MD [address] [place] [address] PCP - General 11/01/20
--- NOTE | 2025-01-31 15:25 | EXP.PAIN.SOA ---
[facility] Disclaimer: The information contained in this section may have been updated after the patient was seen, as this information can be updated by other users. 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 Hyperlipidemia Hypertension Dysphagia Surgical History History of throat surgery History of back surgery History of tonsillectomy History of cholecystectomy Family History Other No significant family history Social History Smoking Status: Never smoker second hand exposure: No alcohol intake: never substance use type: denies use current occupational status: other Travel in the last 8 weeks?: None household members: significant other housing: apartment current occupational exposures/hazards: No caffeine: Yes PM Subjective & Objective Subjective Subjective:: Patient is a pleasant 59-year-old male who presents today for worsening pain. He does rate his pain a 10 out of 10. He states it is still all that same pain that we previously treated him for right around he is right scapular and mid back. Patient did previously get 90% improvement with trigger point injections and he does state today that he would like to get rescheduled for these as the pain is interfering with his ability perform activities of daily living such as cooking and cleaning. He does state any type of increased movement with that right shoulder really aggravates his overall pain symptoms. Patient is prescribed Celebrex 200 mg daily and Skelaxin 800 mg 3 times a day from our office. He denies any side effects. He is requesting refills. He does request the [facility] pharmacy. Patient has also still been seeing chiropractor therapy however feels like it is not really providing significant improvement although he continues to do the exercises. His Darren has been reviewed and is appropriate. Review of Systems: General: No recent weight changes, no fever, no sleep disturbances Respiratory: No cough, no shortness of air, no recurring pulmonary infections Cardiovascular/peripheral vascular: No chest pain, no palpitations, no edema, no shortness of breath Gastrointestinal: No new onset incontinence, normal bowel movements reported Genitourinary: No new onset incontinence Musculoskeletal: Right shoulder pain, mid back pain Psychiatric: [Normal mood/affect] Neurological: [Denies weakness in extremities], [denies balance issues] Pain at rest (0-10 scale): 10 Objective Objective:: Physical Exam: General: Alert and oriented x3, no acute distress, pleasant and cooperative Lungs: Respirations even and unlabored, symmetrical chest expansion Eyes: PERRL Musculoskeletal: Flexion and extension of thoracic [spine] somewhat guarded secondary to pain, [antalgic gait noted] point tenderness along right rhomboid/scapular muscles and right thoracic latissimus/paraspinous muscles Neurological: Speech clear, no gross sensory deficit Has patient had previous pain injection?: No Conservative treatment options previously tried: Home exercise plan Length of treatment: Longer than 12 weeks and Chiropractor Length of treatment: Longer than 4 weeks Meds Home Medications and Allergies Home Medications ?Medication ?Instructions ?Recorded ?Confirmed ?Type atorvastatin 40 mg tablet 40 mg PO DAILY 05/25/24 01/10/25 History bisoprolol fumarate 10 mg tablet 10 mg PO DAILY 05/25/24 01/10/25 History levothyroxine 50 mcg tablet 50 mcg PO DAILY 05/25/24 01/10/25 History (Synthroid) omeprazole 20 mg capsule,delayed 20 mg PO DAILY 05/25/24 01/10/25 History release tirzepatide (weight loss) 5 mg/0.5 5 mg SQ WEEKLY 05/25/24 01/10/25 History mL subcutaneous pen injector (Zepbound) sodium,potassium,mag sulfates 17.5 See Rx Instructions PO .COMPLEX 08/09/24 01/10/25 Rx gram-3.13 gram-1.6 gram oral soln #354 mL (Suprep Bowel Prep Kit) diclofenac sodium 75 mg 75 mg PO BID #28 tabs 10/04/24 01/10/25 Rx tablet,delayed release metaxalone 800 mg tablet 800 mg PO TID PRN muscle pain #90 11/03/24 01/10/25 Rx tabs celecoxib 200 mg capsule (Celebrex) 200 mg PO DAILY #30 caps 11/27/24 01/10/25 Rx colchicine 0.6 mg tablet 0.6 mg PO DAILY #7 tabs 11/28/24 01/10/25 Rx New Prescriptions to Start Prescriptions: Allergies Allergy/AdvReac Type Severity Reaction Status Date / Time No Known Allergies Allergy Verified 07/23/25 16:59 Assessment and Plan *Assessment and plan (1) Myofascial pain on right side: Status: Acute Category: Medical Code(s): M79.18 - Myalgia, other site (2) Pain of right scapula: Status: Acute Category: Medical Code(s): M89.8X1 - Other specified disorders of bone, shoulder (3) Mid back pain: Status: Acute Category: Medical Code(s): M54.9 - Dorsalgia, unspecified Plan Patient is experiencing worsening pain in his right shoulder and mid back area along the right side. Patient did have limited range of motion with point tenderness along his right rhomboid, right thoracic latissimus/paraspinous muscles. I did discuss with the patient regarding repeat trigger point injections at these locations. Risk and benefits were discussed with the patient and he would like to proceed forward with this plan of care. Patient has tried and failed conservative therapy including oral medication, heat and ice, topicals, chiropractor therapy and continued physician guided at home exercising and stretching for longer than 12 weeks. Patient did get 90% relief with his last trigger point injections in October that have worked well up until the last week or 2. Patient will be submitted for trigger point injections of his right scapular/rhomboid and right thoracic latissimus/paraspinous muscles. These will be done without fluoroscopic or ultrasound guidance. I will also refill his Celebrex and Skelaxin. Patient has been instructed to contact the clinic with any concerns before the next appointment. Dr. Ruffin has reviewed this note and agrees with this plan of care. This note was dictated using voice recognition software and make contain errors or omissions. All injections are used with Lidocaine, Bupivacaine and dexamethasone. Occasionally urine drug screen is needed to verify patient's compliance with our office pain contract. This is ordered based off specific treatments related to chronic pain with the potential to abuse certain medications.
[2025-01-31 15:53] VITALS: BP 132/82; PULSE 62; RESP 18; O2SAT 97; BMI 33.5
== END 2025-01-31 23:59 | disposition home or self-care (01) ==
PROVIDERS: PCP Internal Medicine Adolescent Medicine; Visit Provider Nurse Practitioner Family
DX: M79.18 Myalgia, other site (principal); M25.511 Pain in right shoulder; M54.6 Pain in thoracic spine; Z79.1 Long term (current) use of non-steroidal anti-inflammatories (NSAID); Z79.899 Other long term (current) drug therapy
CPT/HCPCS: 99212; G0463

== ENCOUNTER 2025-02-09 15:04 | Day surgery (SDC) | payer BC, SELFPAY ==
--- NOTE | 2025-02-09 15:09 | EXP.PAIN.PRO ---
Procedure Date: 02/09/25 Time: 15:43 Anesthesiologist:: Ruby Peters APRN Complications:: None Pre-procedure Diagnosis:: Myofascial pain of right side, mid back pain, right scapular pain Post-procedure Diagnosis:: Same Indications for Procedure:: Patient is a pleasant 59-year-old male who presents today for trigger point injections. patient is currently managed with Celebrex 200 mg daily and Skelaxin 800 mg 3 times a day. Patient does state he is still having that same pain there around his right rhomboid and right thoracic paraspinous muscles. Patient did previously get significant relief with his last trigger point that were done in October with 90% improvement and lasted well up until mid January.He is prescribed compounded cream from our office. His Darren has been reviewed and is appropriate. Physical Exam: General: Alert and oriented x3, no acute distress, pleasant and cooperative Lungs: Respirations even and unlabored, symmetrical chest expansion Eyes: PERRL Musculoskeletal: Flexion and extension of thoracic [spine] somewhat guarded secondary to pain, [antalgic gait noted] Neurological: Speech clear, no gross sensory deficit Procedure Details:: Patient did have noninvasive blood pressure cuff applied and pulse oximeter. Patient was placed in a sitting position and palpated along right rhomboid and right thoracic paraspinous/latissimus muscles. Areas of point tenderness were marked and using a sterile 25-gauge needle approximately 10 mL of 0.25% bupivacaine, 1% lidocaine and 10 mg dexamethasone were incrementally injected into his right rhomboid and right thoracic paraspinous/latissimus muscles. Needle was removed and sterile bandages applied. Patient tolerated the procedure well with no complications and was discharged neurologically intact. Plan and Disposition:: Patient tolerated the procedure well with no complications and was discharged neurologically intact. Patient will return to clinic in 2 weeks for reevaluation of symptoms and plan of care. Patient has been instructed to contact the clinic with any concerns before the next appointment. Dr. Ruffin has reviewed this note and agrees with this plan of care. This note was dictated using voice recognition software and make contain errors or omissions. All injections are used with Lidocaine, Bupivacaine and dexamethasone. Occasionally urine drug screen is needed to verify patient's compliance with our office pain contract. This is ordered based off specific treatments related to chronic pain with the potential to abuse certain medications.
[2025-02-09 15:12] VITALS: BP 129/82; PULSE 71; RESP 18; O2SAT 96; BMI 33.6
[2025-02-09] MEDS: DEXAMETHASONE 10MG/ML 1ML VIAL 10 MG (15:40)
[2025-02-09] MEDS: BUPIVACAINE 0.25% 10ML INJ 25 MG IJ (15:40)
[2025-02-09] MEDS: LIDOCAINE 1% 5ML PF VIAL 5 ML (15:40)
[2025-02-09 15:42] VITALS: BP 129/89; PULSE 71; RESP 18; O2SAT 96
[2025-02-09 15:46] VITALS: BP 129/76; PULSE 61; RESP 16; O2SAT 99
[2025-02-09 15:51] VITALS: BP 129/89; PULSE 71; RESP 18; O2SAT 96
== END 2025-02-09 15:46 | disposition home or self-care (01) ==
PROVIDERS: PCP Internal Medicine Adolescent Medicine; Visit Provider Nurse Practitioner Family
DX: M79.18 Myalgia, other site (principal); M54.9 Dorsalgia, unspecified; M25.511 Pain in right shoulder; E78.5 Hyperlipidemia, unspecified; I10 Essential (primary) hypertension; Z79.890 Hormone replacement therapy; Z79.899 Other long term (current) drug therapy
CPT/HCPCS: 20553; J0665; J1100; J2003

== ENCOUNTER 2025-02-19 07:25 | Outpatient (CLI) | payer BC, SELFPAY ==
[2025-02-19 20:55] LABS: Coronavirus 19, PCR Not Detected (NotDetected); Influenza A, PCR Not Detected (NotDetected); Influenza B, PCR Not Detected (NotDetected)
--- OUTSIDE RECORDS SUMMARY | 2025-02-20 11:19 | XMS_ITS | Encounter Summary ---
Author Organization Healthcare Address [address] [place] [address] Care Team Providers Care Paper Machine Supervisor Name Role Phone Marco A Castañeda MD Primary Care Provider [phone] Encounter Details Date Type Department Care Team (Late st Contact Info) Description 08/16/2024 Orders Only External Location [address] [place] [address] Moustapha Peters MD [address] [place], [place] [id number] Social History Tobacco Use Types Packs/Day Years [...] on filedocumented in this encounter Care Teams Paper Machine Supervisor Relationship Specialty Start Date End Date Marco A Castañeda MD [address] [place] [address] PCP - General 11/01/20 documented as of this encounter
--- OUTSIDE RECORDS SUMMARY | 2025-02-20 11:19 | XMS_ITS | Clinical Summary ---
Author Organization [facility] Address [address] [place] [address] Care Team Providers Care Medical Library Assistant Name Role Phone Moustapha Peters MD Primary Care Provider [phone] Allergies No known active allergies Medications omeprazole (priLOSEC) 20 MG capsule Take 20 mg by mouth Daily. Active atorvastatin (LIPITOR) 10 MG tablet Take 10 mg by mouth Daily. Active lisinopril (PRINIVIL,ZESTR IL) 10 MG tablet Take 10 mg by mouth Daily. Active PredniSONE (DELTASONE) 10 MG (21) tablet packIndications :Numbness and tingling of left side of face 6 tabs po x 4 day; 4 tabs po x 4 days; 2 tabs po x 4 day; stop/taper ing dose x 12 days 48 each 07/31/2018 02/16/20 25 Discontinu ed(*Therap y completed) Active Problems No known active problems Family [...] drink = 0.6 oz pur e alcohol) Abuse Screen Answer Date Recorded Unsafe at Home or Work/School Not on file Feels Threatened by Someone? Not on file 02/2023 Does Anyone Keep You from Co ntacting Others or Doint Things Outside the Home? Not on file 03/29/2023 Physical Sign of Abuse Present Not on file 1 Housing Stability Answer Date Recorded Current Living Arrangements Not on file 02/2023 Potentially Unsafe Housing Conditions Not on [...] 07/31/2018 4:39 PM EST Plan of Treatment Health Maintenance Due Date Last Done Comments COLOGUARD 09/12/2008 COLON CANCER SCREENING 5 YEA R SIGMOIDOSCOPY 09/12/2008 COLONOSCOPY 09/12/2008 COLORECTAL CANCER SCREENING 09/12/2008 CT COLONOGRAPHY 09/12/2008 FECAL OCCULT BLOOD TEST 09/12/2008 FIT Testing (1 year) 09/12/2008 Pneumococcal Vaccine 50+ (1 of 1 - PCV) 09/12/2013 ZOSTER VACCINE (1 of 2) 09/12/2013 ANNUAL PHYSICAL 07/31/2018 HEPATITIS C SCREENING 07/31/2018 COVID-19 Vaccine ( season) 2024, 12/07/2020 INFLUENZA VACCINE 03/21/2025 05/30/2021, , 04/02/2018 TDAP/TD VACCINES (2 - Td or Tdap) 07/08/2031 022 Insurance [facility] PPO Care Teams Medical Library Assistant Relationship Specialty Start Date End Date Moustapha Peters MD [address] [place] [address] PCP - General Orthopedic Surgery 10/06/24
--- OUTSIDE RECORDS SUMMARY | 2025-02-20 11:19 | XMS_ITS | Encounter Summary ---
Author Organization [facility] Address [address] [place] [address] Care Team Providers Care Electrical Prospecting Engineer Name Role Phone Marco A Castañeda MD Primary Care Provider [phone] Reason for Referral * Consultation (Routine) - Closed Specialty Diagnoses / Procedures Referred By Contac t Referred To Contact Rheumatology Diagnoses Thoracic back pain, unspecified back pain laterality, unspecified chronicity Moustapha Peters MD [address] [place] [address] Phone: tel: Referral ID Status Reason Start Date Expiration Date V isits Requested Visits Authorized [id number] Closed Specialty Services Required 10/05/2024 04/06/2026 1 1 Encounter Details Date Type Department Care Team (Late st Contact Info) Description 10/05/2024 [facility] [address] [place] [address] Moustapha Peters MD [address] [place] [address] Thoracic back pain, unspecified back pain laterality, [...] Primary documented in this encounter Care Teams Electrical Prospecting Engineer Relationship Specialty Start Date End Date Marco A Castañeda MD [address] [place] [id number] PCP - General 11/01/20 documented as of this encounter
--- OUTSIDE RECORDS SUMMARY | 2025-02-20 11:19 | XMS_ITS | Clinical Summary ---
Author Organization [facility] Address [address] [place] [address] Care Team Providers Care Motor Runner Name Role Phone Marco A Castañeda MD Primary Care Provider [phone] Allergies No known active allergies Medications atorvastatin [...] [facility]-HIV Screening 1965 [facility]-Hepatitis C Screening 1963 [facility]-/Child/Adol SDOH Screenings 1965 [facility]- SDOH Screenings 09/12/1981 [facility]-Adult SDOH Screenings 09/12/1981 CT Colonography 09/12/2008 Colonoscopy 09/12/2008 FIT-DNA 09/12/2008 FIT 09/12/2008 FOBT 09/12/2008 Sigmoidoscopy 09/12/2008 [facility]-Colorectal Cancer Screening 09/12/2008 [facility]-Pneumococcal Vaccine: 50 + Years (1 of 1 - PCV) 09/12/2013 [facility]-Zoster Vaccines (1 of 2) 09/12/2013 [id number] Vaccine (3 - Moderna risk series) 02/01/2021 [...] patient's age to complete this topic [facility] [place] [id number] [facility] Care Teams Motor Runner Relationship Specialty Start Date End Date Marco A Castañeda MD [address] [place] [id number] PCP - General 11/01/20
--- OUTSIDE RECORDS SUMMARY | 2025-02-20 11:19 | XMS_ITS | Clinical Summary ---
Author Organization [facility] Address [address] [place] [address] Phone [email or web address] Care Team Providers Care Wares Sorter Name Role Phone Provider, No Primary Care Provider Unavailabl e Allergies No known active allergies Medications bisoprolol (ZEBETA) 10 MG tablet Take 10 mg by mouth 1 (one) time each day. 2 Active levothyroxine (SYNTHROID) 50 MCG tablet Take 50 mcg by mouth 1 (one) time each day. 4 Active allopurinol (ZYLOPRIM) 100 MG tablet Take 100 mg by mouth 1 (one) time each day. 4 Active atorvastatin (LIPITOR) 40 MG tablet 40 mg. 3 Active Tirzepatide-We ight Management (Zepbound, tirzepatide, 10mg/0.5mL Single-Dose Pen SQ) 10 MG/0.5ML solution auto-injector INJECT 10 MG (0.5 ML) SUBCUTANEOUSLY ONCE A WEEK 5 Active glucosamine-ch ondroitin 500-400 MG tablet Take 1 tablet by mouth in the morning and 1 tablet in the evening and 1 tablet before bedtime. Active DULoxetine (CYMBALTA) [address] capsuleIndicat ions:Other depression Take 1 capsule (20 mg total) by mouth 1 (one) time each day. Do not crush or chew. 90 capsule 5 Active ibuprofen (MOTRIN) 600 MG tabletIndicati ons:Periscapul ar pain of right shoulder Take 1 tablet (600 mg total) by mouth every 6 (six) hours if needed for mild pain. 90 tablet 1 Active Active Problems Problem Noted Date Diagnosed Date Return to work evaluation 02/19/2023 Social History Tobacco Use Types Packs/Day Years [...] Sign Reading Time Taken Comments Blood Pressure 126/76 01/18/2025 2:04 PM EDT Pulse 66 01/18/2025 2:04 PM EDT Temperature 36.6 C (97.8 F) 10/27/2024 3:59 PM EDT Respiratory Rate 16 01/18/2025 2:04 PM EDT Oxygen Saturation 96% 01/18/2025 2:04 PM EDT Inhaled Oxygen Concentration - - Weight 92.4 kg (203 lb 12.8 oz) 10/25/2024 1:02 PM EDT Height 175.3 cm (5' 9 ) 10/25/2024 1:02 PM EDT Body Mass Index 30.1 10/25/2024 1:02 PM EDT Plan of Treatment Health Maintenance Due Date Last Done Comments CT Colonography 1963 Colonoscopy 1963 Colorectal Cancer Screening Combo 1965 DNA Cologuard 1963 Dental Cleaning/Exam 1963 FIT or FOBT Test 1965 HIV Screening 1965 Hepatitis C Screening 1965 Sigmoidoscopy 1965 Annual Preventive Exam 09/12/1981 Hep B Infection Screening - Triple Screen 09/12/1981 Zoster Immunization (1 of 2) 09/12/2013 Covid-19 Immunization (1 - season) 2024 Influenza Immunization (#1) 2025 04/19/2017 Tetanus Diphtheria and Pertussis Immunization [...] this topic Pneumococcal: Ped (0 to 5 Yr s) and At-Risk Member (6 to 64 Yrs) Aged Out No longer eligible b ased on patient's age to complete this topic Polio Immunization Aged Out No longer eligible based on patient's age to [place] [id number] OPT OUT NO COPAY NB Care Teams Wares Sorter Relationship Specialty Start Date End Date Provider, [place] [id number] PCP - General Printing Table Hand 07/26/20
--- OUTSIDE RECORDS SUMMARY | 2025-02-20 11:19 | XMS_ITS | Encounter Summary ---
Author Organization Healthcare Address [address] [place] [address] Care Team Providers Care Housing Installer Name Role Phone Marco A Castañeda MD Primary Care Provider [phone] Encounter Details Date Type Department Care Team (Late st Contact Info) Description 10/23/2024 Results Follow-Up [facility] Medicine Specialties [address] [place] [address] Pranav Chauhan, DIRECTOR OF HOTEL OPERATIONS [address] [place] [address] Social History Tobacco Use Types [...] documented as of this encounter Care Teams Housing Installer Relationship Specialty Start Date End Date Marco A Castañeda MD [address] [place] [id number] PCP - General 11/01/20 documented as of this encounter
--- OUTSIDE RECORDS SUMMARY | 2025-02-20 11:19 | XMS_ITS | Encounter Summary ---
Author Organization [facility] Address [address] [place] [address] Care Team Providers Care Dish Stacker Name Role Phone Marco A Castañeda MD Primary Care Provider [phone] Encounter Details Date Type Department Care Team (Late st Contact Info) Description 10/29/2023 Orders Only External Location [address] [place] [address] Sierra Barrera APRN [address] [place] [address] Social History Tobacco Use Types [...] on filedocumented in this encounter Care Teams Dish Stacker Relationship Specialty Start Date End Date Marco A Castañeda MD [address] [place] [address] PCP - General 11/01/20 documented as of this encounter
== END 2025-02-19 23:59 ==
LOC: LAB.DROPOF 02-20 10:51
PROVIDERS: PCP Student in an Organized Health Care Education/Training Program; Visit Provider Student in an Organized Health Care Education/Training Program
DX: J06.9 Acute upper respiratory infection, unspecified (principal)
CPT/HCPCS: 87631

== ENCOUNTER 2025-04-10 08:30 | Outpatient (CLI) | payer BC, SELFPAY ==
[2025-04-10 15:55] LABS: Uric Acid 7.6 mg/dl (3.5-8.5)
[2025-04-10 16:38] LABS: Hepatitis C Ab Qual. W/ RFX NEGATIVE (Negative)
[2025-04-12 09:40] LABS: Hepatitis B Surface Antigen Negative (Negative)
== END 2025-04-10 23:59 ==
LOC: LAB.DROPOF 04-12 08:30
PROVIDERS: PCP Internal Medicine Adolescent Medicine; Visit Provider Nurse Practitioner
DX: M10.9 Gout, unspecified (principal); Z11.4 Encounter for screening for human immunodeficiency virus [HIV]; Z11.59 Encounter for screening for other viral diseases
CPT/HCPCS: 84550; 86803; 87340; 87389

== ENCOUNTER 2025-05-30 07:51 | Outpatient (CLI) | payer BC, SELFPAY ==
[2025-05-30 20:31] LABS: Coronavirus 19, PCR Not Detected (NotDetected); Influenza A, PCR Not Detected (NotDetected); Influenza B, PCR Not Detected (NotDetected)
--- OUTSIDE RECORDS SUMMARY | 2025-06-01 08:13 | XMS_ITS | Encounter Summary ---
Author Organization [facility] Address [address] [place] [address] Care Team Providers Care Advanced Practice Rn Name Role Phone Marco A Castañeda MD Primary Care Provider [phone] Encounter Details Date Type Department Care Team (Late st Contact Info) Description 10/29/2023 Orders Only External Location [address] [place] [address] Sierra Barrera APRN [address] [place] [address] Social History Tobacco Use Types [...] on filedocumented in this encounter Care Teams Advanced Practice Rn Relationship Specialty Start Date End Date Marco A Castañeda MD [address] [place] [address] PCP - General 11/01/20 documented as of this encounter
--- OUTSIDE RECORDS SUMMARY | 2025-06-01 08:13 | XMS_ITS | Encounter Summary ---
Author Organization [facility] Address [address] [place] [address] Care Team Providers Care Alley Tender Name Role Phone Marco A Castañeda MD Primary Care Provider [phone] Reason for Referral * Consultation (Routine) - Closed Specialty Diagnoses / Procedures Referred By Contac t Referred To Contact Rheumatology Diagnoses Thoracic back pain, unspecified back pain laterality, unspecified chronicity Moustapha Peters MD [address] [place] [address] Phone: tel: Referral ID Status Reason Start Date Expiration Date V isits Requested Visits Authorized [id number] Closed Specialty Services Required 10/05/2024 04/06/2026 1 1 Encounter Details Date Type Department Care Team ([facility] st Contact Info) Description 10/05/2024 [facility] [place] [facility] [address] [place] [address] Moustapha Peters MD [address] [place] [address] Thoracic back pain, unspecified back pain laterality, [...] Primary documented in this encounter Care Teams Alley Tender Relationship Specialty Start Date End Date Marco A Castañeda MD [address] [place] [address] PCP - General 11/01/20 documented as of this encounter
--- OUTSIDE RECORDS SUMMARY | 2025-06-01 08:13 | XMS_ITS | Encounter Summary ---
Author Organization Healthcare Address [address] [place] [address] Care Team Providers Care Litigation Partner Name Role Phone Marco A Castañeda MD Primary Care Provider [phone] Encounter Details Date Type Department Care Team (Late st Contact Info) Description 08/16/2024 Orders Only External Location [address] [place] [address] Moustapha Peters MD [address] [place], [place] [id number] Social History Tobacco Use Types Packs/Day Years [...] on filedocumented in this encounter Care Teams Litigation Partner Relationship Specialty Start Date End Date Marco A Castañeda MD [address] [place] [address] PCP - General 11/01/20 documented as of this encounter
--- OUTSIDE RECORDS SUMMARY | 2025-06-01 08:13 | XMS_ITS | Clinical Summary ---
Author Organization [facility] Address [address] [place] [address] Care Team Providers Care Solid Waste Analyst Name Role Phone Marco A Castañeda MD Primary Care Provider [phone] Allergies No known active allergies Medications atorvastatin [...] 09/12/2013 [facility]-Zoster Vaccines (1 of 2) 09/12/2013 [id number] Vaccine (3 - Moderna risk series) 02/01/2021 [...] patient's age to complete this topic [facility] [id number] [facility] Care Teams Solid Waste Analyst Relationship Specialty Start Date End Date Marco A Castañeda MD [address] [place] [address] PCP - General 11/01/20
== END 2025-05-30 23:59 ==
LOC: LAB.DROPOF 06-01 07:52
PROVIDERS: PCP Internal Medicine Adolescent Medicine; Visit Provider Nurse Practitioner
DX: J06.9 Acute upper respiratory infection, unspecified (principal)
CPT/HCPCS: 87631